=== PATIENT | male | born 1955 | race Caucasian/White ===

== ENCOUNTER 2018-01-17 11:04 | Inpatient (IN) | payer MEDICARE, OTHER ==
[2018-01-17] MEDS ORDERED: SODIUM CHLORIDE 0.9% 1,000 ML IV ONE (11:09)
[2018-01-17] MEDS ORDERED: DIPH,PERTUS(ACELL)TETVAC-LF 0.5 ML VIAL IM ONE (11:09)
--- NOTE | 2018-01-17 11:38 | ED ---
General Adult HPI - General Chief complaint: Altered Mental Status Stated complaint: altered Time Seen by Provider: 01/17/18 11:09 Source: patient, RN notes reviewed Mode of arrival: EMS Limitations: no limitations - History of Present Illness Initial comments: Patient is a pleasant 62-year-old male presenting to the emergency Department with change in mental status. Patient was last seen normal last night. Patient was found on the ground this morning with change in mental status. Patient admits he does have a history of seizures. Patient does have an implantable neurostimulator. Patient states he is not taking any medication at this time. Patient denies any alcohol use. Unclear last tetanus immunization. Patient denies any significant injury. Patient has no specific complaints at this time. - Related Data Allergies Allergy/AdvReac Type Severity Reaction Status Date / Time quetiapine [From Seroquel] Allergy Unknown Verified 01/17/18 13:00 Review of Systems ROS Statement: Those systems with pertinent positive or pertinent negative responses have been documented in the HPI. ROS Other: All systems not noted in ROS Statement are negative. Constitutional: Denies: fever Eyes: Denies: eye pain ENT: Denies: ear pain Respiratory: Denies: cough Cardiovascular: Denies: chest pain Endocrine: Denies: fatigue Gastrointestinal: Denies: abdominal pain Genitourinary: Denies: dysuria Musculoskeletal: Denies: back pain Skin: Denies: rash Neurological: Denies: confusion Past Medical History Past Medical History: Seizure Disorder History of Any Multi-Drug Resistant Organisms: None Reported Additional Past Surgical History / Comment(s): brain stimulater Past Psychological History: No Psychological Hx Reported Smoking Status: Current every day smoker Past Alcohol Use History: None Reported, Abuse, Daily Past Drug Use History: None Reported General Exam Limitations: no limitations General appearance: other (Drowsy but arousable to voice) Head exam: Present: other (Forehead abrasion) Eye exam: Present: normal appearance, PERRL, EOMI, nystagmus ENT exam: Present: normal oropharynx Neck exam: Present: other (C-collar is in place). Absent: tenderness Respiratory exam: Present: normal lung sounds bilaterally Cardiovascular Exam: Present: regular rate, normal rhythm GI/Abdominal exam: Present: soft. Absent: tenderness Extremities exam: Present: normal inspection. Absent: pedal edema, calf tenderness Neurological exam: Present: CN II-XII intact, other (Patient is drowsy but easily arousable to voice). Absent: motor sensory deficit Expanded Neurological exam: Present: protecting the airway Patient oriented to: Present: person, time. Absent: place (Patient knows he is in the hospital however states a different hospital) Cranial nerves: EOM's Intact: Normal, Facial Sensation: Normal Sensory exam: Upper Extremity Light Touch: Normal, Lower Extremity Light Touch: Normal Motor strength exam: RUE: 5, LUE: 5, RLE: 4, LLE: 4 Eye Response: (4) open spontaneously Motor Response: (6) obeys commands Verbal Response: (4) confused conversation Psychiatric exam: Present: normal affect, normal mood Skin exam: Present: normal color Course Vital Signs 01/17/18 01/17/18 01/17/18 11:06 11:55 12:36 Temperature 97.6 F Pulse Rate 81 78 Respiratory 18 22 18 Rate Blood Pressure 70/48 71/46 70/40 O2 Sat by Pulse 95 94 L Oximetry 01/17/18 13:01 Temperature Pulse Rate 78 Respiratory 18 Rate Blood Pressure 78/48 O2 Sat by Pulse 94 L Oximetry - Reevaluation(s) Reevaluation #1: 01/17/18 13:03 Patient reevaluated and unchanged. Patient remains hypotensive after 1 L of normal saline. Case was discussed in detail with Dr. Rollins, who will admit. 01/17/18 13:16 Case also discussed with Dr. Ramirez, who will consult. EKG Findings - EKG Comments: EKG Findings:: Sinus rhythm at 81. QRS 74. QT 336. QTc 390. Normal axis. Artifact is present from the stimulator. Normal QRS. No acute ST change. Procedures - Central Line Placement Right Femoral Consent Obtained: verbal consent, written consent, emergent situation Time Out Performed: Yes Patient Placed on Monitor/Pulse Ox: Yes MD Prep: mask, gown, gloves Central Line Prep: Povidone-Iodine 1% Local Anesthesia Used: Lidocaine 1% Amount of Anesthesia Used (mls): 2 Ultrasound Used for Placement: No Central Line Lumen Inserted: triple Bloods Obtained for Lab: No Central Line Position: good blood return, all ports aspirated, flushed, capped, sutured in place with 3-0 nylon Dressing Applied: Tegaderm Patient Tolerated Procedure: well Complications: none Medical Decision Making - Lab Data Result diagrams: 01/17/18 11:29 01/17/18 11:25 Lab Results 01/17/18 01/17/18 01/17/18 Range/Units 11:25 11:25 11:29 WBC 9.6 (3.8-10.6) k/uL RBC 4.05 L (4.30-5.90) m/uL Hgb 12.9 L (13.0-17.5) gm/dL Hct 38.4 L (39.0-53.0) % MCV 94.8 (80.0-100.0) fL MCH 31.8 (25.0-35.0) pg MCHC 33.5 (31.0-37.0) g/dL RDW 12.9 (11.5-15.5) % Plt Count 161 (150-450) k/uL Neutrophils % 89 % Lymphocytes % 5 % Monocytes % 4 % Eosinophils % 1 % Basophils % 0 % Neutrophils # 8.5 H (1.3-7.7) k/uL Lymphocytes # 0.5 L (1.0-4.8) k/uL Monocytes # 0.4 (0-1.0) k/uL Eosinophils # 0.1 (0-0.7) k/uL Basophils # 0.0 (0-0.2) k/uL PT (9.0-12.0) sec INR (<1.2) APTT (22.0-30.0) sec Sodium 136 L (137-145) mmol/L Potassium 6.1 H (3.5-5.1) mmol/L Chloride 108 H (98-107) mmol/L Carbon Dioxide 13 L (22-30) mmol/L Anion Gap 15 mmol/L BUN 75 H (9-20) mg/dL Creatinine 4.68 H (0.66-1.25) mg/dL Est GFR (CKD-EPI)AfAm 14 (>60 ml/min/1.73 sqM) Est GFR (CKD-EPI)NonAf 12 (>60 ml/min/1.73 sqM) Glucose 101 H (74-99) mg/dL Calcium 7.9 L (8.4-10.2) mg/dL Total Bilirubin 0.5 (0.2-1.3) mg/dL AST 222 H (17-59) U/L ALT 53 (21-72) U/L Alkaline Phosphatase 68 (38-126) U/L Total Creatine Kinase 79595 H (55-170) U/L CK-MB (CK-2) 64.2 H* (0.0-2.4) ng/mL CK-MB (CK-2) Rel Index Troponin I <0.012 (0.000-0.034) ng/mL Total Protein 6.7 (6.3-8.2) g/dL Albumin 3.8 (3.5-5.0) g/dL Salicylates <1.0 mg/dL Acetaminophen <10.0 ug/mL Serum Alcohol <10 mg/dL 01/17/18 Range/Units 11:29 WBC (3.8-10.6) k/uL RBC (4.30-5.90) m/uL Hgb (13.0-17.5) gm/dL Hct (39.0-53.0) % MCV (80.0-100.0) fL MCH (25.0-35.0) pg MCHC (31.0-37.0) g/dL RDW (11.5-15.5) % Plt Count (150-450) k/uL Neutrophils % % Lymphocytes % % Monocytes % % Eosinophils % % Basophils % % Neutrophils # (1.3-7.7) k/uL Lymphocytes # (1.0-4.8) k/uL Monocytes # (0-1.0) k/uL Eosinophils # (0-0.7) k/uL Basophils # (0-0.2) k/uL PT 10.8 (9.0-12.0) sec INR 1.1 (<1.2) APTT 22.6 (22.0-30.0) sec Sodium (137-145) mmol/L Potassium (3.5-5.1) mmol/L Chloride (98-107) mmol/L Carbon Dioxide (22-30) mmol/L Anion Gap mmol/L BUN (9-20) mg/dL Creatinine (0.66-1.25) mg/dL Est GFR (CKD-EPI)AfAm (>60 ml/min/1.73 sqM) Est GFR (CKD-EPI)NonAf (>60 ml/min/1.73 sqM) Glucose (74-99) mg/dL Calcium (8.4-10.2) mg/dL Total Bilirubin (0.2-1.3) mg/dL AST (17-59) U/L ALT (21-72) U/L Alkaline Phosphatase (38-126) U/L Total Creatine Kinase (55-170) U/L CK-MB (CK-2) (0.0-2.4) ng/mL CK-MB (CK-2) Rel Index Troponin I (0.000-0.034) ng/mL Total Protein (6.3-8.2) g/dL Albumin (3.5-5.0) g/dL Salicylates mg/dL Acetaminophen ug/mL Serum Alcohol mg/dL - Radiology Data Radiology results: report reviewed ( of the cervical spine shows no fracture. Mild spondylitic changes.), image reviewed (Chest x-ray shows patchy right basilar atelectasis vs. infiltrate.) Critical Care Time Critical Care Time: Yes Total Critical Care Time: 43 Disposition Clinical Impression: Altered mental status, Rhabdomyolysis Disposition: ADMITTED IP TO THIS [facility] Condition: Critical Is patient prescribed a controlled substance at d/c from ED?: No Referrals: None,Stated [Primary Care Provider] - 1-2 days Decision Time: 13:04
[2018-01-17 11:41] LABS: Basophils % (A) 0 %; Eosinophils # (A) 0.1 k/uL (0-0.7); Eosinophils % (A) 1 %; HCT 38.4 % (39.0-53.0); HGB 12.9 gm/dL (13.0-17.5); Lymphocytes # (A) 0.5 k/uL (1.0-4.8); Lymphocytes % (A) 5 %; MCH 31.8 pg (25.0-35.0); MCHC 33.5 g/dL (31.0-37.0); MCV 94.8 fL (80.0-100.0); Mean Platelet Volume 8.8; Monocytes # (A) 0.4 k/uL (0-1.0); Monocytes % (A) 4 %; Neutrophils # (A) 8.5 k/uL (1.3-7.7); Neutrophils % (A) 89 %; Platelet Count 161 k/uL (150-450); RBC 4.05 m/uL (4.30-5.90); RDW 12.9 % (11.5-15.5); WBC 9.6 k/uL (3.8-10.6)
[2018-01-17 11:49] LABS: INR 1.1 (<1.2); Partial Thromboplastin Time 22.6 sec (22.0-30.0); Prothrombin Time 10.8 sec (9.0-12.0)
--- NOTE | 2018-01-17 11:49 | XR ---
EXAMINATION TYPE: XR chest 1V portable DATE OF EXAM: 01/17/2018 Comparison: None Clinical History: 62-year-old male confusion, altered mental status Findings: Degenerative devices projecting over the bilateral upper hemithoraces. Heart upper limits of normal i n size. Diffuse interstitial opacities with patchy medial right basilar density. No significant pleur al effusion. Impression: Patchy medial right basilar atelectasis or infiltrate. Correlate with patient's symptoms.
[2018-01-17 11:50] LABS: ALT 53 U/L (21-72); AST 222 U/L (17-59); Acetaminophen <10.0 ug/mL; Albumin 3.8 g/dL (3.5-5.0); Alcohol <10 mg/dL; Alkaline Phosphatase 68 U/L (38-126); Anion Gap 15 mmol/L; Blood Urea Nitrogen 75 mg/dL (9-20); Calcium 7.9 mg/dL (8.4-10.2); Carbon Dioxide 13 mmol/L (22-30); Chloride 108 mmol/L (98-107); Glucose 101 mg/dL (74-99); Potassium 6.1 mmol/L (3.5-5.1); Salicylate <1.0 mg/dL; Sodium 136 mmol/L (137-145); Total Bilirubin 0.5 mg/dL (0.2-1.3); Total Protein 6.7 g/dL (6.3-8.2)
[2018-01-17] MEDS ORDERED: SODIUM CHLORIDE 0.9% 1,000 ML IV STA ×3 (12:00→13:04)
[2018-01-17 12:26] LABS: Troponin I <0.012 ng/mL (0.000-0.034)
[2018-01-17] MEDS ORDERED: SODIUM BICARB 8.4% 50 ML SYR (1 MEQ/ML) IV ONE (12:35)
--- NOTE | 2018-01-17 12:45 | CT ---
EXAMINATION TYPE: CT brain sully huggins DATE OF EXAM: 01/17/2018 COMPARISON: None HISTORY: Fall today CT DLP: 2774.3 mGycm Automated exposure control for dose reduction was used. TECHNIQUE: CT scan of the head and cervical spine are performed without contrast. FINDINGS: Ventricles of normal size. There is no mass effect nor midline shift. There is no sign of intracranial hemorrhage. There are metal implanted electrodes in the left and right thalamus. The ca lvarium is intact. There is mild right frontal scalp soft tissue swelling. Cervical vertebra have normal alignment. There is hypertrophic mild facet arthropathy in the mid cerv ical spine. There is spurring at C4-5 C5-6 anteriorly. The skull base is intact. IMPRESSION: Mild spondylotic changes in the cervical spine. No fracture. Right frontal scalp soft tissue swelling. No acute intracranial abnormality.
[2018-01-17 12:49] LABS: Creatine Kinase 15399 U/L (55-170); Creatine Kinase MB 64.2 ng/mL (0.0-2.4)
[2018-01-17] MEDS ORDERED: NALOXONE 0.4 MG/ML 1 ML VIAL IV PRN (13:17)
[2018-01-17] MEDS ORDERED: LEVOFLOXACIN 750MG-D5W PMX 750 MG in DEXTROSE/WATER 1 150ML.BAG IVPB STA (13:22)
[2018-01-17] MEDS ORDERED: LEVOFLOXACIN 750MG-D5W PMX 750 MG in DEXTROSE/WATER 1 150ML.BAG IVPB SCH (13:30)
[2018-01-17] MEDS ORDERED: SODIUM CHLORIDE 0.9% 1,000 ML IV SCH (13:30)
[2018-01-17] MEDS ORDERED: NOREPINEPHRINE 16 MG in SODIUM CHLORIDE 0.9% 250 ML IV SCH (13:45)
[2018-01-17 14:31] LABS: Appearance,Urine Cloudy (Clear); Bilirubin,Urine Negative (Negative); Blood,Urine Large (Negative); Budding Yeast,Urine Occasional /hpf; Color,Urine Yellow; Glucose,Urine (UA) Negative (Negative); Hyaline Casts,Urine 4 /lpf (0-2); Ketones,Urine Negative (Negative); Leukocyte Esterase,Urine Negative (Negative); Mucus,Urine Rare /hpf; Nitrite,Urine Negative (Negative); PH, Urine 5.5 (5.0-8.0); Protein,Urine 1+ (Negative); RBC,Urine 34 /hpf (0-5); Specific Gravity,Urine 1.012 (1.001-1.035); Squamous Epithelial Cell,Urine <1 /hpf (0-4); Urobilinogen,Urine <2.0 mg/dL (<2.0); WBC,Urine 6 /hpf (0-5)
[2018-01-17 14:40] LABS: Amphetamine Screen,Urine Not Detected (NotDetected); Barbiturate Screen,Urine Not Detected (NotDetected); Benzodiazepines Screen,Urine Detected (NotDetected); Cocaine Screen,Urine Not Detected (NotDetected); Methadone Screen, Urine Not Detected (NotDetected); Opiate Screen,Urine Detected (NotDetected); Oxycodone Screen, Urine Not Detected (NotDetected); Phencyclidine Screen,Urine Not Detected (NotDetected); Tricyclic Antidepressant,Urine Detected (NotDetected); Urn Cannabinoid Scrn Not Detected (NotDetected)
[2018-01-17 16:13] LABS: Glucose,Whole Blood 147 mg/dL (75-99)
[2018-01-17 18:08] LABS: Calcium 6.5 mg/dL (8.4-10.2)
[2018-01-17] MEDS ORDERED: DEXTROSE 50%-WATER 50 ML SYRINGE IVP STA (18:26)
[2018-01-17] MEDS ORDERED: SODIUM POLYSTYRENE SULFONATE 15 GM/60 ML BOTTLE PO STA (18:26)
[2018-01-17] MEDS: DEXTROSE 5% IN WATER 1,000 ML with SODIUM BICARB (1 MEQ/ML) 150 ML IV SCH (18:49)
[2018-01-17] MEDS ORDERED: INSULIN REGULAR 100 UNIT/ML VIAL IV ONE (19:00)
[2018-01-17] MEDS ORDERED: CALCIUM GLUCONATE 2,000 MG in SODIUM CHLORIDE 0.9% 100 ML IVPB ONE (19:00)
[2018-01-17] MEDS ORDERED: ALBUTEROL NEBULIZED (CONC) 20 MG, SODIUM CHLORIDE 0.9% NEBULIZ 3 ML INHALATION ONE ×2 (19:16)
--- NOTE | 2018-01-17 20:35 | P.CNNES ---
History of Present Illness Consult date: 01/17/18 Reason for Consult: Patient admitted with altered mental status and slurred speech. History of Present Illness: This patient is a 62-year-old right-handed white male who was brought into the emergency room at [facility] for evaluation of altered mental status and confusion. Patient was brought in to the emergency room and was evaluated by Dr. Reyes. According to the patient he was not feeling well the night before and she was found on the ground early this morning with change in mental status by his friend. Patient states that he recently was from his is in the process of applying for divorce and was for 48 years. He has been under a great deal of stress and apparently had an episode in which she collapsed and was found unresponsive at home by his friend. He is living with his friend currently as he has left his . The friend found him today and decided to bring him to the emergency room for further evaluation. He was seen in the ER by Dr. Reyes. He was sent for a computed tomography scan of the brain which revealed no acute intracranial abnormality. There was right frontal scalp soft tissue swelling noted as well as abrasion on his forehead. There was no evidence of any cervical changes as there was mild spondylitic changes in the cervical spine with no evidence of cervical spine fracture. His x-ray of the chest was performed in the ER and revealed a questionable infiltrate. He did have significant findings in the ER for dehydration and rhabdomyolysis. Patient states he has a history of underlying seizure disorder which was treated by placement of a deep brain stimulator in November 2015 at [facility]. His primary neurologist is Dr. Taylor with whom he follows on a regular basis outpatient. Patient states he has this deep brain stimulator to help with management of his seizures. He is not very clear on the details of this need deep brain stimulator as to whether he also uses it for treatment of tremors. Patient states that he has not had seizures since November 2015 following the implantation of this neurostimulator. According to the patient his neurostimulator is MRI compatible and we will need to check with [email or web address]) to see if this is the case. The patient states that he was noticing difficulty with slurred speech most of yesterday and today. He still feels his speech is slurred. We have recommended the patient to undergo MRI of the brain for further evaluation for acute stroke provided that his neurostimulator is MRI compatible. We have informed the ICU nurse to contact [employer] as well as his previous physicians to see if information can be gleaned as to whether his neurostimulator is MRI compatible. This would be the best test for further evaluation. As noted routine CAT scan of the brain failed to reveal any evidence of acute findings. In the emergency room the patient was noted to have evidence of acute renal failure with a serum creatinine of 4.68. Repeat testing today in the ICU reveals a creatinine to have come down slightly to 3.8. He was also noted to have hyperkalemia and will be treated for this condition as well by nephrology. Apparently he has been falling quite frequently over the past several days at home. His total creatinine kinase on admission was 15,399. CK-MB was very elevated at 64.2. He does have evidence of renal failure and wear waiting further recommendations from nephrology. The patient states clearly his speech is slurred today in the ICU. He attributes a lot of his current findings and symptoms due to extreme stress from his divorce that is ongoing. He is currently living with his friend at home. According to the patient he is not on any anticonvulsant medications. We did review his records and he is currently not taking any specific anticonvulsant medications. According to the patient he remains seizure-free with the use of his neurostimulator. We did review the results of the CAT scan of the brain and cervical spine today with the patient. He denies any previous history of TIA or stroke. He is being treated for his rhabdomyolysis and severe hypotension by critical care medicine and nephrology. Patient denies any headache or focal weakness at this time. In the intensive care unit today however he does demonstrate evidence for slight degree of dysarthria with slurring of his words. He also has a mild right-sided facial droop. His questionable right pronator drift as well. We have recommended the patient undergo a complete stroke evaluation. Once again we would recommend MRI of the brain provided his neurotransmitter is MRI compatible. This will need to be verified from the company that manufactures this deep brain stimulator which is [email or web address] We have relayed this information to his ICU nurse Ginger who will contact the appropriate authorities tomorrow morning. We will put in for an MRI of the brain and will await their final decision. We will also obtain carotid Doppler ultrasound and EEG for further assessment of stroke. His overall prognosis at this time remains very guarded. Review of Systems Constitutional: Denies chills, Denies fever Eyes: denies blurred vision, denies pain Ears, nose, mouth and throat: Denies headache, Denies sore throat Cardiovascular: Denies chest pain, Denies shortness of breath Respiratory: Denies cough Gastrointestinal: Denies abdominal pain, Denies diarrhea, Denies nausea, Denies vomiting Musculoskeletal: Denies myalgias Integumentary: Denies pruritus, Denies rash Neurological: Reports aphasia, Reports change in mentation, Reports confusion, Reports headaches, Reports motor disturbance, Reports paresthesias, Reports tremors, Denies numbness, Denies weakness Psychiatric: Denies anxiety, Denies depression Endocrine: Denies fatigue, Denies weight change Past Medical History Past Medical History: Seizure Disorder History of Any Multi-Drug Resistant Organisms: None Reported Additional Past Surgical History / Comment(s): brain stimulater Smoking Status: Current every day smoker - Past Family History Father Family Medical History: Coronary Artery Disease (CAD), Diabetes Mellitus Sister(s) Family Medical History: Diabetes Mellitus Mother Family Medical History: Dementia Medications and Allergies Home Medications Medication Instructions Recorded Confirmed Type Albuterol Sulfate [Proair Hfa] 1 - 2 puff INHALATION RT-QID PRN 01/17/18 History Atorvastatin Calcium [Lipitor] 10 mg PO DAILY 01/17/18 01/17/18 History Cyclobenzaprine [Flexeril] 10 mg PO TID PRN 01/17/18 01/17/18 History Diazepam [Valium] 10 mg PO DAILY 01/17/18 01/17/18 History Gabapentin [Neurontin] 300 mg PO TID 01/17/18 01/17/18 History HYDROcodone/APAP 5-325MG [[place] 1 - 2 tab PO Q4-6H PRN 01/17/18 01/17/18 History 5-325] Lisinopril [Prinivil] 5 mg PO DAILY 01/17/18 01/17/18 History Nadolol [Corgard] 80 mg PO DAILY 01/17/18 01/17/18 History Omeprazole 20 mg PO DAILY 01/17/18 01/17/18 History Penicillin V Potassium [Pen Vee K] 500 mg PO QID 01/17/18 01/17/18 History Prazosin HCl 2 mg PO HS 01/17/18 01/17/18 History Tamsulosin HCl [Flomax] 0.4 mg PO DAILY 01/17/18 01/17/18 History Vortioxetine Hydrobromide 20 mg PO DAILY 01/17/18 01/17/18 History [Trintellix] amLODIPine [Norvasc] 5 mg PO DAILY 01/17/18 01/17/18 History hydrOXYzine HCL [Atarax] 10 mg PO TID 01/17/18 01/17/18 History metFORMIN HCL [Glucophage] 1,000 mg PO BID 01/17/18 01/17/18 History predniSONE See Taper PO DAILY 01/17/18 01/17/18 History Allergies Allergy/AdvReac Type Severity Reaction Status Date / Time quetiapine [From Seroquel] Allergy Diarrhea Verified 01/17/18 18:05 Physical Examination - Vital Signs Vital Signs: Vital Signs Temp Pulse Resp BP Pulse Ox 01/17/18 18:00 75 16 107/68 99 01/17/18 17:40 67 18 98/65 98 01/17/18 17:20 71 27 H 102/68 98 01/17/18 17:00 69 26 H 103/63 98 01/17/18 16:40 69 13 97/70 99 01/17/18 16:28 97.5 F L 68 14 91/69 97 01/17/18 16:20 97.5 F L 68 26 H 91/69 97 01/17/18 16:11 74 24 01/17/18 15:42 18 99/59 94 L 01/17/18 15:02 75 18 89/54 98 01/17/18 14:00 76 20 85/51 95 01/17/18 13:01 78 18 78/48 94 L 01/17/18 12:36 78 18 70/40 94 L 01/17/18 11:55 22 71/46 01/17/18 11:06 97.6 F 81 18 70/48 95 Intake and Output 01/17/18 01/17/18 01/17/18 06:59 14:59 22:59 Intake Total 3367.087 Output Total 1100 Balance 2267.087 Intake: IV 150 Sodium Chloride 0.9% 1, 150 000 ml @ 150 mls/hr IV . Q6H40M ONE Rx#:[id number] Amount of Fluid Infused ( 3200 ml) Intake, IV Titration 17.087 Amount Norepinephrine 16 mg In 17.087 Sodium Chloride 0.9% 250 ml @ Titrate IV .Q0M [facility] Rx#:[id number] Output: Urine 1100 Other: Weight 89.358 kg 89.358 kg - Constitutional General appearance: average body habitus, cooperative - EENT EENT: PERRL, mucous membranes moist - Respiratory Respiratory: lungs clear, normal breath sounds - Cardiovascular Cardiovascular: regular rate, normal S1, normal S2 Extremities: no peripheral edema bilaterally - Gastrointestinal Gastrointestinal: normoactive bowel sounds - Integumentary Integumentary: normal - Neurologic Cranial nerve examination: PERRL, EOMI, VFF, V1/V2/V3 grossly intact, tongue midline, intact gag reflex, intact corneal reflex, facial droop (Patient has a slight right upper motor neuron facial weakness pattern.), normal palatal elevation Speech examination: intact Sensorimotor examination: intact Motor examination - right side: 3/5: biceps, triceps, mcat instructor, 4/5: wrist flexion, wrist extension, hip flexors, knee extensors, dorsiflexion, toe extension (EHL) , plantarflexion Motor examination - left side: 4/5: biceps, triceps, wrist flexion, wrist extension, mcat instructor, hip flexors, knee extensors, dorsiflexion, toe extension (EHL) , plantarflexion Detailed sensory examination: intact Reflex and gait examination: intact Reflexes: 1+: ankle, bicep, knee, tricep - Musculoskeletal Musculoskeletal: no pain - Psychiatric Psychiatric: mood/affect appropriate, cooperative Results - Laboratory Findings CBC and BMP: 01/17/18 11:29 01/17/18 17:35 Abnormal Lab Findings: Abnormal Labs 01/17/18 01/17/18 01/17/18 11:25 11:25 11:29 RBC 4.05 L Hgb 12.9 L Hct 38.4 L Neutrophils # 8.5 H Lymphocytes # 0.5 L Sodium 136 L Potassium 6.1 H Chloride 108 H Carbon Dioxide 13 L BUN 75 H Creatinine 4.68 H Glucose 101 H POC Glucose (mg/dL) Calcium 7.9 L AST 222 H Total Creatine Kinase 13250 H CK-MB (CK-2) 64.2 H* Urine Protein Urine Blood Urine RBC Urine WBC Hyaline Casts Urine Mucus Urine Yeast (Budding) Urine Opiates Screen U Tricyclic Antidepress U Benzodiazepines Scrn 01/17/18 01/17/18 01/17/18 14:00 16:10 17:35 RBC Hgb Hct Neutrophils # Lymphocytes # Sodium Potassium 6.0 H Chloride 112 H Carbon Dioxide 16 L BUN 73 H Creatinine 3.80 H Glucose 146 H POC Glucose (mg/dL) 147 H Calcium 6.5 L* AST Total Creatine Kinase CK-MB (CK-2) Urine Protein 1+ H Urine Blood Large H Urine RBC 34 H Urine WBC 6 H Hyaline Casts 4 H Urine Mucus Rare H Urine Yeast (Budding) Occasional H Urine Opiates Screen Detected H U Tricyclic Antidepress Detected H U Benzodiazepines Scrn Detected H Assessment and Plan (1) Left acute arterial ischemic stroke, MCA (middle cerebral artery) Current Visit: Yes Status: Acute Code(s): I63.512 - CEREB INFRC D/T UNSP OCCLS OR STENOS OF LEFT MID CEREB ART SNOMED Code(s): 595845535 (2) Metabolic encephalopathy Current Visit: Yes Status: Acute Code(s): G93.41 - METABOLIC ENCEPHALOPATHY SNOMED Code(s): 71109786 (3) Acute kidney injury Current Visit: Yes Status: Acute Code(s): N17.9 - ACUTE KIDNEY FAILURE, UNSPECIFIED SNOMED Code(s): 54921954 (4) Rhabdomyolysis Current Visit: Yes Status: Acute Code(s): M62.82 - RHABDOMYOLYSIS SNOMED Code(s): 819338479 Plan: This patient is a 62-year-old right-handed white male was brought into the emergency room admit clear at [facility] today for evaluation of altered mental status and history of seizures and fallen at home. Patient has a history of a deep brain stimulator placement that was done in November 2015 and [facility]. Apparently since November 2015 he has remained seizure-free. He has recently been involved in divorce hearing and is under a great deal of stress which may have contributed to his fall at home recently. He was brought into the emergency room and underwent a computed tomography scan of the brain results of which are noted above. CAT scan of the brain failed to reveal any acute changes. We have recommended an MRI of the brain provided his deep brain stimulator is MRI compatible. The patient should undergo a complete stroke evaluation. His neurological exam findings indicate evidence for mild expressive aphasia as well as right-sided facial droop and mild weakness. These findings suggest possibility of acute left MCA stroke. We have recommended a complete stroke evaluation for the patient. His deep brain stimulator for treatment of his seizure disorder remains functional. He should follow-up with this regular neurologist once he is discharged from hospital for further management. According to the patient he has been having slurred speech for several weeks at home. Due to his multiple falls he did seek further medical attention. He is being evaluated for acute kidney injury as well due to severe rhabdomyolysis. We will continue close neurological follow-up for this patient during this admission. His overall prognosis at this time remains very guarded. We will continue close neurological follow-up with this patient in the intensive care unit. Time with Patient: Greater than 30
[2018-01-17 20:43] LABS: Calcium 7.1 mg/dL (8.4-10.2); Potassium 4.8 mmol/L (3.5-5.1)
[2018-01-18] MEDS: DEXTROSE 5% IN WATER 1,000 ML with SODIUM BICARB (1 MEQ/ML) 150 ML IV SCH ×2 (02:20→10:46)
[2018-01-18 05:50] LABS: Basophils % (A) 0 %; Eosinophils # (A) 0.1 k/uL (0-0.7); Eosinophils % (A) 2 %; HCT 31.4 % (39.0-53.0); HGB 10.7 gm/dL (13.0-17.5); Lymphocytes # (A) 0.5 k/uL (1.0-4.8); Lymphocytes % (A) 10 %; MCH 31.6 pg (25.0-35.0); MCHC 33.9 g/dL (31.0-37.0); MCV 93.3 fL (80.0-100.0); Mean Platelet Volume 7.9; Monocytes # (A) 0.2 k/uL (0-1.0); Monocytes % (A) 4 %; Neutrophils # (A) 4.3 k/uL (1.3-7.7); Neutrophils % (A) 82 %; Platelet Count 123 k/uL (150-450); RBC 3.37 m/uL (4.30-5.90); RDW 13.1 % (11.5-15.5); WBC 5.3 k/uL (3.8-10.6)
[2018-01-18 06:12] LABS: Cholesterol 96 mg/dL (<200); HDL Cholesterol 25 mg/dL (40-60); LDL Cholesterol,Calculated 35 mg/dL (0-99); Triglycerides 178 mg/dL (<150)
[2018-01-18 06:13] LABS: Albumin 2.7 g/dL (3.5-5.0); Calcium 7.1 mg/dL (8.4-10.2); Phosphorus 4.2 mg/dL (2.5-4.5); Potassium 4.4 mmol/L (3.5-5.1); Total Bilirubin 0.3 mg/dL (0.2-1.3); Total Protein 5.1 g/dL (6.3-8.2)
[2018-01-18 06:30] LABS: Magnesium 0.6 mg/dL (1.6-2.3)
[2018-01-18] MEDS ORDERED: Magnesium Replacement Protocol 1 EACH MISC MISCELLANE PRN (06:30)
[2018-01-18] MEDS: MAGNESIUM SULFATE-D5W PMX 1 GM in DEXTROSE/WATER 1 100ML.BAG IVPB SCH ×4 (06:38→10:45)
--- NOTE | 2018-01-18 07:53 | HP ---
HISTORY AND PHYSICAL CHIEF COMPLAINT: Syncopal episode and rhabdomyolysis. HISTORY OF PRESENT ILLNESS: This is the first known admission for this 62-year-old white male. There are few known details. He apparently was found outside where he may have been down over night. He presented to the emergency room for rhabdomyolysis. He probably has a seizure disorder and has implantable electronic devices on both sides of the chest, which are thought to be for management of seizures. The patient is lethargic and cannot give any other history. There are some papers that have been received from Re[facility] Bateman from 2017 that indicate that he has a history of parkinsonism and significant psychosocial issues. There may be a history of an aneurysm, but it is not known where it was. He has benign prostatic hypertrophy, COPD, history of coronary artery disease, depression, type 2 diabetes, hyperlipidemia and hypertension. Past medical history, family history, personal and social histories are all otherwise unknown. His records indicate that he may be allergic to SEROQUEL. The emergency room report indicates that he has been on albuterol, amlodipine, Lipitor, Flexeril, Valium, glipizide, Atarax, lisinopril, metformin, Nadolol, prazosin, penicillin, Prilosec, prednisone, tamsulosin and Trintellix. Laboratory studies indicated a potassium 6.1 and AST 222. BUN is 75 with a creatinine of 4.6. Blood sugar was 101. PHYSICAL EXAMINATION: Blood pressure 70/40 with a pulse of 78 and regular, respirations of 36 and he is afebrile. GENERAL: He appeared to be well developed, well nourished, in no acute distress but he was lethargic. Head, ears, eyes, nose, mouth and throat demonstrated abrasion on the right forehead. His pupils equal, round and reactive. Gaze is conjugate. Ears are clear. Nose, mouth and throat were normal. Carotids normal. Neck veins are not distended. Chest is clear. Breath sounds are heard on both sides. Cardiac exam demonstrated what sounded like sinus rhythm and no murmurs or extra sounds. Abdomen is soft, nontender without visceromegaly or masses. Bowel sounds are present. Extremities are normal. Neurologically, he is lethargic, but he seemed to be intact from the sensory motor point of view. He was admitted to the hospital with diagnoses: 1. Syncope and mental status changes with rhabdomyolysis. 2. History of seizure disorder. 3. History of hypertension. 4. History of type 2 diabetes mellitus. PLAN: 1. Bed rest. 2. IV fluids. 3. Monitor renal function. 4. Consult with media professional and he will be placed in ICU. MARQUIS / LUCILLE: [id number] /
--- NOTE | 2018-01-18 08:07 | XR ---
EXAMINATION TYPE: XR chest 1V DATE OF EXAM: 01/18/2018 COMPARISON: 01/17/2018 HISTORY: Altered mental status TECHNIQUE: Single frontal view of the chest is obtained. FINDINGS: Devices projecting over the bilateral upper hemithoraces. Heart upper limits of normal in size. Diffuse interstitial opacities with patchy medial right basilar density. No significant pleural effusion. IMPRESSION: 1. Persistent prominence to the interstitium right basilar subsegmental atelectasis favored over infi ltrate. Correlate for interstitial pneumonitis or mild venous congestion.
--- NOTE | 2018-01-18 08:31 | P.CNPUL ---
History of Present Illness Consult date: 01/18/18 Requesting physician: Carloz Rollins Reason for consult: other Chief complaint: Altered mental status, falls, rhabdomyolysis acute kidney injury History of present illness: This is a 62-year-old white male patient follows with Dr.Peter Ram from [facility] for primary care services, who presented to the emergency department per EMS on 01/17/2018 evaluation of altered mental status, recurrent falls. Patient is living with his friend, currently going through separation from his , and he stated his friend was concerned about patient's falls for last 3 days and called EMS. Patient had a root canal procedure, and his dentist started him on [place], sometime last week, and patient had noticed being more sedated. Patient denies any visual changes, denies any numbness or tingling, denies any lateralized weakness. He states his slurred speech is his baseline. Denies any visual changes. He still feels lightheaded this morning. He denies having any chest pain or palpitations or shortness of breath prior to his falls, denies losing consciousness. He did feel lightheaded before falling. Patient denies history of seizures, patient has an implantable neurostimulator for his history of central brain tremors that [place] [address] Vera. Denies any history of atrial fibrillation or any other arrhythmias, no prior strokes. Past medical history is positive for hypertension, diabetes mellitus, coronary artery disease with prior angioplasty. He follows with a social services specialist out of [facility]. Denies history of EtOH use of the past 5 years, patient is a smoker, 1-1/2 packs per day for [address] and cervical neck did not show any sign of intracranial hemorrhage, no mass affect normal midline shift. Metal implanted electrodes in the left and right thalamus were noted. Was mild right frontal scalp soft tissue swelling. There was mild spondylotic changes in the cervical spine, no fractures. EKG showed accelerated junctional rhythm with a rate of 81 BPM, with nonspecific ST abnormality. Initial chest x-ray showed patchy medial right basilar atelectasis or infiltrate. Patient denied any fever or chills, denied any shortness of breath, no cough. Patient was hypotensive on presentation her blood pressure 70/48, he was given 2 L of normal saline. Subsequent started on D5W with 3 A of sodium bicarb at a rate of 150 ML per hour. Levofed was started and subsequently weaned off. Lab work was negative for any evidence of leukocytosis, WBC is 9.6, hemoglobin is 12.9, sodium is 139 , potassium is 4.8, chloride was 112, CO2 was 14, BUN 70, creatinine is 3.40, magnesium of 0.6, total CK was 15,399, CK-MB was 64.2, troponin was negative 1 , urinalysis showed 1+ protein, large amount of blood, negative for leukocyte esterase and nitrites, occasional yeast, and mucus. Drug screen detected opiates, tricyclic antidepressants, and benzodiazepines. Serum alcohol level was less than 10, salicylate level was less than 1.0. And acetaminophen level was less than 10. This morning's lab work has been reviewed, CO2 is up to 23, renal profile is showing improvement, BUN is down to 55, creatinine is 2.7. Patient remains off vasopressor support, he is awake alert, denies any acute distress, his speech is slow, and slightly slurred, but patient states is his baseline. Seems a bit sluggish overall. Tolerating oral intake, he is eating his breakfast. Self catheter is in, and draining large amount of clear yellow urine. Review of Systems All systems: negative Constitutional: Denies chills, Denies fever Eyes: denies blurred vision, denies pain Ears, nose, mouth and throat: Denies headache, Denies sore throat Cardiovascular: Denies chest pain, Denies shortness of breath Respiratory: Denies cough Gastrointestinal: Denies abdominal pain, Denies diarrhea, Denies nausea, Denies vomiting Musculoskeletal: Denies myalgias Integumentary: Denies pruritus, Denies rash Neurological: Reports balance difficulties, Reports gait dysfunction, Denies numbness, Denies weakness Psychiatric: Denies anxiety, Denies depression Endocrine: Denies fatigue, Denies weight change Past Medical History Past Medical History: Seizure Disorder Additional Past Medical History / Comment(s): pt has a deep brain stimulator - an implanted neurotransmitter; angioplasty 25 years ago History of Any Multi-Drug Resistant Organisms: None Reported Additional Past Surgical History / Comment(s): brain stimulater Past Anesthesia/Blood Transfusion Reactions: No Reported Reaction Smoking Status: Current every day smoker - Past Family History Father Family Medical History: Coronary Artery Disease (CAD), Diabetes Mellitus Sister(s) Family Medical History: Diabetes Mellitus Mother Family Medical History: Dementia Medications and Allergies Home Medications Medication Instructions Recorded Confirmed Type Albuterol Sulfate [Proair Hfa] 1 - 2 puff INHALATION RT-QID PRN 01/17/18 History Atorvastatin Calcium [Lipitor] 10 mg PO DAILY 01/17/18 01/17/18 History Cyclobenzaprine [Flexeril] 10 mg PO TID PRN 01/17/18 01/17/18 History Diazepam [Valium] 10 mg PO DAILY 01/17/18 01/17/18 History Gabapentin [Neurontin] 300 mg PO TID 01/17/18 01/17/18 History HYDROcodone/APAP 5-325MG [[place] 1 - 2 tab PO Q4-6H PRN 01/17/18 01/17/18 History 5-325] Lisinopril [Prinivil] 5 mg PO DAILY 01/17/18 01/17/18 History Nadolol [Corgard] 80 mg PO DAILY 01/17/18 01/17/18 History Omeprazole 20 mg PO DAILY 01/17/18 01/17/18 History Penicillin V Potassium [Pen Vee K] 500 mg PO QID 01/17/18 01/17/18 History Prazosin HCl 2 mg PO HS 01/17/18 01/17/18 History Tamsulosin HCl [Flomax] 0.4 mg PO DAILY 01/17/18 01/17/18 History Vortioxetine Hydrobromide 20 mg PO DAILY 01/17/18 01/17/18 History [Trintellix] amLODIPine [Norvasc] 5 mg PO DAILY 01/17/18 01/17/18 History hydrOXYzine HCL [Atarax] 10 mg PO TID 01/17/18 01/17/18 History metFORMIN HCL [Glucophage] 1,000 mg PO BID 01/17/18 01/17/18 History predniSONE See Taper PO DAILY 01/17/18 01/17/18 History Allergies Allergy/AdvReac Type Severity Reaction Status Date / Time quetiapine [From Seroquel] Allergy Diarrhea Verified 01/17/18 18:05 Physical Exam Vitals: Vital Signs Temp Pulse Resp BP Pulse Ox 01/18/18 07:00 87 21 111/65 97 01/18/18 06:00 88 23 112/68 95 01/18/18 05:00 88 18 114/64 95 01/18/18 04:00 98.8 F 91 24 113/65 96 01/18/18 03:00 91 21 111/66 96 01/18/18 02:30 90 23 98 18 02:00 90 18 119/68 98 18 01:30 90 20 116/73 97 01/18/18 01:00 87 21 123/70 98 01/18/18 00:30 85 20 116/71 96 01/18/18 00:00 98.3 F 82 20 117/65 97 01/17/18 23:30 81 18 110/68 97 01/17/18 23:00 81 15 114/69 97 01/17/18 22:45 81 20 121/73 96 01/17/18 22:30 82 19 111/68 95 01/17/18 22:15 82 18 112/67 95 01/17/18 22:00 83 16 105/72 97 01/17/18 21:45 82 23 113/69 97 01/17/18 21:30 80 17 116/72 97 01/17/18 21:15 80 12 113/66 97 01/17/18 21:00 80 14 109/69 97 01/17/18 20:30 83 16 111/68 98 01/17/18 20:15 80 18 01/17/18 20:00 98.1 F 84 17 111/64 97 01/17/18 19:57 86 18 01/17/18 19:30 88 19 110/67 99 01/17/18 18:00 75 16 107/68 99 01/17/18 17:40 67 18 98/65 98 01/17/18 17:20 71 27 H 102/68 98 01/17/18 17:00 69 26 H 103/63 98 01/17/18 16:40 69 13 97/70 99 01/17/18 16:28 97.5 F L 68 14 91/69 97 18 16:20 97.5 F L 68 26 H 91/69 97 01/17/18 16:11 74 24 18 15:42 18 99/59 94 L 01/17/18 15:02 75 18 89/54 98 01/17/18 14:00 76 20 85/51 95 01/17/18 13:01 78 18 78/48 94 L 01/17/18 12:36 78 18 70/40 94 L 01/17/18 11:55 22 71/46 01/17/18 11:06 97.6 F 81 18 70/48 95 Intake and Output 01/17/18 01/18/18 01/18/18 22:59 06:59 14:59 Intake Total 4128.552 1350 Output Total 2250 2045 Balance 1878.552 -695 Intake: IV 900 1350 Dextrose 5% in Water 1, 600 1350 000 ml @ 150 mls/hr IV . Q7H40M MARITA with Sodium Bicarb (1 Meq/ml) 150 ml Rx#:[id number] Sodium Chloride 0.9% 1, 300 000 ml @ 150 mls/hr IV . Q6H40M ONE Rx#:[id number] Amount of Fluid Infused ( 3200 ml) Intake, IV Titration 28.552 Amount Norepinephrine 16 mg In 28.552 Sodium Chloride 0.9% 250 ml @ Titrate IV .Q0M MARTIA Rx#:[id number] Output: Urine 2250 2045 Other: Voiding Method Indwelling Catheter Indwelling Catheter Weight 89.358 kg 88.2 kg GENERAL EXAM: Alert, slightly sluggish, 62-year-old white male comfortable in no apparent distress. HEAD: Normocephalic/atraumatic. Large nondraining abrasion on his right forehead EYES: Normal reaction of pupils, equal size. Conjunctiva pink, sclera white. NOSE: Clear with pink turbinates. THROAT: No erythema or exudates. NECK: No masses, no JVD, no thyroid enlargement, no adenopathy. CHEST: No chest wall deformity. Symmetrical expansion. LUNGS: Equal air entry with diffuse crackles bilaterally, and scattered rhonchi. CVS: Regular rate and rhythm, normal S1 and S2, no gallops, no murmurs, no rubs ABDOMEN: Soft, nontender. No hepatosplenomegaly, normal bowel sounds, no guarding or rigidity. EXTREMITIES: No clubbing, no edema, no cyanosis, 2+ pulses and upper and lower extremities. MUSCULOSKELETAL: Muscle strength and tone normal. SPINE: No scoliosis or deformity SKIN: No rashes CENTRAL NERVOUS SYSTEM: Alert and oriented -3. No focal deficits, tone is normal in all 4 extremities. PSYCHIATRIC: Alert and oriented -3. Appropriate affect. Intact judgment and insight. Results - Laboratory Findings CBC and BMP: 01/18/18 05:23 01/18/18 05:23 PT/INR, D-dimer PT 10.8 sec (9.0-12.0) 01/17/18 11:29 INR 1.1 (<1.2) 01/17/18 11:29 Abnormal lab findings: Abnormal Labs 01/17/18 01/17/18 01/17/18 11:25 11:25 11:29 RBC 4.05 L Hgb 12.9 L Hct 38.4 L Plt Count Neutrophils # 8.5 H Lymphocytes # 0.5 L Sodium 136 L Potassium 6.1 H Chloride 108 H Carbon Dioxide 13 L BUN 75 H Creatinine 4.68 H Glucose 101 H POC Glucose (mg/dL) Calcium 7.9 L Magnesium AST 222 H ALT Total Creatine Kinase 97343 H CK-MB (CK-2) 64.2 H* Total Protein Albumin Triglycerides HDL Cholesterol Urine Protein Urine Blood Urine RBC Urine WBC Hyaline Casts Urine Mucus Urine Yeast (Budding) Urine Opiates Screen U Tricyclic Antidepress U Benzodiazepines Scrn 01/17/18 01/17/18 01/17/18 14:00 16:10 17:35 RBC Hgb Hct Plt Count Neutrophils # Lymphocytes # Sodium Potassium 6.0 H Chloride 112 H Carbon Dioxide 16 L BUN 73 H Creatinine 3.80 H Glucose 146 H POC Glucose (mg/dL) 147 H Calcium 6.5 L* Magnesium AST ALT Total Creatine Kinase CK-MB (CK-2) Total Protein Albumin Triglycerides HDL Cholesterol Urine Protein 1+ H Urine Blood Large H Urine RBC 34 H Urine WBC 6 H Hyaline Casts 4 H Urine Mucus Rare H Urine Yeast (Budding) Occasional H Urine Opiates Screen Detected H U Tricyclic Antidepress Detected H U Benzodiazepines Scrn Detected H 01/17/18 01/18/18 01/18/18 20:25 05:23 05:23 RBC Hgb Hct Plt Count Neutrophils # Lymphocytes # Sodium 136 L Potassium Chloride 112 H Carbon Dioxide 14 L BUN 70 H 55 H Creatinine 3.40 H 2.70 H Glucose 148 H 162 H POC Glucose (mg/dL) Calcium 7.1 L 7.1 L Magnesium 0.6 L* AST 282 H ALT 79 H Total Creatine Kinase CK-MB (CK-2) Total Protein 5.1 L Albumin 2.7 L Triglycerides 178 H HDL Cholesterol 25 L Urine Protein Urine Blood Urine RBC Urine WBC Hyaline Casts Urine Mucus Urine Yeast (Budding) Urine Opiates Screen U Tricyclic Antidepress U Benzodiazepines Scrn 01/18/18 05:23 RBC 3.37 L Hgb 10.7 L Hct 31.4 L Plt Count 123 L Neutrophils # Lymphocytes # 0.5 L Sodium Potassium Chloride Carbon Dioxide BUN Creatinine Glucose POC Glucose (mg/dL) Calcium Magnesium AST ALT Total Creatine Kinase CK-MB (CK-2) Total Protein Albumin Triglycerides HDL Cholesterol Urine Protein Urine Blood Urine RBC Urine WBC Hyaline Casts Urine Mucus Urine Yeast (Budding) Urine Opiates Screen U Tricyclic Antidepress U Benzodiazepines Scrn - Diagnostic Findings Chest x-ray: report reviewed, image reviewed Additional studies: EKG, CT brain and cervical spine reviewed Assessment and Plan Plan: Assessment: #1. Altered mentation possibly related to metabolic encephalopathy or a stroke #2. Recurrent falls at home #3. Rhabdomyolysis #4. Acute kidney injury #5. History of central brain tremors, status post neurostimulator implantation #6. Hypertension #7. Diabetes mellitus #8. History of coronary artery disease, status post remote PTCA #9. Anemia #10. Hypomagnesemia #11. History of recent root canal, and patient was initiated on the [place] for pain control #12. Ongoing tobacco dependence, smokes 1-1/2 pack a day for 50 years Plan: Patient is completing his neurologic evaluation to rule out stroke. We'll repeat CPK this morning, serum magnesium will be replaced per protocol, monitor neurological status, continue monitoring electrolytes and renal profile, urine output, hemodynamics. We'll request records from [facility] from patient's treating neurologist and social services specialist. Patient is tolerating oral intake, CO2 is within normal range, patient is hemodynamically more stable. Should be able to discontinue his bicarb drip, will check with the nephrology. Continue to closely follow I performed a history & physical examination of the patient and discussed their management with my nurse practitioner, Esthela Mejía. I reviewed the nurse practitioner's note and agree with the documented findings and plan of care. Lung sounds are positive for diffuse crackles and scattered rhonchi. The findings and the impression was discussed with the patient. I attest to the documentation by the nurse practitioner. Time with Patient: Greater than 30
[2018-01-18] MEDS: ENOXAPARIN 30 MG/0.3 ML SYRINGE SQ SCH (08:47)
[2018-01-18] MEDS: PANTOPRAZOLE 40 MG/10 ML VIAL IV SCH (08:47)
[2018-01-18] MEDS: ACETAMINOPHEN TAB 325 MG TAB PO PRN (11:55)
[2018-01-18 12:04] LABS: Glucose,Whole Blood 300 mg/dL (75-99)
[2018-01-18] MEDS: INSULIN ASPART 100 UNIT/ML 1 ML 10 ML VIAL SQ SCH ×3 (12:19→20:56)
[2018-01-18] MEDS: SODIUM CHLORIDE 0.9% 1,000 ML IV SCH ×2 (12:20→20:56)
[2018-01-18 12:41] LABS: Hemoglobin A1C 6.7 % (4.0-6.0)
[2018-01-18] MEDS ORDERED: ALBUTEROL NEBULIZED 2.5 MG/3 ML INHALATION PRN (14:20)
[2018-01-18 15:50] LABS: Creatine Kinase MB 16.7 ng/mL (0.0-2.4)
--- NOTE | 2018-01-18 16:36 | PN ---
PROGRESS NOTE CHIEF COMPLAINT: Rhabdomyolysis. HISTORY OF PRESENT ILLNESS: This gentleman is slowly improving, but he seems weak and his speech does not seem to be clear or normal. BUN 73, the creatinine is 3.8 and his calcium is 6.5. PHYSICAL EXAM: His chest is fairly clear. The cardiac exam is normal. Abdomen is soft, nontender. IMPRESSION: 1. Rhabdomyolysis. 2. Encephalopathy. 3. Renal failure. 4. Seizure disorder. 5. Hypocalcemia. PLAN: Continue with current program and he will be in the ICU until he is more awake and cognitive function is improved. MMODL / IJN: [id number] /
--- NOTE | 2018-01-18 16:36 | CONS ---
CONSULTATION REASON FOR CONSULTATION: Renal failure. HISTORY OF PRESENT ILLNESS: The patient is a 62-year-old male who was admitted to the hospital after a fall at home. Patient was confused. He had been living with a friend after being from his . Patient had a root canal procedure about a week ago. He denies using any Motrin; however, he was given Mather. The patient states that he was lightheaded, confused, and he fell. CT of the face and head on initial admission did not show any evidence of bleeding. The patient was quite hypotensive when he initially presented to the hospital. He has received 3-4 L of fluid bolus. He denies any prior history of kidney diseases. Serum creatinine was 4.68 on initial admission. It is down to 2.7 now. We do not have any previous labs available for comparison. Patient was also acidotic and CO2 was down to 13. He was maintained on bicarb drip. It is up to 23 now. Currently patient has good urine output. He is maintained on the IV bicarb. At home patient was on lisinopril. He was also on Norvasc, which is still present on his current med list. CK was also elevated at 15,399. PAST MEDICAL HISTORY: 1. Hypertension. 2. Seizure disorder. Patient has a deep brain stimulator. SOCIAL HISTORY: Positive for smoking. No history of drug abuse or alcohol abuse. HOME MEDICATIONS: 1. Albuterol. 2. Flexeril. 3. Valium. 4. Neurontin. 5. Prinivil. 6. Corgard. 7. Omeprazole. 8. Penicillin. 9. Prazosin. 10.Flomax. 11.Norvasc. 12.Atarax. 13.Glucophage. 14.Prednisone. ALLERGIES: SEROQUEL causes diarrhea. PHYSICAL EXAMINATION: Patient is currently comfortable. He is awake. He is not in any acute distress. Blood pressure this morning was 118/67, heart rate 82 per minute. He is afebrile. EXAMINATION OF THE HEART: S1, S2. EXAMINATION OF LUNGS: Bilateral breath sounds are heard. ABDOMEN: Soft, non-tender. Examination of lower extremities shows no significant edema. Patient's left side of his jaw is tender, looks mildly edematous. He has on the right side of his forehead. LAB: Sodium 136, potassium 4.4, chloride 105, BUN 55, serum creatinine 2.7, hemoglobin 10.7 g/dL. Magnesium was low at 0.6. Calcium 6.5. It is now up to 7.1. ASSESSMENT: 1. Acute kidney injury secondary to hypotension, hypoperfusion, currently improving. Patient is nonoliguric. Continue with aggressive IV hydration. 2. Metabolic acidosis, gap and non-gap, secondary to renal failure and hypoperfusion. Lactic acid level was not done. He is status post bicarb drip. I will discontinue the bicarb drip and switch to normal saline. 3. Severe hypomagnesemia. Will replace. 4. Status post fall secondary to hypotension and possibly mental status changes associated with Mather. 5. Rhabdomyolysis. 6. Recent dental procedure with CT not showing any evidence of significant abscess. PLAN: Continue aggressive IV hydration. Switch to normal saline. Discontinue the lisinopril and Norvasc. If patient is acidotic again on tomorrow's labs, we will resume the bicarb drip in view of the rhabdomyolysis. Renal function is currently progressively improving. Thank you for this consultation. We will continue to follow the patient with you during his hospitalization. MMODL / IJN: [id number] /
[2018-01-18] MEDS: GABAPENTIN 300 MG CAP PO SCH ×2 (17:25→21:00)
[2018-01-18 17:28] LABS: Glucose,Whole Blood 147 mg/dL (75-99)
--- NOTE | 2018-01-18 20:14 | CT ---
EXAMINATION: CT brain wo con DATE AND TIME: 01/18/2018 5:20 PM CLINICAL INDICATION: Altered Mental Status TECHNIQUE: Standard departmental protocol. 826.8 COMPARISON: 01/17/2018 12:01 PM FINDINGS: The bilateral electrodes are unchanged. There is no hemorrhage. No definite acute attenuation defect. The calvarium is intact. Remainder of the extra-axial and intra-axial compartment evaluation is unchanged. The paranasal sinuses, middle ear cavities, and mastoid sinus air cells are clear. The orbits are unremarkable. IMPRESSION: NO ACUTE PROCESS.
[2018-01-18 20:36] LABS: Glucose,Whole Blood 151 mg/dL (75-99)
[2018-01-18] MEDS: ASPIRIN 81 MG PO SCH (20:55)
[2018-01-18] MEDS: PRAZOSIN 1 MG CAP PO SCH (20:57)
[2018-01-19 04:32] LABS: Basophils % (A) 0 %; Eosinophils # (A) 0.2 k/uL (0-0.7); Eosinophils % (A) 3 %; HCT 30.4 % (39.0-53.0); HGB 10.5 gm/dL (13.0-17.5); Lymphocytes # (A) 0.8 k/uL (1.0-4.8); Lymphocytes % (A) 12 %; MCH 32.1 pg (25.0-35.0); MCHC 34.6 g/dL (31.0-37.0); Mean Platelet Volume 8.1; Monocytes # (A) 0.3 k/uL (0-1.0); Monocytes % (A) 4 %; Neutrophils # (A) 5.5 k/uL (1.3-7.7); Neutrophils % (A) 79 %; Platelet Count 141 k/uL (150-450); RBC 3.27 m/uL (4.30-5.90); RDW 12.9 % (11.5-15.5); WBC 6.9 k/uL (3.8-10.6)
[2018-01-19 04:45] LABS: Calcium 7.1 mg/dL (8.4-10.2); Magnesium 1.3 mg/dL (1.6-2.3); Phosphorus 3.5 mg/dL (2.5-4.5); Potassium 4.2 mmol/L (3.5-5.1)
[2018-01-19] MEDS: MAGNESIUM SULFATE-D5W PMX 1 GM in DEXTROSE/WATER 1 100ML.BAG IVPB SCH ×3 (05:21→08:38)
[2018-01-19 06:42] LABS: Glucose,Whole Blood 149 mg/dL (75-99)
[2018-01-19] MEDS: SODIUM CHLORIDE 0.9% 1,000 ML IV SCH ×2 (06:44→17:57)
[2018-01-19] MEDS: INSULIN ASPART 100 UNIT/ML 1 ML 10 ML VIAL SQ SCH ×4 (06:44→21:38)
--- NOTE | 2018-01-19 08:27 | P.PN ---
Subjective Progress Note Date: 01/19/18 Principal diagnosis: Altered mental status, falls, rhabdomyolysis, acute kidney injury This is a 62-year-old white male patient follows with Dr.Peter Ram from [facility] for primary care services, who presented to the emergency department per EMS on 01/17/2018 evaluation of altered mental status, recurrent falls. Patient is living with his friend, currently going through separation from his , and he stated his friend was concerned about patient's falls for last 3 days and called EMS. Patient had a root canal procedure, and his dentist started him on [place], sometime last week, and patient had noticed being more sedated. Patient denies any visual changes, denies any numbness or tingling, denies any lateralized weakness. He states his slurred speech is his baseline. Denies any visual changes. He still feels lightheaded this morning. He denies having any chest pain or palpitations or shortness of breath prior to his falls, denies losing consciousness. He did feel lightheaded before falling. Patient denies history of seizures, patient has an implantable neurostimulator for his history of central brain tremors that [place] [address] Vera. Denies any history of atrial fibrillation or any other arrhythmias, no prior strokes. Past medical history is positive for hypertension, diabetes mellitus, coronary artery disease with prior angioplasty. He follows with a line assigner out of [facility]. Denies history of EtOH use of the past 5 years, patient is a smoker, 1-1/2 packs per day for [address] and cervical neck did not show any sign of intracranial hemorrhage, no mass affect normal midline shift. Metal implanted electrodes in the left and right thalamus were noted. Was mild right frontal scalp soft tissue swelling. There was mild spondylotic changes in the cervical spine, no fractures. EKG showed accelerated junctional rhythm with a rate of 81 BPM, with nonspecific ST abnormality. Initial chest x-ray showed patchy medial right basilar atelectasis or infiltrate. Patient denied any fever or chills, denied any shortness of breath, no cough. Patient was hypotensive on presentation her blood pressure 70/48, he was given 2 L of normal saline. Subsequent started on D5W with 3 A of sodium bicarb at a rate of 150 ML per hour. Levofed was started and subsequently weaned off. Lab work was negative for any evidence of leukocytosis, WBC is 9.6, hemoglobin is 12.9, sodium is 139 , potassium is 4.8, chloride was 112, CO2 was 14, BUN 70, creatinine is 3.40, magnesium of 0.6, total CK was 15,399, CK-MB was 64.2, troponin was negative 1 , urinalysis showed 1+ protein, large amount of blood, negative for leukocyte esterase and nitrites, occasional yeast, and mucus. Drug screen detected opiates, tricyclic antidepressants, and benzodiazepines. Serum alcohol level was less than 10, salicylate level was less than 1.0. And acetaminophen level was less than 10. This morning's lab work has been reviewed, CO2 is up to 23, renal profile is showing improvement, BUN is down to 55, creatinine is 2.7. Patient remains off vasopressor support, he is awake alert, denies any acute distress, his speech is slow, and slightly slurred, but patient states is his baseline. Seems a bit sluggish overall. Tolerating oral intake, he is eating his breakfast. Self catheter is in, and draining large amount of clear yellow urine. On 01/19/2018 patient seen again in follow-up in the intensive care unit. He is been awaiting a bed in the stepdown unit. Hemodynamically stable, he is on room air, pulse ox is 97%, afebrile, sinus rhythm on the monitor, no cardiac arrhythmias. Today's chest x-ray has been reviewed by Dr. Figueroa, and shows normal chest x-ray, slightly underpenetrated. This morning patient noted to be confused, and delirious, hallucinating. He is drowsy on today's examination, speech is sluggish, he is oriented to the city, month and the year. He did not know he was in the hospital. Slight left facial droop, and left facial home care physical therapist is slightly weaker than the right. Still feels lightheaded. MRI of the brain could not be completed related to the presence of neurostimulator's. He is scheduled for EEG today, EEG was attempted yesterday but the neurostimulator activity was interfering and the exam was postponed until today. His labs were reviewed, WBC 6.9, hemoglobin is 10.5, electrolytes are relatively unremarkable , renal profile is improving, BUN is down to 27, creatinine is down to 1.8. Recurrent drip was discontinued per nephrology, current maintenance IV fluids is 0.9 normal saline at a rate of 100 ML per hour, total CK is trending down, down to 9609. Lung sounds are positive for coarse rhonchi, patient has a weak cough, we will provide incentive spirometer, encouraged patient to deep breathe and cough, increase activity, but patient sit up in the chair. Patient may need close supervision, and possibly consumer safety officer for prevention of falls. Objective - Vital Signs Vital signs: Vital Signs Temp 98.5 F 01/19/18 04:05 Pulse 86 01/19/18 04:05 Resp 18 01/19/18 04:05 BP 127/71 01/19/18 04:05 Pulse Ox 90 L 01/19/18 04:05 Intake & Output 01/18/18 01/19/18 01/19/18 18:59 06:59 18:59 Intake Total 1350 1200 Output Total 1585 1915 Balance -235 -715 Weight 88.2 kg 82.4 kg Intake: IV 1350 1200 Dextrose 5% in Water 1, 450 000 ml @ 150 mls/hr IV . Q7H40M MARITA with Sodium Bicarb (1 Meq/ml) 150 ml Rx#:[id number] Magnesium Sulfate-D5w Pmx 400 100 1 gm In Dextrose/Water 1 100ml.bag @ 100 mls/hr IVPB Q1H MARITA Rx#: [id number] Sodium Chloride 0.9% 1, 500 1100 000 ml @ 100 mls/hr IV . Q10H MARITA Rx#:[id number] Output: Urine 1585 1915 Other: Voiding Method Indwelling Catheter Indwelling Catheter - Exam GENERAL EXAM: slightly sluggish, 62-year-old white male admitted drowsy, but comfortable in no apparent distress. HEAD: Normocephalic/atraumatic. Large nondraining abrasion on his right forehead EYES: Normal reaction of pupils, equal size. Conjunctiva pink, sclera white. NOSE: Clear with pink turbinates. THROAT: No erythema or exudates. NECK: No masses, no JVD, no thyroid enlargement, no adenopathy. CHEST: No chest wall deformity. Symmetrical expansion. LUNGS: Equal air entry with diffuse scattered rhonchi. CVS: Regular rate and rhythm, normal S1 and S2, no gallops, no murmurs, no rubs ABDOMEN: Soft, nontender. No hepatosplenomegaly, normal bowel sounds, no guarding or rigidity. EXTREMITIES: No clubbing, no edema, no cyanosis, 2+ pulses and upper and lower extremities. MUSCULOSKELETAL: Muscle strength and tone normal. SPINE: No scoliosis or deformity SKIN: No rashes CENTRAL NERVOUS SYSTEM: Drowsy, oriented to the city, and month and the year but not the place. Soft with facial droop, and left-sided weakness PSYCHIATRIC: A bit drowsy, at times delirious and hallucinating. - Labs CBC & Chem 7: 01/19/18 04:20 01/19/18 04:20 Labs: Abnormal Lab Results - Last 24 Hours (Table) 01/18/18 01/18/18 01/18/18 Range/Units 05:23 12:02 14:50 RBC (4.30-5.90) m/uL Hgb (13.0-17.5) gm/dL Hct (39.0-53.0) % Plt Count (150-450) k/uL Lymphocytes # (1.0-4.8) k/uL Sodium (137-145) mmol/L BUN (9-20) mg/dL Creatinine (0.66-1.25) mg/dL Glucose (74-99) mg/dL POC Glucose (mg/dL) 300 H (75-99) mg/dL Hemoglobin A1c 6.7 H (4.0-6.0) % Calcium (8.4-10.2) mg/dL Magnesium (1.6-2.3) mg/dL Creatine Kinase (55-170) U/L Total Creatine Kinase 87031 H (55-170) U/L CK-MB (CK-2) 16.7 H* (0.0-2.4) ng/mL 01/18/18 01/18/18 01/19/18 Range/Units 17:27 20:34 04:20 RBC (4.30-5.90) m/uL Hgb (13.0-17.5) gm/dL Hct (39.0-53.0) % Plt Count (150-450) k/uL Lymphocytes # (1.0-4.8) k/uL Sodium 136 L (137-145) mmol/L BUN 27 H (9-20) mg/dL Creatinine 1.80 H (0.66-1.25) mg/dL Glucose 113 H (74-99) mg/dL POC Glucose (mg/dL) 147 H 151 H (75-99) mg/dL Hemoglobin A1c (4.0-6.0) % Calcium 7.1 L (8.4-10.2) mg/dL Magnesium 1.3 L (1.6-2.3) mg/dL Creatine Kinase 9609 H (55-170) U/L Total Creatine Kinase (55-170) U/L CK-MB (CK-2) (0.0-2.4) ng/mL 01/19/18 01/19/18 Range/Units 04:20 06:40 RBC 3.27 L (4.30-5.90) m/uL Hgb 10.5 L (13.0-17.5) gm/dL Hct 30.4 L (39.0-53.0) % Plt Count 141 L (150-450) k/uL Lymphocytes # 0.8 L (1.0-4.8) k/uL Sodium (137-145) mmol/L BUN (9-20) mg/dL Creatinine (0.66-1.25) mg/dL Glucose (74-99) mg/dL POC Glucose (mg/dL) 149 H (75-99) mg/dL Hemoglobin A1c (4.0-6.0) % Calcium (8.4-10.2) mg/dL Magnesium (1.6-2.3) mg/dL Creatine Kinase (55-170) U/L Total Creatine Kinase (55-170) U/L CK-MB (CK-2) (0.0-2.4) ng/mL Microbiology - Last 24 Hours (Table) 01/17/18 14:00 Blood Culture - Preliminary Blood No Growth after 24 hours Assessment and Plan Plan: Assessment: #1. Altered mentation possibly related to metabolic encephalopathy or a stroke #2. Recurrent falls at home #3. Rhabdomyolysis, improving #4. Acute kidney injury, improving #5. History of central brain tremors, status post neurostimulator implantation #6. Hypertension #7. Diabetes mellitus #8. History of coronary artery disease, status post remote PTCA #9. Anemia #10. Hypomagnesemia #11. History of recent root canal, and patient was initiated on the [place] for pain control #12. Ongoing tobacco dependence, smokes 1-1/2 pack a day for 50 years Plan: Patient is hemodynamically stable, no recurrent arrhythmias on the monitor, on room air, renal profile is improving, chest x-ray was reviewed, and is within normal limits. Increase activity, let patient sit up in the chair, encourage deep breathing and coughing, provide incentive spirometry. Continue monitor neurological status, continue monitoring for signs of delirium, patient may need a consumer safety officer for prevention of falls. From pulmonary critical care standpoint patient is stable to answer out of the intensive care to general medical floor I performed a history & physical examination of the patient and discussed their management with my nurse practitioner, Esthela Mejía. I reviewed the nurse practitioner's note and agree with the documented findings and plan of care. Lung sounds are positive for diffuse scattered rhonchi. The findings and the impression was discussed with the patient. I attest to the documentation by the nurse practitioner. Time with Patient: Less than 30
[2018-01-19] MEDS: GABAPENTIN 300 MG CAP PO SCH ×2 (08:39→15:34)
[2018-01-19] MEDS: ENOXAPARIN 30 MG/0.3 ML SYRINGE SQ SCH (08:39)
[2018-01-19] MEDS: ACETAMINOPHEN TAB 325 MG TAB PO PRN ×2 (08:39→15:51)
[2018-01-19] MEDS: TAMSULOSIN 0.4 MG CAP.ER.24H PO SCH (08:39)
[2018-01-19] MEDS: ATORVASTATIN 10 MG TAB PO SCH (08:39)
[2018-01-19] MEDS: PANTOPRAZOLE 40 MG/10 ML VIAL IV SCH (08:40)
[2018-01-19] MEDS: OXYBUTYNIN XL 5 MG TAB.ER.24 PO SCH (08:46)
[2018-01-19] MEDS: NADOLOL 20 MG TAB PO SCH (08:47)
--- NOTE | 2018-01-19 08:58 | XR ---
EXAMINATION TYPE: XR chest 1V DATE OF EXAM: 01/19/2018 COMPARISON: 01/18/2018 INDICATION: Assess lungs, altered mental status, previous abnormal chest x-ray TECHNIQUE: Single frontal view of the chest is obtained. FINDINGS: The heart size is normal. The pulmonary vasculature is normal. There is some slight increasing perihilar infiltrates. Electronic devices over the chest. EKG leads o verlie the chest. IMPRESSION: 1. Mild increasing perihilar infiltrates which are nonspecific. Continued follow-up is recommended
[2018-01-19] MEDS ORDERED: amLODIPine 5 MG TAB PO SCH (09:00)
[2018-01-19] MEDS ORDERED: NON-FORMULARY DRUG (Omeprazole [Omeprazole] 20 MG) PO SCH (09:00)
[2018-01-19] MEDS ORDERED: LISINOPRIL 5 MG TAB PO SCH (09:00)
[2018-01-19] MEDS ORDERED: POLYETHYLENE GLYCOL 3350 17 GM POWD.PACK PO ONE (09:41)
[2018-01-19 11:58] LABS: Glucose,Whole Blood 180 mg/dL (75-99)
[2018-01-19] MEDS ORDERED: LEVOFLOXACIN 500MG-D5W PMX 500 MG in DEXTROSE/WATER 1 100ML.BAG IVPB SCH (14:00)
--- NOTE | 2018-01-19 15:50 | PN ---
PROGRESS NOTE CHIEF COMPLAINT: Rhabdomyolysis and syncope. HISTORY OF PRESENT ILLNESS: This gentleman is coming along slowly. His speech is still somewhat slurred, but this might be normal for him. He is also constipated. Kidney function is still abnormal. PHYSICAL EXAMINATION: His vital signs are stable. Chest is clear. Cardiac exam is normal. IMPRESSION: 1. Rhabdomyolysis. 2. Seizure disorder. 3. Constipation. PLAN: MiraLAX. Continue current program. He may move out to the floor today. MMODL / IJN: [id number] /
--- NOTE | 2018-01-19 16:26 | PN ---
PROGRESS NOTE Patient is seen for followup for acute kidney injury. He was admitted to the hospital with hypotension, hypovolemia and metabolic acidosis. Renal function has been improving. Serum creatinine is down to 1.8 from 4.68 on initial admission. Patient has good urine output. He is off of the bicarb drip and maintained on normal saline. This morning he had been confused. The blood cultures are currently negative. There is no ongoing fever or chills. PHYSICAL EXAMINATION: Blood pressure is 104/55, heart rate of 72 per minute. Patient is afebrile. Examination of the heart: S1, S2. Examination of the lungs: Bilateral breath sounds are heard. Abdomen is soft, nontender. Examination lower extremities shows no significant edema. FORESTER AIDE exam cannot be assessed in detail. The patient is arousable. He did not know where he was. LABS: Show sodium of 136, potassium 4.2, chloride 104, BUN 27, serum creatinine 1.8, hemoglobin 10.5 g/dL. Magnesium was 1.3. ASSESSMENT: 1. Acute kidney injury secondary to hypotension, hypoperfusion, hypovolemia, currently maintained on IV fluids with improvement in renal function. He has component of rhabdomyolysis as well. CK was 9609. The patient is currently nonoliguric. I will continue with normal saline. 2. Status post fall. 3. History of tremors, status post neuro stimulator implantation. 4. History of recent root canal. Maintained on empiric antibiotics. 5. Mental status changes secondary to encephalopathy. CT did not show any evidence of stroke. Currently patient does have low-grade fever. He is maintained on Levaquin. PLAN: Decrease IV fluids to 70 mL an hour. Continue with antibiotics. Decrease Neurontin and repeat labs in a.m. Avoid nephrotoxic agents. Hold off on Minipress. MMODL / IJN: [id number] /
[2018-01-19 17:32] LABS: Glucose,Whole Blood 206 mg/dL (75-99)
[2018-01-19] MEDS ORDERED: POLYETHYLENE GLYCOL 3350 17 GM POWD.PACK PO SCH (21:00)
[2018-01-19 21:34] LABS: Glucose,Whole Blood 138 mg/dL (75-99)
[2018-01-19] MEDS: ASPIRIN 81 MG PO SCH (21:38)
[2018-01-19] MEDS: POLYETHYLENE GLYCOL 3350 17 GM POWD.PACK PO SCH (21:38)
[2018-01-19] MEDS: PRAZOSIN 1 MG CAP PO SCH (22:53)
[2018-01-20 05:03] LABS: Calcium 7.7 mg/dL (8.4-10.2); Magnesium 1.5 mg/dL (1.6-2.3); Phosphorus 3.3 mg/dL (2.5-4.5); Potassium 4.4 mmol/L (3.5-5.1)
[2018-01-20] MEDS: MAGNESIUM SULFATE-D5W PMX 1 GM in DEXTROSE/WATER 1 100ML.BAG IVPB SCH ×2 (06:54→08:51)
[2018-01-20] MEDS: SODIUM CHLORIDE 0.9% 1,000 ML IV SCH ×2 (06:54→21:42)
[2018-01-20 07:35] LABS: Glucose,Whole Blood 139 mg/dL (75-99)
[2018-01-20] MEDS: OXYBUTYNIN XL 5 MG TAB.ER.24 PO SCH (08:50)
[2018-01-20] MEDS: POLYETHYLENE GLYCOL 3350 17 GM POWD.PACK PO SCH ×2 (08:50→21:13)
[2018-01-20] MEDS: ATORVASTATIN 10 MG TAB PO SCH (08:51)
[2018-01-20] MEDS: NADOLOL 20 MG TAB PO SCH (08:51)
[2018-01-20] MEDS: INSULIN ASPART 100 UNIT/ML 1 ML 10 ML VIAL SQ SCH ×4 (08:51→21:35)
[2018-01-20] MEDS: GABAPENTIN 100 MG CAP PO SCH (08:51)
[2018-01-20] MEDS: TAMSULOSIN 0.4 MG CAP.ER.24H PO SCH (08:51)
[2018-01-20] MEDS: ENOXAPARIN 30 MG/0.3 ML SYRINGE SQ SCH (08:51)
[2018-01-20] MEDS: PANTOPRAZOLE 40 MG/10 ML VIAL IV SCH (08:52)
--- NOTE | 2018-01-20 08:54 | XR ---
EXAMINATION TYPE: XR chest 1V DATE OF EXAM: 01/20/2018 COMPARISON: 01/19/2018 HISTORY: 62-year-old male assess lungs, ICU follow-up TECHNIQUE: Single frontal view of the chest is obtained. FINDINGS: Heart upper limits of normal in size. Mild diffuse interstitial prominence is unchanged. There is lesley e peribronchial cuffing present. Generator devices project over both hemithoraces. No chantel consolida tion or pleural effusion. IMPRESSION: Mild diffuse interstitial prominence persists though there is improvement from prior. Query any signs /symptoms of improving mild CHF.
--- NOTE | 2018-01-20 09:50 | P.PN ---
Subjective Progress Note Date: 01/20/18 This is a 62-year-old white male patient follows with Dr.Peter Ram from [place] for primary care services, who presented to the emergency department per EMS on 01/17/2018 evaluation of altered mental status, recurrent falls. Patient is living with his friend, currently going through separation from his , and he stated his friend was concerned about patient's falls for last 3 days and called EMS. Patient had a root canal procedure, and his dentist started him on [place], sometime last week, and patient had noticed being more sedated. Patient denies any visual changes, denies any numbness or tingling, denies any lateralized weakness. He states his slurred speech is his baseline. Denies any visual changes. He still feels lightheaded this morning. He denies having any chest pain or palpitations or shortness of breath prior to his falls, denies losing consciousness. He did feel lightheaded before falling. Patient denies history of seizures, patient has an implantable neurostimulator for his history of central brain tremors that was [place] [address] Vera. Denies any history of atrial fibrillation or any other arrhythmias, no prior strokes. Past medical history is positive for hypertension, diabetes mellitus, coronary artery disease with prior angioplasty. He follows with a florist manager out of [facility]. Denies history of EtOH use of the past 5 years, patient is a smoker, 1-1/2 packs per day for [address] and cervical neck did not show any sign of intracranial hemorrhage, no mass affect normal midline shift. Metal implanted electrodes in the left and right thalamus were noted. Was mild right frontal scalp soft tissue swelling. There was mild spondylotic changes in the cervical spine, no fractures. EKG showed accelerated junctional rhythm with a rate of 81 BPM, with nonspecific ST abnormality. Initial chest x-ray showed patchy medial right basilar atelectasis or infiltrate. Patient denied any fever or chills, denied any shortness of breath, no cough. Patient was hypotensive on presentation her blood pressure 70/48, he was given 2 L of normal saline. Subsequent started on D5W with 3 A of sodium bicarb at a rate of 150 ML per hour. Levofed was started and subsequently weaned off. Lab work was negative for any evidence of leukocytosis, WBC is 9.6, hemoglobin is 12.9, sodium is 139 , potassium is 4.8, chloride was 112, CO2 was 14, BUN 70, creatinine is 3.40, magnesium of 0.6, total CK was 15,399, CK-MB was 64.2, troponin was negative 1 , urinalysis showed 1+ protein, large amount of blood, negative for leukocyte esterase and nitrites, occasional yeast, and mucus. Drug screen detected opiates, tricyclic antidepressants, and benzodiazepines. Serum alcohol level was less than 10, salicylate level was less than 1.0. And acetaminophen level was less than 10. This morning's lab work has been reviewed, CO2 is up to 23, renal profile is showing improvement, BUN is down to 55, creatinine is 2.7. Patient remains off vasopressor support, he is awake alert, denies any acute distress, his speech is slow, and slightly slurred, but patient states is his baseline. Seems a bit sluggish overall. Tolerating oral intake, he is eating his breakfast. Self catheter is in, and draining large amount of clear yellow urine. On 01/19/2018 patient seen again in follow-up in the intensive care unit. He is been awaiting a bed in the stepdown unit. Hemodynamically stable, he is on room air, pulse ox is 97%, afebrile, sinus rhythm on the monitor, no cardiac arrhythmias. Today's chest x-ray has been reviewed by Dr. Figueroa, and shows normal chest x-ray, slightly underpenetrated. This morning patient noted to be confused, and delirious, hallucinating. He is drowsy on today's examination, speech is sluggish, he is oriented to the city, month and the year. He did not know he was in the hospital. Slight left facial droop, and left facial room cleaner is slightly weaker than the right. Still feels lightheaded. MRI of the brain could not be completed related to the presence of neurostimulator's. He is scheduled for EEG today, EEG was attempted yesterday but the neurostimulator activity was interfering and the exam was postponed until today. His labs were reviewed, WBC 6.9, hemoglobin is 10.5, electrolytes are relatively unremarkable , renal profile is improving, BUN is down to 27, creatinine is down to 1.8. Recurrent drip was discontinued per nephrology, current maintenance IV fluids is 0.9 normal saline at a rate of 100 ML per hour, total CK is trending down, down to 9609. Lung sounds are positive for coarse rhonchi, patient has a weak cough, we will provide incentive spirometer, encouraged patient to deep breathe and cough, increase activity, but patient sit up in the chair. Patient may need close supervision, and possibly safety companion for prevention of falls. 01/20/2018 the patient looks better. Is awake and alert and conversing and is appropriate. He does not have any signs of confusion. He continues to receive IV fluids and the patient is currently on 0.9 at 70 mL an hour. Creatinine is down to 1.5. Rhabdomyolysis is also improving and they typically is down trending is down to 9600 from yesterday. A repeat level was not obtained from today. Rest of the electrodes are within normal limits. Serum bicarb is up to 21 and the patient is currently off the bicarb drip. No fever. No chills. No leukocytosis. No hypotension. The patient is on no pressors. Chest x-ray shows some mild diffuse interstitial prominence improved from yesterday's evaluation. As mentioned, the mental status improved. EGD did not show any acute seizure activity and the patient seems to be seizure-free since November 2015. Computed tomography scan of the brain reveals no acute changes. MRI cannot be done as the patient has a brain stimulator in place. There is a concern for a stroke knowing that the patient had some earlier expressive aphasia and questionable right facial droop and weakness but on today's evaluation he is looking better and he states that the speech of his is at this baseline. Objective - Vital Signs Vital signs: Vital Signs Temp 97.8 F 01/20/18 08:55 Pulse 84 01/20/18 08:55 Resp 18 01/20/18 08:55 BP 111/70 01/20/18 08:55 Pulse Ox 98 01/20/18 08:55 Intake & Output 01/19/18 01/20/18 01/20/18 18:59 06:59 18:59 Intake Total 770 1120 Output Total 1200 1100 Balance -430 20 Intake: IV 650 1120 Magnesium Sulfate-D5w Pmx 100 1 gm In Dextrose/Water 1 100ml.bag @ 100 mls/hr IVPB Q1H [facility] Rx#: [id number] Sodium Chloride 0.9% 1, 550 1120 000 ml @ 70 mls/hr IV . [id number] [facility] Rx#:[id number] Oral 120 Output: Urine 1200 1100 Other: Voiding Method Urinal Urinal # Voids 1 - Exam GENERAL EXAM: slightly sluggish, 62-year-old white male admitted drowsy, but comfortable in no apparent distress. HEAD: Normocephalic/atraumatic. Large nondraining abrasion on his right forehead EYES: Normal reaction of pupils, equal size. Conjunctiva pink, sclera white. NOSE: Clear with pink turbinates. THROAT: No erythema or exudates. NECK: No masses, no JVD, no thyroid enlargement, no adenopathy. CHEST: No chest wall deformity. Symmetrical expansion. LUNGS: Equal air entry with diffuse scattered rhonchi. CVS: Regular rate and rhythm, normal S1 and S2, no gallops, no murmurs, no rubs ABDOMEN: Soft, nontender. No hepatosplenomegaly, normal bowel sounds, no guarding or rigidity. EXTREMITIES: No clubbing, no edema, no cyanosis, 2+ pulses and upper and lower extremities. MUSCULOSKELETAL: Muscle strength and tone normal. SPINE: No scoliosis or deformity SKIN: No rashes CENTRAL NERVOUS SYSTEM: Drowsy, oriented to the city, and month and the year but not the place. Soft with facial droop, and left-sided weakness, his gait is unsteady and the patient has a resting tremors and there is obvious motor weakness in all 4 extremities bilaterally. He is a fall risk and he has had history of frequent falls on outpatient basis. PSYCHIATRIC: A bit drowsy,, yet awake and appropriate affect. - Labs CBC & Chem 7: 01/19/18 04:20 01/20/18 04:24 Labs: Abnormal Lab Results - Last 24 Hours (Table) 01/19/18 01/19/18 01/19/18 Range/Units 11:40 17:30 21:33 Sodium (137-145) mmol/L Carbon Dioxide (22-30) mmol/L Creatinine (0.66-1.25) mg/dL Glucose (74-99) mg/dL POC Glucose (mg/dL) 180 H 206 H 138 H (75-99) mg/dL Calcium (8.4-10.2) mg/dL Magnesium (1.6-2.3) mg/dL 01/20/18 01/20/18 Range/Units 04:24 07:30 Sodium 135 L (137-145) mmol/L Carbon Dioxide 21 L (22-30) mmol/L Creatinine 1.56 H (0.66-1.25) mg/dL Glucose 120 H (74-99) mg/dL POC Glucose (mg/dL) 139 H (75-99) mg/dL Calcium 7.7 L (8.4-10.2) mg/dL Magnesium 1.5 L (1.6-2.3) mg/dL Microbiology - Last 24 Hours (Table) 01/17/18 14:00 Blood Culture - Preliminary Blood No Growth after 48 hours Assessment and Plan Plan: Assessment: #1. Altered mentation possibly related to metabolic encephalopathy recovered and the patient is gradually regained back his mentation. His much likely that the patient has frequent falls and he end up in an acute rhabdomyolysis with metabolic disturbances causing altered mentation and metabolic encephalopathy. CAT scan of the brain is negative. MRI of the brain cannot be done for the reasons mentioned earlier as the patient has a neurostimulator in place. #2. Recurrent falls at home #3. Rhabdomyolysis, improving #4. Acute kidney injury, improving #5. History of central brain tremors, status post neurostimulator implantation #6. Hypertension #7. Diabetes mellitus #8. History of coronary artery disease, status post remote PTCA #9. Anemia #10. Hypomagnesemia #11. History of recent root canal, and patient was initiated on the [place] for pain control #12. Ongoing tobacco dependence, smokes 1-1/2 pack a day for 50 years Plan Continued IV fluids. Monitor CPK. Monitor renal function. PTOT evaluation. The patient will likely need evaluation of his home situation and possibly rehabilitation. A walker is recommended for this patient was at a higher risk of falls. No active pulmonary or critical care issues at this point in time. Electrodes are improving. Neuro is on the case. We'll continue to follow. He' ll be going to a medical surgical unit. Discontinue Levaquin.
--- NOTE | 2018-01-20 12:12 | PN ---
PROGRESS NOTE CHIEF COMPLAINT: Rhabdomyolysis. HISTORY OF PRESENT ILLNESS: This patient is fairly stable, but he remains confused. He denies focal neurologic problems, diplopia, chest pain, palpitations, etc. PHYSICAL EXAM: His vital signs are normal. Chest is clear. Cardiac exam is normal. IMPRESSION: 1. Rhabdomyolysis. 2. Renal failure. 3. Mental status changes possibly due to encephalopathy. 4. Seizure disorder. PLAN: Probably move to telemetry. MMODL / IJN: [id number] /
[2018-01-20 12:21] LABS: Glucose,Whole Blood 221 mg/dL (75-99)
--- NOTE | 2018-01-20 13:46 | P.PN ---
Subjective Patient is seen in follow-up for acute kidney injury. Renal function continues to improve with creatinine around 1.56. Currently maintained on normal saline at 70 mL an hour. CK levels are trending down. Oral intake is fair. No vomiting or diarrhea. He has been transferred out of the intensive care unit this morning. Vital signs are stable. General: The patient appeared well nourished and normally developed. HEENT: Head exam is unremarkable. Neck is without jugular venous distension. LUNGS: Lungs are clear to auscultation and percussion. Breath sounds decreased. HEART: Rate and Rhythm are regular. First and second heart sounds normal. No murmurs, rubs or gallops. ABDOMEN: Abdominal exam reveals normal bowel sounds. Non-tender and non- distended. No evidence of peritonitis. EXTREMITITES: No clubbing, cyanosis, or edema. Objective - Vital Signs Vital signs: Vital Signs Temp 97.8 F 01/20/18 08:55 Pulse 84 01/20/18 08:55 Resp 18 01/20/18 08:55 BP 111/70 01/20/18 08:55 Pulse Ox 98 01/20/18 08:55 Intake & Output 01/19/18 01/20/18 01/20/18 18:59 06:59 18:59 Intake Total 770 1120 Output Total 1200 1100 Balance -430 20 Intake: IV 650 1120 Magnesium Sulfate-D5w Pmx 100 1 gm In Dextrose/Water 1 100ml.bag @ 100 mls/hr IVPB Q1H [facility] Rx#: [id number] Sodium Chloride 0.9% 1, 550 1120 000 ml @ 70 mls/hr IV . [id number] [facility] Rx#:[id number] Oral 120 Output: Urine 1200 1100 Other: Voiding Method Urinal Urinal Urinal # Voids 1 - Labs CBC & Chem 7: 01/19/18 04:20 01/20/18 04:24 Labs: Abnormal Lab Results - Last 24 Hours (Table) 01/19/18 01/19/18 01/20/18 Range/Units 17:30 21:33 04:24 Sodium 135 L (137-145) mmol/L Carbon Dioxide 21 L (22-30) mmol/L Creatinine 1.56 H (0.66-1.25) mg/dL Glucose 120 H (74-99) mg/dL POC Glucose (mg/dL) 206 H 138 H (75-99) mg/dL Calcium 7.7 L (8.4-10.2) mg/dL Magnesium 1.5 L (1.6-2.3) mg/dL Creatine Kinase (55-170) U/L 01/20/18 01/20/18 01/20/18 Range/Units 04:24 07:30 12:01 Sodium (137-145) mmol/L Carbon Dioxide (22-30) mmol/L Creatinine (0.66-1.25) mg/dL Glucose (74-99) mg/dL POC Glucose (mg/dL) 139 H 221 H (75-99) mg/dL Calcium (8.4-10.2) mg/dL Magnesium (1.6-2.3) mg/dL Creatine Kinase 3100 H* (55-170) U/L Microbiology - Last 24 Hours (Table) 01/17/18 14:00 Blood Culture - Preliminary Blood No Growth after 48 hours Assessment and Plan Plan: Assessment: 1. Acute kidney injury mostly prerenal secondary to hypotension. Also component of rhabdomyolysis. Creatinine was 4.6 on admission and is down to 1.56 today. 2. Rhabdomyolysis. CK levels trending down. 3. Status post fall. 4. Encephalopathy. CT of the brain was negative for any acute changes. Improved. 5. Severe hypomagnesemia from poor oral intake and diuretics. Also on PPI. Improved post replacement. Plan: Continue normal saline at 70 mL an hour. Status post 2 g of IV magnesium this morning. Encourage oral intake. Avoid nephrotoxic agents and hypotensive episodes. Hold antihypertensives for systolic blood pressure less than 120. Dose of Neurontin was decreased at this admission.
[2018-01-20] MEDS: ACETAMINOPHEN TAB 325 MG TAB PO PRN ×2 (15:48→21:11)
[2018-01-20 17:33] LABS: Glucose,Whole Blood 170 mg/dL (75-99)
[2018-01-20 20:55] LABS: Glucose,Whole Blood 203 mg/dL (75-99)
[2018-01-20] MEDS: PRAZOSIN 1 MG CAP PO SCH (21:12)
[2018-01-20] MEDS: ASPIRIN 81 MG PO SCH (21:41)
[2018-01-21] MEDS: ACETAMINOPHEN TAB 325 MG TAB PO PRN (06:09)
[2018-01-21 07:20] LABS: Glucose,Whole Blood 139 mg/dL (75-99)
[2018-01-21] MEDS: GABAPENTIN 100 MG CAP PO SCH (07:39)
[2018-01-21] MEDS: ATORVASTATIN 10 MG TAB PO SCH (07:39)
[2018-01-21] MEDS: ENOXAPARIN 40 MG/0.4 ML SYRINGE SQ SCH (07:39)
[2018-01-21] MEDS: OXYBUTYNIN XL 5 MG TAB.ER.24 PO SCH (07:39)
[2018-01-21] MEDS: POLYETHYLENE GLYCOL 3350 17 GM POWD.PACK PO SCH ×2 (07:40→20:19)
[2018-01-21] MEDS: TAMSULOSIN 0.4 MG CAP.ER.24H PO SCH (07:40)
[2018-01-21] MEDS: NADOLOL 20 MG TAB PO SCH (07:40)
[2018-01-21] MEDS: PANTOPRAZOLE 40 MG TABLET PO SCH (07:40)
[2018-01-21] MEDS: INSULIN ASPART 100 UNIT/ML 1 ML 10 ML VIAL SQ SCH ×4 (07:41→21:06)
[2018-01-21 11:47] LABS: Glucose,Whole Blood 162 mg/dL (75-99)
[2018-01-21] MEDS: SODIUM CHLORIDE 0.9% 1,000 ML IV SCH (12:22)
--- NOTE | 2018-01-21 13:21 | P.PN ---
Subjective Progress Note Date: 01/21/18 Principal diagnosis: Altered mental status, falls, rhabdomyolysis, acute kidney injury This is a 62-year-old white male patient follows with Dr.Peter Ram from [facility] for primary care services, who presented to the emergency department per EMS on 01/17/2018 evaluation of altered mental status, recurrent falls. Patient is living with his friend, currently going through separation from his , and he stated his friend was concerned about patient's falls for last 3 days and called EMS. Patient had a root canal procedure, and his dentist started him on [place], sometime last week, and patient had noticed being more sedated. Patient denies any visual changes, denies any numbness or tingling, denies any lateralized weakness. He states his slurred speech is his baseline. Denies any visual changes. He still feels lightheaded this morning. He denies having any chest pain or palpitations or shortness of breath prior to his falls, denies losing consciousness. He did feel lightheaded before falling. Patient denies history of seizures, patient has an implantable neurostimulator for his history of central brain tremors that was [place] [address] Vera. Denies any history of atrial fibrillation or any other arrhythmias, no prior strokes. Past medical history is positive for hypertension, diabetes mellitus, coronary artery disease with prior angioplasty. He follows with a superintendent service out of [facility]. Denies history of EtOH use of the past 5 years, patient is a smoker, 1-1/2 packs per day for [address] and cervical neck did not show any sign of intracranial hemorrhage, no mass affect normal midline shift. Metal implanted electrodes in the left and right thalamus were noted. Was mild right frontal scalp soft tissue swelling. There was mild spondylotic changes in the cervical spine, no fractures. EKG showed accelerated junctional rhythm with a rate of 81 BPM, with nonspecific ST abnormality. Initial chest x-ray showed patchy medial right basilar atelectasis or infiltrate. Patient denied any fever or chills, denied any shortness of breath, no cough. Patient was hypotensive on presentation her blood pressure 70/48, he was given 2 L of normal saline. Subsequent started on D5W with 3 A of sodium bicarb at a rate of 150 ML per hour. Levofed was started and subsequently weaned off. Lab work was negative for any evidence of leukocytosis, WBC is 9.6, hemoglobin is 12.9, sodium is 139 , potassium is 4.8, chloride was 112, CO2 was 14, BUN 70, creatinine is 3.40, magnesium of 0.6, total CK was 15,399, CK-MB was 64.2, troponin was negative 1 , urinalysis showed 1+ protein, large amount of blood, negative for leukocyte esterase and nitrites, occasional yeast, and mucus. Drug screen detected opiates, tricyclic antidepressants, and benzodiazepines. Serum alcohol level was less than 10, salicylate level was less than 1.0. And acetaminophen level was less than 10. This morning's lab work has been reviewed, CO2 is up to 23, renal profile is showing improvement, BUN is down to 55, creatinine is 2.7. Patient remains off vasopressor support, he is awake alert, denies any acute distress, his speech is slow, and slightly slurred, but patient states is his baseline. Seems a bit sluggish overall. Tolerating oral intake, he is eating his breakfast. Self catheter is in, and draining large amount of clear yellow urine. On 01/19/2018 patient seen again in follow-up in the intensive care unit. He is been awaiting a bed in the stepdown unit. Hemodynamically stable, he is on room air, pulse ox is 97%, afebrile, sinus rhythm on the monitor, no cardiac arrhythmias. Today's chest x-ray has been reviewed by Dr. Figueroa, and shows normal chest x-ray, slightly underpenetrated. This morning patient noted to be confused, and delirious, hallucinating. He is drowsy on today's examination, speech is sluggish, he is oriented to the city, month and the year. He did not know he was in the hospital. Slight left facial droop, and left facial physical science teacher is slightly weaker than the right. Still feels lightheaded. MRI of the brain could not be completed related to the presence of neurostimulator's. He is scheduled for EEG today, EEG was attempted yesterday but the neurostimulator activity was interfering and the exam was postponed until today. His labs were reviewed, WBC 6.9, hemoglobin is 10.5, electrolytes are relatively unremarkable , renal profile is improving, BUN is down to 27, creatinine is down to 1.8. Recurrent drip was discontinued per nephrology, current maintenance IV fluids is 0.9 normal saline at a rate of 100 ML per hour, total CK is trending down, down to 9609. Lung sounds are positive for coarse rhonchi, patient has a weak cough, we will provide incentive spirometer, encouraged patient to deep breathe and cough, increase activity, but patient sit up in the chair. Patient may need close supervision, and possibly product safety test engineer for prevention of falls. 01/20/2018 the patient looks better. Is awake and alert and conversing and is appropriate. He does not have any signs of confusion. He continues to receive IV fluids and the patient is currently on 0.9 at 70 mL an hour. Creatinine is down to 1.5. Rhabdomyolysis is also improving and they typically is down trending is down to 9600 from yesterday. A repeat level was not obtained from today. Rest of the electrodes are within normal limits. Serum bicarb is up to 21 and the patient is currently off the bicarb drip. No fever. No chills. No leukocytosis. No hypotension. The patient is on no pressors. Chest x-ray shows some mild diffuse interstitial prominence improved from yesterday's evaluation. As mentioned, the mental status improved. EGD did not show any acute seizure activity and the patient seems to be seizure-free since November 2015. Computed tomography scan of the brain reveals no acute changes. MRI cannot be done as the patient has a brain stimulator in place. There is a concern for a stroke knowing that the patient had some earlier expressive aphasia and questionable right facial droop and weakness but on today's evaluation he is looking better and he states that the speech of his is at this baseline. On 01/21/2018 patient seen in follow-up on medical surgical floor. She is resting comfortably in bed, without any acute distress, he is awake, and alert, oriented 3. He states his has been ambulating with assistance to the bathroom , still a bit lightheaded with ambulation, but overall he is more awake, conversant, no episodes of confusion or delirium. Has the slight left facial droop, and slightly weaker physical science teacher on the left. The scar on his right upper forehead abrasion has split, and there is granulation tissue visible at the wound bed, but no bleeding. Lung sounds are positive for a few rhonchi, much less congested compared to previous exams. Self catheter has been discontinued , he has been avoiding, follow-up creatinine kinase was down to 3100, no new labs today. Nephrology is following. He has been on room air, pulse ox is 93% , he is afebrile. Objective - Vital Signs Vital signs: Vital Signs Temp 99.6 F 01/21/18 06:00 Pulse 70 01/21/18 06:00 Resp 18 01/21/18 06:00 BP 145/76 01/21/18 06:00 Pulse Ox 93 L 01/21/18 06:00 Intake & Output 01/20/18 01/21/18 01/21/18 18:59 06:59 18:59 Intake Total 560 600 Balance 560 600 Intake: Intake, IV Titration 560 Amount Sodium Chloride 0.9% 1, 560 000 ml @ 70 mls/hr IV . [id number] [facility] Rx#:[id number] Oral 600 Other: Voiding Method Urinal Urinal # Voids 5 - Exam GENERAL EXAM: slightly sluggish, 62-year-old white male admitted drowsy, but comfortable in no apparent distress. HEAD: Normocephalic/atraumatic. Large nondraining abrasion on his right forehead, scabbed over, and the scab has split exposing the wound bed, which is 100% granulated, no bleeding. EYES: Normal reaction of pupils, equal size. Conjunctiva pink, sclera white. NOSE: Clear with pink turbinates. THROAT: No erythema or exudates. NECK: No masses, no JVD, no thyroid enlargement, no adenopathy. CHEST: No chest wall deformity. Symmetrical expansion. LUNGS: Equal air entry with cattered rhonchi. CVS: Regular rate and rhythm, normal S1 and S2, no gallops, no murmurs, no rubs ABDOMEN: Soft, nontender. No hepatosplenomegaly, normal bowel sounds, no guarding or rigidity. EXTREMITIES: No clubbing, no edema, no cyanosis, 2+ pulses and upper and lower extremities. MUSCULOSKELETAL: Muscle strength and tone normal. SPINE: No scoliosis or deformity SKIN: No rashes CENTRAL NERVOUS SYSTEM: Alert and oriented 3, slight left facial droop, and left-sided weakness PSYCHIATRIC: Intact judgment and insight - Labs CBC & Chem 7: 01/19/18 04:20 09/06/18 04:24 Labs: Abnormal Lab Results - Last 24 Hours (Table) 01/20/18 01/20/18 01/21/18 Range/Units 17:29 20:53 07:06 POC Glucose (mg/dL) 170 H 203 H 139 H (75-99) mg/dL 01/21/18 Range/Units 11:35 POC Glucose (mg/dL) 162 H (75-99) mg/dL Microbiology - Last 24 Hours (Table) 01/17/18 14:00 Blood Culture - Preliminary Blood No Growth after 72 hours Assessment and Plan Plan: Assessment: #1. Altered mentation possibly related to metabolic encephalopathy or a stroke #2. Recurrent falls at home #3. Rhabdomyolysis, improving #4. Acute kidney injury, improving #5. History of central brain tremors, status post neurostimulator implantation #6. Hypertension #7. Diabetes mellitus #8. History of coronary artery disease, status post remote PTCA #9. Anemia #10. Hypomagnesemia #11. History of recent root canal, and patient was initiated on the [place] for pain control #12. Ongoing tobacco dependence, smokes 1-1/2 pack a day for 50 years Plan: Patient patient continues to improve, no episodes of confusion or delirium. Continue current medical treatment, no acute events overnight. Provide supervision with ambulation. We will see the patient on as-needed basis. Thank you for this consultation I performed a history & physical examination of the patient and discussed their management with my nurse practitioner, Esthela Mejía. I reviewed the nurse practitioner's note and agree with the documented findings and plan of care. Lung sounds are positive for diffuse scattered rhonchi. The findings and the impression was discussed with the patient. I attest to the documentation by the nurse practitioner. Time with Patient: Less than 30
[2018-01-21] MEDS ORDERED: LEVOFLOXACIN 750MG-D5W PMX 750 MG in DEXTROSE/WATER 1 150ML.BAG IVPB SCH (14:00)
[2018-01-21 14:51] VITALS: BMI 26.0
--- NOTE | 2018-01-21 16:31 | PN ---
PROGRESS NOTE Patient is seen for followup for acute kidney injury which was mainly prerenal. Patient is status post IV fluids. He has been transferred out of the ICU. His fluids are currently at 70 mL an hour. He states he is feeling much better. PHYSICAL EXAMINATION: Blood pressure is 139/64, heart rate 83 per minute. Patient is afebrile. Examination of the heart S1, S2. Examination lungs bilateral breath sounds are heard. Abdomen is soft, nontender. Examination lower extremity shows no significant edema. LABS: Not available from today. Serum creatinine was down to 1.5 yesterday. ASSESSMENT: 1. Acute kidney injury, prerenal and secondary to hypotension hypoperfusion currently significantly improved. Repeat labs in a.m. Patient is maintained on IV fluids which I will likely discontinue tomorrow. 2. Rhabdomyolysis. CK is decreasing. 3. Status post fall. 4. Hypotension hypoperfusion currently improved, status post IV hydration. 5. Encephalopathy, now significantly improved. PLAN: Encourage increased oral intake. I will likely discontinue the IV fluids tomorrow. Repeat labs in a.m. MMODL / IJN: [id number] /
[2018-01-21 17:10] LABS: Glucose,Whole Blood 212 mg/dL (75-99)
--- NOTE | 2018-01-21 19:00 | PN ---
PROGRESS NOTE CHIEF COMPLAINT: Rhabdomyolysis. HISTORY OF PRESENT ILLNESS: This gentleman is about the same. He still has difficulty with speech. There has been has been no other development of any other issues. PHYSICAL EXAM: Breath sounds heard both on both sides. Cardiac is unremarkable. The abdomen is soft and nontender. IMPRESSION: 1. Rhabdomyolysis. 2. Renal failure. 3. Mental status changes. PLAN: Discharge planning is being worked on. It is not is clear that he will be able to be discharged on his own. MMODL / IJN: [id number] /
[2018-01-21] MEDS: ASPIRIN 81 MG PO SCH (20:19)
[2018-01-21] MEDS: PRAZOSIN 1 MG CAP PO SCH (20:19)
[2018-01-21] MEDS ORDERED: HALOPERIDOL LACTATE 5 MG/ML 1 ML VIAL IM PRN (20:44)
[2018-01-21] MEDS ORDERED: LORazepam 2 MG/ML INJ IV PRN ×2 (20:46)
[2018-01-21 21:16] LABS: Glucose,Whole Blood 139 mg/dL (75-99)
[2018-01-22] MEDS: LORazepam 2 MG/ML INJ IV PRN ×2 (03:25→06:03)
[2018-01-22] MEDS: SODIUM CHLORIDE 0.9% 1,000 ML IV SCH (03:40)
[2018-01-22] MEDS ORDERED: HALOPERIDOL LACTATE 5 MG/ML 1 ML VIAL IM PRN (06:15)
[2018-01-22 07:21] LABS: Glucose,Whole Blood 152 mg/dL (75-99)
[2018-01-22 07:59] LABS: Calcium 8.4 mg/dL (8.4-10.2); Potassium 4.6 mmol/L (3.5-5.1)
[2018-01-22] MEDS: PANTOPRAZOLE 40 MG TABLET PO SCH (08:37)
[2018-01-22] MEDS: ATORVASTATIN 10 MG TAB PO SCH (08:37)
[2018-01-22] MEDS: OXYBUTYNIN XL 5 MG TAB.ER.24 PO SCH (08:37)
[2018-01-22] MEDS: INSULIN ASPART 100 UNIT/ML 1 ML 10 ML VIAL SQ SCH ×4 (08:37→22:22)
[2018-01-22] MEDS: TAMSULOSIN 0.4 MG CAP.ER.24H PO SCH (08:37)
[2018-01-22] MEDS: NADOLOL 20 MG TAB PO SCH (08:37)
[2018-01-22] MEDS: GABAPENTIN 100 MG CAP PO SCH (08:37)
[2018-01-22] MEDS: ENOXAPARIN 40 MG/0.4 ML SYRINGE SQ SCH (08:38)
[2018-01-22] MEDS: POLYETHYLENE GLYCOL 3350 17 GM POWD.PACK PO SCH ×2 (08:38→22:23)
[2018-01-22 12:16] LABS: Glucose,Whole Blood 147 mg/dL (75-99)
[2018-01-22] MEDS: DIAZEPAM 5 MG TAB PO SCH ×4 (12:46→22:19)
[2018-01-22] MEDS: ACETAMINOPHEN TAB 325 MG TAB PO PRN (15:18)
[2018-01-22 16:55] LABS: Glucose,Whole Blood 209 mg/dL (75-99)
[2018-01-22 20:54] LABS: Glucose,Whole Blood 199 mg/dL (75-99)
--- NOTE | 2018-01-22 22:11 | PN ---
PROGRESS NOTE Patient is seen for followup for acute kidney injury. He remains a bit confused. The patient has had IV fluids. Renal function has improved with creatinine down to 1.3 from 4.68 on initial admission. The patient has been eating. PHYSICAL EXAMINATION: Blood pressure was 122/65, heart rate 71 per minute. He is afebrile. Examination of the heart S1, S2. Examination lungs bilateral breath sounds are heard. Decreased breath sounds bases. Abdomen is soft, nontender. Exam of lower extremities shows no edema. Patient has a superficial scab on the right forehead. LABS: Sodium 135, potassium 4.6, chloride 109, BUN 17, serum creatinine 1.3. ASSESSMENT: 1. Acute kidney injury, prerenal, currently improving. 2. Status post fall. 3. Metabolic acidosis fairly stable. 4. Rhabdomyolysis, currently improving. 5. Hypotension, improved with IV fluid administration. PLAN: Encourage increased oral intake. Continue to avoid nephrotoxic agents. Hold off on the DELVIS inhibitors for now. MMODL / IJN: [id number] /
[2018-01-22] MEDS: PRAZOSIN 1 MG CAP PO SCH (22:21)
[2018-01-22] MEDS: ASPIRIN 81 MG PO SCH (22:21)
--- NOTE | 2018-01-22 22:44 | PN ---
PROGRESS NOTE CHIEF COMPLAINT: Rhabdomyolysis and agitation. HISTORY OF PRESENT ILLNESS: This gentleman suddenly has wanted to leave the hospital. He does drink heavily, but has been in the hospital long enough that this is not DTs. Sedation has been ordered. It is not felt that he is safe to leave the hospital alone. PHYSICAL EXAM: Chest is clear. Cardiac exam is unchanged. IMPRESSION: 1. Rhabdomyolysis. 2. Delirium with agitation. 3. Alcoholism. 4. Question delirium tremens. 5. Question acute psychosis. PLAN: 1. Continue efforts to stay. 2. Psych consult. MMODL / IJN: [id number] /
--- NOTE | 2018-01-22 23:25 | P.PN ---
Subjective Progress Note Date: 01/22/18 This patient is a 62-year-old right-handed white male who was initially seen in neurology consultation back on 01/17/2018 for altered mental status and slurred speech. He was initially evaluated in the intensive care unit. Patient underwent computed tomography scan of the brain for further evaluation of altered mentation. CAT scan was reported to reveal no acute abnormality. Patient was unable to undergo MRI of the brain as he has a deep brain stimulator for treatment of seizure disorder. Contact to his primary neurologist also indicated that the brain stimulator could not be shut off for any imaging studies. The patient continues to have evidence of slurred speech. He has been questioned on several times whether this is his normal language and speech. He seems to think that his current speech is his normal speech at home. Apparently his brother also has a same type of speech pattern. As noted CAT scan of the brain failed to reveal any acute changes on admission. The patient is being treated for acute kidney injury. He still remained slightly confused with mild aphasia. We have recommended a repeat computed tomography scan of the brain to be done tomorrow morning for comparison to his initial scan. He is showing improvement in his serum creatinine levels and is being followed by nephrology. His rhabdomyolysis is also slowly improving. His hypotension has been corrected with IV fluids. This patient may require subacute rehab at the time of discharge given his current condition. We will wait for further input from the landscape architect and planner. His overall prognosis at this time remains guarded. Objective - Vital Signs Vital signs: Vital Signs Temp 101.2 F H 01/22/18 15:00 Pulse 81 01/22/18 15:00 Resp 20 01/22/18 16:00 BP 138/71 01/22/18 15:00 Pulse Ox 95 01/22/18 15:00 Intake & Output 01/22/18 01/22/18 01/23/18 06:59 18:59 06:59 Intake Total 240 Balance 240 Intake: Oral 240 Other: Voiding Method Toilet Toilet Urinal Urinal # Voids 2 1 # Bowel Movements 0 - Exam Physical examination: PHYSICAL EXAMINATION: Patient is resting comfortably in bed. VITAL SIGNS: Blood pressure is [138/71]. Heart rate is [81]. Respiration is [18] . Temperature is [99.3]. HEENT: Head is atraumatic, neck is supple, there were no carotid bruits. CHEST: Lungs are clear to auscultation and percussion. CARDIAC: S1, S2 normal rate and rhythm. There is no murmur. ABDOMEN: Soft and nontender. Bowel sounds are present. EXTREMITIES: There is no pedal edema. Peripheral pulses are present. Neurological examination: Patient's neurological examination is unchanged from yesterday. - Labs CBC & Chem 7: 01/19/18 04:20 01/22/18 07:19 Labs: Abnormal Lab Results - Last 24 Hours (Table) 01/22/18 01/22/18 01/22/18 Range/Units 07:05 07:19 12:13 Sodium 135 L (137-145) mmol/L Chloride 109 H (98-107) mmol/L Carbon Dioxide 18 L (22-30) mmol/L Creatinine 1.33 H (0.66-1.25) mg/dL Glucose 144 H (74-99) mg/dL POC Glucose (mg/dL) 152 H 147 H (75-99) mg/dL 01/22/18 01/22/18 Range/Units 16:53 20:51 Sodium (137-145) mmol/L Chloride (98-107) mmol/L Carbon Dioxide (22-30) mmol/L Creatinine (0.66-1.25) mg/dL Glucose (74-99) mg/dL POC Glucose (mg/dL) 209 H 199 H (75-99) mg/dL Microbiology - Last 24 Hours (Table) 01/17/18 14:00 Blood Culture - Preliminary Blood No Growth after 120 hours Assessment and Plan (1) Left acute arterial ischemic stroke, MCA (middle cerebral artery) Current Visit: Yes Status: Acute Code(s): I63.512 - CEREB INFRC D/T UNSP OCCLS OR STENOS OF LEFT MID CEREB ART SNOMED Code(s): 441047701 (2) Metabolic encephalopathy Current Visit: Yes Status: Acute Code(s): G93.41 - METABOLIC ENCEPHALOPATHY SNOMED Code(s): 45730900 (3) Acute kidney injury Current Visit: Yes Status: Acute Code(s): N17.9 - ACUTE KIDNEY FAILURE, UNSPECIFIED SNOMED Code(s): 25784462 (4) Rhabdomyolysis Current Visit: Yes Status: Acute Code(s): M62.82 - RHABDOMYOLYSIS SNOMED Code(s): 747313275 Plan: This patient is a 62-year-old male being evaluated for altered mental status and slurred speech. His initial CAT scan of the brain failed to reveal any acute changes. We are recommending a follow-up CAT scan of the brain to be done tomorrow morning. He does have acute kidney injury and his serum creatinine is slowly improving. He has a history of rhabdomyolysis which is also slowly improving. His speech still remains somewhat aphasic at times. We will await his follow-up CAT scan to be done tomorrow and we'll give further recommendations. Patient likely will need some form of subacute rehab at the time of discharge. His overall prognosis at this time remains guarded.
[2018-01-23 07:38] LABS: Glucose,Whole Blood 177 mg/dL (75-99)
[2018-01-23] MEDS: DIAZEPAM 5 MG TAB PO SCH ×4 (07:52→20:47)
[2018-01-23] MEDS: ENOXAPARIN 40 MG/0.4 ML SYRINGE SQ SCH (07:53)
[2018-01-23] MEDS: POLYETHYLENE GLYCOL 3350 17 GM POWD.PACK PO SCH ×2 (07:53→20:47)
[2018-01-23] MEDS: TAMSULOSIN 0.4 MG CAP.ER.24H PO SCH (07:53)
[2018-01-23] MEDS: PANTOPRAZOLE 40 MG TABLET PO SCH (07:53)
[2018-01-23] MEDS: ATORVASTATIN 10 MG TAB PO SCH (07:54)
[2018-01-23] MEDS: OXYBUTYNIN XL 5 MG TAB.ER.24 PO SCH (07:54)
[2018-01-23] MEDS: GABAPENTIN 100 MG CAP PO SCH (07:54)
[2018-01-23] MEDS: NADOLOL 20 MG TAB PO SCH (07:54)
[2018-01-23] MEDS: INSULIN ASPART 100 UNIT/ML 1 ML 10 ML VIAL SQ SCH ×4 (08:04→20:47)
--- NOTE | 2018-01-23 08:40 | CT ---
EXAMINATION TYPE: CT brain wo con DATE OF EXAM: 01/23/2018 COMPARISON: Previous study dated 01/18/2018. HISTORY: Slurred speech and confusion CT DLP: 835.8 mGycm Automated exposure control for dose reduction was used. FINDINGS: There are intracranial leads in place via a bilateral frontal approach. These appear to be terminated near the caudate nucleus bilaterally. These are unchanged from previous. Central structures are midline. There is no evidence of hydrocephalus. No acute focal lesion, mass ef fect or midline shift is seen. I do not see evidence of intracranial blood. The intracranial lesion c ausing 6 moderate artifact. There is mild mucoperiosteal thickening involving the left maxillary sinus. The remainder the paranas al sinuses and mastoids are clear. IMPRESSION: 1. NO ACUTE INTRACRANIAL ABNORMALITY. 2. STABLE APPEARANCE TO THE BRAIN. 3. MILD, CHRONIC LEFT MAXILLARY SINUS MUCOSAL DISEASE.
[2018-01-23 12:24] LABS: Glucose,Whole Blood 123 mg/dL (75-99)
--- NOTE | 2018-01-23 13:28 | PN ---
PROGRESS NOTE CHIEF COMPLAINT: Rhabdomyolysis and delirium. HISTORY OF PRESENT ILLNESS: This gentleman is definitely improved. His agitation is under much better control. Blood sugars are up slightly. PHYSICAL EXAM: Unchanged. IMPRESSION: 1. Rhabdomyolysis. 2. Seizure disorder. 3. Encephalopathy. 4. Psychosis. PLAN: If he continues to remain stable, he can probably be discharged in the next day or 2. He may have been in DTs. MMODL / IJN: [id number] /
--- NOTE | 2018-01-23 15:49 | PN ---
PROGRESS NOTE HISTORY: The patient is seen for followup for acute kidney injury. His renal function has improved significantly, however, patient remains confused. He currently has a sitter. He is off of IV fluids. Serum creatinine was 1.3 yesterday, which is down from 4.68 on initial admission. PHYSICAL EXAMINATION: Blood pressure 158/71, heart rate 58 per minute, patient is afebrile. Examination of the heart, S1, S2. Examination of lungs, bilateral breath sounds are heard. Abdomen is soft, nontender. Exam of lower extremities shows no evidence of edema. POULTRY INSPECTOR exam shows patient moving all 4 extremities. He remains, however, confused. LABS: Not available from today. ASSESSMENT: 1. Acute kidney injury, prerenal, currently significantly improved. 2. Volume depletion, now resolved. 3. Rhabdomyolysis, which is also improved. 4. Hypotension, resolved with IV fluid administration. 5. Encephalopathy/confusion. The patient is being followed by Neurology. Initial brain CT was negative. Repeat CT also shows no significant new findings. PLAN: Continue to encourage increased oral intake. Repeat labs in a.m. MMODL / IJN: [id number] /
[2018-01-23] MEDS ORDERED: ZIPRASIDONE 20 MG VIAL IM PRN (16:49)
[2018-01-23] MEDS ORDERED: OLANZapine ODT 5 MG TAB PO PRN (17:07)
[2018-01-23 17:15] LABS: Glucose,Whole Blood 195 mg/dL (75-99)
[2018-01-23 20:36] LABS: Glucose,Whole Blood 138 mg/dL (75-99)
[2018-01-23] MEDS: ASPIRIN 81 MG PO SCH (20:46)
[2018-01-23] MEDS: PRAZOSIN 1 MG CAP PO SCH (20:48)
[2018-01-23] MEDS ORDERED: DIAZEPAM 5 MG TAB PO SCH ×2 (21:00→22:00)
--- NOTE | 2018-01-23 23:34 | CONS ---
CONSULTATION DATE OF SERVICE: 01/23/2018. IDENTIFYING DATA: This is a 62-year-old male patient. HISTORY OF PRESENT ILLNESS: Mr. Colon presents to the medical floor at [facility]. Per chart history, the patient was found outside and there was concern that he may have been there overnight. He was admitted with syncope and mental status changes with rhabdomyolysis. The patient with a history of seizure disorder, hypertension, and non- insulin-dependent diabetes mellitus per chart. Per history, there has been some agitation and Psychiatry is consulted regarding altered mental status, agitation , and aggression. The patient states that he recently had a root canal and had 3-4 caps done. He says his friend found him lying on the floor. The only new medication he was on was [place]. He states that he thinks he did take more [place] than prescribed, but he was not trying to hurt himself. PSYCHIATRIC HISTORY: The patient has a history of seeing a psychiatrist, Dr. Gupta for 25 years for anxiety. He has been on Valium 10 mg at bedtime by that physician. PSYCHIATRIC FAMILY HISTORY: None known. MEDICAL HISTORY: Seizure disorder, hypertension, [id number] diabetes mellitus. CURRENT MEDICATIONS: 1. Tylenol p.r.n. 2. Ventolin p.r.n. 3. Aspirin. 4. Lipitor. 5. Valium 10 mg q.i.d. 6. Lovenox. 7. Neurontin. 8. NovoLog. 9. Corgard. 10.Narcan p.r.n. 11.Ditropan XL. 12.Protonix. 13.MiraLAX. 14.Minipress. 15.Flomax. SOCIAL HISTORY: Currently lives with a friend. DRUG AND ALCOHOL HISTORY: No alcohol since 5 years ago. No drug use. MENTAL STATUS EXAMINATION: He is alert, cooperative, pleasant. Describes his mood as "tired". His affect does show range. He denies any thoughts of harm to self or others. He is oriented to place, month and year. He says the date is 7th or the 8th. There is no evidence of agitation. He does make reference to looking out the window and seeing people working on the hospital. Per history, there has been some concern of some hallucinations. IMPRESSIONS: Likely delirium. PLAN/RECOMMENDATIONS: Continue to treat any possible causes of delirium per chart history. Impression from Neurology has been left arterial ischemic stroke MCA. Reduce the total daily dose of Valium as the patient historically has been on 10 mg at h.s. and does complain of feeling tired and will order Geodon as-needed for any concerns of agitation, accompanying delirium. Psychiatry service can follow up with this patient. MMLUIS AL / IJN: [id number] / MTDD
[2018-01-24 07:35] LABS: Glucose,Whole Blood 151 mg/dL (75-99)
[2018-01-24] MEDS: DIAZEPAM 5 MG TAB PO SCH ×4 (07:45→20:44)
[2018-01-24] MEDS: TAMSULOSIN 0.4 MG CAP.ER.24H PO SCH (07:46)
[2018-01-24] MEDS: INSULIN ASPART 100 UNIT/ML 1 ML 10 ML VIAL SQ SCH ×4 (07:46→20:45)
[2018-01-24] MEDS: NADOLOL 20 MG TAB PO SCH (07:46)
[2018-01-24] MEDS: ENOXAPARIN 40 MG/0.4 ML SYRINGE SQ SCH (07:46)
[2018-01-24] MEDS: OXYBUTYNIN XL 5 MG TAB.ER.24 PO SCH (07:46)
[2018-01-24] MEDS: POLYETHYLENE GLYCOL 3350 17 GM POWD.PACK PO SCH ×2 (07:47→20:45)
[2018-01-24] MEDS: ATORVASTATIN 10 MG TAB PO SCH (07:47)
[2018-01-24] MEDS: PANTOPRAZOLE 40 MG TABLET PO SCH (07:47)
[2018-01-24] MEDS: GABAPENTIN 100 MG CAP PO SCH (07:47)
[2018-01-24 11:19] LABS: Glucose,Whole Blood 129 mg/dL (75-99)
[2018-01-24 17:11] LABS: Glucose,Whole Blood 209 mg/dL (75-99)
--- NOTE | 2018-01-24 18:20 | PN ---
PROGRESS NOTE The patient is seen for followup for acute kidney injury, which has significantly improved. It was mainly prerenal. The patient's mentation, however, is not completely resolved. There is a possibility of delirium. Psych has been consulted. The patient has had a left MCA stroke as per Neurology. CT scan has not shown any acute changes. However, patient could not have an MRI secondary to the neuro transmitter. PHYSICAL EXAMINATION: On examination today, blood pressure was 137/56, heart rate 60 per minute. Patient is afebrile. He is awake and alert. He is not in any acute distress. Examination of the heart S1, S2. Examination of the lungs bilateral breath sounds are heard. Abdomen is soft, nontender. Examination of lower extremities shows no evidence of edema. LABS: Revealed creatinine 1.3 on January 22. No labs are available today. ASSESSMENT: 1. Acute kidney injury, prerenal, currently improved. I will order a set of renal profile today. 2. Mental status changes, possibly related to new stroke. The patient is being seen by Neurology. He could not have an MRI done secondary to the deep brain stimulator for treatment of seizure disorder. CT scan did not show any acute changes. PLAN: Check labs today. MMODL / IJN: [id number] /
[2018-01-24 18:28] LABS: Calcium 8.8 mg/dL (8.4-10.2); Potassium 5.6 mmol/L (3.5-5.1)
[2018-01-24 20:38] LABS: Glucose,Whole Blood 189 mg/dL (75-99)
[2018-01-24] MEDS: ASPIRIN 81 MG PO SCH (20:44)
[2018-01-24] MEDS: PRAZOSIN 1 MG CAP PO SCH (20:46)
--- NOTE | 2018-01-24 20:48 | DS ---
DISCHARGE SUMMARY CHIEF COMPLAINT: Semi coma, confusion, rhabdomyolysis. HISTORY OF PRESENT ILLNESS AND PHYSICAL EXAM: Details of this man's history and physical can be found in the initial workup. LABORATORY STUDIES: While he was in the hospital, he had laboratory studies, details of which can be found in the laboratory section of his chart. COURSE IN HOSPITAL: After admission, he was placed in bedrest and ICU where he was managed by the lamp developer. He is also followed by Nephrology because he went into acute renal failure. As he began to stabilize, he remained very confused and weak, but steadily improved. He was able to be moved to regular floor where he suddenly became extremely delirious. This may have been due to alcohol withdrawal. This was controlled and he was seen by Psychiatry. He became more controllable and he never did regain normal speech, but it was our feeling that this was an old problem not related to his current issues. He is doing well and it was felt he could be discharged on the . He will go home on his usual activity and diet and most of his usual medications. It is not known if he has a physician to follow up with, but we will encourage him to come in the office. FINAL DIAGNOSES: 1. Syncope and mental status changes. 2. Rhabdomyolysis. 3. Acute psychosis. 4. Encephalopathy ? 5. Renal failure. 6. Alcoholism. 7. Possible delirium tremens. OPERATIONS: None. CONSULTATIONS: Intensive Medicine, Nephrology, and Psychiatry. He is improved. MMLEONARDA / LUCILLE: [id number] /
[2018-01-25] MEDS: ACETAMINOPHEN TAB 325 MG TAB PO PRN (05:31)
[2018-01-25 07:00] VITALS: BP 109/68; PULSE 62; RESP 20; TEMP 97.8
[2018-01-25 07:15] LABS: Glucose,Whole Blood 154 mg/dL (75-99)
[2018-01-25] MEDS: ATORVASTATIN 10 MG TAB PO SCH (08:14)
[2018-01-25] MEDS: POLYETHYLENE GLYCOL 3350 17 GM POWD.PACK PO SCH (08:14)
[2018-01-25] MEDS: OXYBUTYNIN XL 5 MG TAB.ER.24 PO SCH (08:14)
[2018-01-25] MEDS: DIAZEPAM 5 MG TAB PO SCH (08:14)
[2018-01-25] MEDS: NADOLOL 20 MG TAB PO SCH (08:14)
[2018-01-25] MEDS: PANTOPRAZOLE 40 MG TABLET PO SCH (08:16)
[2018-01-25] MEDS: GABAPENTIN 100 MG CAP PO SCH (08:16)
[2018-01-25] MEDS: ENOXAPARIN 40 MG/0.4 ML SYRINGE SQ SCH (08:16)
[2018-01-25] MEDS: TAMSULOSIN 0.4 MG CAP.ER.24H PO SCH (08:16)
[2018-01-25] MEDS: INSULIN ASPART 100 UNIT/ML 1 ML 10 ML VIAL SQ SCH (08:22)
[2018-01-25 11:49] LABS: Glucose,Whole Blood 206 mg/dL (75-99)
--- NOTE | 2018-01-28 09:24 | CDI ---
Last Revision, April 2017 Documentation Clarification Form Date: 01/28/18 From: Magdalena David Pallavi Teresa, Drafter Topographical Hours-8:30 am & 5 pm Tej Admit Date: 01/17/2018 1:17:00 PM Patient Name: Yordan Colon Visit Number: [id number] Discharge Date: 01/25/18 ATTENTION: The Clinical Documentation Specialists (CDI) and [employer] [facility] Coding Staff appreciate your assistance in clarifying documentation. Please respond to the clarification below the line at the bottom and electronically sign. The CDI & [employer] [facility] [facility] [employer] Coding staff will review the response and follow-up if needed. Please note: Queries are made part of the Legal Health Record. If you have any questions, please contact the author of this message via ITS. Dr. RAMÍREZ, Carloz Castellanos MD Conflicting documentation has been found in the medical record. Dr. Carranza documents in consult "left acute arterial ischemic stroke, MCA". Per discharge summary you document "syncope and mental status changes". History/Risk Factors: Parkinson's, rhabdomyolysis, met encephalopathy, ARF Clinical Indicators: aphasia, right-sided facial droop, left weakness, dysarthria Treatment: IV fluids, unable to perform MRI due to stimulators, neuro follow-up , ICU In your opinion what is the most clinically appropriate diagnosis for this patient? Other explanation of clinical findings Unable to determine (no explanation for clinical findings) Please continue to document in your progress notes and discharge summary in order to capture severity of illness and risk of mortality. Include clinical findings that support your diagnosis. MTDD
--- NOTE | 2018-01-31 21:39 | MISC ---
MISCELLANOUS REPORT QUERY: Most likely contributing diagnosis: Patient had a head injury in the past as well as substance abuse problems and psychiatric issues. Though he presented it looks as though he may have had a CVA, people that knew him stated that his speech and neurologic change had been abnormal for sometime. I doubt an acute CVA. MARQUIS / LUCILLE: [id number] /
== END 2018-01-25 13:14 | disposition home health service (06) | DRG 557 ==
LOC: EC 11:04 → 6ICU 13:17 → 4MS4W 01-20 11:44
PROVIDERS: ADMIT Family Medicine; ATTEND Family Medicine
PROC: 06HM33Z Insertion of Infusion Device into Right Femoral Vein, Percutaneous Approach (ICD-10-PCS; principal; 2018-01-17)
PROC: 3E0234Z Introduction of Serum, Toxoid and Vaccine into Muscle, Percutaneous Approach (ICD-10-PCS; 2018-01-17)
DX: M62.82 Rhabdomyolysis (principal); G93.41 Metabolic encephalopathy; F10.231 Alcohol dependence with withdrawal delirium; N17.9 Acute kidney failure, unspecified; E87.2 Acidosis; J98.11 Atelectasis; R55 Syncope and collapse; G20 Parkinson's disease; I95.9 Hypotension, unspecified; E83.42 Hypomagnesemia; E83.51 Hypocalcemia; E87.5 Hyperkalemia; Z23 Encounter for immunization; E86.0 Dehydration; S00.81XA Abrasion of other part of head, initial encounter; E86.1 Hypovolemia; F41.9 Anxiety disorder, unspecified; D64.9 Anemia, unspecified; F32.9 Major depressive disorder, single episode, unspecified; G40.909 Epilepsy, unspecified, not intractable, without status epilepticus; K59.00 Constipation, unspecified; N40.0 Benign prostatic hyperplasia without lower urinary tract symptoms; J44.9 Chronic obstructive pulmonary disease, unspecified; I25.10 Atherosclerotic heart disease of native coronary artery without angina pectoris; I10 Essential (primary) hypertension; E78.5 Hyperlipidemia, unspecified; E11.9 Type 2 diabetes mellitus without complications; R29.6 Repeated falls; Y90.0 Blood alcohol level of less than 20 mg/100 ml; F17.210 Nicotine dependence, cigarettes, uncomplicated; Z71.6 Tobacco abuse counseling; Z79.2 Long term (current) use of antibiotics; Z79.84 Long term (current) use of oral hypoglycemic drugs; Z79.82 Long term (current) use of aspirin; Z79.52 Long term (current) use of systemic steroids; Z79.899 Other long term (current) drug therapy; Z98.61 Coronary angioplasty status; Z96.9 Presence of functional implant, unspecified; Z88.8 Allergy status to other drugs, medicaments and biological substances; Z83.3 Family history of diabetes mellitus; Z82.49 Family history of ischemic heart disease and other diseases of the circulatory system; Z81.8 Family history of other mental and behavioral disorders; W19.XXXA Unspecified fall, initial encounter; Y92.009 Unspecified place in unspecified non-institutional (private) residence as the place of occurrence of the external cause
CPT/HCPCS: 36415; 36556; 51702; 70450; 71045; 72125; 80048; 80053; 80061; 80306; 80320; 81001; 82550; 82553; 83036; 83520; 83605; 83735; 84100; 84484; 85025; 85610; 85730; 87040; 90471; 90715; 93005; 94640; 95816; 96361; 96365; 96368; 96375; 99291

== ENCOUNTER 2018-03-05 15:30 | Observation (INO) | payer MEDICARE ==
[2018-03-05] MEDS ORDERED: ONDANSETRON 4 MG/2 ML VIAL IVP STA (15:47)
[2018-03-05] MEDS ORDERED: SODIUM CHLORIDE 0.9% 500 ML 500 ML IV STA (15:47)
[2018-03-05] MEDS ORDERED: SODIUM CHLORIDE 0.9% 1,000 ML IV STA ×2 (15:47)
--- NOTE | 2018-03-05 15:48 | ED ---
Nausea/Vomiting/Diarrhea HPI - General Chief complaint: Nausea/Vomiting/Diarrhea Stated complaint: Vomiting Time Seen by Provider: 03/05/18 15:46 Source: patient, RN notes reviewed, old records reviewed Mode of arrival: wheelchair Limitations: no limitations - History of Present Illness Initial comments: This is a 62-year-old male who is unable to provide accurate history, patient to be going to significantly stressor per family, that is a divorce. She has been severely altered for quite some time. Patient's of his underwear answer questions, patient's family states patient is not been eating or acting appropriate, he is living with friends later unsure of his living condition or how he is been acting MD complaint: nausea, vomiting, diarrhea -: days(s) Description of Vomiting: food contents Associated Abdominal Pain: No Radiation: none Consistency: constant Improves with: none Worsens with: eating Context: recent antibiotic use, recent surgery/procedure Associated Symptoms: denies other symptoms - Related Data Home Medications Medication Instructions Recorded Confirmed Albuterol Sulfate [Proair Hfa] 1 - 2 puff INHALATION RT-QID PRN 01/17/18 Atorvastatin Calcium [Lipitor] 10 mg PO DAILY 01/17/18 01/18/18 Cyclobenzaprine [Flexeril] 10 mg PO TID PRN 01/17/18 01/18/18 Gabapentin [Neurontin] 300 mg PO TID 01/17/18 01/18/18 Lisinopril [Prinivil] 5 mg PO DAILY 01/17/18 01/18/18 Nadolol [Corgard] 80 mg PO DAILY 01/17/18 01/18/18 Prazosin HCl 2 mg PO HS 01/17/18 01/18/18 Tamsulosin HCl [Flomax] 0.4 mg PO HS 01/17/18 01/18/18 Vortioxetine Hydrobromide 20 mg PO HS 01/17/18 01/18/18 [Trintellix] amLODIPine [Norvasc] 5 mg PO DAILY 01/17/18 01/18/18 hydrOXYzine HCL [Atarax] 10 mg PO TID 01/17/18 01/18/18 Aspirin EC [Ecotrin Low Dose] 81 mg PO HS 01/18/18 01/18/18 Furosemide [Lasix] 20 mg PO DAILY 01/18/18 01/18/18 Oxybutynin ER [Ditropan Xl] 10 mg PO DAILY 01/18/18 01/18/18 Previous Rx's Medication Instructions Recorded OLANZapine ODT [ZyPREXA Zydis] 5 mg PO BID PRN tab 01/24/18 Allergies Allergy/AdvReac Type Severity Reaction Status Date / Time quetiapine [From Seroquel] Allergy Diarrhea Verified 01/17/18 18:05 acetaminophen [From Lula] AdvReac Nausea & Verified 03/05/18 15:38 Vomiting hydrocodone [From Lula] AdvReac Nausea & Verified 03/05/18 15:38 Vomiting Review of Systems ROS Statement: Those systems with pertinent positive or pertinent negative responses have been documented in the HPI. ROS Other: All systems not noted in ROS Statement are negative. Past Medical History Past Medical History: Seizure Disorder Additional Past Medical History / Comment(s): pt has a deep brain stimulator - an implanted neurotransmitter; angioplasty 25 years ago. Central brain tremors History of Any Multi-Drug Resistant Organisms: None Reported Past Surgical History: Heart Catheterization, Orthopedic Surgery Additional Past Surgical History / Comment(s): brain stimulater, dental surgery , mass removed from chest Past Anesthesia/Blood Transfusion Reactions: No Reported Reaction Past Psychological History: Bipolar, Depression, Panic Disorder Smoking Status: Current every day smoker Past Alcohol Use History: None Reported Past Drug Use History: None Reported - Past Family History Father Family Medical History: Coronary Artery Disease (CAD), Diabetes Mellitus Sister(s) Family Medical History: Diabetes Mellitus Mother Family Medical History: Dementia General Exam Limitations: altered mental status General appearance: alert, in no apparent distress Head exam: Present: atraumatic, normocephalic, normal inspection Eye exam: Present: normal appearance, PERRL, EOMI. Absent: scleral icterus, conjunctival injection, periorbital swelling ENT exam: Present: normal exam, mucous membranes moist Neck exam: Present: normal inspection. Absent: tenderness, meningismus, lymphadenopathy Respiratory exam: Present: normal lung sounds bilaterally. Absent: respiratory distress, wheezes, rales, rhonchi, stridor Cardiovascular Exam: Present: regular rate, normal rhythm, normal heart sounds. Absent: systolic murmur, diastolic murmur, rubs, gallop, clicks GI/Abdominal exam: Present: soft, normal bowel sounds. Absent: distended, tenderness, guarding, rebound, rigid Extremities exam: Present: normal inspection, full ROM, normal capillary refill. Absent: tenderness, pedal edema, joint swelling, calf tenderness Back exam: Present: normal inspection Neurological exam: Present: alert, oriented X3, CN II-XII intact Psychiatric exam: Present: normal affect, normal mood Skin exam: Present: warm, dry, intact, normal color. Absent: rash Course Vital Signs 03/05/18 03/05/18 03/05/18 15:33 16:31 17:15 Temperature 98.3 F Pulse Rate 62 59 L 66 Respiratory 18 16 21 Rate Blood Pressure 111/69 112/69 109/81 O2 Sat by Pulse 99 95 96 Oximetry 03/05/18 18:30 Temperature 98.3 F Pulse Rate 72 Respiratory 14 Rate Blood Pressure 109/65 O2 Sat by Pulse 94 L Oximetry - Reevaluation(s) Reevaluation #1: 03/05/18 18:46 Medical record is reviewed Reevaluation #2: 03/05/18 18:46 Patient is not acting baseline, altered, difficult to understand Medical Decision Making - Medical Decision Making 62 male the ER for evaluation altered mental status dehydration weakness, patient is not acting appropriately per family. Patient be admitted for evaluation by psychiatry neurology and dietary - Lab Data Result diagrams: 03/05/18 16:20 03/05/18 16:20 Lab Results 03/05/18 03/05/18 03/05/18 Range/Units 16:06 16:20 16:20 WBC (3.8-10.6) k/uL RBC (4.30-5.90) m/uL Hgb (13.0-17.5) gm/dL Hct (39.0-53.0) % MCV (80.0-100.0) fL MCH (25.0-35.0) pg MCHC (31.0-37.0) g/dL RDW (11.5-15.5) % Plt Count (150-450) k/uL Neutrophils % % Lymphocytes % % Monocytes % % Eosinophils % % Basophils % % Neutrophils # (1.3-7.7) k/uL Lymphocytes # (1.0-4.8) k/uL Monocytes # (0-1.0) k/uL Eosinophils # (0-0.7) k/uL Basophils # (0-0.2) k/uL Sodium 139 (137-145) mmol/L Potassium 4.7 (3.5-5.1) mmol/L Chloride 105 (98-107) mmol/L Carbon Dioxide 22 (22-30) mmol/L Anion Gap 12 mmol/L BUN 27 H (9-20) mg/dL Creatinine 1.43 H (0.66-1.25) mg/dL Est GFR (CKD-EPI)AfAm 60 (>60 ml/min/1.73 sqM) Est GFR (CKD-EPI)NonAf 52 (>60 ml/min/1.73 sqM) Glucose 108 H (74-99) mg/dL POC Glucose (mg/dL) 113 H (75-99) mg/dL POC Glu Car Shakeout Operator ID Vandana Boothe Plasma Lactic Acid Saturnino (0.7-2.0) mmol/L Calcium 9.4 (8.4-10.2) mg/dL Total Bilirubin 0.3 (0.2-1.3) mg/dL AST 21 (17-59) U/L ALT 24 (21-72) U/L Alkaline Phosphatase 71 (38-126) U/L Total Creatine Kinase 41 L (55-170) U/L CK-MB (CK-2) 0.7 (0.0-2.4) ng/mL CK-MB (CK-2) Rel Index 1.7 Troponin I <0.012 (0.000-0.034) ng/mL Total Protein 7.4 (6.3-8.2) g/dL Albumin 4.3 (3.5-5.0) g/dL Amylase 55 (30-110) U/L Lipase 104 (23-300) U/L 03/05/18 03/05/18 Range/Units 16:20 16:20 WBC 8.0 (3.8-10.6) k/uL RBC 3.96 L (4.30-5.90) m/uL Hgb 12.5 L (13.0-17.5) gm/dL Hct 36.7 L (39.0-53.0) % MCV 92.6 (80.0-100.0) fL MCH 31.5 (25.0-35.0) pg MCHC 34.0 (31.0-37.0) g/dL RDW 13.2 (11.5-15.5) % Plt Count 236 (150-450) k/uL Neutrophils % 65 % Lymphocytes % 27 % Monocytes % 4 % Eosinophils % 3 % Basophils % 0 % Neutrophils # 5.2 (1.3-7.7) k/uL Lymphocytes # 2.2 (1.0-4.8) k/uL Monocytes # 0.3 (0-1.0) k/uL Eosinophils # 0.3 (0-0.7) k/uL Basophils # 0.0 (0-0.2) k/uL Sodium (137-145) mmol/L Potassium (3.5-5.1) mmol/L Chloride (98-107) mmol/L Carbon Dioxide (22-30) mmol/L Anion Gap mmol/L BUN (9-20) mg/dL Creatinine (0.66-1.25) mg/dL Est GFR (CKD-EPI)AfAm (>60 ml/min/1.73 sqM) Est GFR (CKD-EPI)NonAf (>60 ml/min/1.73 sqM) Glucose (74-99) mg/dL POC Glucose (mg/dL) (75-99) mg/dL POC Glu Car Shakeout Operator ID Plasma Lactic Acid Saturnino 1.4 (0.7-2.0) mmol/L Calcium (8.4-10.2) mg/dL Total Bilirubin (0.2-1.3) mg/dL AST (17-59) U/L ALT (21-72) U/L Alkaline Phosphatase (38-126) U/L Total Creatine Kinase (55-170) U/L CK-MB (CK-2) (0.0-2.4) ng/mL CK-MB (CK-2) Rel Index Troponin I (0.000-0.034) ng/mL Total Protein (6.3-8.2) g/dL Albumin (3.5-5.0) g/dL Amylase (30-110) U/L Lipase (23-300) U/L - Radiology Data Radiology results: report reviewed (CT brain x-ray KUB negative for acute disease), image reviewed Critical Care Time Critical Care Time: Yes Total Critical Care Time: 31 Disposition Clinical Impression: Altered mental status, Dehydration, ARF (acute renal failure) Disposition: ADMITTED IP TO THIS HOSP Condition: Fair Is patient prescribed a controlled substance at d/c from ED?: No Referrals: Denny Ram MD [Primary Care Provider] - 1-2 days
[2018-03-05 16:11] LABS: Glucose,Whole Blood 113 mg/dL (75-99)
[2018-03-05 16:33] LABS: Basophils % (A) 0 %; Eosinophils # (A) 0.3 k/uL (0-0.7); Eosinophils % (A) 3 %; HCT 36.7 % (39.0-53.0); HGB 12.5 gm/dL (13.0-17.5); Lymphocytes # (A) 2.2 k/uL (1.0-4.8); Lymphocytes % (A) 27 %; MCH 31.5 pg (25.0-35.0); MCV 92.6 fL (80.0-100.0); Mean Platelet Volume 7.6; Monocytes # (A) 0.3 k/uL (0-1.0); Monocytes % (A) 4 %; Neutrophils # (A) 5.2 k/uL (1.3-7.7); Neutrophils % (A) 65 %; Platelet Count 236 k/uL (150-450); RBC 3.96 m/uL (4.30-5.90); RDW 13.2 % (11.5-15.5)
[2018-03-05 16:48] LABS: Albumin 4.3 g/dL (3.5-5.0); Calcium 9.4 mg/dL (8.4-10.2); Potassium 4.7 mmol/L (3.5-5.1); Total Bilirubin 0.3 mg/dL (0.2-1.3); Total Protein 7.4 g/dL (6.3-8.2)
[2018-03-05 16:49] LABS: Creatine Kinase 41 U/L (55-170)
[2018-03-05 17:01] LABS: Creatine Kinase MB 0.7 ng/mL (0.0-2.4); Troponin I <0.012 ng/mL (0.000-0.034)
--- NOTE | 2018-03-05 17:06 | CT ---
EXAMINATION TYPE: CT brain wo con DATE OF EXAM: 03/05/2018 COMPARISON: 01/23/2018 HISTORY: 62-year-old male Dizziness and vomiting. TECHNIQUE: Examination was done in axial plane without intravenous contrast. Coronal and sagittal r econstructions performed. CT DLP: 1074.4 mGycm Automated exposure control for dose reduction was used. FINDINGS: Bilateral electrodes extending from the frontal convexities down into the region of the bilateral bas al ganglia. This causes streak and beam hardening artifact limiting assessment. Within this limitation, there is no evidence of acute intracranial hemorrhage, acute ischemic change s, mass, mass-effect, or extra-axial fluid collection. There is no effacement of cerebral sulci or b george subarachnoid cisterns. There is no hydrocephalus. There is no midline shift. Sanderson-white matte r distinction is preserved. Paranasal sinuses and mastoid air cells are well pneumatized. IMPRESSION: Stable exam with bilateral basal ganglionic electrodes. No acute intracranial abnormality seen.
--- NOTE | 2018-03-05 17:21 | XR ---
EXAMINATION TYPE: XR KUB DATE OF EXAM: 03/05/2018 CLINICAL DATA: 62-year-old male with abdominal pain, PHH COMPARISON: None FINDINGS: Supine imaging limited for assessment of free intraperitoneal air. Nondilated bowel loops. Mild stool burden. Air extends distally into the rectum. No suspicious calcifications. Suspect some external artifact projecting over the right side of the ab domen. IMPRESSION: Nonobstructive bowel gas pattern. Mild stool burden.
[2018-03-05] MEDS ORDERED: ONDANSETRON 4 MG/2 ML VIAL IVP PRN (18:48)
[2018-03-06 00:06] VITALS: BMI 22.3
[2018-03-06] MEDS ORDERED: OLANZapine ODT 5 MG TAB PO PRN (00:12)
[2018-03-06] MEDS ORDERED: CYCLOBENZAPRINE 10 MG TAB PO PRN (00:12)
[2018-03-06] MEDS ORDERED: DIAZEPAM 5 MG TAB PO SCH (00:15)
[2018-03-06] MEDS: PRAZOSIN 1 MG CAP PO SCH ×3 (00:52→21:02)
[2018-03-06] MEDS: ASPIRIN 81 MG PO SCH ×2 (00:52→21:02)
[2018-03-06] MEDS: TAMSULOSIN 0.4 MG CAP.ER.24H PO SCH ×2 (00:52→21:01)
[2018-03-06] MEDS: hydrOXYzine HCL 10 MG TAB PO SCH ×4 (00:52→21:01)
[2018-03-06] MEDS: GABAPENTIN 300 MG CAP PO SCH ×4 (00:52→21:01)
[2018-03-06] MEDS: NON-FORMULARY DRUG (Vortioxetine Hydrobromide [Trintellix] 20 MG) PO SCH ×2 (00:53→21:03)
[2018-03-06] MEDS: amLODIPine 5 MG TAB PO SCH (08:48)
[2018-03-06] MEDS: PANTOPRAZOLE 40 MG/10 ML VIAL IVP SCH (08:48)
[2018-03-06] MEDS: FUROSEMIDE 20 MG TAB PO SCH (08:49)
[2018-03-06] MEDS: ATORVASTATIN 10 MG TAB PO SCH (08:49)
[2018-03-06] MEDS: LISINOPRIL 5 MG TAB PO SCH (08:50)
[2018-03-06] MEDS: NADOLOL 20 MG TAB PO SCH (08:50)
[2018-03-06] MEDS: OXYBUTYNIN 10 MG TAB.ER.24 PO SCH (08:50)
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
[2018-03-06] MEDS: SODIUM CHLORIDE 0.9% 1,000 ML IV SCH ×2 (13:53→21:08)
[2018-03-06] MEDS ORDERED: risperiDONE ODT 1 MG TAB PO PRN (14:59)
--- NOTE | 2018-03-06 18:48 | HP ---
HISTORY AND PHYSICAL DATE OF SERVICE: 03/06/2018 CHIEF COMPLAINT: Change in his mental status and dehydration. HISTORY OF PRESENT ILLNESS: This 62-year-old gentleman with a past medical history of multiple medical problems, seizure disorder, history of COPD, hypertension, hyperlipidemia, history of stimulator, being followed up by a physician elsewhere recently admitted with semi- coma, rhabdomyolysis, multiple other medical problems in the ICU. Currently the patient is also dehydrated. Patient was weak, with diminished p.o. intake and patient came to [facility] and admitted to the hospital further evaluation and treatment. There is no history of fever, rigors or chills. No history of headache, loss of consciousness or seizures. PAST MEDICAL HISTORY: History of COPD, hypertension, hyperlipidemia, history of deep brain stimulator, history of seizure disorder. MEDICATIONS: Prior to admission include home medications are: 1. Metformin 1000 mg p.o. b.i.d. 2. Atarax 10 mg t.i.d. 3. Norvasc 5 mg. 4. Trintellix 20 mg q.h.s. 5. Flomax 0.4 daily. 6. Prazosin 2 mg p.o. q.h.s. 7. Ditropan XL 10 mg p.o. daily. 8. Prilosec 20 mg a.c. breakfast. 9. Corgard 80 mg p.o. daily. 10.Prinivil 5 mg p.o. daily. 11.Neurontin 300 mg p.o. t.i.d. 12.Lasix 20 mg p.o. daily. 14.Flexeril 10 mg t.i.d. p.r.n. 15.Lipitor 10 mg p.o. daily. 16.Ecotrin 81 mg p.o. daily. ALLERGIES: SEROQUEL, NORCO. FAMILY HISTORY: History of diabetes and coronary artery disease in the family. SOCIAL HISTORY: History of smoking. No history of alcohol intake. REVIEW OF SYSTEMS: ENT: No diminished vision. No diminished hearing. CARDIOVASCULAR: No angina or palpitations. RESPIRATORY: As mentioned earlier. GI no nausea or vomiting. no dysuria. NERVOUS SYSTEM: No numbness or weakness. ALLERGY/IMMUNOLOGY: No asthma or hayfever. MUSCULOSKELETAL as mentioned earlier. HEMATOLOGY/ONCOLOGY: No history of anemia. ENDOCRINE: No history of diabetes or hypothyroidism. CONSTITUTIONAL: Negative. PSYCHIATRY: As mentioned earlier. DERMATOLOGY: Negative. RHEUMATOLOGY: Negative. PHYSICAL EXAMINATION: GENERAL: The patient is alert and oriented times three. VITAL SIGNS: Pulse 59, blood pressure 104/66, respiration 20, temperature 98.2, pulse ox 94% on room air. HEENT: Oral mucosa dry. NECK is no jugular venous distention. No carotid bruit. No lymph node enlargement. CARDIOVASCULAR SYSTEMS: S1, S2. RESPIRATION: Breath sounds diminished in the bases. A few scattered rhonchi. No crackles. ABDOMEN: Soft, nontender. No mass palpable. LEGS: No edema. No swelling. CENTRAL NERVOUS SYSTEM: Diffuse tremors present. lymphatics: No lymph nodes palpable in the neck, axillae or groin. SKIN: No ulcer, rash or bleeding. LABS: At this time shows WBC 8, hemoglobin 12.5, creatinine is 1.43. ASSESSMENT: 1. Dehydration and weakness with acute on chronic renal failure. 2. Chronic kidney stage 3 baseline. 3. History of recent rhabdomyolysis. 4. History of chronic obstructive pulmonary disease. 5. Hypertension. 6. Hyperlipidemia. 7. History of deep brain stimulator for seizure disorder. 8. Tremors diffusely. 9. Bipolar depression. 10.Panic disorder. 11.History of nicotine dependence. RECOMMENDATIONS AND DISCUSSION: This 62-year-old gentleman who presented with multiple complex medical issues, we will monitor the patient closely. Continue the current medications, management and symptomatic treatment. Continue with IV fluids. Monitor creatinine closely. Otherwise, continue the rest of the medications. Prognosis guarded. Further recommendations to follow. MMODL / IJN: [id number] / MTDD
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
[2018-03-07 06:24] VITALS: PULSE 66; RESP 16
[2018-03-07] MEDS: amLODIPine 5 MG TAB PO SCH (07:46)
[2018-03-07] MEDS: LISINOPRIL 5 MG TAB PO SCH (07:47)
[2018-03-07] MEDS: PANTOPRAZOLE 40 MG/10 ML VIAL IVP SCH (07:47)
[2018-03-07] MEDS: NADOLOL 20 MG TAB PO SCH (07:47)
[2018-03-07] MEDS: ATORVASTATIN 10 MG TAB PO SCH (07:48)
[2018-03-07] MEDS: GABAPENTIN 300 MG CAP PO SCH ×2 (07:48→16:49)
[2018-03-07] MEDS: FUROSEMIDE 20 MG TAB PO SCH (07:49)
[2018-03-07] MEDS: OXYBUTYNIN 10 MG TAB.ER.24 PO SCH (07:49)
[2018-03-07] MEDS: hydrOXYzine HCL 10 MG TAB PO SCH ×2 (07:49→16:49)
[2018-03-07] MEDS: SODIUM CHLORIDE 0.9% 1,000 ML IV SCH (07:50)
[2018-03-07 09:51] LABS: Basophils % (A) 1 %; Eosinophils # (A) 0.2 k/uL (0-0.7); Eosinophils % (A) 4 %; HCT 30.6 % (39.0-53.0); HGB 10.1 gm/dL (13.0-17.5); Lymphocytes # (A) 1.6 k/uL (1.0-4.8); Lymphocytes % (A) 33 %; MCH 31.7 pg (25.0-35.0); MCHC 33.1 g/dL (31.0-37.0); MCV 95.6 fL (80.0-100.0); Mean Platelet Volume 7.6; Monocytes # (A) 0.3 k/uL (0-1.0); Monocytes % (A) 5 %; Neutrophils # (A) 2.8 k/uL (1.3-7.7); Neutrophils % (A) 56 %; Platelet Count 187 k/uL (150-450); RDW 13.2 % (11.5-15.5); WBC 4.9 k/uL (3.8-10.6)
[2018-03-07 10:18] LABS: Calcium 8.2 mg/dL (8.4-10.2); Potassium 5.2 mmol/L (3.5-5.1)
--- NOTE | 2018-03-07 15:07 | P.PN ---
Subjective Progress Note Date: 03/07/18 Principal diagnosis: Altered mental status This is a pleasant 62-year-old male continuing to be evaluated by the neurology service for altered mental status. He does have a history of deep brain stimulator implantation the exact diagnosis for which is still unclear. Recall that he was found unresponsive in his home by a friend. He was found to be quite dehydrated and had some rhabdomyolysis. Clinically he has improved with IV hydration. He is reportedly had some altered mental status for quite some time now. He has had some recent falls that are questionably due to intoxication. Recall that his CT of the brain was negative for any acute intracranial abnormalities. I had ordered an EEG and it has not been performed yet. At the time my exam he is walking the jay having his physical and occupational therapy evaluation. Apparently they do not feel that he is in need of any further therapy. He did have psychiatric evaluation and they also believe that the changes in his mental status were due to his dehydration, but opiate and benzodiazepine use as well as alcohol use was also mention. Apparently he has a long history of drinking. Objective - Vital Signs Vital signs: Vital Signs Temp 96.5 F L 03/07/18 06:23 Pulse 66 03/07/18 06:23 Resp 16 03/07/18 06:23 BP 98/53 03/07/18 06:23 Pulse Ox 97 03/07/18 06:23 Intake & Output 03/06/18 03/07/18 03/07/18 18:59 06:59 18:59 Intake Total 1050 600 Balance 1050 600 Weight 70.5 kg Intake: Oral 1050 600 Other: # Voids 2 2 3 - Constitutional General appearance: Present: average body habitus, cooperative, no acute distress - EENT Eyes: Present: EOMI, PERRLA. Absent: abnormal pupil, ptosis ENT: Present: hearing grossly normal - Neck Neck: Present: normal ROM. Absent: rigidity - Respiratory Respiratory: negative: prolonged expiration, prolonged inspiration - Cardiovascular Rhythm: regular - Gastrointestinal General gastrointestinal: Absent: distended - Integumentary Integumentary Comment(s): The patient is alert awake and oriented 3. Speech and language are normal. There is no facial asymmetry. Strength is 5 out of 5 in bilateral upper and lower extremities. There is no sensory deficit. No tremors or seizures are seen. Cranial nerves II through XII are intact globally. - Neurologic Neurologic Comment(s): The patient is alert awake and oriented 3. Speech is a little abnormal, again because of his dental problems, and language is normal. There is no facial asymmetry. Strength is 5 out of 5 in bilateral upper and lower extremities. There is no sensory deficit. No tremors or seizures are seen. Cranial nerves II through XII are intact globally. - Labs CBC & Chem 7: 03/07/18 08:49 03/07/18 08:49 Labs: Abnormal Lab Results - Last 24 Hours (Table) 03/07/18 03/07/18 Range/Units 08:49 08:49 RBC 3.20 L (4.30-5.90) m/uL Hgb 10.1 L (13.0-17.5) gm/dL Hct 30.6 L (39.0-53.0) % Potassium 5.2 H (3.5-5.1) mmol/L Chloride 112 H (98-107) mmol/L Carbon Dioxide 21 L (22-30) mmol/L Creatinine 1.33 H (0.66-1.25) mg/dL Glucose 196 H (74-99) mg/dL Calcium 8.2 L (8.4-10.2) mg/dL Assessment and Plan (1) Status post deep brain stimulator placement Current Visit: Yes Status: Chronic Code(s): Z96.89 - PRESENCE OF OTHER SPECIFIED FUNCTIONAL IMPLANTS SNOMED Code(s): 823958667 (2) History of seizures Current Visit: Yes Status: Chronic Code(s): Z87.898 - PERSONAL HISTORY OF OTHER SPECIFIED CONDITIONS SNOMED Code(s): 209909424 (3) ARF (acute renal failure) Current Visit: Yes Status: Resolved Code(s): N17.9 - ACUTE KIDNEY FAILURE, UNSPECIFIED SNOMED Code(s): 99126315 (4) Altered mental status Current Visit: Yes Status: Acute Code(s): R41.82 - ALTERED MENTAL STATUS, UNSPECIFIED SNOMED Code(s): 466322516 (5) Dehydration Current Visit: Yes Status: Resolved Code(s): E86.0 - DEHYDRATION SNOMED Code(s): 48213592 (6) Metabolic encephalopathy Current Visit: No Status: Suspected Code(s): G93.41 - METABOLIC ENCEPHALOPATHY SNOMED Code(s): 34268276 Plan: The patient had some acute metabolic encephalopathy. This seems to have resolved with IV hydration . We don't know the exact diagnosis that prompted the placement of deep brain stimulator. We will get an EEG. We will continue to follow. Neurologically he is stable right now. From history given from family his baseline mental status has been declining for some time now. This is likely due to his history of seizures and substance use. Barring any unforeseen abnormalities on his EEG he would be cleared from a neurological standpoint. I have performed a history and physical on the above patient. I have reviewed the above note, and agree.
[2018-03-07 15:14] VITALS: BP 108/70; TEMP 98
--- NOTE | 2018-03-07 17:28 | EEG ---
ELECTROENCEPHALOGRAM REPORT DATE OF SERVICE: 03/07/2018. REASON FOR TESTING: Altered mental status. DESCRIPTION OF THE PROCEDURE: This EEG was performed using a 21 channel digital electroencephalograph, following international 10-20 system. DESCRIPTION OF THE RECORDING: From the beginning of the tracing, and with patient's eyes closed, the background rhythm was mostly consisting of 8 Hz alpha frequency in the posterior occipital leads. Significant lead artifacts are seen throughout the tracing, likely due to history of a deep brain stimulator implant. Photic stimulation was performed with no driving response seen. No pathological waves were elicited. Hyperventilation was not performed. The patient remains awake throughout the tracing. No epileptiform discharges were seen. INTERPRETATION: This awake EEG can be considered within normal limits. There is no asymmetry seen. No epileptiform discharges were noticed. The absence of epileptiform discharges does not rule out the diagnosis of epilepsy; therefore clinical correlation is recommended. MMLUIS AL / IJLai: [id number] /
[2018-03-08] MEDS ORDERED: PANTOPRAZOLE 40 MG TABLET PO SCH (07:30)
--- NOTE | 2018-03-08 12:07 | DS ---
DISCHARGE SUMMARY DATE OF SERVICE: 03/07/2018 FINAL DIAGNOSES: 1. Dehydration with weakness, acute on chronic renal failure. 2. Chronic kidney disease stage 3 baseline. 3. History of recent rhabdomyolysis. 4. History of chronic obstructive pulmonary disease. 5. Hypertension. 6. Hyperlipidemia. 7. History of the deep brain stimulator for seizure disorder. 8. History of tremors diffusely. 9. Bipolar depression. 10.Panic disorder. 11.History of nicotine dependence. DISCHARGE DISPOSITION: The patient will be discharged in a stable condition with guarded prognosis. HISTORY OF PRESENT ILLNESS: This 62-year-old gentleman with a past medical history of multiple medical problems admitted with dehydration, diminished intake and acute on chronic renal failure. Patient was hydrated. Patient improved significantly. On exam, vital signs are stable. CARDIOVASCULAR: S1, S2 muffled. ABDOMEN: Soft. NERVOUS SYSTEM: No focal deficits. Patient does not for rehab at this time. I would discuss with the case checker for evaluate the home situation and continue to follow up. DISCHARGE ADVICE: 1. Diet is cardiac diet. 2. Activity limited until followup. 3. Follow up with Dr. Ram in 2 to 3 days. Medications are as follows: 1. Norvasc 5 mg p.o. daily. 2. Ecotrin 81 mg p.o. daily. 3. Lipitor 10 mg daily. 4. Flexeril 10 mg t.i.d. p.r.n. 5. Diazepam 10 mg q.h.s. 6. Lasix 20 mg p.o. daily. 7. Neurontin 300 mg t.i.d. 8. Atarax 10 mg p.o. t.i.d. 9. Prinivil 5 mg p.o. daily. 10.Metformin 1000 mg p.o. b.i.d. 11.Corgard 80 mg p.o. daily. 12.Prilosec 20 mg daily. 13.Ditropan XL 10 mg p.o. daily. 14.Prazosin 2 mg q.h.s. 15.Flomax 0.4 daily. 16.Vortioxetine 20 mg q.h.s. 17.Risperdal 1 mg q.h.s. p.r.n. MMODL / IJN: [id number] /
== END 2018-03-07 17:33 | disposition home or self-care (01) ==
LOC: EC 15:30 → 4MS4W 18:49
PROVIDERS: ADMIT Hospitalist; ATTEND Hospitalist
DX: E86.0 Dehydration (principal); I12.9 Hypertensive chronic kidney disease with stage 1 through stage 4 chronic kidney disease, or unspecified chronic kidney disease; N18.3 Chronic kidney disease, stage 3 (moderate); G93.41 Metabolic encephalopathy; N17.9 Acute kidney failure, unspecified; M62.82 Rhabdomyolysis; J44.9 Chronic obstructive pulmonary disease, unspecified; E78.5 Hyperlipidemia, unspecified; F31.9 Bipolar disorder, unspecified; F41.0 Panic disorder [episodic paroxysmal anxiety]; I25.10 Atherosclerotic heart disease of native coronary artery without angina pectoris; R60.9 Edema, unspecified; R39.11 Hesitancy of micturition; F17.200 Nicotine dependence, unspecified, uncomplicated; G40.909 Epilepsy, unspecified, not intractable, without status epilepticus; Z98.61 Coronary angioplasty status; Z96.89 Presence of other specified functional implants; Z88.5 Allergy status to narcotic agent; Z79.82 Long term (current) use of aspirin; Z79.84 Long term (current) use of oral hypoglycemic drugs; Z79.899 Other long term (current) drug therapy; Z88.8 Allergy status to other drugs, medicaments and biological substances; Z83.3 Family history of diabetes mellitus; Z82.49 Family history of ischemic heart disease and other diseases of the circulatory system; Z81.8 Family history of other mental and behavioral disorders
CPT/HCPCS: 99285; 96374 ×2; 96361 ×9; 96376; 96375; 36415; 95819; 97161; 97165; 80053; 80048; 82150; 82550; 82553; 83605; 83690; 84484; 85025 ×2; 74018; 70450; G0378 ×3; J2405; C9113 ×2

== ENCOUNTER → 2018-05-26 | Outpatient (CLI) | payer MEDICARE ==
--- NOTE | 2018-05-26 09:10 | CT ---
EXAMINATION TYPE: CT brain wo con DATE OF EXAM: 05/26/2018 COMPARISON: 03/05/2018 HISTORY: 62-year-old male tremor, amnesia, fall, gait disturbance, speech changes. TECHNIQUE: Examination was done in axial plane without intravenous contrast. Coronal and sagittal r econstructions performed. CT DLP: 1201 mGycm Automated exposure control for dose reduction was used. FINDINGS: Deep brain stimulating electrodes redemonstrated extending to the bilateral basal ganglionic regions. These cause prominent streak and beam hardening artifact causing some limitation in assessment. Within this limitation, there is no evidence of acute intracranial hemorrhage, acute ischemic change s, mass, mass-effect, or extra-axial fluid collection. There is no effacement of cerebral sulci or b george subarachnoid cisterns. There is no hydrocephalus. There is no midline shift. Sanderson-white matte r distinction is preserved. Mucosal thickening in the maxillary sinuses. Mastoid air cells are well pneumatized. Orbits and globe s appear intact. IMPRESSION: Similar appearance to the deep brain stimulating electrodes. No acute intracranial abnormality seen a llowing for metal wire artifacts.
== END | disposition home or self-care (01) ==
LOC: RADCTMAIN 07:42
PROVIDERS: ATTEND Physician Assistant Medical
DX: R41.3 Other amnesia (principal); R41.89 Other symptoms and signs involving cognitive functions and awareness; G25.0 Essential tremor
CPT/HCPCS: 70450

== ENCOUNTER 2018-12-01 22:43 | Observation (INO) | payer MEDICARE ==
[2018-12-01] MEDS ORDERED: ASPIRIN 81 MG PO STA (23:34)
[2018-12-01] MEDS ORDERED: MORPHINE SULFATE 4 MG/ML SYRINGE IV STA (23:34)
[2018-12-01 23:47] LABS: Basophils % (A) 1 %; Eosinophils # (A) 0.5 k/uL (0-0.7); Eosinophils % (A) 7 %; HCT 38.1 % (39.0-53.0); HGB 12.6 gm/dL (13.0-17.5); Lymphocytes # (A) 1.9 k/uL (1.0-4.8); Lymphocytes % (A) 26 %; MCH 32.1 pg (25.0-35.0); MCV 97.1 fL (80.0-100.0); Mean Platelet Volume 8.8; Monocytes # (A) 0.4 k/uL (0-1.0); Monocytes % (A) 5 %; Neutrophils # (A) 4.2 k/uL (1.3-7.7); Neutrophils % (A) 59 %; Platelet Count 203 k/uL (150-450); RBC 3.92 m/uL (4.30-5.90); RDW 15.1 % (11.5-15.5); WBC 7.1 k/uL (3.8-10.6)
--- NOTE | 2018-12-01 23:47 | ED ---
Chest Pain HPI - General Chief Complaint: Chest Pain Stated Complaint: Chest Pain Time Seen by Provider: 12/01/18 22:55 Source: patient Mode of arrival: ambulatory Limitations: altered mental status (Somnolence) - History of Present Illness Initial Comments: This patient is 63-year-old man who presents with complaint that he is having some chest pain that goes to his shoulder and neck. Patient states that it had come on this evening and that he had taken some Valium following it. History is somewhat difficult as the patient does have some somnolence and dysarthria. He states this happens when he takes the Valium and he does seem somewhat irritable when questioned regarding it. MD Complaint: chest pain -: hour(s) Onset: during rest Pain Location: substernal Pain Radiation: LUE, jaw/teeth Severity: moderate Quality: aching Consistency: constant Improves With: nothing Worsens With: nothing Anginal Symptoms: dyspnea Treatments Prior to Arrival: other (Valium) - Related Data Home Medications Medication Instructions Recorded Confirmed Gabapentin [Neurontin] 300 mg PO TID 01/17/18 12/01/18 Prazosin HCl 2 mg PO HS 01/17/18 12/01/18 Tamsulosin HCl [Flomax] 0.4 mg PO DAILY 01/17/18 12/01/18 Vortioxetine Hydrobromide 20 mg PO HS 01/17/18 12/01/18 [Trintellix] hydrOXYzine HCL [Atarax] 10 mg PO TID 01/17/18 12/01/18 Aspirin EC [Ecotrin Low Dose] 81 mg PO HS 01/18/18 12/01/18 Oxybutynin ER [Ditropan Xl] 10 mg PO DAILY 01/18/18 12/01/18 Diazepam 10 mg PO HS 03/05/18 12/01/18 Omeprazole [PriLOSEC] 20 mg PO AC-[id number] 03/06/18 12/01/18 metFORMIN HCL 1,000 mg PO BID 12/01/18 12/01/18 Allergies Allergy/AdvReac Type Severity Reaction Status Date / Time quetiapine [From Seroquel] Allergy Diarrhea Verified 12/01/18 23:39 hydrocodone [From [place]] AdvReac Nausea & Verified 12/01/18 23:39 Vomiting Review of Systems ROS Statement: Those systems with pertinent positive or pertinent negative responses have been documented in the HPI. ROS Other: All systems not noted in ROS Statement are negative. Limitations: ROS unobtainable due to patients medical condition (Somnolent but arousable) Constitutional: Denies: fever, weakness Eyes: Denies: vision change Respiratory: Denies: cough, dyspnea Cardiovascular: Reports: as per HPI, chest pain. Denies: palpitations, edema, syncope Gastrointestinal: Denies: abdominal pain, vomiting, diarrhea Genitourinary: Denies: dysuria Musculoskeletal: Denies: back pain Skin: Denies: rash Neurological: Denies: headache, weakness, numbness EKG Findings - EKG Results: EKG: interpreted by CURLY MCCRARY, sinus rhythm (Rate 64 bpm), normal axis, normal QRS, normal ST/T, no acute changes - CA, Pacemaker, Normal: Normal tracing: normal tracing Past Medical History Past Medical History: COPD, Hyperlipidemia, Hypertension Additional Past Medical History / Comment(s): Pt. has a deep brain stimulator - an implanted neurotransmitter; angioplasty 25 years ago, central brain tremors, itching, bladder hesitancy, muscle cramps, (takes lots of medications to control body tremors), leg edema, History of Any Multi-Drug Resistant Organisms: None Reported Past Surgical History: Heart Catheterization, Orthopedic Surgery Additional Past Surgical History / Comment(s): Brain stimulator, dental surgery, mass removed from chest, left leg fracture w/ surgery. Past Anesthesia/Blood Transfusion Reactions: No Reported Reaction Past Psychological History: Bipolar, Depression, Panic Disorder Smoking Status: Current every day smoker Past Alcohol Use History: None Reported Past Drug Use History: None Reported - Past Family History Father Family Medical History: Coronary Artery Disease (CAD), Diabetes Mellitus Sister(s) Family Medical History: Diabetes Mellitus Mother Family Medical History: Dementia General Exam Limitations: altered mental status General appearance: other (Patient is somnolent but arousable to voice) Head exam: Present: atraumatic, normocephalic Eye exam: Present: PERRL, EOMI, nystagmus. Absent: scleral icterus, conjunctival injection ENT exam: Present: mucous membranes dry Neck exam: Present: normal inspection, full ROM. Absent: tenderness Respiratory exam: Present: rales (Bilateral bases). Absent: respiratory distress, wheezes, rhonchi, stridor, chest wall tenderness Cardiovascular Exam: Present: normal rhythm, bradycardia, normal heart sounds. Absent: systolic murmur, diastolic murmur, rubs, gallop GI/Abdominal exam: Present: soft. Absent: distended, tenderness, guarding, rebound, mass Extremities exam: Present: normal inspection, normal capillary refill. Absent: pedal edema, calf tenderness Back exam: Present: normal inspection. Absent: CVA tenderness (R), CVA tenderness (L), vertebral tenderness Neurological exam: Present: altered (Patient is somnolent but does arouse to voice), other (The neurologic exam is limited as patient is very somnolent. Gl [place]gow Coma Scale is 13, as patient is mildly confused. (E=3, V=4, M=6) moves all 4 extremities to command). Absent: oriented X3 (Patient is oriented to person and recognizes he is in the hospital but cannot state the date), motor sensory deficit Skin exam: Present: warm, dry, intact, normal color. Absent: rash Course Vital Signs 12/01/18 12/01/18 12/02/18 22:45 23:47 00:30 Temperature 98.0 F Pulse Rate 56 L 67 66 Respiratory 18 18 18 Rate Blood Pressure 148/99 139/82 141/74 O2 Sat by Pulse 98 96 95 Oximetry 12/02/18 02:14 Temperature Pulse Rate 50 L Respiratory 18 Rate Blood Pressure 117/71 O2 Sat by Pulse 100 Oximetry Chest Pain MDM - [facility] Patient is 63-year-old man presenting with chest pain that radiates to her shoulder and neck. Will be admitted to have telemetry monitoring and serial cardiac enzymes. Disposition Clinical Impression: Chest pain Disposition: ADMITTED IP TO THIS HOSP Condition: Good Is patient prescribed a controlled substance at d/c from ED?: No
[2018-12-01 23:55] LABS: Albumin 3.9 g/dL (3.5-5.0); Calcium 9.1 mg/dL (8.4-10.2); Magnesium 1.6 mg/dL (1.6-2.3); Partial Thromboplastin Time 26.5 sec (22.0-30.0); Potassium 4.7 mmol/L (3.5-5.1); Prothrombin Time 10.6 sec (9.0-12.0); Total Bilirubin 0.3 mg/dL (0.2-1.3); Total Protein 6.5 g/dL (6.3-8.2)
--- NOTE | 2018-12-02 00:44 | XR ---
EXAM: XR Chest, 2 Views CLINICAL HISTORY: ITS.REASON XR Reason: Chest Pain TECHNIQUE: Frontal and lateral views of the chest. COMPARISON: No relevant prior studies available. FINDINGS: Lungs: Unremarkable. No consolidation. Pleural space: Unremarkable. No pneumothorax. Heart: No suspicious enlargement. Mediastinum: Unremarkable. Bones/joints: No acute fracture. IMPRESSION: No acute findings.
[2018-12-02] MEDS ORDERED: NITROGLYCERIN SL TABS 0.4 MG TAB SUBLINGUAL PRN (02:35)
[2018-12-02 06:45] LABS: Glucose,Whole Blood 82 mg/dL (75-99)
[2018-12-02] MEDS ORDERED: PANTOPRAZOLE 40 MG TABLET PO SCH (07:30)
[2018-12-02] MEDS ORDERED: TAMSULOSIN 0.4 MG CAP.ER.24H PO SCH (09:00)
[2018-12-02] MEDS ORDERED: OXYBUTYNIN 10 MG TAB.ER.24 PO SCH (09:00)
[2018-12-02] MEDS ORDERED: NADOLOL 20 MG TAB PO SCH (09:00)
[2018-12-02] MEDS ORDERED: DOBUTamine DRIP for NUC MED 500 MG in DEXTROSE/WATER 1 250ML.BAG IV ONE (09:50)
[2018-12-02] MEDS ORDERED: ATROPINE SULFATE 0.1 MG/ML 10ML SYRINGE ONE (11:15)
[2018-12-02 11:55] LABS: Cholesterol 147 mg/dL (<200); HDL Cholesterol 24 mg/dL (40-60); LDL Cholesterol,Calculated 99 mg/dL (0-99); Triglycerides 122 mg/dL (<150)
--- NOTE | 2018-12-02 11:57 | P.CRDCN ---
History of Present Illness History of present illness: This is a pleasant 63-year-old male past medical history significant for coronary artery disease s/p angioplasty over 20 years ago, hypertension, dyslipidemia, diabetes mellitus, central tremors s/p deep brain stimulator, sleep apnea and chronic nicotine dependence. He does not follow with a finishing manager regularly. He recently moved to [place] in June after a divorce. He has not established care in town yet. We have been asked to see him in consultation for chest pain. He states last evening [place] standing [place] the river [place] friends he felt an heavy chest discomfort like someone was sitting on his chest. There was some radiation and discomfort to the right arm, his arm became heavy feeling. He also noticed his right eye became droopy. He denies radiation to the back, neck or jaw. He denies associated shortness of breath, dizziness, nausea, vomiting, palpitations or diaphoresis. He has garbled speech and states this is chronic from loss of his teeth. He denies previous history of stroke, he follows with Dr. Martínez at [facility] for central tremors. He also descr ibes a recent weight loss of about 50 lbs in the last 6 months. He has not had this evaluated by a physician. Telemetry tracings reveal persistent sinus bradycardia. EKG reveals sinus mechanism with no acute ST or T-wave changes. Chest xray is negative for an acute cardiopulmonary process. Laboratory data reviewed, WBC 7.1, hgb 12.6, plt 203, sodium 140, potassium 4.7, creatinine 1.5, magnesium 1.6, cardiac enzymes negative x2. Current medications include nadolol 40 mg daily, aspirin 81 mg daily, prazosin 2 mg daily, flomax 0.4 mg daily, metformin 1,000 mg BID, trintellix 20 mg daily, ditropan 10 mg daily, omeprazole 20 mg daily, neurontin 300 mg TID and diazepam 10 mg daily. At the time of my exam: CONSTITUTIONAL: Denies fever. Denies chills. EYES: Denies blurred vision. Denies vision changes. Denies eye pain. EARS, NOSE, MOUTH & THROAT: Denies headache. Denies sore throat. Denies ear pain. CARDIOVASCULAR: Denies chest pain. Denies shortness of breath. Denies orthopnea. Denies PND. Denies palpitations. RESPIRATORY: Denies cough. GASTROINTESTINAL: Denies abdominal pain. Denies diarrhea. Denies constipation. Denies nausea. Denies vomiting. MUSCULOSKELETAL: Denies myalgias. INTEGUMENTARY: Denies pruitis. Denies rash. NEUROLOGIC: Denies numbness. Denies tingling. Denies weakness. PSYCHIATRIC: Denies anxiety. Denies depression. ENDOCRINE: Denies fatigue. Denies weight change. Denies polydipsia. Denies polyurina. GENITOURINARY: Denies burning, hematuria or urgency with micturation. HEMATOLOGIC: Denies history of anemia. Denies bleeding. Blood pressure 98/55 heart rate 48 afebrile maintaining oxygen saturation on room air GENERAL: This is a 63-year-old male in no apparent distress at the time of my examination. Slow to respond. Garbled speech. HEENT: Head is atraumatic, normocephalic. Pupils are equal, round. Sclerae anicteric. Conjunctivae are clear. Mucous membranes of the mouth are moist. Neck is supple. There is no jugular venous distention. No carotid bruit is heard. LUNGS: Clear to auscultation no wheezes, rales or rhonchi. No chest wall tend erness is noted on palpation or with deep breathing. HEART: Regular rate and rhythm without murmurs, rubs or gallops. S1 and S2 heard. ABDOMEN: Soft, nontender. Bowel sounds are heard. No organomegaly noted. EXTREMITIES: No evidence of peripheral edema and no calf tenderness noted. VASCULAR: Radial and dorsalis pedis pulses palpated, no evidence of clubbing. NEUROLOGIC: Patient is awake, alert and oriented x3. ASSESSMENT Chest pain, atypical for angina. An acute event has been ruled out. Sinus bradycardia, asymptomatic Hypertension Dyslipidemia Diabetes mellitus Chronic kidney disease History of coronary artery disease s/p angioplasty at [facility] over 20 years ago per the patient. Exact details unavailable History of deep brain stimulator in place secondary to central tremors per the patient done by Dr. Martínez Sleep apnea, states he is compliant with CPAP every night at home Chronic nicotine dependence PLAN An acute coronary event has been ruled out. Obtain 2D echocardiogram and doppler study to assess cardiac structure and function. Perform dobutamine stress echocardiogram to assess for stress induced ischemia. Discontinue nadolol secondary to bradycardia. Blood pressure have been running on the low side in the 90's systolic. Check lipid profile. Follow up with Dr. Barrow upon discharge. Thank you kindly for this consultation. Nurse Practitioner note has been reviewed, I agree with a documented findings and plan of care. Patient was seen and examined. Past Medical History Past Medical History: COPD, Hyperlipidemia, Hypertension Additional Past Medical History / Comment(s): Pt. has a deep brain stimulator - an implanted neurotransmitter; angioplasty 25 years ago, central brain tremors, itching, bladder hesitancy, muscle cramps, (takes lots of medications to control body tremors), leg edema, History of Any Multi-Drug Resistant Organisms: None Reported Past Surgical History: Heart Catheterization, Orthopedic Surgery Additional Past Surgical History / Comment(s): Brain stimulator, dental surgery, mass removed from chest, left leg fracture w/ surgery. Past Anesthesia/Blood Transfusion Reactions: No Reported Reaction Past Psychological History: Bipolar, Depression, Panic Disorder Smoking Status: Current every day smoker Past Alcohol Use History: None Reported Additional Past Alcohol Use History / Comment(s): Pt. states he doesn't feel depressed whatsoever, has no thoughts of harming self. States his served him w/ divorce papers and he thought things were going great - happened out of nowhere. States he lives with a friend. Feels safe at home. Past Drug Use History: Marijuana - Past Family History Father Family Medical History: Coronary Artery Disease (CAD), Diabetes Mellitus Sister(s) Family Medical History: Diabetes Mellitus Mother Family Medical History: Dementia Medications and Allergies Home Medications Medication Instructions Recorded Confirmed Type Gabapentin [Neurontin] 300 mg PO TID 01/17/18 12/01/18 History Prazosin HCl 2 mg PO HS 01/17/18 12/01/18 History Tamsulosin HCl [Flomax] 0.4 mg PO DAILY 01/17/18 12/01/18 History Vortioxetine Hydrobromide 20 mg PO HS 01/17/18 12/01/18 History [Trintellix] hydrOXYzine HCL [Atarax] 10 mg PO TID 01/17/18 12/01/18 History Aspirin EC [Ecotrin Low Dose] 81 mg PO HS 01/18/18 12/01/18 History Oxybutynin ER [Ditropan Xl] 10 mg PO DAILY 01/18/18 12/01/18 History Diazepam 10 mg PO HS 03/05/18 12/01/18 History Omeprazole [PriLOSEC] 20 mg PO AC-BRKFST 03/06/18 12/01/18 History metFORMIN HCL 1,000 mg PO BID 12/01/18 12/01/18 History Allergies Allergy/AdvReac Type Severity Reaction Status Date / Time quetiapine [From Seroquel] Allergy Diarrhea Verified 12/01/18 23:39 hydrocodone [From [place]] AdvReac Nausea & Verified 12/01/18 23:39 Vomiting Physical Exam Vitals: Vital Signs Temp Pulse Pulse Resp BP BP Pulse Ox 12/02/18 04:00 97.8 F 40 L 16 98/55 98 12/02/18 02:14 50 L 18 117/71 100 12/02/18 00:30 66 18 141/74 95 12/01/18 23:47 67 18 139/82 96 12/01/18 22:45 98.0 F 56 L 18 148/99 98 Intake and Output 12/01/18 12/02/18 12/02/18 22:59 06:59 14:59 Other: Weight 68.039 kg Results 12/01/18 23:23 12/01/18 23:23 Cardiac Enzymes 12/01/18 12/01/18 12/02/18 Range/Units 23:23 23:23 05:29 AST 13 L (17-59) U/L Troponin I <0.012 <0.012 (0.000-0.034) ng/mL Coagulation 12/01/18 Range/Units 23:23 PT 10.6 (9.0-12.0) sec APTT 26.5 (22.0-30.0) sec CBC 12/01/18 Range/Units 23:23 WBC 7.1 (3.8-10.6) k/uL RBC 3.92 L (4.30-5.90) m/uL Hgb 12.6 L (13.0-17.5) gm/dL Hct 38.1 L (39.0-53.0) % Plt Count 203 (150-450) k/uL Comprehensive Metabolic Panel 12/01/18 Range/Units 23:23 Sodium 140 (137-145) mmol/L Potassium 4.7 (3.5-5.1) mmol/L Chloride 111 H (98-107) mmol/L Carbon Dioxide 20 L (22-30) mmol/L BUN 21 H (9-20) mg/dL Creatinine 1.50 H (0.66-1.25) mg/dL Glucose 111 H (74-99) mg/dL Calcium 9.1 (8.4-10.2) mg/dL AST 13 L (17-59) U/L ALT 9 L (21-72) U/L Alkaline Phosphatase 63 (38-126) U/L Total Protein 6.5 (6.3-8.2) g/dL Albumin 3.9 (3.5-5.0) g/dL Current Medications Generic Name Dose Route Start Last Admin Trade Name Freq PRN Reason Stop Dose Admin Aspirin 325 mg 12/03/18 09:00 Aspirin PO DAILY [facility] Diazepam 10 mg 12/02/18 21:00 Valium PO HS [facility] Gabapentin 300 mg 12/02/18 09:00 Neurontin PO TID [facility] Hydroxyzine HCl 10 mg 12/02/18 09:00 Atarax PO TID [facility] Metformin HCl 1,000 mg 12/02/18 09:00 Glucophage PO BID [facility] Nadolol 40 mg 12/02/18 09:00 Corgard PO DAILY [facility] Nitroglycerin 0.4 mg 12/02/18 02:35 Nitrostat SUBLINGUAL Q5M PRN Chest Pain Oxybutynin Chloride 10 mg 12/02/18 09:00 Ditropan Xl PO DAILY [facility] Pantoprazole Sodium 40 mg 12/02/18 07:30 Protonix PO AC-BRKFST [facility] Prazosin HCl 2 mg 12/02/18 21:00 Minipress PO HS [facility] Sodium Chloride 10 ml 12/02/18 09:00 Saline Flush IV BID [facility] Tamsulosin HCl 0.4 mg 12/02/18 09:00 Flomax PO DAILY [facility] Vortioxetine 20 mg 12/02/18 21:00 Trintellix PO HS [facility] Intake and Output 12/01/18 12/02/18 12/02/18 22:59 06:59 14:59 Other: Weight 68.039 kg 12/01/18 23:23 12/01/18 23:23
[2018-12-02 11:59] LABS: Glucose,Whole Blood 95 mg/dL (75-99)
[2018-12-02] MEDS: metFORMIN 500 MG TAB PO SCH ×2 (12:08→20:10)
[2018-12-02] MEDS: GABAPENTIN 300 MG CAP PO SCH ×3 (12:09→20:10)
--- NOTE | 2018-12-02 12:09 | P.STRESS ---
- Stress Test Note Stress Test Results/Findings: Exam Performed: dobutamine stress echo Exam Date: 12/02/18 Reason for Exam: CHEST PAIN Height: 5 ft 10 in Weight: 68.039 kg Protocol: DSE Stage: 5 Duration of Exercise: 14:30 Resting Heart Rate: 44 Resting Blood Pressure: 120/71 Maximum Achieved Heart Rate: 116 Maximum Achieved Blood Pressure: 210/104 85% PMHR: 132 100% PMHR: 155 METS: NA Technologist Comment: Stress Test Results/Findings: This is a 63-year-old gentleman with history of ischemic heart disease, diabetes and family history of ischemic heart disease was admitted to the hospital with chest pain. Patient's EKGs are normal and cardiac enzymes are negative. Stress data: Baseline EKG showed sinus rhythm and sinus bradycardia with a heart rate of 44, blood pressure 120/70. Head is cooper dose of dobutamine was initiated and was titrated to maximum 40 mics and the heart rate did not improve. Subsequently patient was given atropine with which his heart rate went up to maximum of about 116 which is about 72% of his predicted heart rate. EKGs taken during and after the infusion did not reveal any significant changes from the baseline. Patient did not experience any chest pain. Echo data: Baseline echo images showed fair LV function without any definite wall motion of the mallet his. Echo images taken with the dobutamine infusion and also after atropine ,showed progressive augmentation of the wall motion and thickening, without any definite ischemic segments. However, patient Radu only about 72% of the predicted heart rate. Final impression: #1. Suboptimal test because patient did not achieve 85% predicted heart rate. #2. Negative dobutamine stress test at the level of exercise that the patient has achieved #3. Negative dobutamine stress echo at the level of exercise. that the patient has achieved.
[2018-12-02] MEDS: hydrOXYzine HCL 10 MG TAB PO SCH ×2 (12:10→17:37)
--- NOTE | 2018-12-02 12:58 | ECHOF ---
Referral Reason:cp MEASUREMENTS -------- HEIGHT: 177.8 cm WEIGHT: 68.0 kg BP: RVIDd: 2.7 cm (< 3.3) IVSd: 1.0 cm (0.6 - 1.1) LVIDd: 4.1 cm (3.9 - 5.3) LVPWd: 1.3 cm (0.6 - 1.1) IVSs: 1.6 cm LVIDs: 2.8 cm LVPWs: 1.3 cm LAESV Index (A-L): 31.92 ml/m Ao Diam: 3.0 cm (2.0 - 3.7) AV Cusp: 2.0 cm (1.5 - 2.6) LA Diam: 3.4 cm (2.7 - 3.8) EPSS: 0.1 cm MV E Wilbert: 1.05 m/s MV DecT: 74 ms MV A Wilbert: 0.57 m/s MV E/A Ratio: 1.85 RAP: 5.00 mmHg RVSP: 19.87 mmHg MV EF SLOPE: 138.44 mm/s (70 - 150) MV EXCURSION: 2.34 cm (> 18.000) FINDINGS -------- Sinus rhythm. This was a technically good study. The left ventricular size is normal. There is mild concentric left ventricular hypertrophy. Overa ll left ventricular systolic function is low-normal with, an EF between 50 - 55 %. The right ventricle is normal in size. Left atrium is mildly dilated by volume. The right atrial size is normal. Interatrial and interventricular septum intact. The aortic valve is trileaflet and appears structurally normal. The mitral valve is normal. The mitral valve leaflets are mildly thickened. There is trace mitral regurgitation. The tricuspid valve appears structurally normal. Trace tricuspid regurgitation present. Right reid tricular systolic pressure is normal at < 35 mmHg. There is no pulmonic regurgitation present. The aortic root size is normal. The inferior vena cava was not well visualized. There is no pericardial effusion. CONCLUSIONS -------- 1. Sinus rhythm. 2. This was a technically good study. 3. The left ventricular size is normal. 4. There is mild concentric left ventricular hypertrophy. 5. Overall left ventricular systolic function is low-normal with, an EF between 50 - 55 %. 6. The right ventricle is normal in size. 7. Left atrium is mildly dilated by volume. 8. The right atrial size is normal. 9. Interatrial and interventricular septum intact. 10. The aortic valve is trileaflet and appears structurally normal. 11. The mitral valve is normal. 12. The mitral valve leaflets are mildly thickened. 13. There is trace mitral regurgitation. 14. The tricuspid valve appears structurally normal. 15. Trace tricuspid regurgitation present. 16. Right ventricular systolic pressure is normal at < 35 mmHg. 17. There is no pulmonic regurgitation present. 18. The aortic root size is normal. 19. The inferior vena cava was not well visualized. 20. There is no pericardial effusion. KIER HAND: Helena Byers RDCS
--- NOTE | 2018-12-02 15:39 | CT ---
EXAMINATION TYPE: CT brain wo con DATE OF EXAM: 12/02/2018 COMPARISON: 05/26/2018 HISTORY: r/o CVA CT DLP: 1064.[address] of the brain was performed. Deep brain stimulating electrodes redemonstrated extending to the bilateral basal ganglionic regions. These cause prominent streak and beam hardening artifact causing some limitation in assessment. The ventricles, basal cisterns and sulci overlying the cerebral convexities demonstrate mild enlargem ent. There is no evidence for intracranial hemorrhage or sulcal effacement. There is decreased attenuation about the periventricular white matter and deep white matter of both c erebral hemispheres, compatible with chronic small vessel ischemia. Differential diagnosis does inclu de demyelination. No mass effects are seen.No midline shift. Osseous calvarium is intact. If symptoms persist consider MRI. IMPRESSION: 1. Age related atrophic and chronic small vessel ischemic change without acute intracranial process s een at this time.
--- NOTE | 2018-12-02 15:44 | P.HPIM ---
History of Present Illness Chief Complaint: Chest pain right-sided lid lag This is a 63-year-old gentleman with the time examination was looking confused. He was sleeping at the time examination woke up still seemed confused after spending some time with him. He said that he came in for chest pain in the right side of the chest while standing by the river with his friend. He had radiation of the pain the right arm right neck and jaw he also says that his eye has been drooping not more than normal. This morning and also he feels more con fused today. He also has a feeling of his jaw drooped and opening more widely than normal. He says that his speech is garbled from his loss of tooth. He otherwise denies any cough or shortness of breath, any abdominal pain, no nausea and vomiting, no diarrhea constipation, no tingling numbness of any extremities, no itch no rash. The patient says that he has brain stimulators for central tremors ER course-patient's vitals were stable EKG was done and shows no ST-T wave changes lab work showed WBC 7.1 hemoglobin 12.6 platelets 203 sodium 140 potassium 4.7 creatinine 1.5 troponins were negative. Patient was admitted to the hospitalist service for further evaluation and management Review of Systems All systems: negative Past Medical History Past Medical History: COPD, Hyperlipidemia, Hypertension Additional Past Medical History / Comment(s): Pt. has a deep brain stimulator - an implanted neurotransmitter; angioplasty 25 years ago, central brain tremors, itching, bladder hesitancy, muscle cramps, (takes lots of medications to control body tremors), leg edema, History of Any Multi-Drug Resistant Organisms: None Reported Past Surgical History: Heart Catheterization, Orthopedic Surgery Additional Past Surgical History / Comment(s): Brain stimulator, dental surgery, mass removed from chest, left leg fracture w/ surgery. Past Anesthesia/Blood Transfusion Reactions: No Reported Reaction Past Psychological History: Bipolar, Depression, Panic Disorder Smoking Status: Current every day smoker Past Alcohol Use History: None Reported Additional Past Alcohol Use History / Comment(s): Pt. states he doesn't feel depressed whatsoever, has no thoughts of harming self. States his served him w/ divorce papers and he thought things were going great - happened out of nowhere. States he lives with a friend. Feels safe at home. Past Drug Use History: Marijuana - Past Family History Father Family Medical History: Coronary Artery Disease (CAD), Diabetes Mellitus Sister(s) Family Medical History: Diabetes Mellitus Mother Family Medical History: Dementia Medications and Allergies Home Medications Medication Instructions Recorded Confirmed Type Gabapentin [Neurontin] 300 mg PO TID 01/17/18 12/01/18 History Prazosin HCl 2 mg PO HS 01/17/18 12/01/18 History Tamsulosin HCl [Flomax] 0.4 mg PO DAILY 01/17/18 12/01/18 History Vortioxetine Hydrobromide 20 mg PO HS 01/17/18 12/01/18 History [Trintellix] hydrOXYzine HCL [Atarax] 10 mg PO TID 01/17/18 12/01/18 History Aspirin EC [Ecotrin Low Dose] 81 mg PO HS 01/18/18 12/01/18 History Oxybutynin ER [Ditropan Xl] 10 mg PO DAILY 01/18/18 12/01/18 History Diazepam 10 mg PO HS 03/05/18 12/01/18 History Omeprazole [PriLOSEC] 20 mg PO AC-BRKFST 03/06/18 12/01/18 History metFORMIN HCL 1,000 mg PO BID 12/01/18 12/01/18 History Allergies Allergy/AdvReac Type Severity Reaction Status Date / Time quetiapine [From Seroquel] Allergy Diarrhea Verified 12/01/18 23:39 hydrocodone [From [place]] AdvReac Nausea & Verified 12/01/18 23:39 Vomiting Physical Exam Vitals: Vital Signs Temp Pulse Pulse Resp BP BP Pulse Ox 12/02/18 12:00 97.5 F L 74 18 112/71 98 12/02/18 08:00 97.4 F L 53 L 16 92/57 95 12/02/18 04:00 97.8 F 40 L 16 98/55 98 12/02/18 02:14 50 L 18 117/71 100 12/02/18 00:30 66 18 141/74 95 12/01/18 23:47 67 18 139/82 96 12/01/18 22:45 98.0 F 56 L 18 148/99 98 On exam, alert and oriented x3. HEENT: Conjunctivae normal. eyes normal. NECK: No JVD. No thyroid enlargement. No LNs CARDIOVASCULAR: S1, S2 muffled. No murmur RESPIRATION: Breath sounds diminished in the bases. No rhonchi or crackles. No bronchial breathing. ABDOMEN: Soft, nontender . No guarding. no masses palpable. No ascites, No hepatosplenomegaly.Bowel sounds heard. LEGS: No edema. no swelling NERVOUS SYSTEM: Patient is having slight facial droop on the right side and the patient is having right eye which is having ptosis when compared to the left eye. Patient says that this is new Skin: no ulcer no rash Results CBC & Chem 7: 12/01/18 23:23 12/01/18 23:23 Labs: Abnormal Lab Results - Last 24 Hours (Table) 12/01/18 12/01/18 12/02/18 Range/Units 23:23 23:23 05:29 RBC 3.92 L (4.30-5.90) m/uL Hgb 12.6 L (13.0-17.5) gm/dL Hct 38.1 L (39.0-53.0) % Chloride 111 H (98-107) mmol/L Carbon Dioxide 20 L (22-30) mmol/L BUN 21 H (9-20) mg/dL Creatinine 1.50 H (0.66-1.25) mg/dL Glucose 111 H (74-99) mg/dL AST 13 L (17-59) U/L ALT 9 L (21-72) U/L HDL Cholesterol 24 L (40-60) mg/dL Thrombosis Risk Factor Assmnt - Choose All That Apply Any of the Below Risk Factors Present?: No Other Risk Factors: Yes Each Risk Factor Represents 2 Points: Age 61-74 years Thrombosis Risk Factor Assessment Total Risk Factor Score: 2 Thrombosis Risk Factor Assessment Level: Low Risk Assessment and Plan Assessment: - Chest pain need to rule out the cardiac cause - New-onset right eye ptosis and slight right-sided facial droop - [facility] metastatic sinus bradycardia - Hypertension - Hyperlipidemia - Diabetes mellitus - History of CAD status post angioplasty - History of C KD - 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
[2018-12-02 16:39] LABS: Glucose,Whole Blood 138 mg/dL (75-99)
[2018-12-02 18:31] VITALS: BP 114/68; PULSE 62; RESP 15; TEMP 98
[2018-12-02 20:11] LABS: Glucose,Whole Blood 114 mg/dL (75-99)
[2018-12-02] MEDS ORDERED: ATORVASTATIN 40 MG TAB PO SCH (21:00)
[2018-12-02] MEDS ORDERED: NON-FORMULARY DRUG (Aspirin Ec 81 MG) PO SCH (21:00)
[2018-12-02] MEDS ORDERED: PRAZOSIN 1 MG CAP PO SCH (21:00)
[2018-12-02] MEDS ORDERED: VORTIOXETINE HYDROBROMIDE 20 MG TABLET PO SCH (21:00)
[2018-12-02] MEDS ORDERED: DIAZEPAM 5 MG TAB PO SCH (21:00)
[2018-12-03] MEDS ORDERED: ASPIRIN 325 MG TAB PO SCH (09:00)
== END 2018-12-02 20:35 | disposition other institution (70) ==
LOC: EC 22:43 → 1SOBS 12-02 02:36
PROVIDERS: ADMIT Hospitalist; ATTEND Hospitalist
DX: R07.89 Other chest pain (principal); R47.1 Dysarthria and anarthria; R41.82 Altered mental status, unspecified; I12.9 Hypertensive chronic kidney disease with stage 1 through stage 4 chronic kidney disease, or unspecified chronic kidney disease; N18.9 Chronic kidney disease, unspecified; E11.22 Type 2 diabetes mellitus with diabetic chronic kidney disease; J44.9 Chronic obstructive pulmonary disease, unspecified; E78.5 Hyperlipidemia, unspecified; Z96.89 Presence of other specified functional implants; R60.0 Localized edema; R39.11 Hesitancy of micturition; G25.2 Other specified forms of tremor; F17.200 Nicotine dependence, unspecified, uncomplicated; F31.9 Bipolar disorder, unspecified; F41.0 Panic disorder [episodic paroxysmal anxiety]; H02.401 Unspecified ptosis of right eyelid; R00.1 Bradycardia, unspecified; G47.30 Sleep apnea, unspecified; Z99.89 Dependence on other enabling machines and devices; K08.409 Partial loss of teeth, unspecified cause, unspecified class; R29.810 Facial weakness; Z63.0 Problems in relationship with spouse or partner; Z79.899 Other long term (current) drug therapy; Z79.84 Long term (current) use of oral hypoglycemic drugs; Z79.82 Long term (current) use of aspirin; Z88.5 Allergy status to narcotic agent; Z88.8 Allergy status to other drugs, medicaments and biological substances; Z87.81 Personal history of (healed) traumatic fracture; Z98.61 Coronary angioplasty status; Z83.3 Family history of diabetes mellitus; Z82.49 Family history of ischemic heart disease and other diseases of the circulatory system; Z81.8 Family history of other mental and behavioral disorders
CPT/HCPCS: 96374; 99285; 36415; 93005; 93306; 93351; 80061; 80053; 84443; 83735; 84484 ×2; 85025; 85610; 85730; 71046; 70450; G0378; J1250; J2270; J0461

== ENCOUNTER 2019-06-07 19:49 | Emergency (ER) | payer MEDICARE ==
[2019-06-07 20:02] VITALS: TEMP 98.1
[2019-06-07] MEDS ORDERED: ORPHENADRINE 30 MG/ML 2 ML VIAL IVP STA (20:25)
[2019-06-07] MEDS ORDERED: KETOROLAC 30 MG/ML 1 ML VIAL IVP STA (20:25)
[2019-06-07 20:59] LABS: Basophils % (A) 0 %; Eosinophils # (A) 0.1 k/uL (0-0.7); Eosinophils % (A) 1 %; HCT 39.3 % (39.0-53.0); HGB 13.1 gm/dL (13.0-17.5); Lymphocytes # (A) 0.6 k/uL (1.0-4.8); Lymphocytes % (A) 10 %; MCH 33.4 pg (25.0-35.0); MCHC 33.4 g/dL (31.0-37.0); Mean Platelet Volume 8.8; Monocytes # (A) 0.1 k/uL (0-1.0); Monocytes % (A) 1 %; Neutrophils # (A) 5.3 k/uL (1.3-7.7); Neutrophils % (A) 87 %; Platelet Count 196 k/uL (150-450); RBC 3.93 m/uL (4.30-5.90); RDW 12.4 % (11.5-15.5); WBC 6.1 k/uL (3.8-10.6)
[2019-06-07 21:22] LABS: Albumin 4.2 g/dL (3.5-5.0); Calcium 9.3 mg/dL (8.4-10.2); Potassium 5.9 mmol/L (3.5-5.1); Total Bilirubin 0.4 mg/dL (0.2-1.3); Total Protein 7.2 g/dL (6.3-8.2)
--- NOTE | 2019-06-07 21:26 | XR ---
EXAMINATION TYPE: XR lumbosacral spine min 4V DATE OF EXAM: 06/07/2019 COMPARISON: NONE HISTORY: Back pain TECHNIQUE: 5 views FINDINGS: There is a mild lumbar levoscoliosis. There is some spurring of the endplates in the lumbar spine. There is no compression fracture. Abdominal aorta is atheromatous. Posterior elements are int act. Sacroiliac joints appear intact. IMPRESSION: Mild spondylotic changes. No fracture seen. Mild levoscoliosis.
[2019-06-07] MEDS ORDERED: methylPREDNISolone SOD SUCCI 125 MG/2 ML VIAL IV STA (21:33)
[2019-06-07] MEDS ORDERED: SODIUM CHLORIDE 0.9% 1,000 ML IV ONE (22:05)
[2019-06-07] MEDS ORDERED: INSULIN REGULAR 100 UNIT/ML VIAL IV ONE (22:06)
[2019-06-07] MEDS ORDERED: MORPHINE SULFATE 2 MG/ML SYRINGE IVP ONE (22:08)
[2019-06-07] MEDS ORDERED: ONDANSETRON 4 MG/2 ML VIAL IVP STA (22:08)
--- NOTE | 2019-06-07 22:14 | ED ---
Back Pain HPI - General Chief Complaint: Back Pain/Injury Stated Complaint: nerve pain Time Seen by Provider: 06/07/19 20:16 Source: patient, RN notes reviewed Limitations: no limitations - History of Present Illness Initial Comments: This a 63-year-old male presents emergency Department with chief complaint of left leg pain, back pain. Patient states since upper back pain for a while states it worsens all his neurologist and an injection of steroids. Patient states it seemed to help some but states he still has pain in the left leg. He denies any bowel bladder incontinence or retention. He always has tremors in which she has multiple stimulators for. Patient states he was seen at [facility] in which she had a urine test and was given 2 Tylenol and d ischarge. Patient states has not helped. Patient states cannot tolerate the pain. - Related Data Home Medications Medication Instructions Recorded Confirmed Gabapentin [Neurontin] 300 mg PO TID 01/17/18 12/01/18 Prazosin HCl 2 mg PO HS 01/17/18 12/01/18 Tamsulosin HCl [Flomax] 0.4 mg PO DAILY 01/17/18 12/01/18 Vortioxetine Hydrobromide 20 mg PO HS 01/17/18 12/01/18 [Trintellix] hydrOXYzine HCL [Atarax] 10 mg PO TID 01/17/18 12/01/18 Aspirin EC [Ecotrin Low Dose] 81 mg PO HS 01/18/18 12/01/18 Oxybutynin ER [Ditropan Xl] 10 mg PO DAILY 01/18/18 12/01/18 Diazepam 10 mg PO HS 03/05/18 12/01/18 Omeprazole [PriLOSEC] 20 mg PO AC-BRKFST 03/06/18 12/01/18 metFORMIN HCL 1,000 mg PO BID 12/01/18 12/01/18 Allergies Allergy/AdvReac Type Severity Reaction Status Date / Time quetiapine [From Seroquel] Allergy Diarrhea Verified 06/07/19 20:02 hydrocodone [From [place]] AdvReac Nausea & Verified 06/07/19 20:02 Vomiting Review of Systems ROS Statement: Those systems with pertinent positive or pertinent negative responses have been documented in the HPI. ROS Other: All systems not noted in ROS Statement are negative. Past Medical History Past Medical History: COPD, Hyperlipidemia, Hypertension Additional Past Medical History / Comment(s): Pt. has a deep brain stimulator - an implanted neurotransmitter; angioplasty 25 years ago, central brain tremors, itching, bladder hesitancy, muscle cramps, (takes lots of medications to control body tremors), leg edema, History of Any Multi-Drug Resistant Organisms: None Reported Past Surgical History: Heart Catheterization, Orthopedic Surgery Additional Past Surgical History / Comment(s): Brain stimulator, dental surgery, mass removed from chest, left leg fracture w/ surgery. Past Anesthesia/Blood Transfusion Reactions: No Reported Reaction Past Psychological History: Bipolar, Depression, Panic Disorder Smoking Status: Current every day smoker Past Alcohol Use History: None Reported Past Drug Use History: None Reported - Past Family History Father Family Medical History: Coronary Artery Disease (CAD), Diabetes Mellitus Sister(s) Family Medical History: Diabetes Mellitus Mother Family Medical History: Dementia General Exam Limitations: no limitations General appearance: alert, in no apparent distress Head exam: Present: atraumatic, normocephalic, normal inspection Eye exam: Present: normal appearance, PERRL, EOMI. Absent: scleral icterus, conjunctival injection, periorbital swelling Respiratory exam: Present: normal lung sounds bilaterally. Absent: respiratory distress, wheezes, rales, rhonchi, stridor Cardiovascular Exam: Present: regular rate, normal rhythm, normal heart sounds. Absent: systolic murmur, diastolic murmur, rubs, gallop, clicks GI/Abdominal exam: Present: soft, normal bowel sounds. Absent: distended, tenderness, guarding, rebound, rigid Extremities exam: Present: other (Lower extremity strength equal bilaterally, neurovascular intact equal color equal warmth no calf tenderness, resting tremor noted) Back exam: Present: full ROM, tenderness (Tenderness over the left SI joint), paraspinal tenderness. Absent: vertebral tenderness Neurological exam: Present: alert, oriented X3, CN II-XII intact, reflexes normal. Absent: motor sensory deficit Course Vital Signs 06/07/19 06/07/19 19:58 23:28 Temperature 98.1 F Pulse Rate 86 84 Respiratory 22 18 Rate Blood Pressure 166/63 128/74 O2 Sat by Pulse 99 96 Oximetry Medical Decision Making - Medical Decision Making 63-year-old male presented for low back pain. This is related to sacroiliitis versus lumbar radiculopathy. Patient is improved after pain medication and x- rays were essentially unremarkable other than degenerative changes. Patient's lab reveal hyperkalemia, evidence of dehydration with acute kidney injury. Patient was hydrated, blood sugar was corrected. Patient is greatly improved at this time will be discharged in stable condition return parameters were discussed. - Lab Data Result diagrams: 06/07/19 20:50 06/07/19 23:50 Lab Results 06/07/19 06/07/19 06/07/19 Range/Units 20:50 20:50 22:30 WBC 6.1 (3.8-10.6) k/uL RBC 3.93 L (4.30-5.90) m/uL Hgb 13.1 (13.0-17.5) gm/dL Hct 39.3 (39.0-53.0) % MCV 100.0 (80.0-100.0) fL MCH 33.4 (25.0-35.0) pg MCHC 33.4 (31.0-37.0) g/dL RDW 12.4 (11.5-15.5) % Plt Count 196 (150-450) k/uL Neutrophils % 87 % Lymphocytes % 10 % Monocytes % 1 % Eosinophils % 1 % Basophils % 0 % Neutrophils # 5.3 (1.3-7.7) k/uL Lymphocytes # 0.6 L (1.0-4.8) k/uL Monocytes # 0.1 (0-1.0) k/uL Eosinophils # 0.1 (0-0.7) k/uL Basophils # 0.0 (0-0.2) k/uL Sodium 136 L (137-145) mmol/L Potassium 5.9 H (3.5-5.1) mmol/L Chloride 109 H (98-107) mmol/L Carbon Dioxide 14 L (22-30) mmol/L Anion Gap 13 mmol/L BUN 25 H (9-20) mg/dL Creatinine 1.82 H (0.66-1.25) mg/dL Est GFR (CKD-EPI)AfAm 44 (>60 ml/min/1.73 sqM) Est GFR (CKD-EPI)NonAf 38 (>60 ml/min/1.73 sqM) Glucose 310 H (74-99) mg/dL POC Glucose (mg/dL) 211 H (75-99) mg/dL POC Glu Director Of Exhibits ID Priya Thao Calcium 9.3 (8.4-10.2) mg/dL Total Bilirubin 0.4 (0.2-1.3) mg/dL AST 25 (17-59) U/L ALT 20 (4-49) U/L Alkaline Phosphatase 65 (38-126) U/L Total Protein 7.2 (6.3-8.2) g/dL Albumin 4.2 (3.5-5.0) g/dL Urine Color Urine Appearance (Clear) Urine pH (5.0-8.0) Ur Specific [place] (1.001-1.035) Urine Protein (Negative) Urine Glucose (UA) (Negative) Urine Ketones (Negative) Urine Blood (Negative) Urine Nitrite (Negative) Urine Bilirubin (Negative) Urine Urobilinogen (<2.0) mg/dL Ur Leukocyte Esterase (Negative) 06/07/19 06/07/19 06/07/19 Range/Units 23:00 23:47 23:50 WBC (3.8-10.6) k/uL RBC (4.30-5.90) m/uL Hgb (13.0-17.5) gm/dL Hct (39.0-53.0) % MCV (80.0-100.0) fL MCH (25.0-35.0) pg MCHC (31.0-37.0) g/dL RDW (11.5-15.5) % Plt Count (150-450) k/uL Neutrophils % % Lymphocytes % % Monocytes % % Eosinophils % % Basophils % % Neutrophils # (1.3-7.7) k/uL Lymphocytes # (1.0-4.8) k/uL Monocytes # (0-1.0) k/uL Eosinophils # (0-0.7) k/uL Basophils # (0-0.2) k/uL Sodium 136 L (137-145) mmol/L Potassium 5.3 H (3.5-5.1) mmol/L Chloride 110 H (98-107) mmol/L Carbon Dioxide 19 L (22-30) mmol/L Anion Gap 7 mmol/L BUN 25 H (9-20) mg/dL Creatinine 1.64 H (0.66-1.25) mg/dL Est GFR (CKD-EPI)AfAm 50 (>60 ml/min/1.73 sqM) Est GFR (CKD-EPI)NonAf 43 (>60 ml/min/1.73 sqM) Glucose 113 H (74-99) mg/dL POC Glucose (mg/dL) 132 H (75-99) mg/dL POC Glu Director Of Exhibits ID Priya Thao Calcium 8.4 (8.4-10.2) mg/dL Total Bilirubin (0.2-1.3) mg/dL AST (17-59) U/L ALT (4-49) U/L Alkaline Phosphatase (38-126) U/L Total Protein (6.3-8.2) g/dL Albumin (3.5-5.0) g/dL Urine Color Light Yellow Urine Appearance Clear (Clear) Urine pH 5.5 (5.0-8.0) Ur Specific [place] 1.012 (1.001-1.035) Urine Protein Negative (Negative) Urine Glucose (UA) 4+ H (Negative) Urine Ketones Negative (Negative) Urine Blood Negative (Negative) Urine Nitrite Negative (Negative) Urine Bilirubin Negative (Negative) Urine Urobilinogen <2.0 (<2.0) mg/dL Ur Leukocyte Esterase Negative (Negative) Disposition Clinical Impression: Sacroiliitis, Lumbar radicular pain Disposition: HOME SELF-CARE Condition: Stable Instructions (If sedation given, give patient instructions): Acute Low Back Pain (ED) Additional Instructions: Please return to the Emergency Department if symptoms worsen or any other concerns. Is patient prescribed a controlled substance at d/c from ED?: No Referrals: Denny Ram MD [Primary Care Provider] - 1-2 days Time of Disposition: 00:49
[2019-06-07 22:50] LABS: Glucose,Whole Blood 211 mg/dL (75-99)
[2019-06-07] MEDS ORDERED: HYDROmorphone 0.5 MG/0.5 ML SYRINGE IVP STA (23:14)
[2019-06-07 23:20] LABS: Appearance,Urine Clear (Clear); Bilirubin,Urine Negative (Negative); Blood,Urine Negative (Negative); Color,Urine Light Yellow; Glucose,Urine (UA) 4+ (Negative); Ketones,Urine Negative (Negative); Leukocyte Esterase,Urine Negative (Negative); Nitrite,Urine Negative (Negative); PH, Urine 5.5 (5.0-8.0); Protein,Urine Negative (Negative); Specific Gravity,Urine 1.012 (1.001-1.035); Urobilinogen,Urine <2.0 mg/dL (<2.0)
[2019-06-07 23:29] VITALS: RESP 18
[2019-06-07 23:53] LABS: Glucose,Whole Blood 132 mg/dL (75-99)
[2019-06-08 00:40] LABS: Calcium 8.4 mg/dL (8.4-10.2); Potassium 5.3 mmol/L (3.5-5.1)
[2019-06-08] MEDS ORDERED: ACET/COD 300 MG/30 MG STARTER PACK 6 TAB BTL PO STA (00:48)
[2019-06-08 01:05] VITALS: BP 135/86; PULSE 83
== END 2019-06-08 01:07 | disposition home or self-care (01) ==
LOC: EC 19:49
DX: M46.1 Sacroiliitis, not elsewhere classified (principal); M47.816 Spondylosis without myelopathy or radiculopathy, lumbar region; E87.5 Hyperkalemia; E86.0 Dehydration; N17.9 Acute kidney failure, unspecified; R25.1 Tremor, unspecified; I10 Essential (primary) hypertension; F41.0 Panic disorder [episodic paroxysmal anxiety]; F17.200 Nicotine dependence, unspecified, uncomplicated; Z88.5 Allergy status to narcotic agent; Z88.8 Allergy status to other drugs, medicaments and biological substances; Z79.82 Long term (current) use of aspirin; Z79.84 Long term (current) use of oral hypoglycemic drugs; Z79.899 Other long term (current) drug therapy; Z96.89 Presence of other specified functional implants; Z87.448 Personal history of other diseases of urinary system; Z87.81 Personal history of (healed) traumatic fracture; Z98.890 Other specified postprocedural states; Z83.3 Family history of diabetes mellitus
CPT/HCPCS: 36415; 80053; 80048; 85025; 81003; 72110; 99283; 96374; 96375 ×5; 96361 ×2; J2360; J2930; J2405; J1885; J2270; J1170

== ENCOUNTER 2019-06-10 13:05 | Observation (INO) | payer MEDICARE ==
[2019-06-10] MEDS ORDERED: SODIUM CHLORIDE 0.9% 1,000 ML IV STA (13:37)
[2019-06-10] MEDS ORDERED: MORPHINE SULFATE 4 MG/ML SYRINGE IV STA (13:37)
--- NOTE | 2019-06-10 13:49 | ED ---
General Adult HPI - General Chief complaint: Back Pain/Injury Stated complaint: Lumbar Pain Time Seen by Provider: 06/10/19 13:15 Source: patient, RN notes reviewed Mode of arrival: ambulatory Limitations: no limitations - History of Present Illness Initial comments: Patient is a pleasant [age]-year-old male presenting to the emergency Department with complaints of low back pain. Onset of symptoms was Wednesday morning getting out of bed. Patient feels he misstepped. Patient has low back pain that did radiate towards his legs. Patient saw his neurologist that he sees secondary to chronic tremors and was started on steroids. Discomfort no longer radiates to the right leg however does radiate towards the left leg. Discomfort is left lower lumbar region with radiation to the left leg. No weakness. No tendons retention of bowel or bladder products. No history of chronic back pain. No fevers. - Related Data Home Medications Medication Instructions Recorded Confirmed Gabapentin [Neurontin] 300 mg PO TID 01/17/18 12/01/18 Prazosin HCl 2 mg PO HS 01/17/18 12/01/18 Tamsulosin HCl [Flomax] 0.4 mg PO DAILY 01/17/18 12/01/18 Vortioxetine Hydrobromide 20 mg PO HS 01/17/18 12/01/18 [Trintellix] hydrOXYzine HCL [Atarax] 10 mg PO TID 01/17/18 12/01/18 Aspirin EC [Ecotrin Low Dose] 81 mg PO HS 01/18/18 12/01/18 Oxybutynin ER [Ditropan Xl] 10 mg PO DAILY 01/18/18 12/01/18 Diazepam 10 mg PO HS 03/05/18 12/01/18 Omeprazole [PriLOSEC] 20 mg PO AC-BRKFST 03/06/18 12/01/18 metFORMIN HCL 1,000 mg PO BID 12/01/18 12/01/18 Allergies Allergy/AdvReac Type Severity Reaction Status Date / Time quetiapine [From Seroquel] Allergy Diarrhea Verified 06/10/19 13:07 hydrocodone [From [place]] AdvReac Nausea & Verified 06/10/19 13:07 Vomiting Review of Systems ROS Statement: Those systems with pertinent positive or pertinent negative responses have been documented in the HPI. ROS Other: All systems not noted in ROS Statement are negative. Constitutional: Denies: fever Eyes: Denies: eye pain ENT: Denies: ear pain Respiratory: Denies: cough Cardiovascular: Denies: chest pain Endocrine: Denies: fatigue Gastrointestinal: Denies: abdominal pain, nausea, vomiting Genitourinary: Denies: dysuria Musculoskeletal: Reports: as per HPI, back pain Skin: Denies: lesions Neurological: Denies: weakness Past Medical History Past Medical History: COPD, Hyperlipidemia, Hypertension Additional Past Medical History / Comment(s): Pt. has a deep brain stimulator - an implanted neurotransmitter; angioplasty 25 years ago, central brain tremors, itching, bladder hesitancy, muscle cramps, (takes lots of medications to control body tremors), leg edema, History of Any Multi-Drug Resistant Organisms: None Reported Past Surgical History: Heart Catheterization, Orthopedic Surgery Additional Past Surgical History / Comment(s): Brain stimulator, dental surgery, mass removed from chest, left leg fracture w/ surgery. Past Anesthesia/Blood Transfusion Reactions: No Reported Reaction Past Psychological History: Bipolar, Depression, Panic Disorder Smoking Status: Current every day smoker Past Alcohol Use History: None Reported Past Drug Use History: None Reported - Past Family History Father Family Medical History: Coronary Artery Disease (CAD), Diabetes Mellitus Sister(s) Family Medical History: Diabetes Mellitus Mother Family Medical History: Dementia General Exam Limitations: no limitations General appearance: alert, in no apparent distress Head exam: Present: normocephalic Eye exam: Present: normal appearance Neck exam: Present: normal inspection Respiratory exam: Present: normal lung sounds bilaterally Cardiovascular Exam: Present: regular rate, normal rhythm Expanded Peripheral pulses: 2+: Posterior Tibialis (R), Posterior Tibialis (L), Dorsalis Pedis (R), Dorsalis Pedis (L) GI/Abdominal exam: Present: soft. Absent: distended, tenderness, pulsatile mass Extremities exam: Present: normal inspection, full ROM (Low back Pain with flexion of the left leg at 45). Absent: tenderness, calf tenderness Back exam: Present: tenderness (Patient does have some lower lumbar vertebral and left paravertebral tenderness on evaluation. There is also associated left paravertebral muscle spasm.) Neurological exam: Present: alert. Absent: motor sensory deficit Expanded Motor strength exam: RUE: 5, LUE: 5, RLE: 5, LLE: 5 (Examination is Limited by low back pain) Psychiatric exam: Present: normal affect, normal mood Skin exam: Present: normal color Course Vital Signs 06/10/19 06/10/19 13:13 15:35 Temperature 98 F Pulse Rate 54 L 52 L Respiratory 16 18 Rate Blood Pressure 161/85 196/92 O2 Sat by Pulse 99 100 Oximetry - Reevaluation(s) Reevaluation #1: 06/10/19 16:20 Patient reevaluated with only partial improvement of symptoms. Patient is concerned regarding going home and inability to take care of himself. Patient is made aware that he may not meet criteria for admission. Case was discussed with sound physician, Dr. Lepe covering for hospital call who will come evaluate the patient. 06/10/19 16:51 Case again discussed with Dr. Lepe who will admit for observation. He will have neurology consult via telemedicine. He also requests consult orthopedics. EKG Findings - EKG Comments: EKG Findings:: Sinus bradycardia 51. CO 126. QRS 86. QT 392. QTC 361. Normal axis. Normal QRS. Prominent T waves. Medical Decision Making - Lab Data Result diagrams: 06/10/19 14:33 06/10/19 14:33 Lab Results 06/10/19 06/10/19 06/10/19 Range/Units 14:33 14:33 14:41 WBC 10.1 (3.8-10.6) k/uL RBC 4.07 L (4.30-5.90) m/uL Hgb 13.5 (13.0-17.5) gm/dL Hct 40.8 (39.0-53.0) % MCV 100.3 H (80.0-100.0) fL MCH 33.2 (25.0-35.0) pg MCHC 33.1 (31.0-37.0) g/dL RDW 12.5 (11.5-15.5) % Plt Count 221 (150-450) k/uL Neutrophils % 69 % Lymphocytes % 23 % Monocytes % 5 % Eosinophils % 1 % Basophils % 1 % Neutrophils # 7.0 (1.3-7.7) k/uL Lymphocytes # 2.3 (1.0-4.8) k/uL Monocytes # 0.5 (0-1.0) k/uL Eosinophils # 0.1 (0-0.7) k/uL Basophils # 0.1 (0-0.2) k/uL Sodium 140 (137-145) mmol/L Potassium 5.4 H (3.5-5.1) mmol/L Chloride 107 (98-107) mmol/L Carbon Dioxide 26 (22-30) mmol/L Anion Gap 7 mmol/L BUN 40 H (9-20) mg/dL Creatinine 1.55 H (0.66-1.25) mg/dL Est GFR (CKD-EPI)AfAm 54 (>60 ml/min/1.73 sqM) Est GFR (CKD-EPI)NonAf 46 (>60 ml/min/1.73 sqM) Glucose 111 H (74-99) mg/dL Calcium 9.8 (8.4-10.2) mg/dL Total Bilirubin 0.3 (0.2-1.3) mg/dL AST 19 (17-59) U/L ALT 14 (4-49) U/L Alkaline Phosphatase 55 (38-126) U/L Total Protein 6.8 (6.3-8.2) g/dL Albumin 4.0 (3.5-5.0) g/dL Urine Color Light Yellow Urine Appearance Clear (Clear) Urine pH 6.0 (5.0-8.0) Ur Specific [place] 1.014 (1.001-1.035) Urine Protein Negative (Negative) Urine Glucose (UA) Negative (Negative) Urine Ketones Negative (Negative) Urine Blood Negative (Negative) Urine Nitrite Negative (Negative) Urine Bilirubin Negative (Negative) Urine Urobilinogen <2.0 (<2.0) mg/dL Ur Leukocyte Esterase Negative (Negative) - Radiology Data Radiology results: image reviewed (Lumbar computed tomography scan shows mild spondylitic changes and facet arthropathy with some stenosis. Small posterior L5-S1 disc herniation. No mass.) Disposition Clinical Impression: Lumbar radicular pain, Low back pain Disposition: ADMITTED IP TO THIS HOSP Is patient prescribed a controlled substance at d/c from ED?: No Referrals: Nonstaff,Physician [Primary Care Provider] - 1-2 days Decision Time: 16:52
--- NOTE | 2019-06-10 14:17 | CT ---
EXAMINATION TYPE: CT lumbar spine wo con DATE OF EXAM: 06/10/2019 COMPARISON: None HISTORY: Low back pain CT DLP: 664.6 mGycm Automated exposure control for dose reduction was used. Axial sections were obtained from L1 to S1 vertebra without contrast. Lumbar vertebra Fairly normal alignment. There is no significant disc space narrowing. There is no co mpression fracture. There is some hypertrophic facet arthropathy and lateral recess stenosis at L3-4 L4-5. Sacroiliac joints are intact. There is small posterior L5-S1 disc herniation. There is mild lum bar levoscoliosis. I see no focal bone destruction. There is no paraspinal mass. There is atheromatou s change in the abdominal aorta and iliac arteries. IMPRESSION: No fracture. There is mild spondylotic changes and facet arthropathy with some lateral recess stenosi s as above.
[2019-06-10] MEDS ORDERED: KETOROLAC 30 MG/ML 1 ML VIAL IVP STA (15:15)
[2019-06-10 15:18] LABS: Basophils # (A) 0.1 k/uL (0-0.2); Basophils % (A) 1 %; Eosinophils # (A) 0.1 k/uL (0-0.7); Eosinophils % (A) 1 %; HCT 40.8 % (39.0-53.0); HGB 13.5 gm/dL (13.0-17.5); Lymphocytes # (A) 2.3 k/uL (1.0-4.8); Lymphocytes % (A) 23 %; MCH 33.2 pg (25.0-35.0); MCHC 33.1 g/dL (31.0-37.0); MCV 100.3 fL (80.0-100.0); Mean Platelet Volume 8.6; Monocytes # (A) 0.5 k/uL (0-1.0); Monocytes % (A) 5 %; Neutrophils % (A) 69 %; Platelet Count 221 k/uL (150-450); RBC 4.07 m/uL (4.30-5.90); RDW 12.5 % (11.5-15.5); WBC 10.1 k/uL (3.8-10.6)
[2019-06-10 15:19] LABS: Appearance,Urine Clear (Clear); Bilirubin,Urine Negative (Negative); Blood,Urine Negative (Negative); Color,Urine Light Yellow; Glucose,Urine (UA) Negative (Negative); Ketones,Urine Negative (Negative); Leukocyte Esterase,Urine Negative (Negative); Nitrite,Urine Negative (Negative); Protein,Urine Negative (Negative); Specific Gravity,Urine 1.014 (1.001-1.035); Urobilinogen,Urine <2.0 mg/dL (<2.0)
[2019-06-10 15:30] LABS: Calcium 9.8 mg/dL (8.4-10.2); Potassium 5.4 mmol/L (3.5-5.1); Total Bilirubin 0.3 mg/dL (0.2-1.3); Total Protein 6.8 g/dL (6.3-8.2)
[2019-06-10] MEDS ORDERED: ORPHENADRINE 30 MG/ML 2 ML VIAL IVP STA (16:09)
[2019-06-10] MEDS ORDERED: NALOXONE 0.4 MG/ML 1 ML VIAL IV PRN (16:52)
[2019-06-10] MEDS ORDERED: SODIUM CHLORIDE 0.9% 1,000 ML IV SCH (17:00)
[2019-06-10] MEDS ORDERED: hydrALAZINE HCL 10 MG TAB PO PRN (18:18)
--- NOTE | 2019-06-10 18:18 | P.HPIM ---
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 low back pain status post steroid injection 5 days ago (as when he woke up that morning he was having severe pain and went to his neurologist office for evaluation) since then pain shifted to the left side. he's been having increasing symptoms of pain 10 out of 10 in severity over his left hip and left knee aggravated by standing up walking and pressure on the area. He had his nurse practitioner at his neurology office doing the injection 5 days ago on the right side of what seems to be at the sacroiliac joint area however immediately that day when he got home he started having pain on the left side which kept getting worse over the past few days he visited our ER and went to other facilities over the past week seeking help he claims that all he received with some Tylenol. Today he comes in complaining of worsening pain associated with some numbness over his left foot and feeling like his left knee is giving and when he stands up he couldn't even go to the bathroom without holding to the so he called EMS and was brought into our facility for evaluation. He otherwise denies any associated fevers or chills, skin changes, swelling or reddness. he never experienced anything like this before, he denies any trauma otherwise, denies any saddle numbness or tingling , he denies any urinary incontinence or retention , denies any bowel changes patient has deep brain stimulator implanted for central tremors patient felt his pain has been worsening over the past few days, and today he felt he can not take care of himself anymore and demanding that he get evaluated by neurology. he will be admitted under observation for close monitoring , pain control , PT and neuro evaluation . CT lumbar spine done in ED showed , no acute fracture, mild spondylotic changes and facet athropathy with some lateral recess stenosis Review of Systems Pertinent positives as noted in HPI. All other systems were reviewed and are negative Past Medical History Past Medical History: COPD, Hyperlipidemia, Hypertension Additional Past Medical History / Comment(s): Pt. has a deep brain stimulator - an implanted neurotransmitter; angioplasty 25 years ago, central brain tremors, itching, bladder hesitancy, muscle cramps, (takes lots of medications to control body tremors) History of Any Multi-Drug Resistant Organisms: None Reported Past Surgical History: Heart Catheterization, Orthopedic Surgery Additional Past Surgical History / Comment(s): Brain stimulator, dental surgery, mass removed from chest, left leg fracture w/ surgery. Past Anesthesia/Blood Transfusion Reactions: No Reported Reaction Past Psychological History: Bipolar, Depression, Panic Disorder Smoking Status: Current every day smoker Past Alcohol Use History: None Reported Past Drug Use History: None Reported - Past Family History Father Family Medical History: Coronary Artery Disease (CAD), Diabetes Mellitus Sister(s) Family Medical History: Diabetes Mellitus Mother Family Medical History: Dementia Medications and Allergies Home Medications Medication Instructions Recorded Confirmed Type Tamsulosin HCl [Flomax] 0.4 mg PO DAILY 01/17/18 06/10/19 History Oxybutynin ER [Ditropan Xl] 10 mg PO DAILY 01/18/18 06/10/19 History Diazepam 10 mg PO HS 03/05/18 06/10/19 History Omeprazole [PriLOSEC] 20 mg PO DAILY 03/06/18 06/10/19 History metFORMIN HCL 1,000 mg PO BID 12/01/18 06/10/19 History Chlorzoxazone [Parafon Forte DSC] 500 mg PO BID 06/10/19 06/10/19 History Gabapentin [Neurontin] 400 mg PO TID 06/10/19 06/10/19 History Nadolol [Corgard] 40 mg PO DAILY 06/10/19 06/10/19 History Vortioxetine Hydrobromide 10 mg PO HS 06/10/19 06/10/19 History [Trintellix] methylPREDNISolone [Medrol Dose See Taper PO DIRECTED 06/10/19 06/10/19 History Pack] Allergies Allergy/AdvReac Type Severity Reaction Status Date / Time quetiapine [From Seroquel] Allergy Diarrhea Verified 06/10/19 17:20 hydrocodone [From [place]] AdvReac Nausea & Verified 06/10/19 17:20 Vomiting Physical Exam Vitals: Vital Signs Temp Pulse Resp BP Pulse Ox 06/10/19 15:35 52 L 18 196/92 100 06/10/19 13:13 98 F 54 L 16 161/85 99 Intake and Output 01/25/20 01/25/20 01/25/20 06:59 14:59 22:59 Other: Weight 74.843 kg Constitutional: No acute distress, conversant, pleasant Eyes: Anicteric sclerae, moist conjunctiva, Pupils equal round reactive to light ENMT: NC/AT Oropharynx clear, no erythema, exudates Neck: Supple, FROM, no masses, or JVD No carotid bruits No thyromegaly Lungs: Clear to auscultation Clear to percussion Normal respiratory effort, no accessory muscle use Cardiovascular: Heart regular in rate and rhythm, No murmurs, gallops, or rubs No peripheral edema Abdominal: Soft Nontender, no guarding, rebound or rigidity Abdomen moving with respiration Normoactive bowel sounds No hepatomegaly, No splenomegaly No palpable mass No abdominal wall hernia noted Skin: Normal temperature, tone, texture, turgor No induration No subcutaneous nodules No rash, lesions No ulcers Extremities: No digital cyanosis No clubbing Pedal pulses intact and symmetrical Radial pulses intact and symmetrical No calf tenderness Psychiatric: Alert and oriented to person, place and time Appropriate affect fair judgment Neuro Muscles Strength 5/5 in bilateral upper and right lower extremity , 5/5 in left lower extremity over distal muscle group, but 3/5 in proximal muscle group which could also be limited by pain straight leg raising negative on right LE, limited over right lower extremity due to pain no point tenderness over the spine point tenderness over greater trochanteric process over left hip, and over mid left knee, no evidence of effusion over left knee, no skini changes plantar reflex equivocal bilaterally Sensation to light touch grossly present throughout Cranial nerves II-XII grossly intact No focal sensory deficits Lymphatics: no palpable cervical or supraclavicular , or inguinal lymph nodes Results CBC & Chem 7: 06/10/19 14:33 06/10/19 14:33 Labs: Abnormal Lab Results - Last 24 Hours (Table) 06/10/19 06/10/19 Range/Units 14:33 14:33 RBC 4.07 L (4.30-5.90) m/uL MCV 100.3 H (80.0-100.0) fL Potassium 5.4 H (3.5-5.1) mmol/L BUN 40 H (9-20) mg/dL Creatinine 1.55 H (0.66-1.25) mg/dL Glucose 111 H (74-99) mg/dL Assessment and Plan Assessment: 63-year-old male with history of essential tremor status post deep brain stimulators implant, comes in for subacute low back pain this been worsening ove r the past 5 days since steroid injection. Complaining off low back pain with radiculopathy toward the left lower leg, patient requesting neuro evaluation. Initial imaging showed no acute fractures. Patient admitted under observation with anticipated length of stay less than 2 midnights Plan: Subacute low back pain status post steroid injection with radiculopathy radi ating to the left lower limb Neurology consult ortho consult Pain control Neuro assessment every 2 hours Monitor for any evidence of urinary retention Consider MRI of the lower back Follow-up blood cultures Imaging of the left hip and left knee hypertensive urgency , most likely pain induced pain control clonidine PRN for systolic blood pressure >180 CKD III stable caution with nephrotoxic meds monitor renal function and urine output mild hyperkalemia follow up levels closely give insulin IV + D50 one amp central tremors controlled with deep brain stimulator DVT PPX SCD CODE STATUS:full code DVT prophylaxis:SCD Discussed with: Patient, ER, RN Anticipated length of stay < than [address]: home A total of 60 minutes was spent on the care of this complex patient more than 50% of the time was spent in counseling and care coordination.
[2019-06-10] MEDS ORDERED: INSULIN REGULAR 100 UNIT/ML VIAL IV ONE (18:19)
[2019-06-10] MEDS ORDERED: DEXTROSE 10 % IN WATER 250 ML IV STA (18:19)
--- NOTE | 2019-06-10 18:45 | XR ---
EXAMINATION TYPE: XR Hip LT and AP Pelvis DATE OF EXAM: 06/10/2019 COMPARISON: NONE HISTORY: Left hip pain TECHNIQUE: 3 views FINDINGS: The pelvic ring is intact. Proximal left femur and hip joint are intact. There is vascular calcification. Sacroiliac joints are intact. IMPRESSION: Negative pelvis and left hip exam.
--- NOTE | 2019-06-10 18:46 | XR ---
EXAMINATION TYPE: XR knee limited LT DATE OF EXAM: 06/10/2019 COMPARISON: NONE HISTORY: Knee pain TECHNIQUE: 2 views FINDINGS: I see no fracture nor dislocation. Joint spaces are normal. There is intramedullary sandy in the tibia. There is vascular calcification. There is no sign of knee joint effusion. Knee joint space s are fairly normal. IMPRESSION: Negative left knee exam.
[2019-06-10] MEDS ORDERED: CALCIUM GLUCONATE 1 GM in SODIUM CHLORIDE 0.9% 100 ML IVPB ONE (20:00)
[2019-06-10] MEDS: GABAPENTIN 300 MG CAP PO SCH (20:28)
[2019-06-10] MEDS: VORTIOXETINE HYDROBROMIDE 20 MG TABLET PO SCH (20:28)
[2019-06-10] MEDS: DIAZEPAM 5 MG TAB PO SCH (20:28)
[2019-06-10] MEDS: PRAZOSIN 1 MG CAP PO SCH (20:28)
[2019-06-10] MEDS: ASPIRIN 81 MG PO SCH (20:28)
[2019-06-10] MEDS: SODIUM CHLORIDE 0.9% 1,000 ML IV SCH (20:29)
[2019-06-10] MEDS: MORPHINE SULFATE 4 MG/ML SYRINGE IV PRN (23:30)
[2019-06-11] MEDS ORDERED: HYDROmorphone 1 MG/ML 1 ML SYRINGE IVP STA (00:26)
[2019-06-11] MEDS: SODIUM CHLORIDE 0.9% 1,000 ML IV SCH ×3 (05:58→23:32)
[2019-06-11] MEDS: MORPHINE SULFATE 4 MG/ML SYRINGE IV PRN ×4 (06:01→22:24)
[2019-06-11] MEDS: OXYBUTYNIN 10 MG TAB.ER.24 PO SCH (09:36)
[2019-06-11] MEDS: TAMSULOSIN 0.4 MG CAP.ER.24H PO SCH (09:36)
[2019-06-11] MEDS: PANTOPRAZOLE 40 MG TABLET PO SCH (09:36)
[2019-06-11] MEDS: GABAPENTIN 300 MG CAP PO SCH ×3 (09:36→20:20)
[2019-06-11] MEDS: KETOROLAC 30 MG/ML 1 ML VIAL IVP PRN ×2 (09:40→16:21)
--- NOTE | 2019-06-11 10:17 | P.CNOR ---
History of Present Illness - [facility] Consult date: 06/11/19 Consult reason: low back pain History of present illness: The patient is a 63 year old male who presented to the emergency department yesterday for low back pain. He states he jumped out of bed on Wednesday morning thinking he had bed bugs crawling on him. He ran around his apartment spraying alcohol to keep the bed bugs away. The patient noticed increase back pain as the day went on. He saw his neurologist, Dr. Knowles, and his [employer] injected his lower back in the office. He states his right lower back feels better but the left side is still quite painful. The pain continued and he went to the ER at [facility] where he was given Tylenol and sent home. The pain continued to worsen over the week and he came to the ER at [facility] yesterday due to the unbearable pain. Since admission, he states his pain has improved but still has severe pain with certain movements. He denies any fever, chills, rigors, or ill-feeling lately. He states he has had back pain before this problem but it generally resolves itself and goes away. He has a deep brain stimulator. Review of Systems Constitutional: Denies chills, Denies fever Cardiovascular: Denies chest pain, Denies shortness of breath Gastrointestinal: Denies abdominal pain, Denies diarrhea, Denies nausea, Denies vomiting Musculoskeletal: Reports low back pain Past Medical History Past Medical History: COPD, Hyperlipidemia, Hypertension Additional Past Medical History / Comment(s): Pt. has a deep brain stimulator - an implanted neurotransmitter; angioplasty 25 years ago, central brain tremors, itching, bladder hesitancy, muscle cramps, (takes lots of medications to control body tremors) History of Any Multi-Drug Resistant Organisms: None Reported Past Surgical History: Heart Catheterization, Orthopedic Surgery Additional Past Surgical History / Comment(s): Brain stimulator, dental surgery, mass removed from chest, left leg fracture w/ surgery. Past Anesthesia/Blood Transfusion Reactions: No Reported Reaction Past Psychological History: Bipolar, Depression, Panic Disorder Smoking Status: Current every day smoker Past Alcohol Use History: None Reported Additional Past Alcohol Use History / Comment(s): Pt. states he doesn't feel depressed whatsoever, has no thoughts of harming self. States his served him w/ divorce papers and he thought things were going great - happened out of nowhere. States he lives with a friend. Feels safe at home. Past Drug Use History: None Reported - Past Family History Father Family Medical History: Coronary Artery Disease (CAD), Diabetes Mellitus Sister(s) Family Medical History: Diabetes Mellitus Mother Family Medical History: Dementia Medications and Allergies Home Medications Medication Instructions Recorded Confirmed Type Tamsulosin HCl [Flomax] 0.4 mg PO DAILY 01/17/18 06/10/19 History Oxybutynin ER [Ditropan Xl] 10 mg PO DAILY 01/18/18 06/10/19 History Diazepam 10 mg PO HS 03/05/18 06/10/19 History Omeprazole [PriLOSEC] 20 mg PO DAILY 03/06/18 06/10/19 History metFORMIN HCL 1,000 mg PO BID 12/01/18 06/10/19 History Chlorzoxazone [Parafon Forte DSC] 500 mg PO BID 06/10/19 06/10/19 History Gabapentin [Neurontin] 400 mg PO TID 06/10/19 06/10/19 History Nadolol [Corgard] 40 mg PO DAILY 06/10/19 06/10/19 History Vortioxetine Hydrobromide 10 mg PO HS 06/10/19 06/10/19 History [Trintellix] methylPREDNISolone [Medrol Dose See Taper PO DIRECTED 06/10/19 06/10/19 History Pack] Allergies Allergy/AdvReac Type Severity Reaction Status Date / Time quetiapine [From Seroquel] Allergy Diarrhea Verified 06/10/19 17:20 hydrocodone [From [place]] AdvReac Nausea & Verified 06/10/19 17:20 Vomiting Physical Examination The patient is a 63 y/o male who is no acute distress. He is alert and oriented x3. Exam of the back reveals no dimples, patches, lacerations, or abrasions. Non-tender to palpation over the midline. There is some paravertebral spasm on the left. Motion of the lumbar spine reveals flexion is to 60 degrees and extension is to 10 degrees. No pain on internal or external rotation of bilateral hips. Straight leg test positive on the left. Right Lower extremity: Motor strength of the lower extremity is 5/5 including dorsiflexion, plantar flexion, extensor hallucis longus, hip flexion, knee extension abduction and adduction. Left Lower extremity: Motor strength of the lower extremity is 4/5 including dorsiflexion, plantar flexion, extensor hallucis longus, hip flexion, knee extension abduction and adduction. Results - Labs Labs: Abnormal Lab Results - Last 24 Hours (Table) 06/10/19 06/10/19 Range/Units 14:33 14:33 RBC 4.07 L (4.30-5.90) m/uL MCV 100.3 H (80.0-100.0) fL Potassium 5.4 H (3.5-5.1) mmol/L BUN 40 H (9-20) mg/dL Creatinine 1.55 H (0.66-1.25) mg/dL Glucose 111 H (74-99) mg/dL H & H 06/10/19 Range/Units 14:33 Hgb 13.5 (13.0-17.5) gm/dL Hct 40.8 (39.0-53.0) % Result Diagrams: 06/10/19 14:33 06/10/19 23:52 - Diagnostic results CT Scan - lumbar: image reviewed (CT of the lumbar spine dated 06/10/2019 revealed no significant disc space narrowing. There is hypertrophic facet arthropathy and lateral recess stenosis at L3-L4 L4-L5. SI joints are intact. Small posterior L5-S1 disc herniation.) Assessment and Plan (1) Low back pain Current Visit: Yes Status: Acute Code(s): M54.5 - LOW BACK PAIN SNOMED Code(s): 187263162 (2) Lumbar radicular pain Current Visit: Yes Status: Acute Code(s): M54.16 - RADICULOPATHY, LUMBAR REGION SNOMED Code(s): 755208262 (3) Status post deep brain stimulator placement Current Visit: No Status: Chronic Code(s): Z96.89 - PRESENCE OF OTHER SPECIFIED FUNCTIONAL IMPLANTS SNOMED Code(s): 575310032 Plan: The clinical and CT findings were discussed with the patient. The case was discussed with Dr. Haddad. We will have pain management and Dr. Quintero see the patient tomorrow. Physical therapy has been ordered. Continue pain medications, Toradol and Neurontin. No acute surgical intervention is planned at this time and we will await further recommendations from Dr. Quintero and pain management.
--- NOTE | 2019-06-11 15:37 | P.PN ---
Subjective Progress Note Date: 06/11/19 Principal diagnosis: follow up for low back pain with radiculopathy, and hypertensive urgency Patient seen and examined. Reports pain responds well to current pain medication regimen however once wears off he continues to have pain in his left buttock radiating to the left knee denies any numbness or tingling in his left lower extremity denies any saddle numbness or tingling. He reports noticing some difficulty initiating urination. Denies any fevers or chills denies any skin changes over his left hip with the maximum site of pain. Otherwise denies any chest pain or trouble breathing. His tolerating by mouth intake Objective - Vital Signs Vital signs: Vital Signs Temp 97.5 F L 06/11/19 04:45 Pulse 73 06/11/19 04:45 Resp 20 06/11/19 04:45 BP 139/75 06/11/19 04:45 Pulse Ox 97 06/11/19 04:45 Intake & Output 06/10/19 06/11/19 06/11/19 18:59 06:59 18:59 Intake Total 400 Balance 400 Weight 74.843 kg 74.843 kg Intake: Oral 400 Other: # Voids 0 - Exam Constitutional: vital signs stable, Not in acute distress, pleasant, conversant Lungs: Clear to auscultation bilaterally, clear to percussion, normal respiratory effort no use of accessory muscles Cardiovascular: Regular rate and rhythm, no murmurs, no gallops, no rubs, no peripheral edema Gastrointestinal: Soft, no tenderness to palpation, bowel sounds positive Skin: No skin changes over the site of pain over the left hip no erythema no papules no skin lesions no bruising Extremities: No digital cyanosis or clubbing, peripheral pulses palpable and equal over bilateral radial arteries and dorsalis pedis artery, no calf muscle tenderness. Still having point tenderness over the left knee and over the left greater trochanteric process Straight leg rising negative bilaterally but limited on the left side due to pain Psych: Alert, oriented to place, person and time, appropriate affect, intact judgment Neuro: Cranial nerves II-XII grossly intact, no focal sensory deficits to touch, no focal neuro deficit - Labs CBC & Chem 7: 06/10/19 14:33 06/10/19 23:52 Labs: Abnormal Lab Results - Last 24 Hours (Table) 06/10/19 06/10/19 Range/Units 14:33 14:33 RBC 4.07 L (4.30-5.90) m/uL MCV 100.3 H (80.0-100.0) fL Potassium 5.4 H (3.5-5.1) mmol/L BUN 40 H (9-20) mg/dL Creatinine 1.55 H (0.66-1.25) mg/dL Glucose 111 H (74-99) mg/dL Assessment and Plan Assessment: 63-year-old male with 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 Complaining off low back pain with radiculopathy toward the left lower leg, patient requesting neuro evaluation. Initial imaging showed no acute fractures. Patient admitted under observation with anticipated length of stay less than 2 midnights 06/11 Patient pain regimen is helping, he was evaluated by orthopedics and neurology who recommended steroid injection over the left sacroiliac joint to be administered by pain management team, no focal neuro deficits Imaging of the left knee and left hip showed no acute process Plan: Subacute low back pain precipitated by sudden movement and running around the house , status post steroid injection with radiculopathy radiating to the left lower limb Neuro and orthopedic services both evaluated the patient recommended steroid injection Pain control Neuro assessment every 2 hours Follow-up blood cultures Imaging of the left hip and left knee shows no acute process hypertensive urgency , most likely pain induced, better controlled now pain control Hydralazine PRN for systolic blood pressure >180 CKD III stable caution with nephrotoxic meds monitor renal function and urine output mild hyperkalemia follow up levels closely give insulin IV + D50 one amp BPH Continue with Flomax Patient reporting some difficulty initiating urine, he thinks most likely due to pain as he was comfortable sitting on the commode due to left buttock pain, reports that urine started flowing when he stood up central tremors controlled with deep brain stimulator DVT PPX heparin sc tid follow up labs in AM Anticipated discharge place: home 06/12/2009
[2019-06-11] MEDS: HEPARIN SODIUM,PORCINE 5,000 UNIT/ML 1 ML VIAL SQ SCH ×2 (16:27→23:10)
--- NOTE | 2019-06-11 19:28 | P.CNNES ---
History of Present Illness Consult date: 06/11/19 Reason for Consult: left back and leg pain Chief complaint: left back and leg pain History of Present Illness: the patient is a 63-year-old male who is seen in neurologic consultation on June 11, 2019, via teleneurology. He reports that he saw his neurologist on Wednesday and had a steroid injection in his right low back, for pain. He reports having bilateral pain at that time. The right-sided pain was relieved, with the steroid injection. The patient's left-sided pain has continued to get worse and worse. He eventually came to the hospital because he could find no relief with outpatient treatment. He reports that he has been massaging his low back, left buttock and leg, with mild relief. He has also been sitting on ice cubes. None of these techniques have been able to relieve his pain. Patient reports that the pain begins in his left hip, radiates to his left buttock and progresses down his left leg into his great toe. He denies changes in bowel and bladder function. He reports that the pain is worse when he is moving his leg. He denies paresthesias. He did have tingling in his left toes. The patient denies neck and arm pain. On a scale of 0-10, the patient reports the pain at a 6-7/10. He says that he was given a Medrol Dosepak to take, following the injection. He has not been allowed to take this while he is in the hospital. With ambulation, the patient reports that his left knee veers medially. Patient reports having back pain for a long time. He used to be able to relieve his pain by seeing a chiropractor. Past Medical History Past Medical History: COPD, Hyperlipidemia, Hypertension Additional Past Medical History / Comment(s): Pt. has a deep brain stimulator - an implanted neurotransmitter; angioplasty 25 years ago, central brain tremors, itching, bladder hesitancy, muscle cramps, (takes lots of medications to control body tremors) History of Any Multi-Drug Resistant Organisms: None Reported Past Surgical History: Heart Catheterization, Orthopedic Surgery Additional Past Surgical History / Comment(s): Brain stimulator, dental surgery, mass removed from chest, left leg fracture w/ surgery. Past Anesthesia/Blood Transfusion Reactions: No Reported Reaction Past Psychological History: Bipolar, Depression, Panic Disorder Smoking Status: Current every day smoker Past Alcohol Use History: None Reported Additional Past Alcohol Use History / Comment(s): Pt. states he doesn't feel depressed whatsoever, has no thoughts of harming self. States his served him w/ divorce papers and he thought things were going great - happened out of nowhere. States he lives with a friend. Feels safe at home. Past Drug Use History: None Reported - Past Family History Father Family Medical History: Coronary Artery Disease (CAD), Diabetes Mellitus Sister(s) Family Medical History: Diabetes Mellitus Mother Family Medical History: Dementia Medications and Allergies Home Medications Medication Instructions Recorded Confirmed Type Tamsulosin HCl [Flomax] 0.4 mg PO DAILY 01/17/18 06/10/19 History Oxybutynin ER [Ditropan Xl] 10 mg PO DAILY 01/18/18 06/10/19 History Diazepam 10 mg PO HS 03/05/18 06/10/19 History Omeprazole [PriLOSEC] 20 mg PO DAILY 03/06/18 06/10/19 History metFORMIN HCL 1,000 mg PO BID 12/01/18 06/10/19 History Chlorzoxazone [Parafon Forte DSC] 500 mg PO BID 06/10/19 06/10/19 History Gabapentin [Neurontin] 400 mg PO TID 06/10/19 06/10/19 History Nadolol [Corgard] 40 mg PO DAILY 06/10/19 06/10/19 History Vortioxetine Hydrobromide 10 mg PO HS 06/10/19 06/10/19 History [Trintellix] methylPREDNISolone [Medrol Dose See Taper PO DIRECTED 06/10/19 06/10/19 History Pack] Allergies Allergy/AdvReac Type Severity Reaction Status Date / Time quetiapine [From Seroquel] Allergy Diarrhea Verified 06/10/19 17:20 hydrocodone [From [place]] AdvReac Nausea & Verified 06/10/19 17:20 Vomiting Physical Examination - Vital Signs Vital Signs: Vital Signs Temp Pulse Pulse Pulse Resp BP BP 06/11/19 04:45 97.5 F L 73 20 06/10/19 23:30 98.2 F 58 L 20 06/10/19 21:00 97.0 F L 73 18 136/78 06/10/19 18:21 44 L 18 176/91 06/10/19 17:31 98 F 55 L 18 162/88 06/10/19 17:30 55 L 18 162/88 06/10/19 15:35 52 L 18 196/92 BP Pulse Ox 06/11/19 04:45 139/75 97 06/10/19 23:30 127/62 98 06/10/19 21:00 99 06/10/19 18:21 06/10/19 17:31 100 06/10/19 17:30 100 06/10/19 15:35 100 Intake and Output 06/10/19 06/11/19 06/11/19 22:59 06:59 14:59 Intake Total 300 100 Balance 300 100 Intake: Oral 300 100 Other: # Voids 1 0 Weight 74.843 kg Gen.: Patient is well-nourished, well-developed and in mild distress. HEENT: Head is atraumatic, normocephalic. Fundus not visualized. There is no scleral icterus. Mucous membranes are moist. Heart: Regular rate and rhythm Lungs: Clear to auscultation Extremities: Without edema. Straight leg raising test is positive bilaterally left, greater than right Neurological examination Mental status: Patient is awake, alert and oriented 3. Speech is clear. Cranial nerves: Pupils are equal, round and reactive to light. Visual mendenhall are full to confrontation. Extraocular muscles are intact. Facial sensation is intact. There is no facial asymmetry. Hearing is grossly intact. Uvula and palate are midline. Shoulder shrug is symmetric. Tongue protrudes midline. Motor: Strength is 5/5 throughout Sensation: There is allodynia to light touch of the left lower extremity. Coordination: Bilateral upper extremity intention tremor Deep tendon reflexes: 2+/4+ throughout Gait: Not assessed Results - Laboratory Findings CBC and BMP: 06/10/19 14:33 06/10/19 23:52 Abnormal Lab Findings: Abnormal Labs 06/10/19 06/10/19 14:33 14:33 RBC 4.07 L MCV 100.3 H Potassium 5.4 H BUN 40 H Creatinine 1.55 H Glucose 111 H Assessment and Plan Assessment: Impressions: 1. Left low back, buttock and leg pain-consistent with lumbar radiculopathy 2. Recent similar right-sided symptoms, resolved with steroid injection Plan: Recommendations: 1. Steroid injection-via pain management or ortho 2. MRI of the lumbar spine as an outpatient 3. Referral to neurologist for possible EMG Time with Patient: Greater than 30 (spent 45 minutes with patient)
[2019-06-11] MEDS: DIAZEPAM 5 MG TAB PO SCH (20:20)
[2019-06-11] MEDS: ASPIRIN 81 MG PO SCH (20:21)
[2019-06-11] MEDS: MELATONIN 3 MG TABLET PO SCH (20:21)
[2019-06-11] MEDS: PRAZOSIN 1 MG CAP PO SCH (20:24)
[2019-06-11] MEDS: VORTIOXETINE HYDROBROMIDE 20 MG TABLET PO SCH (20:25)
[2019-06-12] MEDS: MORPHINE SULFATE 4 MG/ML SYRINGE IV PRN (02:40)
--- NOTE | 2019-06-12 07:52 | P.PN ---
Subjective Progress Note Date: 06/12/19 Principal diagnosis: follow up for low back pain with radiculopathy, and hypertensive urgency Patient seen and examined. Reports pain responds well to current pain medication regimen however once wears off he continues to have pain in his left buttock radiating to the left knee denies any numbness or tingling in his left lower extremity denies any saddle numbness or tingling. he is urinating ok , but feels he has to put more effort than usual he updated me with his current home meds , i did adjust it in the computer complaining of itching in his hands which is usual for him, he is requesting his atarax tolerating diet , no nausea or vomiting Otherwise denies any chest pain or trouble breathing. His tolerating by mouth intake Objective - Vital Signs Vital signs: Vital Signs Temp 97.6 F 06/12/19 06:54 Pulse 51 L 06/12/19 06:54 Resp 18 06/12/19 06:54 BP 134/50 06/12/19 06:54 Pulse Ox 99 06/12/19 06:54 Intake & Output 06/11/19 06/12/19 06/12/19 18:59 06:59 18:59 Intake Total 540 Output Total 275 Balance 540 -275 Intake: Oral 540 Output: Urine 275 Other: # Voids 1 0 - Exam Constitutional: vital signs stable, Not in acute distress, pleasant, conversant Lungs: Clear to auscultation bilaterally, clear to percussion, normal respiratory effort no use of accessory muscles Cardiovascular: Regular rate and rhythm, no murmurs, no gallops, no rubs, no peripheral edema Gastrointestinal: Soft, no tenderness to palpation, bowel sounds positive Skin: No skin changes over the site of pain over the left hip no erythema no papules no skin lesions no bruising Extremities: No digital cyanosis or clubbing, peripheral pulses palpable and equal over bilateral radial arteries and dorsalis pedis artery, no calf muscle tenderness. Still having point tenderness over the left knee and over the left greater trochanteric process Straight leg rising negative bilaterally but limited on the left side due to pain Psych: Alert, oriented to place, person and time, appropriate affect, intact judgment Neuro: Cranial nerves II-XII grossly intact, no focal sensory deficits to touch, no focal neuro deficit - Labs CBC & Chem 7: 06/10/19 14:33 06/12/19 08:10 Labs: Microbiology - Last 24 Hours (Table) 06/10/19 19:03 Blood Culture - Preliminary Blood No Growth after 24 hours 06/10/19 18:48 Blood Culture - Preliminary Blood No Growth after 24 hours Assessment and Plan Assessment: 63-year-old male with 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 Complaining off low back pain with radiculopathy toward the left lower leg, patient requesting neuro evaluation. Initial imaging showed no acute fractures. Patient admitted under observation with anticipated length of stay less than 2 midnights 06/11 Patient pain regimen is helping, he was evaluated by orthopedics and neurology who recommended steroid injection over the left sacroiliac joint to be administered by pain management team, no focal neuro deficits Imaging of the left knee and left hip showed no acute process 06/12 await pain management input today, hoping for discharge today once pain is controlled Plan: med rec done today with updated home meds itching at tip of hands, chronic restart atarax Subacute low back pain precipitated by sudden movement and running around the house , status post steroid injection with radiculopathy radiating to the left lower limb Neuro and orthopedic services both evaluated the patient recommended steroid injection Pain control Neuro assessment every 2 hours Follow-up blood cultures Imaging of the left hip and left knee shows no acute process Hyperkalemia Potassium is up again, we'll give insulin and D50, follow-up potassium hypertensive urgency , most likely pain induced, resolved pain control Hydralazine PRN for systolic blood pressure >180 CKD III stable caution with nephrotoxic meds monitor renal function and urine output BPH Continue with Flomax central tremors controlled with deep brain stimulator DVT PPX heparin sc tid follow up labs in AM Anticipated discharge place: home 06/12/2009 await pain control and control of her his potassium
[2019-06-12] MEDS: HEPARIN SODIUM,PORCINE 5,000 UNIT/ML 1 ML VIAL SQ SCH ×3 (09:03→23:50)
[2019-06-12 09:37] LABS: Calcium 8.3 mg/dL (8.4-10.2)
[2019-06-12 09:53] LABS: Potassium 6.5 mmol/L (3.5-5.1)
[2019-06-12] MEDS: TAMSULOSIN 0.4 MG CAP.ER.24H PO SCH (10:18)
[2019-06-12] MEDS: PANTOPRAZOLE 40 MG TABLET PO SCH (10:18)
[2019-06-12] MEDS: CYCLOBENZAPRINE 5 MG TAB PO SCH ×2 (10:18→20:34)
[2019-06-12] MEDS: traMADol 50 MG TAB PO PRN ×2 (10:18→17:58)
[2019-06-12] MEDS: hydrOXYzine HCL 10 MG TAB PO PRN ×2 (10:19→17:57)
[2019-06-12] MEDS: NADOLOL 20 MG TAB PO SCH (10:19)
[2019-06-12] MEDS: GABAPENTIN 400 MG CAP PO SCH ×3 (10:22→20:34)
[2019-06-12] MEDS ORDERED: DEXTROSE 10 % IN WATER 250 ML IV STA ×2 (10:46→17:14)
[2019-06-12] MEDS ORDERED: INSULIN REGULAR 100 UNIT/ML VIAL IV ONE ×3 (10:46→23:15)
--- NOTE | 2019-06-12 11:04 | P.PAINCN ---
History of Present Illness - Reason for Consult Consult date: 06/12/19 - History of Present Illness This is an initial consultation for this 63 years old male, admitted to [facility] because of acute onset of severe low back pain with radiation to the left lower extremity, started a few days ago, he denies any initiating event he reported that the pain currently localized in the low back area with radiation to the left lower extremity associated with some numbness and tingling sensation, he feels some weakness in his left lower extremity, he denies any change in the bowel movements or urination, intensity of the pain increases with any leg movement, he reported that his symptoms radiated from the low back towards the left lower extremity unstop around the left knee area, intensity of the pain is 6-7/10 increased with any activity, patient reported that he had long-standing history of low back pain and needs to be managed by chiropractors, and he reported that his symptoms this time is different because associated with the radiation to the lower extremities, head prototype none of the medication he is getting is helping to improve his pain is currently on Flexeril and Neurontin and Valium and Toradol, none. of these medications helping to control his pain. Past Medical History Past Medical History: COPD, Hyperlipidemia, Hypertension Additional Past Medical History / Comment(s): Pt. has a deep brain stimulator - an implanted neurotransmitter; angioplasty 25 years ago, central brain tremors, itching, bladder hesitancy, muscle cramps, (takes lots of medications to control body tremors) History of Any Multi-Drug Resistant Organisms: None Reported Past Surgical History: Heart Catheterization, Orthopedic Surgery Additional Past Surgical History / Comment(s): Brain stimulator, dental surgery, mass removed from chest, left leg fracture w/ surgery. Past Anesthesia/Blood Transfusion Reactions: No Reported Reaction Past Psychological History: Bipolar, Depression, Panic Disorder Smoking Status: Current every day smoker Past Alcohol Use History: None Reported Additional Past Alcohol Use History / Comment(s): Pt. states he doesn't feel depressed whatsoever, has no thoughts of harming self. States his served him w/ divorce papers and he thought things were going great - happened out of nowhere. States he lives with a friend. Feels safe at home. Past Drug Use History: None Reported - Past Family History Father Family Medical History: Coronary Artery Disease (CAD), Diabetes Mellitus Sister(s) Family Medical History: Diabetes Mellitus Mother Family Medical History: Dementia Medications and Allergies Home Medications Medication Instructions Recorded Confirmed Type Tamsulosin HCl [Flomax] 0.4 mg PO DAILY 01/17/18 06/10/19 History Oxybutynin ER [Ditropan Xl] 10 mg PO DAILY 01/18/18 06/10/19 History Diazepam 10 mg PO HS 03/05/18 06/10/19 History Omeprazole [PriLOSEC] 20 mg PO DAILY 03/06/18 06/10/19 History metFORMIN HCL 1,000 mg PO BID 12/01/18 06/10/19 History Chlorzoxazone [Parafon Forte DSC] 500 mg PO BID 06/10/19 06/10/19 History Gabapentin [Neurontin] 400 mg PO TID 06/10/19 06/10/19 History Nadolol [Corgard] 40 mg PO DAILY 06/10/19 06/10/19 History Vortioxetine Hydrobromide 10 mg PO HS 06/10/19 06/10/19 History [Trintellix] methylPREDNISolone [Medrol Dose See Taper PO DIRECTED 06/10/19 06/10/19 History Pack] Allergies Allergy/AdvReac Type Severity Reaction Status Date / Time quetiapine [From Seroquel] Allergy Diarrhea Verified 06/10/19 17:20 hydrocodone [From [place]] AdvReac Nausea & Verified 06/10/19 17:20 Vomiting Physical Exam Vitals: Vital Signs Temp Pulse Pulse Resp BP Pulse Ox 06/12/19 10:24 73 51 L 18 06/12/19 06:54 97.6 F 51 L 18 134/50 99 06/11/19 22:05 97.8 F 68 18 124/72 95 06/11/19 14:13 98.4 F 62 18 156/87 97 Intake and Output 06/11/19 06/12/19 06/12/19 22:59 06:59 14:59 Output Total 275 275 Balance -275 -275 Output: Urine 275 275 Other: # Voids 0 0 Physical Examinations : -Constitutiona : Cooperative , not in acute distress . -HEENT : nech : supple , no Lymphadenopathy , normal thyroid size . : eyes : no ptosis , no icterus, no photophobia . : ENT : normal of hearing , normal oropharynx , no Thrush . - Respiratory : Chest clear to auscultations Bilaterally , no wheezing , no Rhonchi . - Cardiovascula : regular rate and rhythem , S1 , S2 , no S3 , no S4. - Gastrointestina : abdomen soft no tenderness , bowel sounds , no organomegally . - Genitourinary : Defferred . - neurologic : Cranial nerve II to XII intact , no focal neurological deffecit . -psychatric : alert , oriented X 3 , appropriate affect , intact judgment and insight . -Lymphatic : no Lymphadenopathy . - musculoskeltal : Lumber spine moter stegnth lower extremities ,thigh and legs 5/5 Right side , 3-4/5 Left side Positive paresthesia and allodynia at the anterior aspect of the left thigh. Normal sensation on the right side deep tendon reflexes : normal Knee Jerk , normal ankle Jerk lumber facet Loading Test =positive Right , positive Left Range of motion of the lumbar spine Flexion 30 degrees, extension 10 degrees strait leg raising test = positive at 30 degree on the left side ,and is negative on the right side Fabere test= positive LT , negative on the right side Results CBC & Chem 7: 06/10/19 14:33 06/12/19 08:10 Labs: Abnormal Lab Results - Last 24 Hours (Table) 06/12/19 Range/Units 08:10 Potassium 6.5 H* (3.5-5.1) mmol/L Chloride 109 H (98-107) mmol/L BUN 37 H (9-20) mg/dL Creatinine 1.39 H (0.66-1.25) mg/dL Glucose 113 H (74-99) mg/dL Calcium 8.3 L (8.4-10.2) mg/dL Microbiology - Last 24 Hours (Table) 06/10/19 19:03 Blood Culture - Preliminary Blood No Growth after 24 hours 06/10/19 18:48 Blood Culture - Preliminary Blood No Growth after 24 hours Comments: Computed tomography scan of the lumbar spine done at the current [facility] 06/10/2019 mined spondylitic changes and facet arthropathy and there is lateral recess stenosis at L3 4 L4 5 X-ray of the pelvis high on the left hip that was negative for any abnormalities.. Left knee exam= negative for abnormalities Assessment and Plan Plan: Assessment and plan= lumbar radiculopathy. Lumbar spondylosis with lumbar facet arthropathy. Patient could benefit from lumbar epidural steroid injection at L3 4 and L4 5 (left paramedian approach ) Procedure risk and benefits and alternatives discussed with the patient he agreed with proceeding Time with Patient: Greater than 30 PQRS Measure Charge Sheet PQRS Narrative: Smoking Status Current every day smoker Blood Pressure [Right Arm] 134/50 Blood Pressure [Left Arm] 136/78 Blood Pressure 162/88 Pain Intensity [Back] 6 Pain Intensity 9 Pain Scale Used Numeric (1 - 10) Scale Used Non Verbal Pain Indicator Home Medications: Ambulatory Orders Tamsulosin HCl [Flomax] 0.4 mg PO DAILY 01/17/18 Oxybutynin ER [Ditropan Xl] 10 mg PO DAILY 01/18/18 Diazepam 10 mg PO HS 03/05/18 Omeprazole [PriLOSEC] 20 mg PO DAILY 03/06/18 metFORMIN HCL 1,000 mg PO BID 12/01/18 Chlorzoxazone [Parafon Forte DSC] 500 mg PO BID 06/10/19 Gabapentin [Neurontin] 400 mg PO TID 06/10/19 Nadolol [Corgard] 40 mg PO DAILY 06/10/19 Vortioxetine Hydrobromide [Trintellix] 10 mg PO HS 06/10/19 methylPREDNISolone [Medrol Dose Pack] See Taper PO DIRECTED 06/10/19
[2019-06-12] MEDS ORDERED: LACTATED RINGERS 1,000 ML IV ONE ×2 (11:12)
[2019-06-12] MEDS ORDERED: MIDAZOLAM 2 MG/2 ML VIAL ONE (11:18)
[2019-06-12] MEDS ORDERED: fentaNYL (PF) 50 MCG/ML 2 ML AMP ONE (11:18)
[2019-06-12] MEDS ORDERED: methylPREDNISolone ACETATE 40 MG/ML 1 ML VIAL ONE (11:18)
[2019-06-12] MEDS ORDERED: IOPAMIDOL M200 10 ML VIAL ONE (11:18)
--- NOTE | 2019-06-12 11:27 | P.PCN ---
Date of Procedure: 06/12/19 Procedure(s) Performed: PREOPERATIVE DIAGNOSIS: 1- Lumbar radiculopathy 2-Lumbar spondylosis with Facet arthropathy without myelopathy POSTOPERATIVE DIAGNOSIS: 1-Lumber radiculopathy 2-Lumbar spondylosis with Facet arthropathy without myelopathy PROCEDURE 1. Lumbar epidural steroid injection under fluoroscopic guidance at the L4-5 level. (Fluoroscopy imaging was available in radiology department) 2. Lumbar epidurogram. ANESTHESIA: Local with 1% lidocaine 3 ml and , moderate sedation with intravenous Versed 1 mg ,and fentanyle 50 Mcg EBL: Minimal PROCEDURE INDICATION: The patient with low back pain and radiculitis symptoms unresponsive to conservative treatment. Fluoroscopy was used to optimize visualization of the needle placement and to maximize safety. PROCEDURE DESCRIPTION / TECHNIQUE: The patient was seen and identified in the preoperative area. Risks, benefits, complications including but not limited to infections ,bleeding ,allergic reaction to the medications ,nerve damage and not complete pain releife , and alternatives were discussed with the patient. The patient agreed to proceed with the procedure and signed the consent. IV was started, and vital signs were stable. Patient was taken to the OR and time out was completed. The patient was placed in the prone position on procedure table and a pillow was placed under the abdomen to reduce lumbar lordosis. The lumbosacral area was prepped and draped in the usual sterile fashion.ere closely monitored during the procedure. Conscious sedation was used during the procedure to decrease patients anxiety. Vital signs was monitered during the entire procedure. Using anterior-posterior fluoroscopy, the L4-5 interlaminar space was identified and the skin over this site was marked and then infiltrated with 1% lidocaine subcutaneously. Subsequently, a 20-gauge Tuohy epidural needle was inserted and advanced toward the epidural space using the ``Loss of resistance technique and guided by AP and lateral fluoroscopy. The correct needle position in the epidural space was verified with the injection of 2 mL of the water soluble contrast dye Isovue 200 contrast and observing an excellent epidurogram with the epidural spread of the dye, after negative aspiration for blood and CSF and in the absence of paresthesias. Again after negative aspiration, a 6 ml mixture containing 40 mg of Depo-medrol , and 2 ml of preservative free Normal Saline, and 2 ml of preservative free lidocaine 1% solution was injected and a washout of epidurogram was seen. Needle was withdrawn intact, skin was cleansed, and bandages were applied. COMPLICATIONS: None DISPOSITION / PLANS: The patient was placed in a supine position and transferred to the recovery area in a stable condition for observation. There was no evidence of lower extremity motor or sensory deficit after the procedure. Jose hayden was discharged from the recovery room after meeting discharge criteria. Home discharge instructions were given to the patient by the staff. The patient was reexamined prior to discharge. The patient will schedule a follow up in the clinic in 2-4 weeks.
[2019-06-12] MEDS: OXYBUTYNIN 10 MG TAB.ER.24 PO SCH (12:08)
[2019-06-12] MEDS: SODIUM CHLORIDE 0.9% 1,000 ML IV SCH ×2 (12:10→23:06)
--- NOTE | 2019-06-12 12:54 | FL ---
EXAMINATION TYPE: FL guided pain mgmt statistic DATE OF EXAM: 06/12/2019 CLINICAL HISTORY: Low back pain. TECHNIQUE: Fluoroscopy. COMPARISON: None. FINDINGS: Fluoroscopic guidance was provided during pain relief procedure performed by Dr. Bryson . A total of 3 seconds of fluoroscopic time was utilized during the procedure and single spot fluoro scopic images acquired. Single image acquired shows needle localization L4-L5 level. IMPRESSION: As Above.
--- NOTE | 2019-06-12 13:51 | P.CNOR ---
History of Present Illness - [facility] Consult date: 06/12/19 Requesting physician: Halie Figueroa Consult reason: low back pain (Left-sided low back pain), other (Left-sided r adiculopathy with difficulty with ambulation) History of present illness: Patient is a pleasant 63-year-old male who is seen and examined at the bedside for further evaluation for ongoing low back pain and left lower extremity radiculopathy. He states 1 week ago he jumped out of bed at approximately 4:00 in the morning as he thought bugs were crawling all over him. He thought he had bed bugs. He states he ran around the house spaying alcohol try to control the bugs. As the day progressed he began to experience low back pain and bilateral lower extremity radiculopathy. He states he had pain radiating over the anterior thighs bilaterally and also on the left anterior lower extremity. He followed-up with his neurologist as well as primary care provider. He did have an injection at the office with his primary care provider. He's had some improvement of his right lower extremity radiculopathy. He continues of significant left-sided low back pain and left lower extremity radiculopathy. He has difficulty standing on his left lower extremity. He denies previous surgery of his lumbar spine. 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 He states he follows with Dr. Beaver through [facility]. He scheduled for further brain surgery the end of July 2019. His medical history also includes bipolar disorder, depression, current every day smoker, COPD, hyperlipidemia, hypertension, history of angioplasty approximately 25 years ago, and injury to the left lower extremity requiring surgical sandy fixation of the left tibia. Patient states at the bedside he would like to continue following with his neurosurgeon has previously scheduled. He states he is supposed to follow-up next week. He is currently waiting for consultation with mariella griffin. He has been ambulating with a walker. Past Medical History Past Medical History: COPD, Hyperlipidemia, Hypertension Additional Past Medical History / Comment(s): Pt. has a deep brain stimulator - an implanted neurotransmitter; angioplasty 25 years ago, central brain tremors, itching, bladder hesitancy, muscle cramps, (takes lots of medications to control body tremors) History of Any Multi-Drug Resistant Organisms: None Reported Past Surgical History: Heart Catheterization, Orthopedic Surgery Additional Past Surgical History / Comment(s): Brain stimulator, dental surgery, mass removed from chest, left leg fracture w/ surgery. Past Anesthesia/Blood Transfusion Reactions: No Reported Reaction Past Psychological History: Bipolar, Depression, Panic Disorder Smoking Status: Current every day smoker Past Alcohol Use History: None Reported Additional Past Alcohol Use History / Comment(s): Pt. states he doesn't feel depressed whatsoever, has no thoughts of harming self. States his served him w/ divorce papers and he thought things were going great - happened out of nowhere. States he lives with a friend. Feels safe at home. Past Drug Use History: None Reported - Past Family History Father Family Medical History: Coronary Artery Disease (CAD), Diabetes Mellitus Sister(s) Family Medical History: Diabetes Mellitus Mother Family Medical History: Dementia Medications and Allergies Home Medications Medication Instructions Recorded Confirmed Type Tamsulosin HCl [Flomax] 0.4 mg PO DAILY 01/17/18 06/10/19 History Oxybutynin ER [Ditropan Xl] 10 mg PO DAILY 01/18/18 06/10/19 History Diazepam 10 mg PO HS 03/05/18 06/10/19 History Omeprazole [PriLOSEC] 20 mg PO DAILY 03/06/18 06/10/19 History metFORMIN HCL 1,000 mg PO BID 12/01/18 06/10/19 History Chlorzoxazone [Parafon Forte DSC] 500 mg PO BID 06/10/19 06/10/19 History Gabapentin [Neurontin] 400 mg PO TID 06/10/19 06/10/19 History Nadolol [Corgard] 40 mg PO DAILY 06/10/19 06/10/19 History Vortioxetine Hydrobromide 10 mg PO HS 06/10/19 06/10/19 History [Trintellix] methylPREDNISolone [Medrol Dose See Taper PO DIRECTED 06/10/19 06/10/19 History Pack] Allergies Allergy/AdvReac Type Severity Reaction Status Date / Time quetiapine [From Seroquel] Allergy Diarrhea Verified 06/10/19 17:20 hydrocodone [From Dilliner] AdvReac Nausea & Verified 06/10/19 17:20 Vomiting Physical Examination Physical exam: Patient is awake, alert, and oriented 3 Vital signs stable Good chest excursion with deep inspiration and expiration Examination of lumbar spine reveals skin is intact with no abrasions, lacerations, or bruises; no erythema, purulence or signs of infection Dorsiflexion, plantarflexion, and extensor hallucis longus positive sustained on the right Reduce range of motion with dorsiflexion and plantar flexion on the left Extensor hallucis longus positive sustained on the left Positive straight leg test on the left Patient is able to perform left hip flexion and knee extension on the left but has increased pain while doing so Lower extremity strength 5/5 on the right No lower extremity hyperreflexia bilaterally No signs or symptoms of DVT; no calf pain No pain with internal and external rotation of the hips bilaterally Neurovascularly intact Evidence of a well-healed incision along the left distal knee and proximal tibia Results Pertinent studies: CT of the lumbar spine taken on 06/10/2019: L3-4 facet arthropathy and lateral recess stenosis; L4-5 facet arthropathy and apparent disc herniation resulting in some central canal stenosis and neuroforaminal stenosis L5-S1 small disc herniation; lateral osteophytic spurring; mild degenerative scoliosis; no evidence of vertebral body compression fracture deformity - Labs Labs: Microbiology - Last 24 Hours (Table) 06/10/19 19:03 Blood Culture - Preliminary Blood No Growth after 24 hours 06/10/19 18:48 Blood Culture - Preliminary Blood No Growth after 24 hours H & H 06/10/19 Range/Units 14:33 Hgb 13.5 (13.0-17.5) gm/dL Hct 40.8 (39.0-53.0) % Result Diagrams: 06/10/19 14:33 06/12/19 08:10 Assessment and Plan Assessment: Assessment: Acute left-sided low back pain and left lower extremity radiculopathy Significant difficulty with ambulation due to left lower extremity radiculopathy Lumbar facet arthropathy L4-5 apparent disc herniation and facet arthropathy with canal stenosis and neuroforaminal stenosis History of 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 Bipolar disorder Depression Current every day smoker COPD Hyperlipidemia Hypertension History of angioplasty 25 years ago History of left tibial nail fixation due to trauma (1) Lumbar facet arthropathy Current Visit: Yes Status: Acute Code(s): M47.816 - SPONDYLOSIS W/O MYELOPATHY OR RADICULOPATHY, LUMBAR REGION SNOMED Code(s): 584014037 (2) Lumbar stenosis Current Visit: Yes Status: Acute Code(s): M48.061 - SPINAL STENOSIS, LUMBAR REGION WITHOUT NEUROGENIC JEFF SNOMED Code(s): 59217119 (3) Lumbar herniated disc Current Visit: Yes Status: Acute Code(s): M51.26 - OTHER INTERVERTEBRAL DISC DISPLACEMENT, LUMBAR REGION SNOMED Code(s): 366401856 (4) Bipolar disorder Current Visit: Yes Status: Acute Code(s): F31.9 - BIPOLAR DISORDER, UNSPECIFIED SNOMED Code(s): 34892711 (5) Depression Current Visit: Yes Status: Acute Code(s): F32.9 - MAJOR DEPRESSIVE DISORDER, SINGLE EPISODE, UNSPECIFIED SNOMED Code(s): 63290484 (6) Current every day smoker Current Visit: Yes Status: Acute Code(s): F17.200 - NICOTINE DEPENDENCE, UNSPECIFIED, UNCOMPLICATED SNOMED Code(s): 782444735 (7) COPD (chronic obstructive pulmonary disease) Current Visit: Yes Status: Acute Code(s): J44.9 - CHRONIC OBSTRUCTIVE PULMONARY DISEASE, UNSPECIFIED SNOMED Code(s): 23926497 (8) Hyperlipidemia Current Visit: Yes Status: Acute Code(s): E78.5 - HYPERLIPIDEMIA, UNSPECIFIED SNOMED Code(s): 66372245 (9) Hypertension Current Visit: Yes Status: Acute Code(s): I10 - ESSENTIAL (PRIMARY) HYPERTENSION SNOMED Code(s): 49663090 (10) History of angioplasty Current Visit: Yes Status: Acute Code(s): Z98.62 - PERIPHERAL VASCULAR ANGIOPLASTY STATUS SNOMED Code(s): 638311417 (11) Low back pain Current Visit: Yes Status: Acute Code(s): M54.5 - LOW BACK PAIN SNOMED Code(s): 694550400 (12) Lumbar radicular pain Current Visit: Yes Status: Acute Code(s): M54.16 - RADICULOPATHY, LUMBAR REGION SNOMED Code(s): 877402542 Plan: Plan: 1. After reviewing imaging, physical examination of the patient, and further discussion with the patient, we will currently plan to continue with conservative treatment at this time. He has been experiencing left-sided low back pain and debilitating left lower extremity radiculopathy. Consultation has been placed with pain management. Patient does have a history of brain stimulator placement with central brain tremors. He follows with a neurosurgeon, Dr. Beaver, through [facility]. He states he is currently scheduled for further brain surgery in July 2019. He scheduled for follow-up evaluation with his neurosurgeon next week. At this time, we will defer further treatment with his neurosurgeon. We are not planning for any acut e surgical intervention at this time in regards to his lumbosacral spine. From an orthopedic spine standpoint, patient is clear for discharge when medically stable. We will plan to have him follow up on an as-needed basis. We discussing continue following with his neurosurgeon for further treatment evaluation in regards to both his brain and his lumbar spine. Patient feels good plan of care. 2. Patient will continue be seen and examined by medicine for his other medical diagnoses 3. Patient currently waiting for consultation with pain management Time with Patient: Greater than 30 (Including obtaining history, physical examination, reviewing of imaging, and dictation.)
[2019-06-12] MEDS: DIAZEPAM 5 MG TAB PO SCH (20:32)
[2019-06-12] MEDS: ASPIRIN 81 MG PO SCH (20:33)
[2019-06-12] MEDS: KETOROLAC 30 MG/ML 1 ML VIAL IVP PRN (20:33)
[2019-06-12] MEDS: MELATONIN 3 MG TABLET PO SCH (20:34)
[2019-06-12] MEDS: VORTIOXETINE HYDROBROMIDE 10 MG TABLET PO SCH (21:22)
[2019-06-12] MEDS ORDERED: diphenhydrAMINE 25 MG CAP PO STA (21:41)
[2019-06-12] MEDS ORDERED: SODIUM POLYSTYRENE SULFONATE 15 GM/60 ML BOTTLE PO ONE (23:30)
[2019-06-12] MEDS ORDERED: DEXTROSE 10 % IN WATER 250 ML IV ONE (23:30)
[2019-06-12] MEDS ORDERED: CALCIUM GLUCONATE 1 GM in SODIUM CHLORIDE 0.9% 100 ML IVPB ONE (23:30)
[2019-06-13 06:13] LABS: Calcium 8.5 mg/dL (8.4-10.2)
[2019-06-13 06:27] LABS: Potassium 6.5 mmol/L (3.5-5.1)
[2019-06-13] MEDS ORDERED: DEXTROSE 10 % IN WATER 250 ML IV STA (07:36)
[2019-06-13] MEDS ORDERED: INSULIN REGULAR 100 UNIT/ML VIAL IV ONE (07:36)
[2019-06-13] MEDS: amLODIPine 5 MG TAB PO SCH (08:14)
[2019-06-13] MEDS: HYDROCHLOROTHIAZIDE 25 MG TAB PO SCH (08:14)
[2019-06-13] MEDS: CYCLOBENZAPRINE 5 MG TAB PO SCH ×2 (08:14→21:25)
[2019-06-13] MEDS: HEPARIN SODIUM,PORCINE 5,000 UNIT/ML 1 ML VIAL SQ SCH ×3 (08:14→23:55)
[2019-06-13] MEDS: GABAPENTIN 400 MG CAP PO SCH ×3 (08:14→21:25)
[2019-06-13] MEDS: TAMSULOSIN 0.4 MG CAP.ER.24H PO SCH (08:14)
[2019-06-13] MEDS: PANTOPRAZOLE 40 MG TABLET PO SCH (08:14)
[2019-06-13] MEDS: NADOLOL 20 MG TAB PO SCH (08:15)
[2019-06-13] MEDS: OXYBUTYNIN 10 MG TAB.ER.24 PO SCH (08:15)
--- NOTE | 2019-06-13 09:07 | P.PN ---
Subjective Progress Note Date: 06/13/19 Principal diagnosis: follow up for low back pain with radiculopathy, and hypertensive urgency Patient seen and examined. he reports no more pain since her received the injection yesterday, he is happy with results denies any chest pain or trouble breathing toelrating PO intake I explained to him, that his potassium has been elevated , and im keeping him until nephro evaluates him, as K has been refractory his blood pressure also elevated, we assumed it was because of pain initially , but since he has no pain any more, i advised he starts on BP meds , and to [facility] to monitor with his PCP. i answered his questions, he was in agreement with the plan Objective - Vital Signs Vital signs: Vital Signs Temp 97.5 F L 06/13/19 04:45 Pulse 48 L 06/13/19 04:45 Resp 16 06/13/19 04:45 BP 178/91 06/13/19 04:45 Pulse Ox 99 06/13/19 04:45 Intake & Output 06/12/19 06/13/19 06/13/19 18:59 06:59 18:59 Intake Total 590 Output Total 550 Balance 40 Intake: IV 50 Oral 540 Output: Urine 550 Other: Voiding Method Urinal Urinal # Voids 5 2 # Bowel Movements 2 - Exam Constitutional: vital signs stable, Not in acute distress, pleasant, conversant Lungs: Clear to auscultation bilaterally, clear to percussion, normal respiratory effort Cardiovascular: Regular rate and rhythm, no murmurs, no gallops, no rubs, no peripheral edema Extremities: No digital cyanosis , peripheral pulses palpable and equal , no calf muscle tenderness. Psych: Alert, oriented to place, person and time, appropriate affect, intact judgment Neuro: no focal sensory deficits to touch, no focal neuro deficit - Labs CBC & Chem 7: 06/10/19 14:33 06/13/19 05:20 Labs: Abnormal Lab Results - Last 24 Hours (Table) 06/12/19 06/12/19 06/12/19 Range/Units 08:10 15:15 22:15 Sodium (137-145) mmol/L Potassium 6.5 H* 5.4 H 6.8 H* (3.5-5.1) mmol/L Chloride 109 H (98-107) mmol/L Carbon Dioxide (22-30) mmol/L BUN 37 H (9-20) mg/dL Creatinine 1.39 H (0.66-1.25) mg/dL Glucose 113 H (74-99) mg/dL Calcium 8.3 L (8.4-10.2) mg/dL 06/13/19 Range/Units 05:20 Sodium 134 L (137-145) mmol/L Potassium 6.5 H* (3.5-5.1) mmol/L Chloride 108 H (98-107) mmol/L Carbon Dioxide 21 L (22-30) mmol/L BUN 39 H (9-20) mg/dL Creatinine 1.32 H (0.66-1.25) mg/dL Glucose (74-99) mg/dL Calcium (8.4-10.2) mg/dL Microbiology - Last 24 Hours (Table) 06/10/19 19:03 Blood Culture - Preliminary Blood No Growth after 48 hours 06/10/19 18:48 Blood Culture - Preliminary Blood No Growth after 48 hours Assessment and Plan Assessment: 63-year-old male with 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 Complaining off low back pain with radiculopathy toward the left lower leg, patient requesting neuro evaluation. Initial imaging showed no acute fractures. Patient admitted under observation with anticipated length of stay less than 2 midnights 06/11 Patient pain regimen is helping, he was evaluated by orthopedics and neurology who recommended steroid injection over the left sacroiliac joint to be administered by pain management team, no focal neuro deficits Imaging of the left knee and left hip showed no acute process 06/12 await pain management input today, hoping for discharge today once pain is controlled, patient is having hyperkalemia 06/13 patient pain was controlled, after steroid injection patient continues to be inpatient , due to hyperkalemia , await nephro input, as hyperkalemia is refractory patient blood pressure is not well controlled even after pain control , i will start him on amlodipine and HCTZ Plan: Hypertension , urgency , uncontrolled pain is controlled now, still having elevated blood pressure start HCTZ and amlodipine today Hydralazine PRN for systolic blood pressure >180 refractory hyperkalemia nephro consult follow up every 4 hours check EKG give insulin and D50 itching at tip of hands, chronic restart atarax Subacute low back pain precipitated by sudden movement and running around the house , status post steroid injection with radiculopathy radiating to the left lower limb Neuro and orthopedic services both evaluated the patient recommended steroid injection Pain control Neuro assessment every 2 hours Follow-up blood cultures Imaging of the left hip and left knee shows no acute process CKD II-III stable caution with nephrotoxic meds monitor renal function and urine output BPH Continue with Flomax central tremors controlled with deep brain stimulator DVT PPX heparin sc tid follow up labs in AM Anticipated discharge place: home 06/13- await nephro eval for hyperkalemia blood pressure control
[2019-06-13] MEDS: hydrOXYzine HCL 10 MG TAB PO PRN (10:31)
--- NOTE | 2019-06-13 12:25 | US ---
EXAMINATION TYPE: US kidneys/renal and bladder DATE OF EXAM: 06/13/2019 COMPARISON: NONE CLINICAL HISTORY: kidney function. lower back pain EXAM MEASUREMENTS: Right Kidney: 10.3 x 5.2 x 4.9 cm Left Kidney: 10.4 x 5.8 x 4.5 cm Right Kidney: no evidence of hydronephrosis Left Kidney: no evidence of hydronephrosis Bladder: appears wnl Bilateral Jets seen: yes There is no evidence for hydronephrosis at this point in time. No nephrolithiasis is seen. No peggy s are identified. The urinary bladder is anechoic. Bilateral ureteral jets are seen. IMPRESSION: No distinct abnormality seen.
[2019-06-13 14:42] LABS: Calcium 8.6 mg/dL (8.4-10.2); Potassium 5.2 mmol/L (3.5-5.1)
[2019-06-13] MEDS: SODIUM CHLORIDE 0.9% 1,000 ML IV SCH ×2 (15:04→21:25)
[2019-06-13] MEDS: ASPIRIN 81 MG PO SCH (21:25)
[2019-06-13] MEDS: MELATONIN 3 MG TABLET PO SCH (21:25)
[2019-06-13] MEDS: DIAZEPAM 5 MG TAB PO SCH (21:25)
--- NOTE | 2019-06-13 22:47 | CONS ---
CONSULTATION REASON FOR CONSULT: Hyperkalemia. HISTORY OF PRESENT ILLNESS: Patient is a 63-year-old male who was admitted to the hospital on 06/10/2019 with complaints of severe back pain which had also shifted to the left side. Patient is status post lumbar epidural steroid injection for lumbar radiculopathy. Patient's creatinine was 1.5 on 06/10/2019 on initial admission. It did decrease to 1.3 today. Patient's serum potassium was elevated yesterday to 6.5. He has received multiple doses of Kayexalate and IV treatment with dextrose and insulin. Patient's serum potassium remains at 6.8. Review of previous medications shows patient did receive Toradol as well postoperatively. He has had good urine output with no evidence of urine retention. There is no diarrhea, nausea or vomiting. Patient is not on any medications which will promote hyperkalemia. PAST MEDICAL HISTORY: COPD, hyperlipidemia, hypertension, history of deep brain stimulator. PAST SURGICAL HISTORY: Cardiac catheterization, dental surgery, mass removed from the chest, left leg surgery, brain stimulator implantation. SOCIAL HISTORY: Positive for smoking. No history of drug abuse or alcohol abuse. MEDICATIONS: Medications include Flomax, Ditropan, Prilosec, metformin, Neurontin, Corgard, Trintellix, Medrol Dosepak. ALLERGIES: ALLERGIES include SEROQUEL, NORCO. PHYSICAL EXAMINATION: Patient is comfortable, awake, not in any acute distress. Blood pressure was 178/91, heart rate 48 per minute. Patient is afebrile. EXAMINATION OF THE HEART: S1 and S2. EXAMINATION OF LUNGS: Bilateral breath sounds are heard. ABDOMEN: Soft, non-tender. Examination of lower extremities shows no evidence of edema. ORTHOPAEDIC NURSE exam is grossly intact. LABS: Sodium 137, potassium 5.2, chloride 108, BUN 38, creatinine 1.45. UA is completely benign. ASSESSMENT: 1. Hyperkalemia associated with underlying chronic kidney disease as well as use of Toradol. We need to rule out urine retention. Previous post-void residual was not elevated. I will check an ultrasound of the kidneys and bladder and we will repeat a post-void residual. The patient will be maintained on low-potassium diet. If his serum potassium remains elevated, I will add low-dose loop diuretics. 2. Chronic kidney disease secondary to nephrosclerosis. Serum creatinine has been about 1.3 to 1.5 mg/dL. 3. Chronic back pain with lumbar radiculopathy, status post epidural injection. PLAN: Repeat labs in a.m. Low-potassium diet. Repeat post-void residual scan. Check ultrasound of the kidneys. Repeat potassium this evening. Thank you for this consultation. Will continue to follow the patient with you during his hospitalization. MMODL / IJN: [id number] /
[2019-06-13] MEDS: VORTIOXETINE HYDROBROMIDE 10 MG TABLET PO SCH (23:55)
[2019-06-14] MEDS: SODIUM CHLORIDE 0.9% 1,000 ML IV SCH ×2 (06:00→15:42)
[2019-06-14] MEDS: TAMSULOSIN 0.4 MG CAP.ER.24H PO SCH (08:44)
[2019-06-14] MEDS: HEPARIN SODIUM,PORCINE 5,000 UNIT/ML 1 ML VIAL SQ SCH ×2 (08:44→15:42)
[2019-06-14] MEDS: amLODIPine 5 MG TAB PO SCH (08:44)
[2019-06-14] MEDS: GABAPENTIN 400 MG CAP PO SCH ×2 (08:44→15:42)
[2019-06-14] MEDS: PANTOPRAZOLE 40 MG TABLET PO SCH (08:44)
[2019-06-14] MEDS: HYDROCHLOROTHIAZIDE 25 MG TAB PO SCH (08:44)
[2019-06-14] MEDS: OXYBUTYNIN 10 MG TAB.ER.24 PO SCH (08:44)
[2019-06-14] MEDS: CYCLOBENZAPRINE 5 MG TAB PO SCH (08:44)
[2019-06-14] MEDS: NADOLOL 20 MG TAB PO SCH (08:44)
[2019-06-14 10:13] LABS: Calcium 8.8 mg/dL (8.4-10.2); Potassium 5.6 mmol/L (3.5-5.1)
[2019-06-14] MEDS ORDERED: INSULIN REGULAR 100 UNIT/ML VIAL IV ONE (10:39)
[2019-06-14] MEDS ORDERED: DEXTROSE 10 % IN WATER 250 ML IV STA (10:39)
[2019-06-14] MEDS ORDERED: SODIUM POLYSTYRENE SULFONATE 15 GM/60 ML BOTTLE PO STA (10:45)
[2019-06-14 11:52] VITALS: BMI 23.6
--- NOTE | 2019-06-14 11:52 | P.DS ---
Providers Date of admission: 06/12/19 11:23 Attending physician: Jameson Hughes MD Consults: 06/10/19 16:53 Consult Physician Urgent Consulting Provider: Moises Haddad Consult Reason/Comments: low back pain, lumbar radiculopathy Do you want consulting provider notified?: Yes 06/10/19 17:16 Consult Physician Routine Consulting Provider: Trista Mast Consult Reason/Comments: left lower extremity pain and weakness Do you want consulting provider notified?: Yes 06/11/19 13:40 Consult Physician Routine Consulting Provider: Karl Quintero Consult Reason/Comments: lumbar radiculopathy Do you want consulting provider notified?: Already Contacted 06/13/19 07:35 Consult Physician Routine Consulting Provider: Puja Packer Consult Reason/Comments: hyperkalemia Do you want consulting provider notified?: Yes Primary care physician: Physician Nonstaff Hospital Course: Final diagnosis at discharge Subacute low back pain secondary to Lumbar radiculopathy to the left side Hypertension urgency Refractory hyperkalemia, improved CK D stage 3 BPH Central tremors hospital course 63-year-old male with 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 Complaining off low back pain with radiculopathy toward the left lower leg, patient requesting neuro evaluation. Initial imaging showed no acute fractures. Patient admitted under observation with anticipated length of stay less than 2 midnights 06/11 Patient pain regimen is helping, he was evaluated by orthopedics and neurology who recommended steroid injection over the left sacroiliac joint to be administered by pain management team, no focal neuro deficits Imaging of the left knee and left hip showed no acute process 06/12 await pain management input today, hoping for discharge today once pain is controlled, patient is having hyperkalemia 06/13 patient pain was controlled, after steroid injection patient continues to be inpatient , due to hyperkalemia , await nephro input, as hyperkalemia is refractory patient blood pressure is not well controlled even after pain control , i will start him on amlodipine and HCTZ 06/14 Patient seen and examined on day of discharge, reports pain is well controlled, no chest pain no shortness of breath. He is tolerating diet nausea no vomiting Is able to urinate with no concerns. Denies any muscle weakness or focal neuro deficits Denies any headache chest pain or trouble breathing. Constitutional: vital signs stable, Not in acute distress, pleasant, conversant Lungs: Clear to auscultation bilaterally, clear to percussion, normal respiratory effort Cardiovascular: Regular rate and rhythm, no murmurs, no gallops, no rubs, no peripheral edema Extremities: No digital cyanosis , peripheral pulses palpable and equal , no calf muscle tenderness. Psych: Alert, oriented to place, person and time, appropriate affect, intact judgment Neuro: no focal sensory deficits to touch, no focal neuro deficit I discussed the case today with lab results with nephrology, cleared the patient for discharge with recommendations to recheck basic metabolic panel in 3-4 days, continue low potassium diet, and start patient on sodium bicarbonate pill daily I counseled the patient regarding low potassium diet, and nephrology recommendations to follow up with them medication prescriptions were sent his preferred pharmacy Follow-up with nephrology and PCP on his blood pressure and potassium level. Blood pressure should be normalized over a month slowly I reduced to no medications during this hospital stay blood pressure is remaining in the range of 150s to 160s for systolic Patient verbalized understanding of the plan he is eating discharged in stable clinical condition A walker was provided to the patient per PT recommendations Handouts were provided to the patient's to help him with scaling his pain. And following low potassium diet 40 minutes were spent discharging this patient, and more than 50% of the time was spent in counseling the patient and family and in coordinating care. Procedures: Pain management service performed lumbar epidural steroid injection with fluoroscopic guidance for his lumbar radiculopathy Patient Condition at Discharge: Stable Plan - Discharge Summary New Discharge Prescriptions: New Hydrochlorothiazide [Hydrodiuril] 25 mg PO DAILY #30 tab amLODIPine [Norvasc] 5 mg PO DAILY #30 tab Sodium Bicarbonate Tab 650 mg PO DAILY #30 tab Continue Tamsulosin HCl [Flomax] 0.4 mg PO DAILY Oxybutynin ER [Ditropan Xl] 10 mg PO DAILY Diazepam 10 mg PO HS Omeprazole [PriLOSEC] 20 mg PO DAILY metFORMIN HCL 1,000 mg PO BID Chlorzoxazone [Parafon Forte DSC] 500 mg PO BID Nadolol [Corgard] 40 mg PO DAILY Vortioxetine Hydrobromide [Trintellix] 10 mg PO HS Gabapentin [Neurontin] 400 mg PO TID Discontinued methylPREDNISolone [Medrol Dose Pack] See Taper PO DIRECTED Discharge Medication List Tamsulosin HCl [Flomax] 0.4 mg PO DAILY 01/17/18 [History] Oxybutynin ER [Ditropan Xl] 10 mg PO DAILY 01/18/18 [History] Diazepam 10 mg PO HS 03/05/18 [History] Omeprazole [PriLOSEC] 20 mg PO DAILY 03/06/18 [History] metFORMIN HCL 1,000 mg PO BID 12/01/18 [History] Chlorzoxazone [Parafon Forte DSC] 500 mg PO BID 06/10/19 [History] Gabapentin [Neurontin] 400 mg PO TID 06/10/19 [History] Nadolol [Corgard] 40 mg PO DAILY 06/10/19 [History] Vortioxetine Hydrobromide [Trintellix] 10 mg PO HS 06/10/19 [History] Hydrochlorothiazide [Hydrodiuril] 25 mg PO DAILY #30 tab 06/14/19 [Rx] Sodium Bicarbonate Tab 650 mg PO DAILY #30 tab 06/14/19 [Rx] amLODIPine [Norvasc] 5 mg PO DAILY #30 tab 06/14/19 [Rx] Follow up Appointment(s)/Referral(s): Prasad Johnson, MATIAS [PHYSICIAN KRAFT DIGESTER OPERATOR] - As Needed (Patient may follow-up with Prasad Johnson PA-C or Dr. Sergio Quintero at [facility] on an as-needed basis following discharge. ) Fernanda Bryson MD [STAFF PHYSICIAN] - 3 Weeks Nonstaff,Physician [Primary Care Provider] - 1-2 days Puja Packer MD [STAFF PHYSICIAN] - 1 Week Ambulatory/Diagnostic Orders: Basic Metabolic Panel [LAB.AMB] Time Frame: 3 Days, Location: None Selected Patient Instructions/Handouts: Potassium Content of Foods List (DC) Activity/Diet/Wound Care/Special Instructions: low potassium diet Discharge/Stand Alone Forms: [facility] Diary, [facility] Instructions Discharge Disposition: HOME SELF-CARE Plan of Treatment: continue with low potassium diet follow up with your kidney doctor follow up with your PCP on your blood pressure control
[2019-06-14 14:58] VITALS: BP 190/84; PULSE 66; RESP 18; TEMP 97.8
--- NOTE | 2019-06-15 05:36 | PN ---
PROGRESS NOTE The patient is seen for follow up for hyperkalemia. His serum potassium has improved to 5.6. Patient is being considered for discharge; however, he states he is having back pain radiating to his legs. Therefore, he wants to stay one more day. The patient is maintained on low potassium diet as well. He denies any constipation. He has been on Toradol, which is now discontinued. PHYSICAL EXAMINATION: On examination, blood pressure this morning is 190/84, heart rate 66 per minute. He is afebrile. EXAMINATION OF THE HEART: S1 and S2. EXAMINATION OF THE LUNGS: Bilateral breath sounds are heard. Abdomen is soft, nontender. Examination of lower extremities shows no evidence of edema. RESEARCH ADMINISTRATOR exam is grossly intact. LABS: Labs show sodium 140, potassium 5.6, chloride 110, BUN 33, creatinine 1.47. ASSESSMENT: 1. Hyperkalemia associated with renal insufficiency, some degree of acute kidney injury, use of Toradol, currently improved. I will give another dose of Kayexalate prior to discharge and patient will be maintained on low potassium diet along with small dose of sodium bicarb as an outpatient. The patient is also advised to avoid constipation, control his blood sugars, and he will need repeat labs to be done in about two to three days post discharge with plans to follow up in the office in about one to two weeks. 2. Chronic kidney disease secondary to nephrosclerosis. Urinalysis is completely benign. MMODL / IJN: [id number] /
== END 2019-06-14 17:09 | disposition home health service (06) ==
LOC: EC 13:05 → 6NMEDSUR 16:53 → OBSVTOIN 06-12 11:23 → INTOOBSV 06-12 11:23 → UNDODISIN 06-14 17:09
PROVIDERS: ADMIT Internal Medicine; ATTEND Internal Medicine
PROC: 3E0R33Z Introduction of Anti-inflammatory into Spinal Canal, Percutaneous Approach (ICD-10-PCS; principal; 2019-06-12 11:00)
DX: G89.29 Other chronic pain (principal); M47.26 Other spondylosis with radiculopathy, lumbar region; M48.07 Spinal stenosis, lumbosacral region; M51.16 Intervertebral disc disorders with radiculopathy, lumbar region; I16.0 Hypertensive urgency; E87.5 Hyperkalemia; I12.9 Hypertensive chronic kidney disease with stage 1 through stage 4 chronic kidney disease, or unspecified chronic kidney disease; N18.3 Chronic kidney disease, stage 3 (moderate); N40.1 Benign prostatic hyperplasia with lower urinary tract symptoms; R39.11 Hesitancy of micturition; G25.0 Essential tremor; M25.562 Pain in left knee; M25.552 Pain in left hip; J44.9 Chronic obstructive pulmonary disease, unspecified; E78.5 Hyperlipidemia, unspecified; F31.9 Bipolar disorder, unspecified; F41.0 Panic disorder [episodic paroxysmal anxiety]; F17.200 Nicotine dependence, unspecified, uncomplicated; R00.1 Bradycardia, unspecified; M41.86 Other forms of scoliosis, lumbar region; N17.9 Acute kidney failure, unspecified; L29.9 Pruritus, unspecified; Z79.899 Other long term (current) drug therapy; Z79.82 Long term (current) use of aspirin; Z79.84 Long term (current) use of oral hypoglycemic drugs; Z88.8 Allergy status to other drugs, medicaments and biological substances; Z88.5 Allergy status to narcotic agent; Z98.62 Peripheral vascular angioplasty status; Z96.82 Presence of neurostimulator; Z98.890 Other specified postprocedural states; Z87.39 Personal history of other diseases of the musculoskeletal system and connective tissue; Z87.81 Personal history of (healed) traumatic fracture; Z82.49 Family history of ischemic heart disease and other diseases of the circulatory system; Z83.3 Family history of diabetes mellitus; Z81.8 Family history of other mental and behavioral disorders
CPT/HCPCS: 96376 ×3; 96365; 96372; 96375 ×2; 96361; 99285; 36415; 93005 ×2; 97116; 97162; 80053; 80048 ×3; 84132 ×2; 85025; 81003; 87040; 73502; 73560; 76770; 72131; 62323; G0378 ×5; J2250; J2270 ×3; J1030; J1644 ×4; J2360; J3010; J1885 ×3; J1170; J0610 ×2; Q9966; 96374

== ENCOUNTER 2019-06-29 13:50 | Observation (INO) | payer MEDICARE ==
[2019-06-29] MEDS ORDERED: SODIUM CHLORIDE 0.9% 1,000 ML IV STA (14:35)
--- NOTE | 2019-06-29 14:50 | ED ---
General Adult HPI - General Chief complaint: Weakness Stated complaint: flu+,dehydration Time Seen by Provider: 06/29/19 14:18 Source: patient, EMS, RN notes reviewed, old records reviewed Mode of arrival: EMS Limitations: physical limitation - History of Present Illness Initial comments: 63-year-old male patient with past medical history significant for COPD, hypertension, hyperlipidemia, tremor for she has a deep brain stimulator presents to ED for chief complaint of generalized weakness, cough, dehydration. Patient reports that he has a cough for approximately the last 6 days. Has been having fevers and chills. Patient went to urgent care yesterday and was diagnosed with influenza. Has been taking Tamiflu patient was also prescribed Augmentin. Patient also reports that approximately 2 weeks ago he strained his left paralumbar back region. Patient voiced that he had a nightmare and abruptly jumped out of bed strain his region. Patient was still having some discomfort in the left paralumbar region. Reports the pain does radiate down his left leg. Denies any saddle anesthesia, weakness, loss of bowel or bladder control. Denies any chest pain or shortness of breath. Patient states also been having diarrhea and had dark stools 2 days ago. Denies any blood. Denies any other complaints. Systemic: Pt denies rash. Pt denies night sweats, weight loss. Neuro: Pt denies headache, visual disturbances, syncope or pre-syncope. HEENT: Pt denies ocular discharge or irritation, otalgia, rhinorrhea, pharyngitis or notable lymphadenopathy. Cardiopulmonary: Pt denies chest pain, SOB, heart palpitations, dyspnea on exertion. Abdominal/GI: Pt denies abdominal pain. : Pt denies dysuria, burning w/ urination, frequency/urgency. Denies new onset urinary or bowel incontinence. MSK: Pt denies myalgia, loss of strength or function in extremities. Neuro: Pt denies new onset weakness, paresthesias. - Related Data Home Medications Medication Instructions Recorded Confirmed RX: Tamsulosin HCl [Flomax] 0.4 mg PO DAILY 01/17/18 06/10/19 RX: Oxybutynin ER [Ditropan Xl] 10 mg PO DAILY 01/18/18 06/10/19 RX: Diazepam 10 mg PO HS 03/05/18 06/10/19 RX: Omeprazole [PriLOSEC] 20 mg PO DAILY 03/06/18 06/10/19 RX: metFORMIN HCL 1,000 mg PO BID 12/01/18 06/10/19 RX: Chlorzoxazone [Parafon Forte 500 mg PO BID 06/10/19 06/10/19 DSC] RX: Gabapentin [Neurontin] 400 mg PO TID 06/10/19 06/10/19 RX: Nadolol [Corgard] 40 mg PO DAILY 06/10/19 06/10/19 RX: Vortioxetine Hydrobromide 10 mg PO HS 06/10/19 06/10/19 [Trintellix] Previous Rx's Medication Instructions Recorded RX: Hydrochlorothiazide 25 mg PO DAILY #30 tab 06/14/19 [Hydrodiuril] RX: Sodium Bicarbonate Tab 650 mg PO DAILY #30 tab 06/14/19 RX: amLODIPine [Norvasc] 5 mg PO DAILY #30 tab 06/14/19 Allergies Allergy/AdvReac Type Severity Reaction Status Date / Time quetiapine [From Seroquel] Allergy Diarrhea Verified 06/29/19 14:14 hydrocodone [From [place]] AdvReac Nausea & Verified 06/29/19 14:14 Vomiting Review of Systems ROS Statement: Those systems with pertinent positive or pertinent negative responses have been documented in the HPI. ROS Other: All systems not noted in ROS Statement are negative. Past Medical History Past Medical History: COPD, Hyperlipidemia, Hypertension Additional Past Medical History / Comment(s): Pt. has a deep brain stimulator - an implanted neurotransmitter; angioplasty 25 years ago, central brain tremors, itching, bladder hesitancy, muscle cramps, (takes lots of medications to control body tremors) History of Any Multi-Drug Resistant Organisms: None Reported Past Surgical History: Heart Catheterization, Orthopedic Surgery Additional Past Surgical History / Comment(s): Brain stimulator, dental surgery, mass removed from chest, left leg fracture w/ surgery. Past Anesthesia/Blood Transfusion Reactions: No Reported Reaction Past Psychological History: Bipolar, Depression, Panic Disorder Smoking Status: Current every day smoker Past Alcohol Use History: None Reported Past Drug Use History: None Reported - Past Family History Father Family Medical History: Coronary Artery Disease (CAD), Diabetes Mellitus Sister(s) Family Medical History: Diabetes Mellitus Mother Family Medical History: Dementia General Exam - General Exam Comments Initial Comments: Constitutional: NAD, AOX3, Pt has pleasant affect. HEENT: NC/AT, trachea midline, neck supple, no lymphadenopathy. Posterior pharynx non erythematous, without exudates. External ears appear normal, without discharge. Mucous membranes moist. Eyes PERRLA, EOM intact. There is no scleral icterus. No pallor noted. Cardiopulmonary: RRR, no murmurs, rubs or gallops, no JVD noted. Lungs CTAB in anterior and posterior [place]. No peripheral edema. Abdominal exam: Abdomen soft and non-distended. Abdomen non-tender to palpation in all 4 quadrants. Bowel sounds active in LLQ. No hepatosplenomegaly. No ecchymosis Neuro: CN II-XII intact. No nuchal rigidity. No raccon eyes, no contreras sign, no hemotympanum. No cervical spinal tenderness. NIH is 0. MSK: Left paralumbar back region mildly tender to palpation. Straight leg raise is negative. No posterior calf tenderness bilaterally, homans sign negative bilaterally. Posterior tibialis and radial pulse +2 bilaterally. Sensation intact in upper and lower extremities. Full active ROM in upper and lower extremities, 5/5 stregnth. Limitations: physical limitation Course Vital Signs 06/29/19 06/29/19 14:10 14:19 Temperature 98.9 F Pulse Rate 65 Respiratory 18 18 Rate Blood Pressure 138/89 O2 Sat by Pulse 98 Oximetry Medical Decision Making - Medical Decision Making 63-year-old male patient with past medical history significant for COPD, hypertension, hyperlipidemia, tremor for she has a deep brain stimulator presents to ED for chief complaint of generalized weakness, cough, dehydration. Patient reports that he has a cough for approximately the last 6 days. Has been having fevers and chills. Patient went to urgent care yesterday and was diagnosed with influenza. Has been taking Tamiflu patient was also prescribed Augmentin. Patient also reports that approximately 2 weeks ago he strained his left paralumbar back region. Patient voiced that he had a nightmare and abruptly jumped out of bed strain his region. Patient was still having some discomfort in the left paralumbar region. Reports the pain does radiate down his left leg. Denies any saddle anesthesia, weakness, loss of bowel or bladder control. Denies any chest pain or shortness of breath. Patient states also been having diarrhea and had dark stools 2 days ago. Denies any blood. Denies any other complaints. Patient also injured stable, afebrile. Physical exam displayed: Left paralumbar back region mildly tender to palpation. Straight leg raise is negative. O2 investigations revealed white blood cell count of 2.8. Creatinine of 1.6. BUN of 34. Occult negative. UA is negative. Chest x-ray n egative for acute process. Lumbar spine displayed degenerative changes. EKG is nonischemic. Patient admitted for dehydration, influenza. Patient is a history of COPD, will be administered breathing treatments and steroids as well as Tamiflu. Case discussed with Dr. Preciado. - Lab Data Result diagrams: 06/29/19 14:09 06/29/19 14:09 Lab Results 06/29/19 06/29/19 06/29/19 Range/Units 14:09 14:09 14:55 WBC 2.8 L (3.8-10.6) k/uL RBC 3.90 L (4.30-5.90) m/uL Hgb 12.9 L (13.0-17.5) gm/dL Hct 38.4 L (39.0-53.0) % MCV 98.7 (80.0-100.0) fL MCH 33.1 (25.0-35.0) pg MCHC 33.5 (31.0-37.0) g/dL RDW 12.1 (11.5-15.5) % Plt Count 174 (150-450) k/uL Neutrophils % (Manual) 47 % Lymphocytes % (Manual) 35 % Monocytes % (Manual) 9 % Eosinophils % (Manual) 9 % Neutrophils # (Manual) 1.32 (1.3-7.7) k/uL Lymphocytes # (Manual) 0.98 L (1.0-4.8) k/uL Monocytes # (Manual) 0.25 (0-1.0) k/uL Eosinophils # (Manual) 0.25 (0-0.7) k/uL Nucleated RBCs 0 (0-0) /100 WBC Manual Slide Review Performed Reactive Lymphocytes Present Sodium 138 (137-145) mmol/L Potassium 4.6 (3.5-5.1) mmol/L Chloride 103 (98-107) mmol/L Carbon Dioxide 24 (22-30) mmol/L Anion Gap 11 mmol/L BUN 34 H (9-20) mg/dL Creatinine 1.60 H (0.66-1.25) mg/dL Est GFR (CKD-EPI)AfAm 52 (>60 ml/min/1.73 sqM) Est GFR (CKD-EPI)NonAf 45 (>60 ml/min/1.73 sqM) Glucose 123 H (74-99) mg/dL Plasma Lactic Acid Saturnino (0.7-2.0) mmol/L Calcium 8.7 (8.4-10.2) mg/dL Magnesium 1.7 (1.6-2.3) mg/dL Total Bilirubin 0.4 (0.2-1.3) mg/dL AST 28 (17-59) U/L ALT 17 (4-49) U/L Alkaline Phosphatase 66 (38-126) U/L Total Protein 6.9 (6.3-8.2) g/dL Albumin 4.1 (3.5-5.0) g/dL Urine Color Urine Appearance (Clear) Urine pH (5.0-8.0) Ur Specific [place] (1.001-1.035) Urine Protein (Negative) Urine Glucose (UA) (Negative) Urine Ketones (Negative) Urine Blood (Negative) Urine Nitrite (Negative) Urine Bilirubin (Negative) Urine Urobilinogen (<2.0) mg/dL Ur Leukocyte Esterase (Negative) Stool Occult Blood Negative (Negative) 06/29/19 06/29/19 Range/Units 15:15 16:05 WBC (3.8-10.6) k/uL RBC (4.30-5.90) m/uL Hgb (13.0-17.5) gm/dL Hct (39.0-53.0) % MCV (80.0-100.0) fL MCH (25.0-35.0) pg MCHC (31.0-37.0) g/dL RDW (11.5-15.5) % Plt Count (150-450) k/uL Neutrophils % (Manual) % Lymphocytes % (Manual) % Monocytes % (Manual) % Eosinophils % (Manual) % Neutrophils # (Manual) (1.3-7.7) k/uL Lymphocytes # (Manual) (1.0-4.8) k/uL Monocytes # (Manual) (0-1.0) k/uL Eosinophils # (Manual) (0-0.7) k/uL Nucleated RBCs (0-0) /100 WBC Manual Slide Review Reactive Lymphocytes Sodium (137-145) mmol/L Potassium (3.5-5.1) mmol/L Chloride (98-107) mmol/L Carbon Dioxide (22-30) mmol/L Anion Gap mmol/L BUN (9-20) mg/dL Creatinine (0.66-1.25) mg/dL Est GFR (CKD-EPI)AfAm (>60 ml/min/1.73 sqM) Est GFR (CKD-EPI)NonAf (>60 ml/min/1.73 sqM) Glucose (74-99) mg/dL Plasma Lactic Acid Saturnino 1.1 (0.7-2.0) mmol/L Calcium (8.4-10.2) mg/dL Magnesium (1.6-2.3) mg/dL Total Bilirubin (0.2-1.3) mg/dL AST (17-59) U/L ALT (4-49) U/L Alkaline Phosphatase (38-126) U/L Total Protein (6.3-8.2) g/dL Albumin (3.5-5.0) g/dL Urine Color Light Yellow Urine Appearance Clear (Clear) Urine pH 6.0 (5.0-8.0) Ur Specific [place] 1.008 (1.001-1.035) Urine Protein Negative (Negative) Urine Glucose (UA) Negative (Negative) Urine Ketones Negative (Negative) Urine Blood Negative (Negative) Urine Nitrite Negative (Negative) Urine Bilirubin Negative (Negative) Urine Urobilinogen <2.0 (<2.0) mg/dL Ur Leukocyte Esterase Negative (Negative) Stool Occult Blood (Negative) - EKG Data -: EKG Interpreted by Me (and Dr. Preciado) EKG Comments: Ventricular rate 66, P1 162, QRS 88, QT/QTC 388/46. Normal sinus rhythm, normal EKG, no concern for acute ischemia. Disposition Clinical Impression: Dehydration, Influenza Disposition: ADMITTED IP TO THIS HOSP Condition: Fair Is patient prescribed a controlled substance at d/c from ED?: No Referrals: Denny Ram MD [Primary Care Provider] - 1-2 days
[2019-06-29 14:56] LABS: HCT 38.4 % (39.0-53.0); HGB 12.9 gm/dL (13.0-17.5); MCH 33.1 pg (25.0-35.0); MCHC 33.5 g/dL (31.0-37.0); MCV 98.7 fL (80.0-100.0); Mean Platelet Volume 8.9; Platelet Count 174 k/uL (150-450); RDW 12.1 % (11.5-15.5); WBC 2.8 k/uL (3.8-10.6)
[2019-06-29 15:09] LABS: Potassium 4.6 mmol/L (3.5-5.1)
[2019-06-29 15:10] LABS: Albumin 4.1 g/dL (3.5-5.0); Calcium 8.7 mg/dL (8.4-10.2); Magnesium 1.7 mg/dL (1.6-2.3); Total Bilirubin 0.4 mg/dL (0.2-1.3); Total Protein 6.9 g/dL (6.3-8.2)
[2019-06-29 16:34] LABS: Appearance,Urine Clear (Clear); Bilirubin,Urine Negative (Negative); Blood,Urine Negative (Negative); Color,Urine Light Yellow; Glucose,Urine (UA) Negative (Negative); Ketones,Urine Negative (Negative); Leukocyte Esterase,Urine Negative (Negative); Nitrite,Urine Negative (Negative); Protein,Urine Negative (Negative); Specific Gravity,Urine 1.008 (1.001-1.035); Urobilinogen,Urine <2.0 mg/dL (<2.0)
[2019-06-29 16:43] LABS: Eosinophils # (M) 0.25 k/uL (0-0.7); Lymphocytes # (M) 0.98 k/uL (1.0-4.8); Monocytes # (M) 0.25 k/uL (0-1.0); Neutrophils # (M) 1.32 k/uL (1.3-7.7); Neutrophils % (M) 47 %; Nucleated Red Blood Cells 0 /100 WBC (0-0); Total Cells Counted 100
--- NOTE | 2019-06-29 16:43 | XR ---
EXAMINATION TYPE: XR chest 2V DATE OF EXAM: 06/29/2019 COMPARISON: 12/02/2018 HISTORY: Shortness of breath TECHNIQUE: Frontal and lateral views of the chest are obtained. FINDINGS: Scattered senescent parenchymal changes noted. Hyperinflation compatible with COPD. No evidence for infiltrate. No evidence for atelectasis. Heart size is stable. Mediastinal structures are stable and grossly unremarkable. No evidence for hilar prominence. Degenerative changes dorsal spine. IMPRESSION: 1. No evidence for acute pulmonary disease.
[2019-06-29 16:44] LABS: Reactive Lymphocytes Present
--- NOTE | 2019-06-29 16:44 | XR ---
EXAMINATION TYPE: XR lumbar spine 2 or 3V DATE OF EXAM: 06/29/2019 CLINICAL HISTORY: pain TECHNIQUE: Three views of the lumbar spine are submitted. COMPARISON: None. FINDINGS: There are 5 lumbar type vertebral bodies identified. The lumbar spine shows satisfactory alignment w ithout evidence of acute fracture or dislocation. Vertebral body heights are within normal limits. Mild scattered degenerative disc space narrowing. Grade 1 anterolisthesis L4 and L5 of 3 mm. Severe f acet arthropathy. The overlying soft tissue appears unremarkable. IMPRESSION: No evidence for compression fracture. Degenerative changes as noted. ICD 10 NO FRACTURE, INITIAL EVALUATION
[2019-06-29] MEDS: SODIUM CHLORIDE 0.9% 1,000 ML IV SCH (18:17)
[2019-06-29] MEDS: methylPREDNISolone SOD SUCCI 125 MG/2 ML VIAL IV SCH (18:17)
[2019-06-29] MEDS: IPRATROPIUM-ALBUTEROL 3 ML NEB INHALATION SCH (19:44)
[2019-06-29] MEDS: OSELTAMIVIR 75 MG CAP PO SCH (19:50)
--- NOTE | 2019-06-29 20:54 | HP ---
HISTORY AND PHYSICAL CHIEF COMPLAINT: Weakness, influenza and COPD. HISTORY OF PRESENT ILLNESS: This gentleman presented to the emergency room with weakness and malaise. It is very difficult to get a history from him because he seems lethargic and dysarthric. Apparently he has a significant tremor problem and possibly Parkinson's disease, for which he sees a doctor in the [place] area and has a deep brain stimulator. Review of systems is very difficult to obtain. Past medical history, family history, and personal and social histories are also difficult to obtain, but it looks as though he has been on amlodipine, Parafon Forte, 10 mg of Valium at night, gabapentin 400 mg t.i.d., hydrochlorothiazide 25 mg once a day, metformin 1 gram twice a day, Corgard 40 mg once a day, omeprazole 20 mg once a day, oxybutynin XL 10 mg once a day, sodium bicarb 650 mg once a day, tamsulosin 0.4 mg once a day and Trintellix 10 mg at bedtime. Laboratory studies reveal white count of only 2800 with a BUN of 34 and creatinine 1.6. GFR is 45. Blood sugar is 123. It is not known if he smokes. PHYSICAL EXAMINATION: Blood pressure is 138/89, pulse 65, respirations of 18 and temperature 98.9. In general he appeared to be well developed, in no acute distress, and he seemed a little bit lethargic. Head, ears, eyes, nose, mouth and throat were normal except for a raised lesion in the right parietal area where apparently his deep brain stimulator is accessed. Pupils were equal, round and reactive. Neck veins not distended. Chest is clear. The cardiac exam demonstrated normal sinus rhythm and there were no definite murmurs. Abdomen is soft, nontender. Extremities are normal. Neurologically, other than his lethargy, he seemed to be intact. He did have significant spasm in at least the upper extremities. IMPRESSION: 1. Generalized weakness. 2. Influenza. 3. Chronic obstructive pulmonary disease. 4. Tremor. 5. Renal failure. 6. Leukopenia. PLAN: 1. Bedrest. 2. IV fluids. 3. Resume his usual medications. MMODL / IJN: [id number] /
[2019-06-29] MEDS ORDERED: ACETAMINOPHEN TAB 325 MG TAB PO PRN (21:31)
[2019-06-29] MEDS: GABAPENTIN 400 MG CAP PO SCH (22:17)
[2019-06-30] MEDS: methylPREDNISolone SOD SUCCI 125 MG/2 ML VIAL IV SCH ×4 (00:24→17:26)
[2019-06-30] MEDS: SODIUM CHLORIDE 0.9% 1,000 ML IV SCH ×2 (04:24→12:28)
[2019-06-30 07:14] LABS: Glucose,Whole Blood 194 mg/dL (75-99)
[2019-06-30] MEDS: OXYBUTYNIN 10 MG TAB.ER.24 PO SCH (09:02)
[2019-06-30] MEDS: NADOLOL 20 MG TAB PO SCH (09:02)
[2019-06-30] MEDS: PANTOPRAZOLE 40 MG TABLET PO SCH (09:02)
[2019-06-30] MEDS: TAMSULOSIN 0.4 MG CAP.ER.24H PO SCH (09:02)
[2019-06-30] MEDS: OSELTAMIVIR 75 MG CAP PO SCH ×2 (09:02→20:48)
[2019-06-30] MEDS: GABAPENTIN 400 MG CAP PO SCH ×3 (09:02→21:48)
[2019-06-30] MEDS: IPRATROPIUM-ALBUTEROL 3 ML NEB INHALATION SCH ×4 (09:46→18:54)
[2019-06-30 11:50] LABS: Glucose,Whole Blood 281 mg/dL (75-99)
[2019-06-30] MEDS: INSULIN ASPART (NovoLOG) 100 UNIT/ML VIAL SQ SCH ×3 (12:22→20:54)
--- NOTE | 2019-06-30 14:47 | PN ---
PROGRESS NOTE CHIEF COMPLAINT: Influenza, dehydration, generalized weakness and familial tremor. HISTORY OF PRESENT ILLNESS: This gentleman is better. He is much more awake and alert. Strength is returning. He has had no fever, chills, shortness of breath, abdominal pain, etc. PHYSICAL EXAMINATION: He is much more awake and alert. Hydration is improving. Chest is clear. Cardiac exam is normal. Abdomen is soft and nontender. IMPRESSION: Influenza with dehydration and weakness. PLAN: Continue with IV fluids. Advance diet and activity. Possibly home tomorrow. MMODL / IJN: [id number] /
[2019-06-30 16:59] LABS: Glucose,Whole Blood 192 mg/dL (75-99)
[2019-06-30 20:35] LABS: Glucose,Whole Blood 259 mg/dL (75-99)
[2019-06-30] MEDS ORDERED: VORTIOXETINE HYDROBROMIDE 10 MG TABLET PO SCH (21:00)
[2019-06-30] MEDS ORDERED: DIAZEPAM 2 MG TAB PO STA (22:28)
[2019-06-30] MEDS ORDERED: ONDANSETRON 4 MG/2 ML VIAL IVP PRN (22:29)
[2019-07-01] MEDS: methylPREDNISolone SOD SUCCI 125 MG/2 ML VIAL IV SCH ×3 (00:19→11:38)
[2019-07-01] MEDS: SODIUM CHLORIDE 0.9% 1,000 ML IV SCH ×2 (00:20→07:23)
[2019-07-01 04:45] VITALS: BP 136/76; RESP 13; TEMP 97.5
[2019-07-01 07:16] LABS: Glucose,Whole Blood 194 mg/dL (75-99)
[2019-07-01] MEDS: OXYBUTYNIN 10 MG TAB.ER.24 PO SCH (07:22)
[2019-07-01] MEDS: GABAPENTIN 400 MG CAP PO SCH (07:22)
[2019-07-01] MEDS: TAMSULOSIN 0.4 MG CAP.ER.24H PO SCH (07:22)
[2019-07-01] MEDS: OSELTAMIVIR 75 MG CAP PO SCH (07:22)
[2019-07-01] MEDS: NADOLOL 20 MG TAB PO SCH (07:22)
[2019-07-01] MEDS: PANTOPRAZOLE 40 MG TABLET PO SCH (07:22)
[2019-07-01] MEDS: INSULIN ASPART (NovoLOG) 100 UNIT/ML VIAL SQ SCH ×2 (07:22→11:42)
[2019-07-01] MEDS: IPRATROPIUM-ALBUTEROL 3 ML NEB INHALATION SCH (07:50)
[2019-07-01 08:04] VITALS: PULSE 73
[2019-07-01 11:23] LABS: Glucose,Whole Blood 363 mg/dL (75-99)
--- NOTE | 2019-07-02 06:32 | DS ---
DISCHARGE SUMMARY CHIEF COMPLAINT: Influenza, weakness and dehydration. HISTORY OF PRESENT ILLNESS AND PHYSICAL EXAM: Details of this man's history and physical can be found in the initial workup. COURSE IN HOSPITAL: After admission, he was placed on bedrest and started on intravenous fluids and rehydrated. He became much more awake and alert. Temperature came down. He was doing well. It was felt he could be discharged on the and he will go home on his usual activity and diet. He will stay on the Tamiflu that he had before he came in. He will be asked to come to the office. He has an appointment soon to go down to have his deep brain stimulator replaced. FINAL DIAGNOSES: 1. Influenza. 2. Dehydration. 3. Generalized weakness. 4. Congenital tremor. OPERATIONS: None. CONSULTATIONS: None. He is improved. MARQUIS / LUCILLE: [id number] /
== END 2019-07-01 11:56 | disposition home or self-care (01) ==
LOC: EC 13:50 → 6NMEDSUR 17:55
PROVIDERS: ADMIT Family Medicine; ATTEND Family Medicine
DX: J11.1 Influenza due to unidentified influenza virus with other respiratory manifestations (principal); E86.0 Dehydration; R53.1 Weakness; J44.9 Chronic obstructive pulmonary disease, unspecified; I10 Essential (primary) hypertension; E78.5 Hyperlipidemia, unspecified; G25.0 Essential tremor; F31.9 Bipolar disorder, unspecified; F17.200 Nicotine dependence, unspecified, uncomplicated; M47.816 Spondylosis without myelopathy or radiculopathy, lumbar region; Z98.61 Coronary angioplasty status; Z79.84 Long term (current) use of oral hypoglycemic drugs; Z79.899 Other long term (current) drug therapy; Z88.5 Allergy status to narcotic agent; Z88.8 Allergy status to other drugs, medicaments and biological substances; Z83.3 Family history of diabetes mellitus; Z82.49 Family history of ischemic heart disease and other diseases of the circulatory system; Z81.8 Family history of other mental and behavioral disorders
CPT/HCPCS: 96376 ×2; 96361 ×4; 96374; 99285; 36415; 94660; 94640 ×4; 94760; 93005; 80053; 83605; 83735; 85025; 82272; 81003; 87040; 72100; 71046; G0378 ×3; J2930 ×3

== ENCOUNTER 2019-08-23 00:24 | Emergency (ER) | payer MEDICARE ==
[2019-08-23] MEDS ORDERED: KETOROLAC 30 MG/ML 1 ML VIAL IVP STA (00:53)
--- NOTE | 2019-08-23 00:55 | ED ---
General Adult HPI - General Chief complaint: Extremity Injury, Lower Stated complaint: Hip pain Time Seen by Provider: 08/23/19 00:35 Source: EMS Mode of arrival: EMS Limitations: no limitations - History of Present Illness Initial comments: This patient is 63-year-old man who presents to be evaluated for left low back/flank pain that radiates to his leg. The patient states that he has had some chronic pain in that location, but it became much worse after he had gone to the chiropractor today ( around noon). States pain started getting worse sometime around 4pm. It has now become severe. He has not noted worsening or relieving factors. He does have chronic numbness of the left leg but states there is nothing new. No saddle anesthesia. No weakness of the leg. No change in bladder or bowel function. Onset/Timin -: hour(s) Location: back Radiation: extremity Quality: aching Consistency: constant Improves with: none Worsens with: none - Related Data Home Medications Medication Instructions Recorded Confirmed Tamsulosin HCl [Flomax] 0.4 mg PO DAILY 01/17/18 06/29/19 Oxybutynin ER [Ditropan Xl] 10 mg PO DAILY 01/18/18 06/29/19 Diazepam 10 mg PO HS 03/05/18 06/29/19 Omeprazole [PriLOSEC] 20 mg PO DAILY 03/06/18 06/29/19 metFORMIN HCL 1,000 mg PO BID 12/01/18 06/29/19 Chlorzoxazone [Parafon Forte DSC] 500 mg PO BID 06/10/19 06/29/19 Gabapentin [Neurontin] 400 mg PO TID 06/10/19 06/29/19 Nadolol [Corgard] 40 mg PO DAILY 06/10/19 06/29/19 Vortioxetine Hydrobromide 10 mg PO HS 06/10/19 06/29/19 [Trintellix] Acetaminophen Tab [Tylenol] 650 mg PO TID 06/29/19 06/29/19 Amoxic-Pot Clav 875-125Mg 1 tab PO BID 06/29/19 06/29/19 [Augmentin 875-125] Benzonatate [Tessalon Perles] 100 mg PO BID 06/29/19 06/29/19 Oseltamivir [Tamiflu] 75 mg PO BID 06/29/19 06/29/19 Previous Rx's Medication Instructions Recorded Hydrochlorothiazide [Hydrodiuril] 25 mg PO DAILY #30 tab 06/14/19 Sodium Bicarbonate Tab 650 mg PO DAILY #30 tab 06/14/19 amLODIPine [Norvasc] 5 mg PO DAILY #30 tab 06/14/19 Allergies Allergy/AdvReac Type Severity Reaction Status Date / Time quetiapine [From Seroquel] Allergy Diarrhea Verified 08/23/19 00:35 hydrocodone [From [place]] AdvReac Nausea & Verified 08/23/19 00:35 Vomiting Review of Systems ROS Statement: Those systems with pertinent positive or pertinent negative responses have been documented in the HPI. ROS Other: All systems not noted in ROS Statement are negative. Constitutional: Denies: fever, chills, weakness Respiratory: Denies: cough, dyspnea Cardiovascular: Denies: chest pain, palpitations, edema Gastrointestinal: Denies: abdominal pain, nausea, vomiting Genitourinary: Denies: dysuria, hematuria Musculoskeletal: Reports: as per HPI, back pain Skin: Denies: rash Neurological: Denies: headache, weakness, numbness, paresthesias Past Medical History Past Medical History: COPD, Hyperlipidemia, Hypertension Additional Past Medical History / Comment(s): Pt. has a deep brain stimulator - an implanted neurotransmitter; angioplasty 25 years ago, central brain tremors, itching, bladder hesitancy, muscle cramps, (takes lots of medications to control body tremors) History of Any Multi-Drug Resistant Organisms: None Reported Past Surgical History: Heart Catheterization, Orthopedic Surgery Additional Past Surgical History / Comment(s): Brain stimulator, dental surgery, mass removed from chest, left leg fracture w/ surgery. Past Anesthesia/Blood Transfusion Reactions: No Reported Reaction Past Psychological History: Bipolar, Depression, Panic Disorder Smoking Status: Current every day smoker Past Alcohol Use History: None Reported Past Drug Use History: None Reported - Past Family History Father Family Medical History: Coronary Artery Disease (CAD), Diabetes Mellitus Sister(s) Family Medical History: Diabetes Mellitus Mother Family Medical History: Dementia General Exam Limitations: no limitations General appearance: alert, in no apparent distress Head exam: Present: atraumatic, normocephalic Eye exam: Present: normal appearance. Absent: scleral icterus, conjunctival injection Respiratory exam: Present: normal lung sounds bilaterally. Absent: respiratory distress, wheezes, rales, rhonchi, stridor Cardiovascular Exam: Present: regular rate, normal rhythm, normal heart sounds. Absent: systolic murmur, diastolic murmur, rubs, gallop GI/Abdominal exam: Present: soft. Absent: distended, tenderness, guarding, rebound, rigid, mass Extremities exam: Present: normal inspection, normal capillary refill. Absent: pedal edema, calf tenderness Back exam: Present: normal inspection, paraspinal tenderness (Left-sided). Absent: CVA tenderness (R), CVA tenderness (L), vertebral tenderness Neurological exam: Present: alert. Absent: motor sensory deficit Skin exam: Present: warm, dry, intact, normal color. Absent: rash Course Vital Signs 08/23/19 08/23/19 08/23/19 00:32 01:25 02:42 Temperature 98 F 98.4 F 98.4 F Pulse Rate 70 74 86 Respiratory 18 18 18 Rate Blood Pressure 155/71 142/80 145/83 O2 Sat by Pulse 97 98 95 Oximetry Medical Decision Making - Medical Decision Making Patient's 63-year-old man with left low back/flank pain. The pain was of a d egree that after following discussion, using shared decision making we sent patient for computed tomography scan. The patient did have good relief following analgesia and would like to go home. We discussed appropriate follow- up as well as return parameters. - Lab Data Result diagrams: 08/23/19 01:08 08/23/19 01:08 Lab Results 08/23/19 08/23/19 08/23/19 Range/Units 01:08 01:08 01:57 WBC 7.5 (3.8-10.6) k/uL RBC 3.39 L (4.30-5.90) m/uL Hgb 11.2 L (13.0-17.5) gm/dL Hct 32.6 L (39.0-53.0) % MCV 96.0 (80.0-100.0) fL MCH 32.9 (25.0-35.0) pg MCHC 34.2 (31.0-37.0) g/dL RDW 13.4 (11.5-15.5) % Plt Count 261 (150-450) k/uL Neutrophils % 68 % Lymphocytes % 21 % Monocytes % 4 % Eosinophils % 4 % Basophils % 0 % Neutrophils # 5.1 (1.3-7.7) k/uL Lymphocytes # 1.6 (1.0-4.8) k/uL Monocytes # 0.3 (0-1.0) k/uL Eosinophils # 0.3 (0-0.7) k/uL Basophils # 0.0 (0-0.2) k/uL Sodium 136 L (137-145) mmol/L Potassium 4.7 (3.5-5.1) mmol/L Chloride 106 (98-107) mmol/L Carbon Dioxide 22 (22-30) mmol/L Anion Gap 8 mmol/L BUN 29 H (9-20) mg/dL Creatinine 1.33 H (0.66-1.25) mg/dL Est GFR (CKD-EPI)AfAm 65 (>60 ml/min/1.73 sqM) Est GFR (CKD-EPI)NonAf 56 (>60 ml/min/1.73 sqM) Glucose 100 H (74-99) mg/dL Calcium 9.2 (8.4-10.2) mg/dL Total Bilirubin 0.3 (0.2-1.3) mg/dL AST 16 L (17-59) U/L ALT 11 (4-49) U/L Alkaline Phosphatase 66 (38-126) U/L C-Reactive Protein 9.4 (<10.0) mg/L Total Protein 6.6 (6.3-8.2) g/dL Albumin 4.0 (3.5-5.0) g/dL Urine Color Yellow Urine Appearance Clear (Clear) Urine pH 5.5 (5.0-8.0) Ur Specific [place] 1.019 (1.001-1.035) Urine Protein Negative (Negative) Urine Glucose (UA) Negative (Negative) Urine Ketones Negative (Negative) Urine Blood Negative (Negative) Urine Nitrite Negative (Negative) Urine Bilirubin Negative (Negative) Urine Urobilinogen <2.0 (<2.0) mg/dL Ur Leukocyte Esterase Negative (Negative) Disposition Clinical Impression: Flank pain Disposition: HOME SELF-CARE Condition: Good Instructions (If sedation given, give patient instructions): Acute Low Back Pain (ED) Is patient prescribed a controlled substance at d/c from ED?: No Referrals: Denny Ram MD [Primary Care Provider] - 1-2 days
[2019-08-23 01:20] LABS: Basophils % (A) 0 %; Eosinophils # (A) 0.3 k/uL (0-0.7); Eosinophils % (A) 4 %; HCT 32.6 % (39.0-53.0); HGB 11.2 gm/dL (13.0-17.5); Lymphocytes # (A) 1.6 k/uL (1.0-4.8); Lymphocytes % (A) 21 %; MCH 32.9 pg (25.0-35.0); MCHC 34.2 g/dL (31.0-37.0); Mean Platelet Volume 8.5; Monocytes # (A) 0.3 k/uL (0-1.0); Monocytes % (A) 4 %; Neutrophils # (A) 5.1 k/uL (1.3-7.7); Neutrophils % (A) 68 %; Platelet Count 261 k/uL (150-450); RBC 3.39 m/uL (4.30-5.90); RDW 13.4 % (11.5-15.5); WBC 7.5 k/uL (3.8-10.6)
[2019-08-23 01:27] VITALS: TEMP 98.4
[2019-08-23 01:32] LABS: C Reactive Protein 9.4 mg/L (<10.0); Calcium 9.2 mg/dL (8.4-10.2); Potassium 4.7 mmol/L (3.5-5.1); Total Bilirubin 0.3 mg/dL (0.2-1.3); Total Protein 6.6 g/dL (6.3-8.2)
[2019-08-23] MEDS ORDERED: MORPHINE SULFATE 4 MG/ML SYRINGE IV STA ×2 (01:36)
[2019-08-23 02:12] LABS: Appearance,Urine Clear (Clear); Bilirubin,Urine Negative (Negative); Blood,Urine Negative (Negative); Color,Urine Yellow; Glucose,Urine (UA) Negative (Negative); Ketones,Urine Negative (Negative); Leukocyte Esterase,Urine Negative (Negative); Nitrite,Urine Negative (Negative); PH, Urine 5.5 (5.0-8.0); Protein,Urine Negative (Negative); Specific Gravity,Urine 1.019 (1.001-1.035); Urobilinogen,Urine <2.0 mg/dL (<2.0)
[2019-08-23] MEDS ORDERED: ORPHENADRINE 30 MG/ML 2 ML VIAL IM STA (02:25)
[2019-08-23] MEDS ORDERED: methylPREDNISolone SOD SUCCI 125 MG/2 ML VIAL IM ONE (02:26)
--- NOTE | 2019-08-23 03:17 | CT ---
EXAMINATION TYPE: CT lumbar spine wo con DATE OF EXAM: 08/23/2019 COMPARISON: 06/10/2019 HISTORY: lower back and left hip pain. CT DLP: 729.8 mGycm Automated exposure control for dose reduction was used. Images were obtained from the level of T12-S3 vertebra without contrast. Lumbar vertebra have normal alignment. Disc spaces are fairly normal. There is no compression fractur e. There is mild spurring of the endplates. There is no lumbar paraspinal mass. There is mild multile yajaira hypertrophic lumbar facet arthropathy. The sacroiliac joints appear intact. I see no focal bone d estruction. There is no evidence of any significant lumbar spinal stenosis. There is discoid vascular calcification. There is fat stranding around both kidneys unchanged and could relate to previous epi sode of obstruction or inflammation. No hydronephrosis. IMPRESSION: Mild degenerative hypertrophic changes in the lumbar spine. No fracture seen. No change compared to o ld exam. There is mild multilevel lateral recess stenosis due to facet arthropathy that appears stabl e.
[2019-08-23 04:28] VITALS: BP 147/98; PULSE 81; RESP 16
== END 2019-08-23 04:28 | disposition home or self-care (01) ==
LOC: EC 00:24
DX: R10.32 Left lower quadrant pain (principal); M54.5 Low back pain; M79.605 Pain in left leg; G89.29 Other chronic pain; R20.0 Anesthesia of skin; I10 Essential (primary) hypertension; F41.0 Panic disorder [episodic paroxysmal anxiety]; F17.200 Nicotine dependence, unspecified, uncomplicated; Z88.5 Allergy status to narcotic agent; Z88.8 Allergy status to other drugs, medicaments and biological substances; Z79.84 Long term (current) use of oral hypoglycemic drugs; Z79.891 Long term (current) use of opiate analgesic; Z79.899 Other long term (current) drug therapy; Z96.82 Presence of neurostimulator; Z86.69 Personal history of other diseases of the nervous system and sense organs
CPT/HCPCS: 36415; 80053; 85025; 86140; 81003; 72131; 99284; 96374; 96375; 96372 ×2; J2270; J2360; J2930; J1885

== ENCOUNTER 2020-03-20 06:22 | Observation (INO) | payer MEDICARE ==
[2020-03-20] MEDS ORDERED: MORPHINE SULFATE 4 MG/ML SYRINGE IV STA (06:41)
[2020-03-20] MEDS ORDERED: SODIUM CHLORIDE 0.9% 500 ML 500 ML IV STA (06:41)
--- NOTE | 2020-03-20 06:49 | ED ---
General Adult HPI - General Chief complaint: Chest Pain Stated complaint: Chest Pain Time Seen by Provider: 03/20/20 06:32 Source: EMS, RN notes reviewed Mode of arrival: EMS Limitations: no limitations - History of Present Illness Initial comments: 64-year-old male with a past medical history of COPD, hyperlipidemia, hypertension presents to the emergency room for a chief complaint of chest pain. Patient reports that he had chest pain starting this morning when he woke up about an hour ago. He does admit to slight shortness of breath. Patient de scribes this pain is radiating up to his shoulder. He is unable to describe the character of his chest pain at this time. Denies nausea or vomiting. Patient has no other complaints at this time including shortness of breath, abdominal pain, nausea or vomiting, headache, or visual changes. - Related Data Home Medications Medication Instructions Recorded Confirmed Tamsulosin HCl [Flomax] 0.4 mg PO DAILY 01/17/18 03/20/20 Oxybutynin ER [Ditropan Xl] 10 mg PO DAILY 01/18/18 03/20/20 diazePAM [Diazepam] 10 mg PO HS 03/05/18 03/20/20 Omeprazole [PriLOSEC] 20 mg PO DAILY 03/06/18 03/20/20 metFORMIN HCL 1,000 mg PO BID 12/01/18 03/20/20 Gabapentin [Neurontin] 400 mg PO TID 06/10/19 03/20/20 Nadolol [Corgard] 40 mg PO DAILY 06/10/19 03/20/20 Allopurinol [Zyloprim] 300 mg PO DAILY 03/20/20 03/20/20 Atorvastatin [Lipitor] 10 mg PO HS 03/20/20 03/20/20 Cyclobenzaprine [Flexeril] 10 mg PO TID 03/20/20 03/20/20 hydrOXYzine HCL 10 mg PO TID 03/20/20 03/20/20 Previous Rx's Medication Instructions Recorded amLODIPine [Norvasc] 5 mg PO DAILY #30 tab 06/14/19 Allergies Allergy/AdvReac Type Severity Reaction Status Date / Time quetiapine [From Seroquel] Allergy Diarrhea Verified 03/20/20 08:11 hydrocodone [From [place]] AdvReac Nausea & Verified 03/20/20 08:11 Vomiting Review of Systems ROS Statement: Those systems with pertinent positive or pertinent negative responses have been documented in the HPI. ROS Other: All systems not noted in ROS Statement are negative. Past Medical History Past Medical History: COPD, Hyperlipidemia, Hypertension Additional Past Medical History / Comment(s): Pt. has a deep brain stimulator - an implanted neurotransmitter; angioplasty 25 years ago, central brain tremors, itching, bladder hesitancy, muscle cramps, (takes lots of medications to control body tremors) History of Any Multi-Drug Resistant Organisms: None Reported Past Surgical History: Heart Catheterization, Orthopedic Surgery Additional Past Surgical History / Comment(s): Brain stimulator, dental surgery, mass removed from chest, left leg fracture w/ surgery. Past Anesthesia/Blood Transfusion Reactions: No Reported Reaction Past Psychological History: Bipolar, Depression, Panic Disorder Smoking Status: Never smoker Past Alcohol Use History: None Reported Past Drug Use History: None Reported - Past Family History Father Family Medical History: Coronary Artery Disease (CAD), Diabetes Mellitus Sister(s) Family Medical History: Diabetes Mellitus Mother Family Medical History: Dementia General Exam Limitations: no limitations General appearance: alert, in no apparent distress Head exam: Present: atraumatic, normocephalic, normal inspection Eye exam: Present: normal appearance, PERRL, EOMI. Absent: scleral icterus, conjunctival injection, periorbital swelling ENT exam: Present: normal exam, mucous membranes moist Neck exam: Present: normal inspection, full ROM Respiratory exam: Present: normal lung sounds bilaterally. Absent: respiratory distress, wheezes, rales, rhonchi, stridor Cardiovascular Exam: Present: regular rate, normal rhythm, normal heart sounds. Absent: systolic murmur, diastolic murmur, rubs, gallop, clicks GI/Abdominal exam: Present: soft, normal bowel sounds. Absent: distended, tenderness, guarding, rebound, rigid Neurological exam: Present: alert Course Vital Signs 03/20/20 03/20/20 03/20/20 06:30 07:14 08:16 Temperature 98.7 F Pulse Rate 91 92 92 Respiratory 17 18 16 Rate Blood Pressure 114/79 127/93 127/76 O2 Sat by Pulse 96 98 97 Oximetry - Reevaluation(s) Reevaluation #1: 03/20/20 06:55 Patient received aspirin and nitro before arrival. No relief with nitro. 03/20/20 07:[address] Napier at bedside EKG Findings - EKG Comments: EKG Findings:: 0643 Normal sinus rhythm, ventricular rate 89, NV interval 182, QTC 418. 0720 normal sinus rhythm, ventricular rate 91, NV interval 188, QTC 420 Medical Decision Making - Medical Decision Making Vitals are stable. Patient presents with chest pain. Patient does appear uncomfortable at this time. Patient evaluated by Dr. Napier as well. CT aorta was ordered. This showed no CT evidence for acute PE or aortic aneurysm or dissection. However there is a small pericardial effusion with mild inte rstitial edema greatest in the lower lungs. Fairly severe three-vessel coronary artery calcification. This patient will be admitted for cardiology consultation. - Lab Data Result diagrams: 03/20/20 06:46 03/20/20 06:46 Lab Results 03/20/20 03/20/20 03/20/20 Range/Units 06:46 06:46 06:46 WBC 9.9 (3.8-10.6) k/uL RBC 3.42 L (4.30-5.90) m/uL Hgb 11.3 L (13.0-17.5) gm/dL Hct 36.1 L (39.0-53.0) % MCV 105.5 H (80.0-100.0) fL MCH 33.2 (25.0-35.0) pg MCHC 31.4 (31.0-37.0) g/dL RDW 15.0 (11.5-15.5) % Plt Count 209 (150-450) k/uL Neutrophils % 77 % Lymphocytes % 10 % Monocytes % 5 % Eosinophils % 6 % Basophils % 0 % Neutrophils # 7.6 (1.3-7.7) k/uL Lymphocytes # 1.0 (1.0-4.8) k/uL Monocytes # 0.5 (0-1.0) k/uL Eosinophils # 0.6 (0-0.7) k/uL Basophils # 0.0 (0-0.2) k/uL Macrocytosis Moderate PT 9.3 (9.0-12.0) sec INR 0.9 (<1.2) APTT 23.7 (22.0-30.0) sec D-Dimer 0.75 H (<0.60) mg/L FEU Sodium 137 (137-145) mmol/L Potassium 5.3 H (3.5-5.1) mmol/L Chloride 107 (98-107) mmol/L Carbon Dioxide 23 (22-30) mmol/L Anion Gap 7 mmol/L BUN 27 H (9-20) mg/dL Creatinine 1.38 H (0.66-1.25) mg/dL Est GFR (CKD-EPI)AfAm 61 (>60 ml/min/1.73 sqM) Est GFR (CKD-EPI)NonAf 53 (>60 ml/min/1.73 sqM) Glucose 150 H (74-99) mg/dL Calcium 8.9 (8.4-10.2) mg/dL Magnesium 1.6 (1.6-2.3) mg/dL Total Bilirubin 0.6 (0.2-1.3) mg/dL AST 29 (17-59) U/L ALT 12 (4-49) U/L Alkaline Phosphatase 59 (38-126) U/L Troponin I (0.000-0.034) ng/mL NT-Pro-B Natriuret Pep pg/mL Total Protein 6.8 (6.3-8.2) g/dL Albumin 4.0 (3.5-5.0) g/dL Lipase 128 (23-300) U/L 03/20/20 03/20/20 Range/Units 06:46 06:46 WBC (3.8-10.6) k/uL RBC (4.30-5.90) m/uL Hgb (13.0-17.5) gm/dL Hct (39.0-53.0) % MCV (80.0-100.0) fL MCH (25.0-35.0) pg MCHC (31.0-37.0) g/dL RDW (11.5-15.5) % Plt Count (150-450) k/uL Neutrophils % % Lymphocytes % % Monocytes % % Eosinophils % % Basophils % % Neutrophils # (1.3-7.7) k/uL Lymphocytes # (1.0-4.8) k/uL Monocytes # (0-1.0) k/uL Eosinophils # (0-0.7) k/uL Basophils # (0-0.2) k/uL Macrocytosis PT (9.0-12.0) sec INR (<1.2) APTT (22.0-30.0) sec D-Dimer (<0.60) mg/L FEU Sodium (137-145) mmol/L Potassium (3.5-5.1) mmol/L Chloride (98-107) mmol/L Carbon Dioxide (22-30) mmol/L Anion Gap mmol/L BUN (9-20) mg/dL Creatinine (0.66-1.25) mg/dL Est GFR (CKD-EPI)AfAm (>60 ml/min/1.73 sqM) Est GFR (CKD-EPI)NonAf (>60 ml/min/1.73 sqM) Glucose (74-99) mg/dL Calcium (8.4-10.2) mg/dL Magnesium (1.6-2.3) mg/dL Total Bilirubin (0.2-1.3) mg/dL AST (17-59) U/L ALT (4-49) U/L Alkaline Phosphatase (38-126) U/L Troponin I <0.012 (0.000-0.034) ng/mL NT-Pro-B Natriuret Pep 127 pg/mL Total Protein (6.3-8.2) g/dL Albumin (3.5-5.0) g/dL Lipase (23-300) U/L Disposition Clinical Impression: Chest pain, Pericardial effusion, Interstitial edema, COVID-19 ruled out Disposition: ADMITTED IP TO THIS HOSP Is patient prescribed a controlled substance at d/c from ED?: No Referrals: Denny Ram MD [Primary Care Provider] - 1-2 days Time of Disposition: 08:55
--- NOTE | 2020-03-20 06:56 | XR ---
EXAMINATION TYPE: XR chest 2V DATE OF EXAM: 03/20/2020 COMPARISON: Chest x-ray July 09, 2019. HISTORY: Chest pain with shortness of breath. TECHNIQUE: Frontal and lateral views of the chest are obtained. FINDINGS: Overlying stimulator device are redemonstrated bilaterally. Multilevel spurring of the spin e again seen. Cardiac silhouette size stable and upper limits of normal. There is diminished inspirat ion with bibasilar increased opacities. New silhouetting left heart border noted. No pleural effusion or pneumothorax seen bilaterally. IMPRESSION: Diminished inspiration with bibasilar acute infiltrate and/or atelectasis present.
[2020-03-20 07:14] LABS: Basophils % (A) 0 %; Eosinophils # (A) 0.6 k/uL (0-0.7); Eosinophils % (A) 6 %; HCT 36.1 % (39.0-53.0); HGB 11.3 gm/dL (13.0-17.5); Lymphocytes % (A) 10 %; MCH 33.2 pg (25.0-35.0); MCHC 31.4 g/dL (31.0-37.0); MCV 105.5 fL (80.0-100.0); Macrocytosis Moderate; Mean Platelet Volume 8.5; Monocytes # (A) 0.5 k/uL (0-1.0); Monocytes % (A) 5 %; Neutrophils # (A) 7.6 k/uL (1.3-7.7); Neutrophils % (A) 77 %; Platelet Count 209 k/uL (150-450); RBC 3.42 m/uL (4.30-5.90); WBC 9.9 k/uL (3.8-10.6)
[2020-03-20 07:25] LABS: INR 0.9 (<1.2); Partial Thromboplastin Time 23.7 sec (22.0-30.0); Prothrombin Time 9.3 sec (9.0-12.0)
[2020-03-20] MEDS ORDERED: NITROGLYCERIN SL TABS 0.4 MG TAB SUBLINGUAL STA (07:26)
[2020-03-20] MEDS ORDERED: HYDROmorphone 1 MG/ML 1 ML SYRINGE IVP STA (07:30)
[2020-03-20 07:31] LABS: Calcium 8.9 mg/dL (8.4-10.2); Magnesium 1.6 mg/dL (1.6-2.3); Total Bilirubin 0.6 mg/dL (0.2-1.3); Total Protein 6.8 g/dL (6.3-8.2)
[2020-03-20 07:32] LABS: Potassium 5.3 mmol/L (3.5-5.1)
[2020-03-20 07:34] LABS: D-Dimer 0.75 mg/L FEU (<0.60)
--- NOTE | 2020-03-20 08:31 | CT ---
EXAMINATION TYPE: CT angio thor/abd pel aorta DATE OF EXAM: 03/20/2020 COMPARISON: CT lumbar spine August 23, 2019 HISTORY: Chest pain into back. Elevated d-dimer. Rule out aortic dissection and pulmonary embolism. CT DLP: 936 mGycm. Automated Exposure Control for Dose Reduction was Utilized. CONTRAST: CTA scan of the entire aorta is performed without oral and with IV Contrast, patient injected with 10 0 mL of Isovue 370. Three-D reconstructed images created on an independent workstation and reviewed. FINDINGS: VASCULAR: Satisfactory enhancement of the pulmonary artery and its branches, no CT evidence for acute pulmonary embolism. No thoracic aortic aneurysm or linear hypodensity to suggest dissection. Modera te mixed plaque in the abdominal aorta extending into iliac branch vessels. Patent 3 vessel arch. Pat ent bilateral single renal arteries along with celiac artery and SMA, concentric narrowing at origin of SMA approaching but under 50%. Patent [place]. Iliac arteries are patent with moderate mixed plaque. N o significant stenosis. Moderate to severe plaque bilateral groin region without significant stenosis as femoral artery branch. LUNGS: There is [id number] peripheral reticular changes and fibrosis in the bilateral lungs wit h dependent atelectasis bilateral lower lobes are more prominent groundglass opacity just above diaph ragm suggesting component of both alveolar and interstitial edema. No pleural effusion or pneumothora x bilaterally. No concerning masses. Mild underlying emphysematous change. MEDIASTINUM: There are no greater than 1 cm hilar or mediastinal lymph nodes. Small pericardial effu florentino is seen. No cardiomegaly. Fairly severe three-vessel coronary artery calcification noted. OTHER: Subareolar flame-shaped gynecomastia. LIVER/GB: No significant abnormality is appreciated. PANCREAS: No significant abnormality is seen. SPLEEN: No significant abnormality is seen. ADRENALS: No significant abnormality is seen. KIDNEYS: Nonspecific [id number] perinephric fluid extending inferiorly in the retroperitoneum. Findings similar to prior CT lumbar spine may be product of chronic medical renal disease. No hydrone phrosis or concerning renal masses. BOWEL: No significant abnormality is seen. GENITAL ORGANS: No gross abnormality seen. LYMPH NODES: No greater than 1cm abdominal or pelvic lymph nodes are appreciated. OSSEOUS STRUCTURES: Multilevel spurring in the spine. Multilevel mild disc space narrowing in the tho racic spine. Facet arthropathy lower lumbar levels redemonstrated. OTHER: No significant additional abnormality is seen. IMPRESSION: 1. No CTA evidence for acute pulmonary embolism. No CT evidence for aortic aneurysm or dissection. 2. Small pericardial effusion. Mild emphysematous change with mild interstitial and alveolar edema gr eatest in the lower lungs. Fairly severe three-vessel coronary artery calcification and/or stents, co rrelate clinically Otherwise no suspicious new or acute findings seen to account for patient's chest pain into back.
[2020-03-20] MEDS ORDERED: KETOROLAC 15 MG/ML 1 ML VIAL IVP STA (08:47)
[2020-03-20 11:39] LABS: Glucose,Whole Blood 142 mg/dL (75-99)
--- NOTE | 2020-03-20 12:42 | P.CRDCN ---
History of Present Illness History of present illness: HISTORY OF PRESENTING ILLNESS This is a pleasant 64-year-old past medical history significant for coronary artery disease s/p angioplasty over 20 years ago at [facility] exact details unavailable, hypertension, diabetes mellitus, chronic kidney disease, dyslipidemia, COPD, history of essential tremor s/p implanted brain stimulator and chronic nicotine dependence. He follows only with his PCP. We have been asked to see in consultation for chest pain. He states he went o bed last night around 0130 in his usual state of health. He woke up this morning feeling short of breath. He sat up on the edge of the bed to see if that would help, but it did not. He also noticed pain in his chest in the mid-sternal region that radiated out bilaterally when he took a deep breath. The pain was sharp and achy in nature. He denies cough, fever/chills, palpitations, dizziness, nausea or vom iting. He continues to feel short of breath and has ongoing pain with breathing. DIAGNOSTICS EKG reveals sinus mechanism with no acute ST or T-wave changes suggestive of ischemia. Chest xray diminished inspiration with bibasilar infiltrates or atelectasis. CTA reveals pulmonary fibrosis, small pericardial effusion, coronary artery calcification, mild plaque in the abdominal aorta and no pulmonary embolism. Laboratory reviewed, WBC 9.9, hgb 11.3, plt 209, d-dimer 0.75, sodium 137, potassium 5.3, creatinine 1.38, cardiac enzymes negative x2, NTproBNP 127 and magnesium 1.6. Current cardiac medications include atorvastatin 10 mg daily, nadolol 40 mg daily and amlodipine 5 mg daily. November 2018 he underwent an echocardiogram revealing preserved LV systolic function with EF 50-55%. Dobutamine stress test obtained at that time was technically inconclusive as he did not achieve his target heart rate, however at the achieved heart rate there was no evidence of stress induced ischemia. REVIEW OF SYSTEMS At the time of my exam: CONSTITUTIONAL: Denies fever or chills. CARDIOVASCULAR: Complains of shortness of breath and pleuritic chest pain. Denies orthopnea, PND or palpitations. RESPIRATORY: Denies cough. GASTROINTESTINAL: Denies abdominal pain, diarrhea, constipation, nausea or vomiting. MUSCULOSKELETAL: Denies myalgias. HEMATOLOGIC: Denies history of anemia or bleeding. PHYSICAL EXAMINATION Blood pressure 110/73 heart rate 67 afebrile and maintaining oxygen saturation on nasal cannula. CONSTITUTIONAL: No apparent distress. HEENT: Head is normocephalic. Pupils are equal, round. Sclerae anicteric. Mucous membranes of the mouth are moist. No JVD. No carotid bruit. CHEST EXAMINATION: Bibasilar fine crackles, no wheezes or rhonchi. Chest wall pain is noted with deep breathing. HEART EXAMINATION: Regular rate and rhythm. S1, S2 heard. No murmurs, gallops or rub. ABDOMEN: Soft, nontender. Positive bowel sounds. EXTREMITIES: 2+ peripheral pulses, no lower extremity edema and no calf tenderness. NEUROLOGIC EXAMINATION: Patient is awake, alert and oriented x3. ASSESSMENT Chest pain, pleuritic in nature. Likely secondary to underling fibrosis and COPD Shortness of breath Hyperkalemia Chronic kidney disease Hypertension Dyslipidemia Coronary artery disease s/p balloon angioplasty over 20 years ago Diabetes mellitus COPD Pulmonary fibrosis Chronic nicotine dependence PLAN Continue to obtain serial cardiac enzymes to rule out an acute event, although the suspicion is low. The pain is atypical for angina with pleuritic features. Likely related to underlying pulmonary fibrosis and COPD. The patient follows only with a PCP and has not seen a business executive. Obtain 2D echocardiogram and doppler study to assess cardiac structure and function. Decrease aspirin to 81 mg daily. Increase atorvastatin to 40 mg daily. Resume nadolol and amlodipine as previously ordered. Recommend smoking cessation. Thank you kindly for this consultation. Nurse Practitioner note has been reviewed, I agree with a documented findings and plan of care. Patient was seen and examined. Past Medical History Past Medical History: COPD, Hyperlipidemia, Hypertension Additional Past Medical History / Comment(s): Pt. has a deep brain stimulator - an implanted neurotransmitter; angioplasty 25 years ago, central brain tremors, itching, bladder hesitancy, muscle cramps, (takes lots of medications to control body tremors) History of Any Multi-Drug Resistant Organisms: None Reported Past Surgical History: Heart Catheterization, Orthopedic Surgery Additional Past Surgical History / Comment(s): Brain stimulator, dental surgery, mass removed from chest, left leg fracture w/ surgery. Past Anesthesia/Blood Transfusion Reactions: No Reported Reaction Past Psychological History: Bipolar, Depression, Panic Disorder Smoking Status: Never smoker Past Alcohol Use History: None Reported Additional Past Alcohol Use History / Comment(s): Pt. states he doesn't feel depressed whatsoever, has no thoughts of harming self. States his served him w/ divorce papers and he thought things were going great - happened out of n owhere. States he lives with a friend. Feels safe at home. Past Drug Use History: None Reported - Past Family History Father Family Medical History: Coronary Artery Disease (CAD), Diabetes Mellitus Sister(s) Family Medical History: Diabetes Mellitus Mother Family Medical History: Dementia Medications and Allergies Home Medications Medication Instructions Recorded Confirmed Type Tamsulosin HCl [Flomax] 0.4 mg PO DAILY 01/17/18 03/20/20 History Oxybutynin ER [Ditropan Xl] 10 mg PO DAILY 01/18/18 03/20/20 History diazePAM [Diazepam] 10 mg PO HS 03/05/18 03/20/20 History Omeprazole [PriLOSEC] 20 mg PO DAILY 03/06/18 03/20/20 History metFORMIN HCL 1,000 mg PO BID 12/01/18 03/20/20 History Gabapentin [Neurontin] 400 mg PO TID 06/10/19 03/20/20 History Nadolol [Corgard] 40 mg PO DAILY 06/10/19 03/20/20 History amLODIPine [Norvasc] 5 mg PO DAILY #30 tab 06/14/19 03/20/20 Rx Allopurinol [Zyloprim] 300 mg PO DAILY 03/20/20 03/20/20 History Atorvastatin [Lipitor] 10 mg PO HS 03/20/20 03/20/20 History Cyclobenzaprine [Flexeril] 10 mg PO TID 03/20/20 03/20/20 History hydrOXYzine HCL 10 mg PO TID 03/20/20 03/20/20 History Allergies Allergy/AdvReac Type Severity Reaction Status Date / Time quetiapine [From Seroquel] Allergy Diarrhea Verified 03/20/20 08:11 hydrocodone [From [place]] AdvReac Nausea & Verified 03/20/20 08:11 Vomiting Physical Exam Vitals: Vital Signs Temp Pulse Pulse Resp BP BP Pulse Ox 03/20/20 10:45 97.7 F 67 16 110/73 98 03/20/20 08:57 91 16 117/95 99 03/20/20 08:16 92 16 127/76 97 03/20/20 07:14 92 18 127/93 98 03/20/20 06:30 98.7 F 91 17 114/79 96 Intake and Output 03/19/20 03/20/20 03/20/20 22:59 06:59 14:59 Other: Weight 83.915 kg 83.915 kg Results 03/20/20 06:46 03/20/20 06:46 Cardiac Enzymes 03/20/20 03/20/20 03/20/20 Range/Units 06:46 06:46 10:42 AST 29 (17-59) U/L Troponin I <0.012 <0.012 (0.000-0.034) ng/mL Coagulation 03/20/20 Range/Units 06:46 PT 9.3 (9.0-12.0) sec APTT 23.7 (22.0-30.0) sec CBC 03/20/20 Range/Units 06:46 WBC 9.9 (3.8-10.6) k/uL RBC 3.42 L (4.30-5.90) m/uL Hgb 11.3 L (13.0-17.5) gm/dL Hct 36.1 L (39.0-53.0) % Plt Count 209 (150-450) k/uL Comprehensive Metabolic Panel 03/20/20 Range/Units 06:46 Sodium 137 (137-145) mmol/L Potassium 5.3 H (3.5-5.1) mmol/L Chloride 107 (98-107) mmol/L Carbon Dioxide 23 (22-30) mmol/L BUN 27 H (9-20) mg/dL Creatinine 1.38 H (0.66-1.25) mg/dL Glucose 150 H (74-99) mg/dL Calcium 8.9 (8.4-10.2) mg/dL AST 29 (17-59) U/L ALT 12 (4-49) U/L Alkaline Phosphatase 59 (38-126) U/L Total Protein 6.8 (6.3-8.2) g/dL Albumin 4.0 (3.5-5.0) g/dL Current Medications Generic Name Dose Route Start Last Admin Trade Name Freq PRN Reason Stop Dose Admin Amlodipine Besylate 5 mg 03/20/20 12:15 Amlodipine 5 Mg Tab PO DAILY [facility] Aspirin 81 mg 03/21/20 09:00 Aspirin 81 Mg PO DAILY [facility] Atorvastatin Calcium 40 mg 03/20/20 21:00 Atorvastatin [address] [facility] Non-Formulary Medication 40 mg 03/20/20 12:15 Nadolol [Corgard] PO DAILY [facility] Intake and Output 03/19/20 03/20/20 03/20/20 22:59 06:59 14:59 Other: Weight 83.915 kg 83.915 kg Patient Weight 03/21/20 06:59 Weight 83.915 kg 03/20/20 06:46 03/20/20 06:46
[2020-03-20] MEDS: amLODIPine 5 MG TAB PO SCH (12:52)
[2020-03-20 16:30] LABS: Glucose,Whole Blood 291 mg/dL (75-99)
[2020-03-20] MEDS: GABAPENTIN 400 MG CAP PO SCH ×2 (16:34→22:56)
--- NOTE | 2020-03-20 16:36 | CT ---
EXAMINATION TYPE: CT brain wo con DATE OF EXAM: 03/20/2020 COMPARISON: Prior head CT dated 12/02/2018 HISTORY: Altered mental status. History of brain stimulator. CT DLP: 1184 mGycm Automated exposure control for dose reduction was used. Helical imaging obtained through the brain. FINDINGS: There is extensive artifact present within the posterior fossa, leads are present bilaterally within the region of the cerebral peduncles. No evident hemorrhage or hydrocephalus. Orbits are symmetric. P eriventricular white matter shows patchy low attenuation. IMPRESSION: NO DEFINITE ACUTE ABNORMALITY. EXTENSIVE ARTIFACT IS PRESENT.
--- NOTE | 2020-03-20 17:42 | P.CNPUL ---
History of Present Illness Consult date: 03/20/20 Requesting physician: Vin Ng Reason for consult: chest pain Chief complaint: Chest pain History of present illness: This is a 64-year-old white male with known history of multiple medical problems including hypertension, questionable COPD, history of severe tremors, type 2 diabetes, hypertension, patient is not a great historian, he had previous history of deep brain stimulator for his severe tremors. And he had a previous history of angioplasty over 25 years ago. Patient has chronic muscle cramps, and he is supposedly on multiple medications for his cramps and tremors. Presented to the ER mostly with some vague nonspecific chest pain which clearly seems to be musculoskeletal, pointing to the area where the implanted neuro transmitter's batteries are placed in the chest bilaterally. Patient denies any shortness of breath, he has occasional cough, no wheezing, no fever, no chills, no hemoptysis seen by cardiology and felt his pain was noncardiac, and I saw mostly today because of his chest pain, clearly the pain is musculoskeletal, atypical, and basically has no relationship to his lungs whatsoever. CT of the chest showed mostly no evidence of pulmonary embolism, there was a small pericardial effusion, mild interstitial changes, greatest mostly in the lower lung mendenhall, and there was evidence of severe 3 vessel coronary artery calcification. At any rate after evaluating the patient, I was more concerned about his mental status that actually his chest pain. Patient is extremely lethargic, is not able to give very appropriate history, and he was noted to [place] ve significant tremors and involuntary movements of his upper extremities bilaterally, hence I suggested a neurological consultation. I also requested a CT of the brain, and there was no evidence of definite acute abnormality Review of Systems ROS unobtainable: due to mental status Past Medical History Past Medical History: COPD, Hyperlipidemia, Hypertension Additional Past Medical History / Comment(s): Pt. has a deep brain stimulator - an implanted neurotransmitter; angioplasty 25 years ago, central brain tremors, itching, bladder hesitancy, muscle cramps, (takes lots of medications to control body tremors) History of Any Multi-Drug Resistant Organisms: None Reported Past Surgical History: Heart Catheterization, Orthopedic Surgery Additional Past Surgical History / Comment(s): Brain stimulator, dental surgery, mass removed from chest, left leg fracture w/ surgery. Past Anesthesia/Blood Transfusion Reactions: No Reported Reaction Past Psychological History: Bipolar, Depression, Panic Disorder Smoking Status: Never smoker Past Alcohol Use History: None Reported Additional Past Alcohol Use History / Comment(s): Pt. states he doesn't feel depressed whatsoever, has no thoughts of harming self. States his served him w/ divorce papers and he thought things were going great - happened out of nowhere. States he lives with a friend. Feels safe at home. Past Drug Use History: None Reported - Past Family History Father Family Medical History: Coronary Artery Disease (CAD), Diabetes Mellitus Sister(s) Family Medical History: Diabetes Mellitus Mother Family Medical History: Dementia Medications and Allergies Home Medications Medication Instructions Recorded Confirmed Type Tamsulosin HCl [Flomax] 0.4 mg PO DAILY 01/17/18 03/20/20 History Oxybutynin ER [Ditropan Xl] 10 mg PO DAILY 01/18/18 03/20/20 History diazePAM [Diazepam] 10 mg PO HS 03/05/18 03/20/20 History Omeprazole [PriLOSEC] 20 mg PO DAILY 03/06/18 03/20/20 History metFORMIN HCL 1,000 mg PO BID 12/01/18 03/20/20 History Gabapentin [Neurontin] 400 mg PO TID 06/10/19 03/20/20 History Nadolol [Corgard] 40 mg PO DAILY 06/10/19 03/20/20 History amLODIPine [Norvasc] 5 mg PO DAILY #30 tab 06/14/19 03/20/20 Rx Allopurinol [Zyloprim] 300 mg PO DAILY 03/20/20 03/20/20 History Atorvastatin [Lipitor] 10 mg PO HS 03/20/20 03/20/20 History Cyclobenzaprine [Flexeril] 10 mg PO TID 03/20/20 03/20/20 History hydrOXYzine HCL 10 mg PO TID 03/20/20 03/20/20 History Allergies Allergy/AdvReac Type Severity Reaction Status Date / Time quetiapine [From Seroquel] Allergy Diarrhea Verified 03/20/20 08:11 hydrocodone [From [place]] AdvReac Nausea & Verified 03/20/20 08:11 Vomiting Physical Exam Vitals: Vital Signs Temp Pulse Pulse Resp BP BP Pulse Ox 03/20/20 15:00 97.9 F 77 16 91/58 95 03/20/20 10:45 97.7 F 67 16 110/73 98 03/20/20 08:57 91 16 117/95 99 03/20/20 08:16 92 16 127/76 97 03/20/20 07:14 92 18 127/93 98 03/20/20 06:30 98.7 F 91 17 114/79 96 Intake and Output 03/20/20 03/20/20 03/20/20 06:59 14:59 22:59 Other: Voiding Method Toilet Weight 83.915 kg 83.915 kg Physical exam revealed a 64-year-old white male sleepy, arousable, very garbled speech, and unable to give adequate history. Head: Atraumatic, normocephalic. HEENT: PERRLA, EOMI, neck is, no neck masses, no JVD, no stridor. Chest: Symmetrical chest expansion, minimal fine crackles at the bases no rhonchi and no wheezes. Neuro transmitter batteries are noted on the anterior chest bilaterally. Cardiac exam: Normal S1 and S2, no S3 gallop. No murmur. Abdomen: Soft nontender no megaly no rebound no guarding. Extremities: No clubbing edema or cyanosis. Skin: No rashes. Neurologic: Patient is sleepy, arousable, oriented to place and time, however his speech is extremely garbled, and continues to have intermittent episodes of tremors and involuntary movement of upper extremities bilaterally. Psychiatric: Anxious mood, blunt affect, sleepy/lethargic. Results - Laboratory Findings CBC and BMP: 03/20/20 06:46 03/20/20 06:46 PT/INR, D-dimer PT 9.3 sec (9.0-12.0) 03/20/20 06:46 INR 0.9 (<1.2) 03/20/20 06:46 D-Dimer 0.75 mg/L FEU (<0.60) H 03/20/20 06:46 Abnormal lab findings: Abnormal Labs 03/20/20 03/20/20 03/20/20 06:46 06:46 06:46 RBC 3.42 L Hgb 11.3 L Hct 36.1 L MCV 105.5 H D-Dimer 0.75 H Potassium 5.3 H BUN 27 H Creatinine 1.38 H Glucose 150 H POC Glucose (mg/dL) 03/20/20 03/20/20 11:37 16:28 RBC Hgb Hct MCV D-Dimer Potassium BUN Creatinine Glucose POC Glucose (mg/dL) 142 H 291 H - Diagnostic Findings CT scan - chest: image reviewed (Findings on the chest are very nonspecific, patient does have minimal fibrotic changes at the bases.) Assessment and Plan Assessment: Impression: Atypical chest pain, mostly musculoskeletal and seems to be in the area of the neurotransmitter batteries on the chest. Nonspecific interstitial lung disease, definitely not causing his chest pains. And the patient has no symptoms of shortness of breath. Severe tremors, patient is on multiple medications for his tremors Mental status change and lethargy, with normal CT of the brain, hence I recommended neurologic evaluation. Recommendation: Neurological consult. Consider discharge planning if cleared by multiple consultants. Follow-up with me in 3 months post discharge We will follow the patient on as-needed basis. Time with Patient: Greater than 30
[2020-03-20] MEDS: INSULIN ASPART (NovoLOG) 100 UNIT/ML VIAL SQ SCH ×2 (17:53→20:22)
[2020-03-20] MEDS: HEPARIN SODIUM,PORCINE 5,000 UNIT/ML 1 ML VIAL SQ SCH ×2 (17:54→23:00)
[2020-03-20 20:21] LABS: Glucose,Whole Blood 189 mg/dL (75-99)
[2020-03-20] MEDS ORDERED: ATORVASTATIN 10 MG TAB PO SCH (21:00)
[2020-03-20] MEDS ORDERED: ATORVASTATIN 40 MG TAB PO SCH (21:00)
--- NOTE | 2020-03-20 22:45 | P.HPIM ---
History of Present Illness H&P Date: 03/20/20 Chief Complaint: chest Pain Patient is a 64-year-old male with a known history of COPD, hypertension, hyperlipidemia, deep brain stimulatorimplanted neurotransmitter, coronary artery disease status post balloon angioplasty about 25 years ago, central brain tremors, itching, muscle cramps and bipolar/depression panic disorder came to ER with complaints of chest pain. Patient states that he woke up with chest pain this morning. He sat up on the edge of his bed to see if that would help. Chest pain is mainly mid retrosternal and radiating bilaterally towards neck and. Sharp pain. No associated nausea or vomiting. Patient was short of breath and he had the pain. No fever no chills. No cough or sputum production. Denied any headache or dizziness. Chest x-ray showed diminished inspiration with bibasilar acute infiltrate and atelectasis.. Thoracic aorta CT showed no CT evidence of acute pulmonary embolism. No CT evidence of aortic aneurysm or dissection. Small pericardial effusion. Mild emphysematous change with mild interstitial and alveolar edema greatest in the lower lungs. Fairly severe three-vessel coronary artery disease calcification and/or stents correlate clinically. Otherwise no sob suspicious new or acute finding seen to account for patient's chest pain in the back. Laboratory data showed WBC 9.9, hemoglobin 11.3 and MCV 105.5 Troponin x3 Potassium 5.3 proBNP 127 Liver enzymes are not elevated D-dimer is 0.75 Review of Systems Constitutional: Patient denies any fever or chills . No generalized weakness or weight loss. Abdomen: Patient denied nausea vomiting and diarrhea and abdominal pain. Cardiovascular: Patient denies any chest pain or short of breath no palpitations. Respiratory: patient denied any cough or sputum production. No shortness of breath Neurologic: Patient denied any numbness or tingling headache. Complete review of systems could not be obtained from the patient. Past Medical History Past Medical History: COPD, Hyperlipidemia, Hypertension Additional Past Medical History / Comment(s): Pt. has a deep brain stimulator - an implanted neurotransmitter; angioplasty 25 years ago, central brain tremors, itching, bladder hesitancy, muscle cramps, (takes lots of medications to control body tremors) History of Any Multi-Drug Resistant Organisms: None Reported Past Surgical History: Heart Catheterization, Orthopedic Surgery Additional Past Surgical History / Comment(s): Brain stimulator, dental surgery, mass removed from chest, left leg fracture w/ surgery. Past Anesthesia/Blood Transfusion Reactions: No Reported Reaction Past Psychological History: Bipolar, Depression, Panic Disorder Smoking Status: Never smoker Past Alcohol Use History: None Reported Additional Past Alcohol Use History / Comment(s): Pt. states he doesn't feel depressed whatsoever, has no thoughts of harming self. States his served him w/ divorce papers and he thought things were going great - happened out of nowhere. States he lives with a friend. Feels safe at home. Past Drug Use History: None Reported - Past Family History Father Family Medical History: Coronary Artery Disease (CAD), Diabetes Mellitus Sister(s) Family Medical History: Diabetes Mellitus Mother Family Medical History: Dementia Medications and Allergies Home Medications Medication Instructions Recorded Confirmed Type Tamsulosin HCl [Flomax] 0.4 mg PO DAILY 01/17/18 03/20/20 History Oxybutynin ER [Ditropan Xl] 10 mg PO DAILY 01/18/18 03/20/20 History diazePAM [Diazepam] 10 mg PO HS 03/05/18 03/20/20 History Omeprazole [PriLOSEC] 20 mg PO DAILY 03/06/18 03/20/20 History metFORMIN HCL 1,000 mg PO BID 12/01/18 03/20/20 History Gabapentin [Neurontin] 400 mg PO TID 06/10/19 03/20/20 History Nadolol [Corgard] 40 mg PO DAILY 06/10/19 03/20/20 History amLODIPine [Norvasc] 5 mg PO DAILY #30 tab 06/14/19 03/20/20 Rx Allopurinol [Zyloprim] 300 mg PO DAILY 03/20/20 03/20/20 History Atorvastatin [Lipitor] 10 mg PO HS 03/20/20 03/20/20 History Cyclobenzaprine [Flexeril] 10 mg PO TID 03/20/20 03/20/20 History hydrOXYzine HCL 10 mg PO TID 03/20/20 03/20/20 History Allergies Allergy/AdvReac Type Severity Reaction Status Date / Time quetiapine [From Seroquel] Allergy Diarrhea Verified 03/20/20 08:11 hydrocodone [From [place]] AdvReac Nausea & Verified 03/20/20 08:11 Vomiting Physical Exam Vitals: Vital Signs Temp Pulse Pulse Resp BP BP Pulse Ox 03/20/20 10:45 97.7 F 67 16 110/73 98 03/20/20 08:57 91 16 117/95 99 03/20/20 08:16 92 16 127/76 97 03/20/20 07:14 92 18 127/93 98 03/20/20 06:30 98.7 F 91 17 114/79 96 Intake and Output 03/19/20 03/20/20 03/20/20 22:59 06:59 14:59 Other: Weight 83.915 kg 83.915 kg PHYSICAL EXAMINATION: Patient is lying in the bed comfortably, no acute distress, awake alert and oriented. confused. HEENT: Normocephalic. Neck is supple. Pupils reactive. Nostrils clear. Oral cavity is moist. Ears reveal no drainage. Neck reveals no JVD, carotid bruits, or thyromegaly. CHEST EXAMINATION: Trachea is central. Symmetrical expansion.fine crackles otherwise Lung [place] clear to auscultation and percussion. CARDIAC: Normal S1, S2 with no gallops. No murmurs ABDOMEN: Soft. Bowel sounds normal. No organomegaly. No abdominal bruits. Extremities: reveal no edema. No clubbing or cyanosis Neurologically awake, alert, oriented x2-3 No focal deficits noted. tremors noted, Skin: No rash or skin lesions. Psychiatric: Cooperative. Nonsuicidal Musculoskeletal: No joint swelling or deformity. Normal range of motion. Results CBC & Chem 7: 03/20/20 06:46 03/20/20 06:46 Labs: Abnormal Lab Results - Last 24 Hours (Table) 03/20/20 03/20/20 03/20/20 Range/Units 06:46 06:46 06:46 RBC 3.42 L (4.30-5.90) m/uL Hgb 11.3 L (13.0-17.5) gm/dL Hct 36.1 L (39.0-53.0) % MCV 105.5 H (80.0-100.0) fL D-Dimer 0.75 H (<0.60) mg/L FEU Potassium 5.3 H (3.5-5.1) mmol/L BUN 27 H (9-20) mg/dL Creatinine 1.38 H (0.66-1.25) mg/dL Glucose 150 H (74-99) mg/dL POC Glucose (mg/dL) (75-99) mg/dL 03/20/20 Range/Units 11:37 RBC (4.30-5.90) m/uL Hgb (13.0-17.5) gm/dL Hct (39.0-53.0) % MCV (80.0-100.0) fL D-Dimer (<0.60) mg/L FEU Potassium (3.5-5.1) mmol/L BUN (9-20) mg/dL Creatinine (0.66-1.25) mg/dL Glucose (74-99) mg/dL POC Glucose (mg/dL) 142 H (75-99) mg/dL Thrombosis Risk Factor Assmnt - DVT/VTE Prophylaxis DVT/VTE Prophylaxis: Pharmacologic Prophylaxis ordered - Choose All That Apply Any of the Below Risk Factors Present?: Yes Each Factor Represents 1 point: Abnormal pulmonary function (COPD), Obesity (BMI >25) Other Risk Factors: Yes Each Risk Factor Represents 2 Points: Age 61-74 years Thrombosis Risk Factor Assessment Total Risk Factor Score: 4 Thrombosis Risk Factor Assessment Level: Moderate Risk Assessment and Plan Assessment: Atypical chest pain likely musculoskeletal. Ruled out ACS. CTA showed no paul dence of pulmonary embolism or dissection. History of coronary artery disease with angioplasty 25 years ago Deep brain stimulator/neurotransmitter in place Chronic tremors Mild hyperkalemia CKD stage III Hyperlipidemia Diabetes type 2 [id number] COPD/pulmonary fibrosis Macrocytosis rule out B12 deficiency. DVT prophylaxis with heparin subcu. Plan: Patient will be continued on telemetry monitoring. Serial troponin x3 -. Cardiology recommended 2D echocardiogram. Due to interstitial lung disease/fibrosis pulmonary was consulted and continue with home medications. Follow-up renal function tomorrow and further recommendations based on the clinical course. Avoid nephrotoxic medications. Time with Patient: Greater than 30
[2020-03-21 02:42] LABS: Appearance,Urine Clear (Clear); Bilirubin,Urine Negative (Negative); Blood,Urine Negative (Negative); Color,Urine Yellow; Glucose,Urine (UA) Negative (Negative); Ketones,Urine Negative (Negative); Leukocyte Esterase,Urine Negative (Negative); Nitrite,Urine Negative (Negative); PH, Urine 5.5 (5.0-8.0); Protein,Urine 1+ (Negative); RBC,Urine 1 /hpf (0-5); Specific Gravity,Urine 1.039 (1.001-1.035); Squamous Epithelial Cell,Urine <1 /hpf (0-4); Urobilinogen,Urine <2.0 mg/dL (<2.0); WBC,Urine <1 /hpf (0-5)
[2020-03-21 06:24] LABS: Glucose,Whole Blood 113 mg/dL (75-99)
[2020-03-21] MEDS: INSULIN ASPART (NovoLOG) 100 UNIT/ML VIAL SQ SCH ×2 (06:46→13:14)
[2020-03-21 06:57] LABS: Basophils # (A) 0.1 k/uL (0-0.2); Basophils % (A) 1 %; Eosinophils # (A) 0.3 k/uL (0-0.7); Eosinophils % (A) 3 %; HCT 31.9 % (39.0-53.0); HGB 10.3 gm/dL (13.0-17.5); Lymphocytes # (A) 1.4 k/uL (1.0-4.8); Lymphocytes % (A) 16 %; MCH 33.4 pg (25.0-35.0); MCHC 32.4 g/dL (31.0-37.0); MCV 103.1 fL (80.0-100.0); Macrocytosis Slight; Mean Platelet Volume 9.1; Monocytes # (A) 0.4 k/uL (0-1.0); Monocytes % (A) 5 %; Neutrophils # (A) 6.8 k/uL (1.3-7.7); Neutrophils % (A) 74 %; Platelet Count 180 k/uL (150-450); RBC 3.09 m/uL (4.30-5.90); RDW 13.9 % (11.5-15.5); WBC 9.1 k/uL (3.8-10.6)
[2020-03-21 07:05] LABS: Calcium 8.5 mg/dL (8.4-10.2); Potassium 4.7 mmol/L (3.5-5.1)
[2020-03-21] MEDS ORDERED: PANTOPRAZOLE 40 MG TABLET PO SCH (07:30)
--- NOTE | 2020-03-21 08:57 | P.CNNES ---
History of Present Illness Consult date: 03/21/20 Requesting physician: Sandi Ramirez Reason for Consult: altered mental status History of Present Illness: This is a 64-year-old gentleman with medical history of essential tremor (for 15-20 years) status post deep brain stimulation (11/2015), diabetes mellitius type 2 (15 years), diabetic peripheral neuropathy, muscle cramps, hypertension, hyperlipidemia, coronary artery disease status post post-balloon angioplasty about 25 years ago, COPD presented emergency department on 03/20/2020 for chest pain. Patient is being worked up by cardiology team regarding his chest pain. Yesterday the pulmonology team assessed the patient and they felt the patient was confused therefore neurology is consulted. I saw the patient today and the patient stated that when he was being evaluated by the pulmonology team met he just woke up from sleep and at that time they felt that he was confused and that he could not take care of himself. He stated that he remembers the whole episode. I spoke with the patient nurse and she stated the patient was awake following commands and that she got report from night nurse that the patient the mentation was not changed. She stated that he's been the sleeping the excessively since summer. He doesn't know why. He said that after taking naps he does feel refreshed. He cannot tell me if he does snore at night or not. He said that he is schedule for sleep study on 04/01/2020. Regarding the patient didn't brain stimulator he is scheduled to follow-up with a neurosurgeon (Dr. Beaver) on 03/26/2020 change of battery. He does follow up with a neurologist (dr. Ulysses Yarbrough). Workup in the hospital consisted of: Because of thought processes of altered mental status by the pulmonology team they ordered a CT of the head which was reported as no definite acute abnormality. Extensive artifact is present. I personally reviewed the CT of the head and I agree with the report. Patient systolic blood pressure on 03/20/2020 at around 10:45 AM was 110/73 with a heart rate of 67 while at around 1500 there was a documented as 91/58 with a heart rate of 77. His glucose on 03/20/2020 around 1628 was 291 documented. EKG is reported as normal sinus rhythm. Ventricular rate of 91. Normal EKG. Ammonia level is less than 9. TSH is 1.79. Review of Systems Review of system: The 12 point system was reviewed and apparent positive and negative per HPI. Past Medical History Past Medical History: COPD, Hyperlipidemia, Hypertension Additional Past Medical History / Comment(s): Pt. has a deep brain stimulator - an implanted neurotransmitter; angioplasty 25 years ago, central brain tremors, itching, bladder hesitancy, muscle cramps, (takes lots of medications to control body tremors) History of Any Multi-Drug Resistant Organisms: None Reported Past Surgical History: Heart Catheterization, Orthopedic Surgery Additional Past Surgical History / Comment(s): Brain stimulator, dental surgery, mass removed from chest, left leg fracture w/ surgery. Past Anesthesia/Blood Transfusion Reactions: No Reported Reaction Past Psychological History: Bipolar, Depression, Panic Disorder Smoking Status: Never smoker Past Alcohol Use History: None Reported Additional Past Alcohol Use History / Comment(s): Pt. states he doesn't feel depressed whatsoever, has no thoughts of harming self. States his served him w/ divorce papers and he thought things were going great - happened out of nowhere. States he lives with a friend. Feels safe at home. Past Drug Use History: None Reported - Past Family History Father Family Medical History: Coronary Artery Disease (CAD), Diabetes Mellitus Sister(s) Family Medical History: Diabetes Mellitus Mother Family Medical History: Dementia Medications and Allergies Home Medications Medication Instructions Recorded Confirmed Type Tamsulosin HCl [Flomax] 0.4 mg PO DAILY 01/17/18 03/20/20 History Oxybutynin ER [Ditropan Xl] 10 mg PO DAILY 01/18/18 03/20/20 History diazePAM [Diazepam] 10 mg PO HS 03/05/18 03/20/20 History Omeprazole [PriLOSEC] 20 mg PO DAILY 03/06/18 03/20/20 History metFORMIN HCL 1,000 mg PO BID 12/01/18 03/20/20 History Gabapentin [Neurontin] 400 mg PO TID 06/10/19 03/20/20 History Nadolol [Corgard] 40 mg PO DAILY 06/10/19 03/20/20 History amLODIPine [Norvasc] 5 mg PO DAILY #30 tab 06/14/19 03/20/20 Rx Allopurinol [Zyloprim] 300 mg PO DAILY 03/20/20 03/20/20 History Atorvastatin [Lipitor] 10 mg PO HS 03/20/20 03/20/20 History Cyclobenzaprine [Flexeril] 10 mg PO TID 03/20/20 03/20/20 History hydrOXYzine HCL 10 mg PO TID 03/20/20 03/20/20 History Allergies Allergy/AdvReac Type Severity Reaction Status Date / Time quetiapine [From Seroquel] Allergy Diarrhea Verified 03/20/20 08:11 hydrocodone [From [place]] AdvReac Nausea & Verified 03/20/20 08:11 Vomiting Physical Examination - Vital Signs Vital Signs: Vital Signs Temp Pulse Pulse Resp BP BP Pulse Ox 03/21/20 03:00 99.1 F 94 16 129/76 92 L 03/20/20 21:00 98.1 F 82 16 110/72 98 03/20/20 15:00 97.9 F 77 16 91/58 95 03/20/20 10:45 97.7 F 67 16 110/73 98 03/20/20 08:57 91 16 117/95 99 Intake and Output 03/20/20 03/21/20 03/21/20 22:59 06:59 14:59 Intake Total 350 Output Total 200 Balance 350 -200 Intake: Oral 350 Output: Urine 200 Other: Voiding Method Toilet Toilet # Voids 2 GENERAL: The patient is lying in bed and is not in acute distress. CHEST: The heart rate is regular rate rhythm. No murmurs to auscultation. No carotid bruit bilaterally. LUNG: Clear to auscultation bilaterally no wheezing noted throughout. Not labored breathing. ABDOMEN/GI: Bowel sounds present in all 4 quadrants. No tenderness to palpation throughout. NEUROLOGICAL: Higher mental function: The patient is awake, alert, oriented to self, place and time. Patient is following commands. No aphasia and no neglect. Cranial nerves: The pupils are round, equal (3-4mm) and reactive to light and accommodation. Visual mendenhall are full to confrontation throughout. Extraocular movement is intact no nystagmus is noted. Facial sensation is normal to touch throughout. The facial strength is normal throughout. Hearing is normal bilaterally to hand rub. Tongue is midline and moved [id number] without any difficulty. No dysarthria is noted. Shoulder shrug is normal bilaterally. Motor: Gait is deferred. The strength is 5 over 5 throughout. Normal tone and bulk. No spontaneous movement or resting tremor. Cerebellum: There is minimal tremor at end of target on finger to nose. Otherwise no ataxia or dysmetria bilaterally. Sensation: Sensation is normal to touch throughout. Reflexes (right/left): 2+ throughout, except ankles 1+ bilaterally. Plantars are downgoing bilaterally. Results Calcium of 8.9. Magnesium is 1.6. AST of 29, ALT of 12. Alkaline phosphatase is 59. Lipid profile is triglyceride is 75, cholesterol is 96, LDL is 46 and HDL is 35. Creatinine on presentation is 1.38 on today it's 1.76. Urine analysis was negative for urinary tract infection. - Laboratory Findings CBC and BMP: 03/21/20 06:37 03/21/20 06:37 Abnormal Lab Findings: Abnormal Labs 03/20/20 03/20/20 03/20/20 06:46 06:46 06:46 RBC 3.42 L Hgb 11.3 L Hct 36.1 L MCV 105.5 H D-Dimer 0.75 H Sodium Potassium 5.3 H BUN 27 H Creatinine 1.38 H Glucose 150 H POC Glucose (mg/dL) HDL Cholesterol Ur Specific [place] Urine Protein 03/20/20 03/20/20 03/20/20 11:37 16:28 20:15 RBC Hgb Hct MCV D-Dimer Sodium Potassium BUN Creatinine Glucose POC Glucose (mg/dL) 142 H 291 H 189 H HDL Cholesterol Ur Specific [place] Urine Protein 03/21/20 03/21/20 03/21/20 02:33 06:22 06:37 RBC Hgb Hct MCV D-Dimer Sodium 134 L Potassium BUN 30 H Creatinine 1.76 H Glucose 114 H POC Glucose (mg/dL) 113 H HDL Cholesterol 35 L Ur Specific [place] 1.039 H Urine Protein 1+ H 03/21/20 06:37 RBC 3.09 L Hgb 10.3 L Hct 31.9 L MCV 103.1 H D-Dimer Sodium Potassium BUN Creatinine Glucose POC Glucose (mg/dL) HDL Cholesterol Ur Specific [place] Urine Protein Assessment and Plan Assessment: This is a 64-year-old gentleman presented to the emergency department on the 02/18/2020 for chest pain. Yesterday they'll pulmonology team felt the patient had altered mental status. Questionable episode of altered mental status. Possibly as result of just waking-up (he said he has been having more excessive sleep since Summer 2019) vs ?episode of hypotension Essential tremor status post deep brain stimulation (11/2015) Chest pain Diabetic peripheral neuropathy Diabetes mellitus type 2 Excessive sleep Hypertension Hyperlipidemia History of coronary artery disease status post post-balloon angioplasty about 25 years ago COPD Plan: EEG is not warranted at this time since I don't think the patient had a seizure. From my the patient the story he said that he is having excessive sleep and the upon being examined by the pulmonology team the he just woke up from sleep so that possibly can explain why he was confused. Patient to get a sleep study on the 04 01 2020. I ordered vitamin B12 and the red blood cell folate. 2-D echo is pending. Continue cardiac monitoring. Please avoid any hypotension episodes recommend blood pressure to be at least 100 systolic. The patient is on aspirin 81 mg and Lipitor 40 mg for his cardiac problems. Patient is also will follow up with his neurosurgeon regarding getting his the deep brain stimulator batteries changed on 03/26/2020. Upon discharge the patient that the follow-up with his a neurologist within 2-3 weeks (dr. Ulysses Yarbrough) Thank you for the consultation. Patrick Foster M.D. Neuro-hospitalist Time with Patient: Greater than 30
[2020-03-21] MEDS ORDERED: OXYBUTYNIN 10 MG TAB.ER.24 PO SCH (09:00)
[2020-03-21] MEDS ORDERED: TAMSULOSIN 0.4 MG CAP.ER.24H PO SCH (09:00)
[2020-03-21] MEDS ORDERED: allopurinoL 300 MG TAB PO SCH (09:00)
[2020-03-21] MEDS ORDERED: ASPIRIN 81 MG PO SCH (09:00)
[2020-03-21] MEDS ORDERED: ASPIRIN 325 MG TAB PO SCH (09:00)
[2020-03-21] MEDS ORDERED: COLCHICINE 0.6 MG EACH PO SCH (09:30)
--- NOTE | 2020-03-21 09:30 | ECHOF ---
Referral Reason:sob MEASUREMENTS -------- HEIGHT: 177.8 cm WEIGHT: 83.9 kg BP: 110/73 RVIDd: 3.6 cm (< 3.3) IVSd: 1.3 cm (0.6 - 1.1) LVIDd: 3.9 cm (3.9 - 5.3) LVPWd: 1.2 cm (0.6 - 1.1) IVSs: 1.7 cm LVIDs: 2.6 cm LVPWs: 1.4 cm LAESV Index (A-L): 19.38 ml/m Ao Diam: 3.0 cm (2.0 - 3.7) AV Cusp: 2.0 cm (1.5 - 2.6) MV EXCURSION: 13.261 mm (> 18.000) MV EF SLOPE: 79 mm/s (70 - 150) EPSS: 0.6 cm MV E Wilbert: 0.70 m/s MV DecT: 233 ms MV A Wilbert: 0.65 m/s MV E/A Ratio: 1.07 RAP: 20.00 mmHg RVSP: 31.67 mmHg FINDINGS -------- Sinus rhythm. This was a technically adequate study. The left ventricular size is normal. There is mild concentric left ventricular hypertrophy. Overa ll left ventricular systolic function is low-normal with, an EF between 50 - 55 %. The diastolic fi lling pattern is normal for the age of the patient 12.39. The right ventricle is mildly enlarged. Normal LA size by volume 22+/-6 ml/m2. The right atrial size is normal. Interatrial and interventricular septum intact. The aortic valve is trileaflet and appears structurally normal. There is no evidence of aortic regu rgitation. There is no evidence of aortic stenosis. No mitral regurgitation. Mild tricuspid regurgitation present. There is borderline pulmonary artery hypertension. The righ t ventricular systolic pressure, as measured by Doppler, is 31.67mmHg. Trace/mild (physiologic) pulmonic regurgitation. The aortic root size is normal. The inferior vena cava is dilated with no significant inspiratory collapse which is consistent estima ana rosa right atrial pressure of >20 mmHg. There is a small, generalized pericardial effusion present. CONCLUSIONS -------- 1. The left ventricular size is normal. 2. There is mild concentric left ventricular hypertrophy. 3. Overall left ventricular systolic function is low-normal with, an EF between 50 - 55 %. 4. The diastolic filling pattern is normal for the age of the patient 12.39 5. The right ventricle is mildly enlarged. 6. No mitral regurgitation. 7. Mild tricuspid regurgitation present. 8. There is borderline pulmonary artery hypertension. 9. The right ventricular systolic pressure, as measured by Doppler, is 31.67mmHg. 10. Trace/mild (physiologic) pulmonic regurgitation. 11. The inferior vena cava is dilated with no significant inspiratory collapse which is consistent es timated right atrial pressure of >20 mmHg. 12. There is a small, generalized pericardial effusion present. SINGE WINDER: Helena Byers RDCS
[2020-03-21] MEDS: GABAPENTIN 400 MG CAP PO SCH (09:44)
[2020-03-21] MEDS: HEPARIN SODIUM,PORCINE 5,000 UNIT/ML 1 ML VIAL SQ SCH (09:44)
[2020-03-21] MEDS: amLODIPine 5 MG TAB PO SCH (09:44)
[2020-03-21 11:54] LABS: Glucose,Whole Blood 160 mg/dL (75-99)
--- NOTE | 2020-03-21 14:01 | P.PN ---
Subjective HISTORY OF PRESENTING ILLNESS This is a pleasant 64-year-old past medical history significant for coronary artery disease s/p angioplasty over 20 years ago at [facility] exact details unavailable, hypertension, diabetes mellitus, chronic kidney disease, dyslipidemia, COPD, history of essential tremor s/p implanted brain stimulator and chronic nicotine dependence. He is seen and examined resting comfortably in bed in no acute distress. Blood pressure 115/72 heart rate 91 afebrile and maintaining oxygen saturation on room air. Laboratory data reviewed, WBC 9.1, hemoglobin 10.3, platelets 180, sodium 134, potassium 4.7, creatinine 1.76, LDL 46, HDL 35. Echocardiogram obtained revealed preserved LV systolic ejection fraction of 50-55%, normal diastolic filling pattern and a small generalized pericardial effusion. PHYSICAL EXAMINATION CONSTITUTIONAL: No apparent distress. HEENT: Head is normocephalic. Pupils are equal, round. Sclerae anicteric. Mucous membranes of the mouth are moist. No JVD. No carotid bruit. CHEST EXAMINATION: Bibasilar fine crackles, no wheezes or rhonchi. Chest wall pain is noted with deep breathing. HEART EXAMINATION: Regular rate and rhythm. S1, S2 heard. No murmurs, gallops or rub. EXTREMITIES: 2+ peripheral pulses, no lower extremity edema and no calf tenderness. ASSESSMENT Chest pain, pleuritic in nature. Likely secondary to underling fibrosis and COPD Shortness of breath Hyperkalemia Chronic kidney disease Hypertension Dyslipidemia Coronary artery disease s/p balloon angioplasty over 20 years ago Diabetes mellitus COPD Pulmonary fibrosis Chronic nicotine dependence PLAN Initiate colchicine 0.6 mg by mouth twice a day for 2 weeks. Recommend close follow-up with Dr. Ayala in the office in 2 weeks. Stable for discharge. Nurse Practitioner note has been reviewed, I agree with a documented findings and plan of care. Patient was seen and examined. Objective - Vital Signs Vital signs: Vital Signs Temp 97.4 F L 03/21/20 08:36 Pulse 91 03/21/20 08:36 Resp 18 03/21/20 08:36 BP 115/72 03/21/20 08:36 Pulse Ox 92 L 03/21/20 08:36 Intake & Output 03/20/20 03/21/20 03/21/20 18:59 06:59 18:59 Intake Total 350 480 Output Total 200 Balance 350 -200 480 Weight 83.915 kg Intake: Oral 350 480 Output: Urine 200 Other: Voiding Method Toilet Toilet Toilet # Voids 2 - Labs CBC & Chem 7: 03/21/20 06:37 03/21/20 06:37 Labs: Abnormal Lab Results - Last 24 Hours (Table) 03/20/20 03/20/20 03/21/20 Range/Units 16:28 20:15 02:33 RBC (4.30-5.90) m/uL Hgb (13.0-17.5) gm/dL Hct (39.0-53.0) % MCV (80.0-100.0) fL Sodium (137-145) mmol/L BUN (9-20) mg/dL Creatinine (0.66-1.25) mg/dL Glucose (74-99) mg/dL POC Glucose (mg/dL) 291 H 189 H (75-99) mg/dL HDL Cholesterol (40-60) mg/dL Ur Specific [place] 1.039 H (1.001-1.035) Urine Protein 1+ H (Negative) 03/21/20 03/21/20 03/21/20 Range/Units 06:22 06:37 06:37 RBC 3.09 L (4.30-5.90) m/uL Hgb 10.3 L (13.0-17.5) gm/dL Hct 31.9 L (39.0-53.0) % MCV 103.1 H (80.0-100.0) fL Sodium 134 L (137-145) mmol/L BUN 30 H (9-20) mg/dL Creatinine 1.76 H (0.66-1.25) mg/dL Glucose 114 H (74-99) mg/dL POC Glucose (mg/dL) 113 H (75-99) mg/dL HDL Cholesterol 35 L (40-60) mg/dL Ur Specific [place] (1.001-1.035) Urine Protein (Negative) 03/21/20 Range/Units 11:48 RBC (4.30-5.90) m/uL Hgb (13.0-17.5) gm/dL Hct (39.0-53.0) % MCV (80.0-100.0) fL Sodium (137-145) mmol/L BUN (9-20) mg/dL Creatinine (0.66-1.25) mg/dL Glucose (74-99) mg/dL POC Glucose (mg/dL) 160 H (75-99) mg/dL HDL Cholesterol (40-60) mg/dL Ur Specific [place] (1.001-1.035) Urine Protein (Negative)
[2020-03-21 15:12] VITALS: BP 117/49; PULSE 81; RESP 16; TEMP 98.1
== END 2020-03-21 16:00 | disposition home health service (06) ==
LOC: EC 06:22 → 3NCARDOBS 08:49
PROVIDERS: ADMIT Internal Medicine; ATTEND Internal Medicine
DX: R07.89 Other chest pain (principal); Z20.828 Contact with and (suspected) exposure to other viral communicable diseases; D75.89 Other specified diseases of blood and blood-forming organs; E11.22 Type 2 diabetes mellitus with diabetic chronic kidney disease; E11.42 Type 2 diabetes mellitus with diabetic polyneuropathy; E78.5 Hyperlipidemia, unspecified; E87.5 Hyperkalemia; F17.200 Nicotine dependence, unspecified, uncomplicated; F32.9 Major depressive disorder, single episode, unspecified; F41.0 Panic disorder [episodic paroxysmal anxiety]; G25.0 Essential tremor; I12.9 Hypertensive chronic kidney disease with stage 1 through stage 4 chronic kidney disease, or unspecified chronic kidney disease; I25.10 Atherosclerotic heart disease of native coronary artery without angina pectoris; I31.3 Pericardial effusion (noninflammatory); J44.9 Chronic obstructive pulmonary disease, unspecified; J84.10 Pulmonary fibrosis, unspecified; J98.11 Atelectasis; N18.30 Chronic kidney disease, stage 3 unspecified; Z79.84 Long term (current) use of oral hypoglycemic drugs; Z79.899 Other long term (current) drug therapy; Z82.49 Family history of ischemic heart disease and other diseases of the circulatory system; Z98.61 Coronary angioplasty status
CPT/HCPCS: 93005 ×2; 96361 ×3; 96372 ×2; 96374; 96375; 99285; 36415; 93306; 85379; 82747; 83880; 80061; 80053; 80048; 84443; 82607; 82140; 83690; 83735; 84484; 85025 ×2; 85610; 85730; 81001; 71046; 70450; 71275; 74174; G0378 ×2; U0003; J2270; J1644 ×2; J1170; J1885; Q9967

== ENCOUNTER 2020-07-19 12:47 | Emergency (ER) | payer MEDICARE ==
[2020-07-19 12:53] VITALS: BP 129/90; PULSE 89; RESP 16; TEMP 97.6
--- NOTE | 2020-07-19 13:11 | ED ---
General Adult HPI - General Chief complaint: Urogenital Stated complaint: Urinary Retention Time Seen by Provider: 07/19/20 12:56 Source: patient, EMS, RN notes reviewed Mode of arrival: EMS Limitations: no limitations - History of Present Illness Initial comments: 64-year-old male presents emergency Department with chief complaint of urinary retention, feet swelling. Patient states she's been unable to urinate. Patient does have overactive bladder but states he cannot get any urine out. No prior retention and urinary tract infection no fevers chills no abdominal plain no flank pain. Patient states that he's had issues with leg swelling states that he was on Lasix and potassium patient states that his been off and noticed some increase in swelling. No chest pain no shortness breath no dizziness no other complaints. - Related Data Home Medications Medication Instructions Recorded Confirmed Tamsulosin HCl [Flomax] 0.4 mg PO DAILY 01/17/18 03/20/20 Oxybutynin ER [Ditropan Xl] 10 mg PO DAILY 01/18/18 03/20/20 Omeprazole [PriLOSEC] 20 mg PO DAILY 03/06/18 03/20/20 Gabapentin [Neurontin] 400 mg PO TID 06/10/19 03/20/20 Nadolol [Corgard] 40 mg PO DAILY 06/10/19 03/20/20 Allopurinol [Zyloprim] 300 mg PO DAILY 03/20/20 03/20/20 Atorvastatin [Lipitor] 10 mg PO HS 03/20/20 03/20/20 Previous Rx's Medication Instructions Recorded amLODIPine [Norvasc] 5 mg PO DAILY #30 tab 06/14/19 Colchicine [Colcrys] 0.6 mg PO BID #14 each 03/21/20 Allergies Allergy/AdvReac Type Severity Reaction Status Date / Time quetiapine [From Seroquel] Allergy Diarrhea Verified 03/20/20 08:11 hydrocodone [From [place]] AdvReac Nausea & Verified 03/20/20 08:11 Vomiting Review of Systems ROS Statement: Those systems with pertinent positive or pertinent negative responses have been documented in the HPI. ROS Other: All systems not noted in ROS Statement are negative. Past Medical History Past Medical History: COPD, Hyperlipidemia, Hypertension Additional Past Medical History / Comment(s): Pt. has a deep brain stimulator - an implanted neurotransmitter; angioplasty 25 years ago, central brain tremors, itching, bladder hesitancy, muscle cramps, (takes lots of medications to control body tremors) History of Any Multi-Drug Resistant Organisms: None Reported Past Surgical History: Heart Catheterization, Orthopedic Surgery Additional Past Surgical History / Comment(s): Brain stimulator, dental surgery, mass removed from chest, left leg fracture w/ surgery. Past Anesthesia/Blood Transfusion Reactions: No Reported Reaction Past Psychological History: Bipolar, Depression, Panic Disorder Smoking Status: Never smoker Past Alcohol Use History: None Reported Past Drug Use History: None Reported - Past Family History Father Family Medical History: Coronary Artery Disease (CAD), Diabetes Mellitus Sister(s) Family Medical History: Diabetes Mellitus Mother Family Medical History: Dementia General Exam Limitations: no limitations General appearance: alert, in no apparent distress Head exam: Present: atraumatic, normocephalic, normal inspection ENT exam: Present: normal exam, mucous membranes moist Neck exam: Present: normal inspection. Absent: tenderness, meningismus, lymphadenopathy Respiratory exam: Present: normal lung sounds bilaterally. Absent: respiratory distress, wheezes, rales, rhonchi, stridor Cardiovascular Exam: Present: regular rate, normal rhythm, normal heart sounds. Absent: systolic murmur, diastolic murmur, rubs, gallop, clicks GI/Abdominal exam: Present: soft, tenderness (Mild suprapubic), normal bowel sounds. Absent: distended, guarding, rebound, rigid Extremities exam: Present: pedal edema (Minimal). Absent: calf tenderness Neurological exam: Present: alert, oriented X3 Skin exam: Present: warm, dry, intact, normal color. Absent: rash Course Vital Signs 07/19/20 12:49 Temperature 97.6 F Pulse Rate 89 Respiratory 16 Rate Blood Pressure 129/90 O2 Sat by Pulse 100 Oximetry Medical Decision Making - Medical Decision Making 64-year-old presented for urinary retention. Urinalysis unremarkable is no signs of acute infection. Patient lab work does not reveal any significant changes. Patient does have mild leg swelling was given one dose of Lasix. Patient discharged and follow-up with urology. - Lab Data Result diagrams: 07/19/20 13:11 07/19/20 13:11 Lab Results 07/19/20 07/19/20 07/19/20 Range/Units 13:11 13:11 13:11 WBC 6.6 (3.8-10.6) k/uL RBC 3.06 L (4.30-5.90) m/uL Hgb 10.2 L (13.0-17.5) gm/dL Hct 29.8 L (39.0-53.0) % MCV 97.5 (80.0-100.0) fL MCH 33.4 (25.0-35.0) pg MCHC 34.3 (31.0-37.0) g/dL RDW 14.3 (11.5-15.5) % Plt Count 248 (150-450) k/uL MPV 7.8 Neutrophils % 59 % Lymphocytes % 24 % Monocytes % 5 % Eosinophils % 11 % Basophils % 0 % Neutrophils # 3.8 (1.3-7.7) k/uL Lymphocytes # 1.6 (1.0-4.8) k/uL Monocytes # 0.4 (0-1.0) k/uL Eosinophils # 0.7 (0-0.7) k/uL Basophils # 0.0 (0-0.2) k/uL Sodium 137 (137-145) mmol/L Potassium 5.2 H (3.5-5.1) mmol/L Chloride 107 (98-107) mmol/L Carbon Dioxide 21 L (22-30) mmol/L Anion Gap 9 mmol/L BUN 17 (9-20) mg/dL Creatinine 1.44 H (0.66-1.25) mg/dL Est GFR (CKD-EPI)AfAm 58 (>60 ml/min/1.73 sqM) Est GFR (CKD-EPI)NonAf 50 (>60 ml/min/1.73 sqM) Glucose 159 H (74-99) mg/dL Calcium 9.0 (8.4-10.2) mg/dL Urine Color Yellow Urine Appearance Clear (Clear) Urine pH 5.5 (5.0-8.0) Ur Specific Lane 1.023 (1.001-1.035) Urine Protein Trace H (Negative) Urine Glucose (UA) Negative (Negative) Urine Ketones Negative (Negative) Urine Blood Negative (Negative) Urine Nitrite Negative (Negative) Urine Bilirubin Negative (Negative) Urine Urobilinogen <2.0 (<2.0) mg/dL Ur Leukocyte Esterase Negative (Negative) Disposition Clinical Impression: Urinary retention, Pedal edema Disposition: HOME SELF-CARE Condition: Stable Instructions (If sedation given, give patient instructions): Urinary Retention in Men (ED) Additional Instructions: Please return to the Emergency Department if symptoms worsen or any other concerns. Is patient prescribed a controlled substance at d/c from ED?: No Referrals: Denny Ram MD [Primary Care Provider] - 1-2 days Randell Barroso MD [STAFF PHYSICIAN] - 1-2 days Time of Disposition: 14:58
[2020-07-19 13:31] LABS: Appearance,Urine Clear (Clear); Bilirubin,Urine Negative (Negative); Blood,Urine Negative (Negative); Color,Urine Yellow; Glucose,Urine (UA) Negative (Negative); Ketones,Urine Negative (Negative); Leukocyte Esterase,Urine Negative (Negative); Nitrite,Urine Negative (Negative); PH, Urine 5.5 (5.0-8.0); Protein,Urine Trace (Negative); Specific Gravity,Urine 1.023 (1.001-1.035); Urobilinogen,Urine <2.0 mg/dL (<2.0)
[2020-07-19 13:32] LABS: Basophils % (A) 0 %; Eosinophils # (A) 0.7 k/uL (0-0.7); Eosinophils % (A) 11 %; HCT 29.8 % (39.0-53.0); HGB 10.2 gm/dL (13.0-17.5); Lymphocytes # (A) 1.6 k/uL (1.0-4.8); Lymphocytes % (A) 24 %; MCH 33.4 pg (25.0-35.0); MCHC 34.3 g/dL (31.0-37.0); MCV 97.5 fL (80.0-100.0); Mean Platelet Volume 7.8; Monocytes # (A) 0.4 k/uL (0-1.0); Monocytes % (A) 5 %; Neutrophils # (A) 3.8 k/uL (1.3-7.7); Neutrophils % (A) 59 %; Platelet Count 248 k/uL (150-450); RBC 3.06 m/uL (4.30-5.90); RDW 14.3 % (11.5-15.5); WBC 6.6 k/uL (3.8-10.6)
[2020-07-19 14:24] LABS: Potassium 5.2 mmol/L (3.5-5.1)
[2020-07-19] MEDS ORDERED: FUROSEMIDE 10 MG/ML 2 ML VIAL IV STA (14:57)
[2020-07-19] MEDS ORDERED: FUROSEMIDE 20 MG TAB PO STA (15:09)
== END 2020-07-19 15:29 | disposition home or self-care (01) ==
LOC: EC 12:47
DX: R33.9 Retention of urine, unspecified (principal); R60.0 Localized edema; E78.5 Hyperlipidemia, unspecified; I10 Essential (primary) hypertension; J44.9 Chronic obstructive pulmonary disease, unspecified; Z82.49 Family history of ischemic heart disease and other diseases of the circulatory system; Z83.3 Family history of diabetes mellitus; Z88.5 Allergy status to narcotic agent
CPT/HCPCS: 36415; 51798; 80048; 81003; 85025; 99283

== ENCOUNTER 2020-07-22 01:54 | Observation (INO) | payer MEDICARE ==
--- NOTE | 2020-07-22 03:05 | ED ---
Recheck HPI - General Chief Complaint: Extremity Problem,Nontraumatic Stated Complaint: Feet Swelling Time Seen by Provider: 07/22/20 02:09 Source: patient, RN notes reviewed, old records reviewed Mode of arrival: wheelchair Limitations: no limitations - History of Present Illness Initial Comments: This is a 64-year-old male DF for evaluation patient Dese for evaluation regards to significant lower Shorty swelling or edema. Patient recently had Self placed secondary to urinary retention. Patient was placed on Lasix for lower extremity edema did improve but has not returned. Patient has bilateral lower Shorty pain and swelling MD Complaint: other (Bilateral lower extremity edema) -: days(s) Returns Today for: persistent/worsening pain related to initial visit Symptoms Since Prior Visit: worsening pain Context: other (Symptoms worsening) Associated Symptoms: none Treatments Prior to Arrival: urinary catheter in place, other (Patient was given Lasix) - Related Data Home Medications Medication Instructions Recorded Confirmed Tamsulosin HCl [Flomax] 0.4 mg PO DAILY 01/17/18 03/20/20 Oxybutynin ER [Ditropan Xl] 10 mg PO DAILY 01/18/18 03/20/20 Omeprazole [PriLOSEC] 20 mg PO DAILY 03/06/18 03/20/20 Gabapentin [Neurontin] 400 mg PO TID 06/10/19 03/20/20 Nadolol [Corgard] 40 mg PO DAILY 06/10/19 03/20/20 Allopurinol [Zyloprim] 300 mg PO DAILY 03/20/20 03/20/20 Atorvastatin [Lipitor] 10 mg PO HS 03/20/20 03/20/20 Previous Rx's Medication Instructions Recorded amLODIPine [Norvasc] 5 mg PO DAILY #30 tab 06/14/19 Colchicine [Colcrys] 0.6 mg PO BID #14 each 03/21/20 Allergies Allergy/AdvReac Type Severity Reaction Status Date / Time quetiapine [From Seroquel] Allergy Diarrhea Verified 07/22/20 01:59 hydrocodone [From [place]] AdvReac Nausea & Verified 07/22/20 01:59 Vomiting Review of Systems ROS Statement: Those systems with pertinent positive or pertinent negative responses have been documented in the HPI. ROS Other: All systems not noted in ROS Statement are negative. Past Medical History Past Medical History: COPD, Hyperlipidemia, Hypertension Additional Past Medical History / Comment(s): Pt. has a deep brain stimulator - an implanted neurotransmitter; angioplasty 25 years ago, central brain tremors, itching, bladder hesitancy, muscle cramps, (takes lots of medications to control body tremors) History of Any Multi-Drug Resistant Organisms: None Reported Past Surgical History: Heart Catheterization, Orthopedic Surgery Additional Past Surgical History / Comment(s): Brain stimulator, dental surgery, mass removed from chest, left leg fracture w/ surgery. Past Anesthesia/Blood Transfusion Reactions: No Reported Reaction Past Psychological History: Bipolar, Depression, Panic Disorder Smoking Status: Never smoker Past Alcohol Use History: None Reported Past Drug Use History: None Reported - Past Family History Father Family Medical History: Coronary Artery Disease (CAD), Diabetes Mellitus Sister(s) Family Medical History: Diabetes Mellitus Mother Family Medical History: Dementia General Exam Limitations: no limitations General appearance: alert, in no apparent distress Head exam: Present: atraumatic, normocephalic, normal inspection Eye exam: Present: normal appearance, PERRL, EOMI. Absent: scleral icterus, conjunctival injection, periorbital swelling ENT exam: Present: normal exam, mucous membranes moist Neck exam: Present: normal inspection. Absent: tenderness, meningismus, lympha denopathy Respiratory exam: Present: normal lung sounds bilaterally. Absent: respiratory distress, wheezes, rales, rhonchi, stridor Cardiovascular Exam: Present: regular rate, normal rhythm, normal heart sounds. Absent: systolic murmur, diastolic murmur, rubs, gallop, clicks GI/Abdominal exam: Present: soft, normal bowel sounds. Absent: distended, tenderness, guarding, rebound, rigid Extremities exam: Present: normal inspection, full ROM, normal capillary refill, other ( edema 2+BL LE edema). Absent: tenderness, pedal edema, joint swelling, calf tenderness Back exam: Present: normal inspection Neurological exam: Present: alert, oriented X3, CN II-XII intact Psychiatric exam: Present: normal affect, normal mood Skin exam: Present: warm, dry, intact, normal color. Absent: rash Course Vital Signs 07/22/20 01:59 Temperature 97.5 F L Pulse Rate 81 Respiratory 18 Rate Blood Pressure 145/78 O2 Sat by Pulse 100 Oximetry - Reevaluation(s) Reevaluation #1: 07/22/20 03:39 Medical record is reviewed Reevaluation #2: 07/22/20 05:24 Patient is unsatisfied with his lower extremity edema and would like treatment Medical Decision Making - Medical Decision Making 64 male DF for evaluation patient Dese for urinary retention persistent as well as significant lower extremity edema. Patient will be admitted for Lasix and symptomatic treatment - Lab Data Result diagrams: 07/22/20 03:56 07/22/20 03:56 Lab Results 07/22/20 07/22/20 07/22/20 Range/Units 03:56 03:56 03:56 WBC 7.4 (3.8-10.6) k/uL RBC 3.24 L (4.30-5.90) m/uL Hgb 11.0 L (13.0-17.5) gm/dL Hct 32.0 L (39.0-53.0) % MCV 98.7 (80.0-100.0) fL MCH 33.9 (25.0-35.0) pg MCHC 34.3 (31.0-37.0) g/dL RDW 14.4 (11.5-15.5) % Plt Count 252 (150-450) k/uL MPV 7.8 Neutrophils % 63 % Lymphocytes % 21 % Monocytes % 5 % Eosinophils % 10 % Basophils % 1 % Neutrophils # 4.6 (1.3-7.7) k/uL Lymphocytes # 1.6 (1.0-4.8) k/uL Monocytes # 0.4 (0-1.0) k/uL Eosinophils # 0.7 (0-0.7) k/uL Basophils # 0.0 (0-0.2) k/uL D-Dimer 1.10 H (<0.60) mg/L FEU Sodium (137-145) mmol/L Potassium (3.5-5.1) mmol/L Chloride (98-107) mmol/L Carbon Dioxide (22-30) mmol/L Anion Gap mmol/L BUN (9-20) mg/dL Creatinine (0.66-1.25) mg/dL Est GFR (CKD-EPI)AfAm (>60 ml/min/1.73 sqM) Est GFR (CKD-EPI)NonAf (>60 ml/min/1.73 sqM) Glucose (74-99) mg/dL Calcium (8.4-10.2) mg/dL Phosphorus (2.5-4.5) mg/dL Magnesium (1.6-2.3) mg/dL Total Bilirubin (0.2-1.3) mg/dL AST (17-59) U/L ALT (4-49) U/L Alkaline Phosphatase (38-126) U/L Creatine Kinase (55-170) U/L Troponin I (0.000-0.034) ng/mL NT-Pro-B Natriuret Pep pg/mL Total Protein (6.3-8.2) g/dL Albumin (3.5-5.0) g/dL Urine Color Yellow Urine Appearance Clear (Clear) Urine pH 5.5 (5.0-8.0) Ur Specific [place] 1.013 (1.001-1.035) Urine Protein Trace H (Negative) Urine Glucose (UA) Negative (Negative) Urine Ketones Negative (Negative) Urine Blood Moderate H (Negative) Urine Nitrite Negative (Negative) Urine Bilirubin Negative (Negative) Urine Urobilinogen <2.0 (<2.0) mg/dL Ur Leukocyte Esterase Trace H (Negative) Urine RBC 33 H (0-5) /hpf Urine WBC 3 (0-5) /hpf Urine Bacteria Rare H (None) /hpf Hyaline Casts 1 (0-2) /lpf Urine Mucus Rare H (None) /hpf 07/22/20 07/22/20 07/22/20 Range/Units 03:56 03:56 03:56 WBC (3.8-10.6) k/uL RBC (4.30-5.90) m/uL Hgb (13.0-17.5) gm/dL Hct (39.0-53.0) % MCV (80.0-100.0) fL MCH (25.0-35.0) pg MCHC (31.0-37.0) g/dL RDW (11.5-15.5) % Plt Count (150-450) k/uL MPV Neutrophils % % Lymphocytes % % Monocytes % % Eosinophils % % Basophils % % Neutrophils # (1.3-7.7) k/uL Lymphocytes # (1.0-4.8) k/uL Monocytes # (0-1.0) k/uL Eosinophils # (0-0.7) k/uL Basophils # (0-0.2) k/uL D-Dimer (<0.60) mg/L FEU Sodium 137 (137-145) mmol/L Potassium 5.2 H (3.5-5.1) mmol/L Chloride 105 (98-107) mmol/L Carbon Dioxide 23 (22-30) mmol/L Anion Gap 9 mmol/L BUN 19 (9-20) mg/dL Creatinine 1.49 H (0.66-1.25) mg/dL Est GFR (CKD-EPI)AfAm 56 (>60 ml/min/1.73 sqM) Est GFR (CKD-EPI)NonAf 48 (>60 ml/min/1.73 sqM) Glucose 95 (74-99) mg/dL Calcium 9.2 (8.4-10.2) mg/dL Phosphorus 4.3 (2.5-4.5) mg/dL Magnesium 1.5 L (1.6-2.3) mg/dL Total Bilirubin 0.3 (0.2-1.3) mg/dL AST 24 (17-59) U/L ALT 13 (4-49) U/L Alkaline Phosphatase 72 (38-126) U/L Creatine Kinase 38 L (55-170) U/L Troponin I <0.012 (0.000-0.034) ng/mL NT-Pro-B Natriuret Pep 163 pg/mL Total Protein 6.9 (6.3-8.2) g/dL Albumin 4.0 (3.5-5.0) g/dL Urine Color Urine Appearance (Clear) Urine pH (5.0-8.0) Ur Specific [place] (1.001-1.035) Urine Protein (Negative) Urine Glucose (UA) (Negative) Urine Ketones (Negative) Urine Blood (Negative) Urine Nitrite (Negative) Urine Bilirubin (Negative) Urine Urobilinogen (<2.0) mg/dL Ur Leukocyte Esterase (Negative) Urine RBC (0-5) /hpf Urine WBC (0-5) /hpf Urine Bacteria (None) /hpf Hyaline Casts (0-2) /lpf Urine Mucus (None) /hpf - EKG Data -: EKG Interpreted by Me (EKG is sinus rhythm 65 IA 180 QRS 90 QTC 4:30) Disposition Clinical Impression: Pedal edema, Urinary retention, DANO (acute kidney injury) Disposition: ADMITTED IP TO THIS HOSP Condition: Fair Is patient prescribed a controlled substance at d/c from ED?: No Referrals: Denny Ram MD [Primary Care Provider] - 1-2 days
[2020-07-22 04:10] LABS: Basophils % (A) 1 %; Eosinophils # (A) 0.7 k/uL (0-0.7); Eosinophils % (A) 10 %; Lymphocytes # (A) 1.6 k/uL (1.0-4.8); Lymphocytes % (A) 21 %; MCH 33.9 pg (25.0-35.0); MCHC 34.3 g/dL (31.0-37.0); MCV 98.7 fL (80.0-100.0); Mean Platelet Volume 7.8; Monocytes # (A) 0.4 k/uL (0-1.0); Monocytes % (A) 5 %; Neutrophils # (A) 4.6 k/uL (1.3-7.7); Neutrophils % (A) 63 %; Platelet Count 252 k/uL (150-450); RBC 3.24 m/uL (4.30-5.90); RDW 14.4 % (11.5-15.5); WBC 7.4 k/uL (3.8-10.6)
[2020-07-22 04:11] LABS: Appearance,Urine Clear (Clear); Bacteria,Urine Rare /hpf; Bilirubin,Urine Negative (Negative); Blood,Urine Moderate (Negative); Color,Urine Yellow; Glucose,Urine (UA) Negative (Negative); Hyaline Casts,Urine 1 /lpf (0-2); Ketones,Urine Negative (Negative); Leukocyte Esterase,Urine Trace (Negative); Mucus,Urine Rare /hpf; Nitrite,Urine Negative (Negative); PH, Urine 5.5 (5.0-8.0); Protein,Urine Trace (Negative); RBC,Urine 33 /hpf (0-5); Specific Gravity,Urine 1.013 (1.001-1.035); Urobilinogen,Urine <2.0 mg/dL (<2.0); WBC,Urine 3 /hpf (0-5)
[2020-07-22 04:37] LABS: Calcium 9.2 mg/dL (8.4-10.2); Magnesium 1.5 mg/dL (1.6-2.3); Phosphorus 4.3 mg/dL (2.5-4.5); Potassium 5.2 mmol/L (3.5-5.1); Total Bilirubin 0.3 mg/dL (0.2-1.3); Total Protein 6.9 g/dL (6.3-8.2)
[2020-07-22] MEDS ORDERED: FUROSEMIDE 10 MG/ML 4 ML VIAL IV STA (05:05)
[2020-07-22] MEDS ORDERED: MORPHINE SULFATE 4 MG/ML SYRINGE IV PRN (05:21)
--- NOTE | 2020-07-22 08:57 | US ---
EXAMINATION TYPE: US venous doppler duplex LE BI DATE OF EXAM: 07/22/2020 8:46 AM COMPARISON: NONE CLINICAL HISTORY: bilateral. Bilateral leg edema SIDE PERFORMED: Bilateral TECHNIQUE: The lower extremity deep venous system is examined utilizing real time linear array sonog mary kay with graded compression, doppler sonography and color-flow sonography. VESSELS IMAGED: Common Femoral Vein Deep Femoral Vein Greater Saphenous Vein * Femoral Vein Popliteal Vein Small Saphenous Vein * Proximal Calf Veins (* superficial vessels) Right Leg: Appears negative for DVT Left Leg: Appears negative for DVT Grayscale, color doppler, spectral doppler imaging performed of the deep veins of the bilateral lower extremities. There is normal flow, compressibility, vascular waveforms. IMPRESSION: No ultrasound evidence for acute DVT in either lower extremity.
[2020-07-22] MEDS ORDERED: FUROSEMIDE 10 MG/ML 4 ML VIAL IV SCH (09:00)
[2020-07-22] MEDS ORDERED: ALBUTEROL NEBULIZED 2.5 MG/3 ML INHALATION PRN (09:44)
[2020-07-22] MEDS ORDERED: CYCLOBENZAPRINE 5 MG TAB PO PRN (09:44)
[2020-07-22] MEDS ORDERED: GABAPENTIN 100 MG CAP PO SCH (09:45)
[2020-07-22] MEDS ORDERED: allopurinoL 300 MG TAB PO SCH (09:45)
[2020-07-22 10:21] VITALS: PULSE 65
--- NOTE | 2020-07-22 11:40 | XR ---
EXAMINATION TYPE: XR chest 2V DATE OF EXAM: 07/22/2020 COMPARISON: Chest x-ray March 20, 2020 HISTORY: Bilateral lower extremity swelling, CHF TECHNIQUE: Frontal and lateral views of the chest are obtained. FINDINGS: There is no suspicious new focal air space opacity, pleural effusion, or pneumothorax seen . The cardiac silhouette size is stable and within normal limits. The osseous structures are intac t. Bilateral overlying stimulator devices partially imaged similar to prior. IMPRESSION: No acute cardiopulmonary process currently. Improved central vascular congestion from pr ior study.
[2020-07-22 12:10] LABS: African American GFR (CKD) 51 (>60 ml/min/1.73 sqM); Anion Gap 9 mmol/L; Blood Urea Nitrogen 19 mg/dL (9-20); Calcium 9.7 mg/dL (8.4-10.2); Carbon Dioxide 29 mmol/L (22-30); Chloride 101 mmol/L (98-107); Glucose 111 mg/dL (74-99); Non-African American GFR(CKD) 44 (>60 ml/min/1.73 sqM); Sodium 139 mmol/L (137-145)
--- NOTE | 2020-07-22 12:23 | P.HPIM ---
History of Present Illness 64-year-old male came in came in with swelling of bilateral lower eczema disease is significantly improved after a Bhagat catheter and Lasix IV 40 mg twice a day patient had normal ejection fraction the past although his IVC was dilated at the time. Patient the clinically has significant improvement in pedal edema almost none today and I did not appreciate JVD. Although chest x-ray showed improvement in the some pulmonary congestion which was seen during his previous hospitalization patient the proBNP is only 163.. Lower extremity Doppler is within normal limits patient the had elevated serum creatinine of 1.49 on admission went up to 1.6. Her diuretics patient has chronic kidney disease stage III. Patient does have history of diabetes mellitus on metformin probably not a candidate for metformin will obtain hemoglobin A1c metformin will be discontinued patient will check his blood sugars at home. Patient blood sugars here are not elevated because of which I'm not the discharging with any alternate medications for diabetes mellitus. Because of the chronic kidney disease patient is not a candidate for metformin. Patient denied any significant shortness of breath or orthopnea or paroxysmal nocturnal dyspnea. S he does have urinary retention issues did receive a Bhagat cath , I ordered an ultrasound of the kidney and urinary bladder was is also hypomagnesemic which will be replaced Review of Systems REVIEW OF SYSTEMS: CONSTITUTIONAL: No fever, no malaise, no fatigue. HEENT: No recent visual problems or hearing problems. Denied any sore throat. CARDIOVASCULAR: No chest pain, orthopnea, PND, no palpitations, no syncope. PULMONARY: No shortness of breath, no cough, no hemoptysis. GASTROINTESTINAL: No diarrhea, no nausea, no vomiting, no abdominal pain. NEUROLOGICAL: No headaches, no weakness, no numbness. HEMATOLOGICAL: Denies any bleeding or petechiae. GENITOURINARY: Denies any burning micturition, he does have frequency, or urgency. MUSCULOSKELETAL/RHEUMATOLOGICAL: Denies any joint pain, swelling, or any muscle pain. ENDOCRINE: Denies any polyuria or polydipsia. The rest of the 14-point review of systems is negative. 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 Pt. has a deep brain stimulator - an implanted neurotransmitter; angioplasty 25 years ago, central brain tremors, itching, bladder hesitancy, muscle cramps, (takes lots of medications to control body tremors) History of Any Multi-Drug Resistant Organisms: None Reported Past Surgical History: Heart Catheterization, Orthopedic Surgery Additional Past Surgical History / Comment(s): Brain stimulator, coronary PTCA about 30 yrs ago at [facility], dental surgery, benign mass removed from chest, left leg fracture w/ surgery/hardware, EGD, colonoscopy, lumbar epidurals Past Anesthesia/Blood Transfusion Reactions: No Reported Reaction Smoking Status: Current every day smoker - Past Family History Father Family Medical History: Coronary Artery Disease (CAD), Diabetes Mellitus Sister(s) Family Medical History: Diabetes Mellitus Mother Family Medical History: Dementia Medications and Allergies Home Medications Medication Instructions Recorded Confirmed Type Tamsulosin HCl [Flomax] 0.4 mg PO DAILY 01/17/18 07/22/20 History Oxybutynin ER [Ditropan Xl] 10 mg PO DAILY 01/18/18 07/22/20 History Omeprazole [PriLOSEC] 20 mg PO DAILY 03/06/18 07/22/20 History Gabapentin [Neurontin] 400 mg PO TID 06/10/19 07/22/20 History Nadolol [Corgard] 40 mg PO DAILY 06/10/19 07/22/20 History amLODIPine [Norvasc] 5 mg PO DAILY #30 tab 06/14/19 07/22/20 Rx Allopurinol [Zyloprim] 300 mg PO DAILY 03/20/20 07/22/20 History Atorvastatin [Lipitor] 10 mg PO DAILY 03/20/20 07/22/20 History Albuterol Inhaler [Ventolin Hfa 2 puff INHALATION RT-Q4H PRN 07/22/20 07/22/20 History Inhaler] Cyclobenzaprine [Flexeril] 10 mg PO TID 07/22/20 07/22/20 History Diazepam [Valium] 10 mg PO HS 07/22/20 07/22/20 History hydrOXYzine HCL [Atarax] 10 mg PO TID 07/22/20 07/22/20 History metFORMIN HCL 1,000 mg PO BID 07/22/20 07/22/20 History Allergies Allergy/AdvReac Type Severity Reaction Status Date / Time quetiapine [From Seroquel] Allergy Diarrhea Verified 07/22/20 07:18 hydrocodone [From [place]] AdvReac Nausea & Verified 07/22/20 07:18 Vomiting Physical Exam Vitals: Vital Signs Temp Pulse Resp BP Pulse Ox 07/22/20 10:17 65 17 133/82 98 07/22/20 06:00 63 18 117/72 98 07/22/20 05:00 66 18 126/82 99 07/22/20 01:59 97.5 F L 81 18 145/78 100 Intake and Output 07/21/20 07/22/20 07/22/20 22:59 06:59 14:59 Output Total 2500 Balance -2500 Output: Urine 2500 Other: Weight 78.245 kg 78.245 kg PHYSICAL EXAMINATION: GENERAL: The patient is alert and oriented x3, not in any acute distress. Well developed, well nourished. HEENT: Pupils are round and equally reacting to light. EOMI. No scleral icterus. No conjunctival pallor. Normocephalic, atraumatic. No pharyngeal erythema. No thyromegaly. CARDIOVASCULAR: S1 and S2 present. No murmurs, rubs, or gallops. PULMONARY: Chest is clear to auscultation, no wheezing or crackles. ABDOMEN: Soft, nontender, nondistended, normoactive bowel sounds. No palpable organomegaly. MUSCULOSKELETAL: No joint swelling or deformity. EXTREMITIES: No cyanosis, clubbing, bilateral lower leg edema signal pain improved NEUROLOGICAL: Gross neurological examination did not reveal any focal deficits. SKIN: No rashes. Results CBC & Chem 7: 07/22/20 03:56 07/22/20 11:15 Labs: Abnormal Lab Results - Last 24 Hours (Table) 07/22/20 07/22/20 07/22/20 Range/Units 03:56 03:56 03:56 RBC 3.24 L (4.30-5.90) m/uL Hgb 11.0 L (13.0-17.5) gm/dL Hct 32.0 L (39.0-53.0) % D-Dimer 1.10 H (<0.60) mg/L FEU Potassium (3.5-5.1) mmol/L Creatinine (0.66-1.25) mg/dL Glucose (74-99) mg/dL Magnesium (1.6-2.3) mg/dL Creatine Kinase (55-170) U/L Urine Protein Trace H (Negative) Urine Blood Moderate H (Negative) Ur Leukocyte Esterase Trace H (Negative) Urine RBC 33 H (0-5) /hpf Urine Bacteria Rare H (None) /hpf Urine Mucus Rare H (None) /hpf 07/22/20 07/22/20 Range/Units 03:56 11:15 RBC (4.30-5.90) m/uL Hgb (13.0-17.5) gm/dL Hct (39.0-53.0) % D-Dimer (<0.60) mg/L FEU Potassium 5.2 H (3.5-5.1) mmol/L Creatinine 1.49 H 1.61 H (0.66-1.25) mg/dL Glucose 111 H (74-99) mg/dL Magnesium 1.5 L (1.6-2.3) mg/dL Creatine Kinase 38 L (55-170) U/L Urine Protein (Negative) Urine Blood (Negative) Ur Leukocyte Esterase (Negative) Urine RBC (0-5) /hpf Urine Bacteria (None) /hpf Urine Mucus (None) /hpf Thrombosis Risk Factor Assmnt - Choose All That Apply Any of the Below Risk Factors Present?: Yes Each Factor Represents 1 point: Abnormal pulmonary function (COPD), Serious lung disease incl. pneumonia (< 1month), Swollen legs (current) Other Risk Factors: Yes Each Risk Factor Represents 2 Points: Age 61-74 years Other congenital or acquired thrombophilia - If yes, enter type in comment: No Thrombosis Risk Factor Assessment Total Risk Factor Score: 5 Thrombosis Risk Factor Assessment Level: High Risk Assessment and Plan Plan: -Bilateral lower extremity edema: Rule out a DVT probably chronic venous insufficiency although I cannot completely rule out diastolic dysfunction with the acute exacerbation patient will be discharged on Lasix 40 mg twice a day to follow up with nephrology and his budget clerk as an outpatient -Urinary Retention secondary to benign prostatic hypertrophy, if possible we will obtain urinary bladder and kidneys and patient will be discharged with a Bhagat catheter and patient is sitting up appointment with urology for Wednesday. -Chronic kidney disease stage III I cannot completely rule out obstructive uropathy although with Bhagat catheter his creatinine did not improve patient will will follow-up with nephrology as an outpatient -Mild hyperkalemia resolved with IV Lasix -Type 2 diabetes mellitus: Hemoglobin A1c will be obtained because of chronic kidney disease metformin Labissonire patient will check his sugar at home. There continue to be elevated any fever hemoglobin A1c is elevated patient will need alternate hypoglycemic agents. -To be without any acute exacerbation -Coronary artery disease -Hyperlipidemia -Hypomagnesemia magnesium will be replaced -Continued nicotine use: Counseling was provided Patient will be discharged today to follow up with the nephrology, urology and PCP as an outpatient
--- NOTE | 2020-07-22 12:24 | P.DS ---
Providers Date of admission: 07/22/20 05:21 Attending physician: Sher Castro [facility] Course: Refer to my HPI for further details Patient Condition at Discharge: Fair Plan - Discharge Summary Discharge Rx Participant: No New Discharge Prescriptions: New Cyclobenzaprine [Flexeril] 5 mg PO BID PRN tab PRN Reason: Mild Spasms Furosemide [Lasix] 40 mg PO BID #60 tablet Continue Tamsulosin HCl [Flomax] 0.4 mg PO DAILY Oxybutynin ER [Ditropan Xl] 10 mg PO DAILY Omeprazole [PriLOSEC] 20 mg PO DAILY Nadolol [Corgard] 40 mg PO DAILY Gabapentin [Neurontin] 400 mg PO TID amLODIPine [Norvasc] 5 mg PO DAILY #30 tab Allopurinol [Zyloprim] 300 mg PO DAILY Atorvastatin [Lipitor] 10 mg PO DAILY Albuterol Inhaler [Ventolin Hfa Inhaler] 2 puff INHALATION RT-Q4H PRN PRN Reason: Shortness Of Breath Diazepam [Valium] 10 mg PO HS Discontinued metFORMIN HCL 1,000 mg PO BID hydrOXYzine HCL [Atarax] 10 mg PO TID Cyclobenzaprine [Flexeril] 10 mg PO TID Discharge Medication List Tamsulosin HCl [Flomax] 0.4 mg PO DAILY 01/17/18 [History] Oxybutynin ER [Ditropan Xl] 10 mg PO DAILY 01/18/18 [History] Omeprazole [PriLOSEC] 20 mg PO DAILY 03/06/18 [History] Gabapentin [Neurontin] 400 mg PO TID 06/10/19 [History] Nadolol [Corgard] 40 mg PO DAILY 06/10/19 [History] amLODIPine [Norvasc] 5 mg PO DAILY #30 tab 06/14/19 [Rx] Allopurinol [Zyloprim] 300 mg PO DAILY 03/20/20 [History] Atorvastatin [Lipitor] 10 mg PO DAILY 03/20/20 [History] Albuterol Inhaler [Ventolin Hfa Inhaler] 2 puff INHALATION RT-Q4H PRN 07/22/20 [History] Cyclobenzaprine [Flexeril] 5 mg PO BID PRN tab 07/22/20 [Rx] Diazepam [Valium] 10 mg PO HS 07/22/20 [History] Furosemide [Lasix] 40 mg PO BID #60 tablet 07/22/20 [Rx] Follow up Appointment(s)/Referral(s): Puja Packer MD [STAFF PHYSICIAN] - 1 Week Denny Ram MD [Primary Care Provider] - 3 Days Discharge Disposition: HOME SELF-CARE
[2020-07-22] MEDS: MAGNESIUM SULFATE-D5W PMX 1 GM in DEXTROSE/WATER 1 100ML.BAG IVPB SCH ×2 (12:29→13:39)
[2020-07-22 12:35] VITALS: BP 126/91; RESP 20; TEMP 97.6
--- NOTE | 2020-07-22 14:37 | US ---
EXAMINATION TYPE: US kidneys/renal and bladder DATE OF EXAM: 07/22/2020 COMPARISON: CTA March 20, 2020 CLINICAL HISTORY: DANO. Indwelling bladder catheter is noted EXAM MEASUREMENTS: Right Kidney: 9.3 x 5.3 x 5.3 cm Left Kidney: 9.9 x 5.2 x 5.2 cm Post Void Residual Volume: not assessed on inpatient with indwelling bladder catheter Right Kidney: mid cortical cyst is noted = 1.1 x 1.3 x 1.0cm ; smaller lateral cortical cyst is also seen; extracapsular crescent shaped area is noted mid pole level suggests sonographic "sweat sign" fo r medical renal disease Left Kidney: No hydronephrosis or masses seen; extracapsular crescent shaped area is noted at mid mahendra e level suggests sonographic "sweat sign" for medical renal disease Bladder: indwelling bladder catheter is noted at base of bladder Bilateral Jets seen: no Some increased cortical echogenicity right kidney. Technologist darden a 1.0 cm probable thin-walled b enign cysts. Bladder decompressed by Self catheter makes evaluation suboptimal. No hydronephrosis in either kidney. No concerning left-sided renal mass. Ultrasound sweats sign corresponds to surroundin g perinephric fluid on CT. IMPRESSION: Evidence of chronic medical renal disease bilaterally. No hydronephrosis noted bilaterall y.
[2020-07-23] MEDS ORDERED: PANTOPRAZOLE 40 MG TABLET PO SCH (07:30)
[2020-07-23] MEDS ORDERED: OXYBUTYNIN 10 MG TAB.ER.24 PO SCH (09:00)
[2020-07-23] MEDS ORDERED: ATORVASTATIN 10 MG TAB PO SCH (09:00)
[2020-07-23] MEDS ORDERED: TAMSULOSIN 0.4 MG CAP.ER.24H PO SCH (09:00)
== END 2020-07-22 15:30 | disposition home or self-care (01) ==
LOC: EC 01:54 → 6NMEDSUR 05:21
PROVIDERS: ADMIT Hospitalist; ATTEND Hospitalist
DX: R60.0 Localized edema (principal); N40.1 Benign prostatic hyperplasia with lower urinary tract symptoms; R33.8 Other retention of urine; N17.9 Acute kidney failure, unspecified; I12.9 Hypertensive chronic kidney disease with stage 1 through stage 4 chronic kidney disease, or unspecified chronic kidney disease; N18.30 Chronic kidney disease, stage 3 unspecified; E11.22 Type 2 diabetes mellitus with diabetic chronic kidney disease; J44.9 Chronic obstructive pulmonary disease, unspecified; E87.5 Hyperkalemia; E83.42 Hypomagnesemia; E11.42 Type 2 diabetes mellitus with diabetic polyneuropathy; G25.2 Other specified forms of tremor; I25.10 Atherosclerotic heart disease of native coronary artery without angina pectoris; E78.5 Hyperlipidemia, unspecified; F41.0 Panic disorder [episodic paroxysmal anxiety]; F32.9 Major depressive disorder, single episode, unspecified; M10.9 Gout, unspecified; F17.200 Nicotine dependence, unspecified, uncomplicated; Z79.84 Long term (current) use of oral hypoglycemic drugs; Z79.899 Other long term (current) drug therapy; Z88.5 Allergy status to narcotic agent; Z88.8 Allergy status to other drugs, medicaments and biological substances; Z98.61 Coronary angioplasty status; Z96.82 Presence of neurostimulator; Z96.0 Presence of urogenital implants; Z87.81 Personal history of (healed) traumatic fracture; Z87.01 Personal history of pneumonia (recurrent); Z82.49 Family history of ischemic heart disease and other diseases of the circulatory system; Z83.3 Family history of diabetes mellitus; Z81.8 Family history of other mental and behavioral disorders
CPT/HCPCS: 96365; 96376; 96375; 99285; 36415; 93005; 85379; 83880; 80053; 80048; 82550; 83735; 84100; 84484; 85025; 81001; 71046; 76770; 93970; G0378; J1940; J3475

== ENCOUNTER 2020-07-27 21:34 | Emergency (ER) | payer MEDICARE ==
[2020-07-27 21:49] VITALS: BP 112/75; PULSE 95; RESP 18; TEMP 98.2
--- NOTE | 2020-07-27 22:40 | ED ---
Male Urogenital HPI - General Chief complaint: Urogenital Stated complaint: Catheter issues Time Seen by Provider: 07/27/20 21:56 Source: patient Mode of arrival: ambulatory Limitations: no limitations - History of Present Illness Initial comments: This patient is a 64-year-old man who presents with complaint that he is having pain related to his Bhagat catheter. The patient had a catheter placed a few days ago when he was in the hospital secondary to urinary retention. The patient states that since she has gone home, the Bhagat catheter moves and to exactly his penis and is causing pain at the urethral meatus as well as more proximally. He has not noted a change in the urine output. There is no blood. He is denying abdominal pain. MD Complaint: other -: days(s) Location: penis Radiation: none Severity: moderate Quality: aching, burning Consistency: constant Improves with: rest Worsens with: movement Reports: denies other symptoms - Related Data Home Medications Medication Instructions Recorded Confirmed Tamsulosin HCl [Flomax] 0.4 mg PO DAILY 01/17/18 07/22/20 Oxybutynin ER [Ditropan Xl] 10 mg PO DAILY 01/18/18 07/22/20 Omeprazole [PriLOSEC] 20 mg PO DAILY 03/06/18 07/22/20 Gabapentin [Neurontin] 400 mg PO TID 06/10/19 07/22/20 Nadolol [Corgard] 40 mg PO DAILY 06/10/19 07/22/20 Allopurinol [Zyloprim] 300 mg PO DAILY 03/20/20 07/22/20 Atorvastatin [Lipitor] 10 mg PO DAILY 03/20/20 07/22/20 Albuterol Inhaler [Ventolin Hfa 2 puff INHALATION RT-Q4H PRN 07/22/20 07/22/20 Inhaler] Diazepam [Valium] 10 mg PO HS 07/22/20 07/22/20 Previous Rx's Medication Instructions Recorded amLODIPine [Norvasc] 5 mg PO DAILY #30 tab 06/14/19 Cyclobenzaprine [Flexeril] 5 mg PO BID PRN tab 07/22/20 Furosemide [Lasix] 40 mg PO BID #60 tablet 07/22/20 Allergies Allergy/AdvReac Type Severity Reaction Status Date / Time quetiapine [From Sero[place]] Allergy Diarrhea Verified 07/27/20 21:49 hydrocodone [From [place]] AdvReac Nausea & Verified 07/27/20 21:49 Vomiting Review of Systems ROS Statement: Those systems with pertinent positive or pertinent negative responses have been documented in the HPI. ROS Other: All systems not noted in ROS Statement are negative. Constitutional: Denies: fever Gastrointestinal: Denies: abdominal pain, vomiting Genitourinary: Reports: as per HPI, other. 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 Pt. has a deep brain stimulator - an implanted neurotransmitter; angioplasty 25 years ago, central brain tremors, itching, bladder hesitancy, muscle cramps, (takes lots of medications to control body tremors) History of Any Multi-Drug Resistant Organisms: None Reported Past Surgical History: Heart Catheterization, Orthopedic Surgery Additional Past Surgical History / Comment(s): Brain stimulator, coronary PTCA about 30 yrs ago at [facility], dental surgery, benign mass removed from chest, left leg fracture w/ surgery/hardware, EGD, colonoscopy, lumbar epidurals Past Anesthesia/Blood Transfusion Reactions: No Reported Reaction Past Psychological History: Bipolar, Depression, Panic Disorder Smoking Status: Current every day smoker Past Alcohol Use History: None Reported Past Drug Use History: None Reported - Past Family History Father Family Medical History: Coronary Artery Disease (CAD), Diabetes Mellitus Sister(s) Family Medical History: Diabetes Mellitus Mother Family Medical History: Dementia General Exam Limitations: no limitations General appearance: alert, in no apparent distress GI/Abdominal exam: Present: soft. Absent: distended, tenderness, guarding, rebound, rigid, mass exam: Present: normal inspection, other (There is an indwelling Bhagat catheter) Skin exam: Present: warm, dry, intact, normal color. Absent: rash Course Vital Signs 07/27/20 21:47 Temperature 98.2 F Pulse Rate 95 Respiratory 18 Rate Blood Pressure 112/75 O2 Sat by Pulse 100 Oximetry Medical Decision Making - Medical Decision Making The patient is 64-year-old man presenting with complaints of penile pain related to Bhagat catheter. Prior to my entering the room, nurses had evaluated him and found that the catheter had been tractioning against the urethra, as it had not been secured by the device attached to the patient's leg. The classified come open and therefore the catheter had come free and was tractioning against the urethra. When these catheter was secured to the patient's leg the symptoms did resolve. The patient does continue to have clear yellow urine output. He is now without complaints and would like to go. Discussed appropriate further care and follow-up. Disposition Clinical Impression: Bhagat catheter problem Disposition: HOME SELF-CARE Condition: Good Instructions (If sedation given, give patient instructions): Bhagat Catheter Placement and Care (ED) Is patient prescribed a controlled substance at d/c from ED?: No Referrals: Denny Ram MD [Primary Care Provider] - 1-2 days
== END 2020-07-27 22:50 | disposition home or self-care (01) ==
LOC: EC 21:34
DX: T83.84XA Pain due to genitourinary prosthetic devices, implants and grafts, initial encounter (principal); E11.22 Type 2 diabetes mellitus with diabetic chronic kidney disease; E78.5 Hyperlipidemia, unspecified; F17.200 Nicotine dependence, unspecified, uncomplicated; I12.9 Hypertensive chronic kidney disease with stage 1 through stage 4 chronic kidney disease, or unspecified chronic kidney disease; I25.10 Atherosclerotic heart disease of native coronary artery without angina pectoris; J44.9 Chronic obstructive pulmonary disease, unspecified; K21.9 Gastro-esophageal reflux disease without esophagitis; N18.30 Chronic kidney disease, stage 3 unspecified; F32.9 Major depressive disorder, single episode, unspecified
CPT/HCPCS: 99282